=== PATIENT | female | born 1960 | race Caucasian/White ===

== ENCOUNTER 2020-04-29 08:45 | Outpatient (REF) | payer OTHER, SELFPAY ==
[2020-04-29 11:19] LABS: Blood Urea Nitrogen 12 mg/dL (9-16); Estimated Glomerular Filt Rate > 60
== END 2020-04-29 08:46 | disposition home or self-care (01) ==
LOC: HO.LAB 08:45
PROVIDERS: PCP Internal Medicine; Referring Provider Hospitalist; Visit Provider Surgery
DX: R10.33 Periumbilical pain (principal); Z87.19 Personal history of other diseases of the digestive system
CPT/HCPCS: 82565; 84520; 99212

== ENCOUNTER → 2020-08-02 13:28 | Outpatient (BNVA) | payer OTHER, SELFPAY | PROVIDERS: PCP Internal Medicine; Visit Provider Hospitalist | DX: R00.0 Tachycardia, unspecified (principal); R06.00 Dyspnea, unspecified; U07.1 COVID-19; J12.82 Pneumonia due to coronavirus disease 2019; M79.89 Other specified soft tissue disorders | CPT/HCPCS: 99202 ==

== ENCOUNTER 2020-08-03 09:13 | Outpatient (REF) | payer OTHER, SELFPAY ==
--- NOTE | 2020-08-03 09:39 | XR_ITS ---
EXAMINATION: XR CHEST CLINICAL INFORMATION: Positive Covid 19. Chest pain. COMPARISON: None TECHNIQUE: 2 views of the chest were obtained. FINDINGS: Lungs are well-expanded but clear. Heart size and pulmonary vascularity is normal. No gross bony abnormality seen. XR/XR chest 2V IMPRESSION: Unremarkable chest exam
[2020-08-03 09:46] LABS: MANUAL DIFF FLAG NO
[2020-08-03 09:53] LABS: Basophils Absolute Auto 0.1 X10*3/uL (0.0-0.2); Basophils Percent Auto 1.3 % (0-2); Eosinophils Absolute Auto 0.2 X10*3/uL (0.0-0.4); Eosinophils Percent Auto 2.4 % (0-4); Hematocrit 42.5 % (37-47); Hemoglobin 13.6 g/dl (12.0-16.0); Imm Gran Abs Auto 0.01 X10*3/uL (0.00-0.03); Imm Gran Pct Auto 0.2 % (0.0-0.4); Lymphocytes Absolute Auto 2.2 X10*3/uL (1.2-4.9); Mean Corpuscular Hemoglobin 28.8 pg (27.0-33.0); Mean Corpuscular Volume 89.9 fL (80-98); Mean Platelet Volume 8.6 fL (9.4-12.3); Monocytes Absolute Auto 0.4 X10*3/uL (0.1-1.2); Monocytes Percent Auto 5.5 % (2-11); Neutrophils Absolute Auto 3.6 X10*3/uL (2.0-8.3); Neutrophils Percent Auto 56.6 % (45-73); Platelet Count 329 X10*3/uL (160-400); Red Blood Count 4.73 X10*6/uL (4.20-5.50); Red Cell Distribution Width 12.8 % (11.0-16.0); White Blood Count 6.3 X10*3/uL (4.8-10.8)
[2020-08-03 10:11] LABS: D Dimer 224 NG/ML
[2020-08-03 10:24] LABS: Anion Gap 13 (12-20); B Type Natriuretic Peptide < 10 pg/mL (<100); Blood Urea Nitrogen 11 mg/dL (9-16); Calcium 9.5 mg/dL (8.4-10.2); Carbon Dioxide 27 mmol/L (22-29); Chloride 106 mmol/L (96-108); Estimated Glomerular Filt Rate > 60; Glucose Random 99 mg/dL (60-115); Potassium 4.3 mmol/L (3.3-5.1); Sodium 142 mmol/L (135-145); Troponin-I High Sensitivity < 3.5 ng/L (<3.5-17.0)
[2020-08-03 11:08] LABS: Erythrocyte Sedimentation Rate 13 MM/HR (0-20)
[2020-08-04 08:39] LABS: SARS COV2 IgG Positive (Negative)
== END 2020-08-03 09:14 | disposition home or self-care (01) ==
LOC: HO.LAB 09:13
PROVIDERS: PCP Internal Medicine; Visit Provider Hospitalist
DX: U07.1 COVID-19 (principal); J12.82 Pneumonia due to coronavirus disease 2019; R07.9 Chest pain, unspecified; R06.00 Dyspnea, unspecified; R00.0 Tachycardia, unspecified
CPT/HCPCS: 36415; 71046; 80048; 83880; 84484; 85025; 85379; 85652; 86769

== ENCOUNTER 2020-09-20 13:39 | Outpatient (REF) | payer OTHER, SELFPAY ==
--- NOTE | 2020-09-20 16:14 | PFT_ITS ---
INDICATION: COVID pneumonia. SPIROMETRY: The FEV1 to FVC of 99% with an FEV1 of 2.22 L, which is 86% predicted and an FVC of 2.26 L, which is 68% predicted. No significant response to bronchodilators noted. Maximum voluntary ventilation 110% predicted. LUNG VOLUMES: Total lung capacity 79% predicted with an expiratory reserve volume of 27% predicted. DIFFUSION CAPACITY: DLCO 77% predicted. COMPARISONS: None. INTERPRETATION: No obstructive ventilatory defect. No significant response to bronchodilators noted. Normal maximum voluntary ventilation. Lung volumes do demonstrate a mild restrictive ventilatory defect. She also has a decrease in the expiratory reserve volume likely from an elevated BMI. The patient also has mild diffusion impairment. Clinical correlation warranted. Miguel Magana MD MR/MODL / [id number]
== END 2020-09-20 13:40 | disposition home or self-care (01) ==
LOC: HO.RESP 13:39
PROVIDERS: PCP Internal Medicine; Visit Provider Hospitalist
DX: U07.1 COVID-19 (principal); J12.82 Pneumonia due to coronavirus disease 2019
CPT/HCPCS: 94060; 94727; 94729; 99212

== ENCOUNTER → 2020-10-04 09:13 | Outpatient (REF) | payer OTHER, SELFPAY ==
--- NOTE | 2020-10-04 09:15 | CA_ITS ---
Transthoracic Echocardiogram Patient (Last, First, Middle): Navya Gunter, Gender: Female Date of : 1960 Age: 59 Procedure Date: 10/04/2020 Procedure Type: Transthoracic Echocardiogram Location: OP Height: 162.56 cm Weight: 90.72 kg BSA: 1.96 m2 Heart Rate: bpm BP: 136 / 80 mmHg Otolaryngology Rep: Referring MD: Miguel Magana MD Offset Pressman: Rowdy Jimenez MD Symptoms: I27.20 - Pulmonary hypertension, unspecified Study Quality: Good ECG Rhythm: Sinus Conclusions: - 1. Normal LV systolic function with impaired relaxation filling pattern 2. Mild left atrial enlargement 3. Normal cardiac valvular Doppler 4. Normal RV systolic pressure 5. No pericardial effusion Findings Left Ventricle Normal left ventricular size, thickness, and systolic function. The visually estimated ejection fraction is between 60-65%. Spectral Doppler is indicative of an impaired relaxation filling pattern. E/E prime ratio is between 8 and 15 consistent with indeterminate filling pressures. Right Ventricle Normal right ventricular cavity size and systolic function. Atria The left atrium is mildly dilated. Interatrial shunt cannot be excluded. The right atrium is normal in size. Aortic Valve The aortic valve structure and function is likely normal. There is no aortic valve stenosis. There is no aortic valve regurgitation. Gradient across aortic valve is mildly increased Mitral Valve Normal mitral valve structure and function. There is trace mitral valve regurgitation. There is no mitral valve stenosis. Pulmonic Valve The pulmonic valve is likely normal. There is trace pulmonic valve regurgitation. Tricuspid Valve Normal tricuspid valve structure. The right ventricular systolic pressure is normal. The right ventricular systolic pressure is 29 mmHg. Normal right atrial pressure. There is no evidence of pulmonary hypertension. Great Vessels All visible segments of the aorta are normal in size. The pulmonary artery was not well visualized. Venous The inferior vena cava is normal in size and collapses greater than 50% with inspiration. Pericardium/Pleural There is no evidence of pericardial effusion. Prior Study Comparison No prior study available for comparison. Measurements 2D Linear Measurements IVSd: 1.05 0.6-0.9/0.6-1.0 cm LVIDd: 4.97 3.9-5.3/4.2-5.9 cm LVIDs: 3.00 2.0-3.6 cm LVPWd: 1.12 0.7-1.1 cm Ao Root: 3.26 2.1-3.5 cm LV Mass: 251.08 67-162/88-224 g LVOT Diam: 2.07 3.0+(-)1.3 cm Mitral Valve MV Pk E: 0.97 MV PK A: 0.99 MV Decel Time: 126.89 E/A: 0.97 E'Lateral: 0.07 E'Medial: 0.10 Decel Winn: 7.63 Aortic Valve AoV Pk Luis Alberto: 1.68 AoV Mn Luis Alberto: 1.32 AoV VTI: 0.45 AoV Pk Grad: 11.26 Aov Mn Grad: 7.71 LVOT LVOT Pk Luis Alberto: 0.87 LVOT Mn Luis Alberto: 0.57 LVOT VTI: 0.22 LVOT Pk Grad: 3.00 LVOT Mn Grad: 1.53 LVOT Diam: 2.07 LVOT Area: 3.38 Diastolic Function MV Pk E: 0.97 MV Pk A: 0.99 E/A: 0.97 E'Medial: 0.10 E' Laterial: 0.07 Tricuspid Valve TR Pk Luis Alberto: 2.55 TR Pk Grad: 26.00 RA Press: 3.00 RVSP: 29.00 Great Vessels Aorta Ao Root-2D: 3.26 2.0-3.7 cm Ao Asc: 3.05 2.1-3.4 cm Pulmonary Valve PV Pk Luis Alberto: 1.05 Peak PV Grad: 4.38 Updated in Other Vendor System with Status of Final Rowdy Jimenez MD electronically signed on 10/04/2020 12:21:35 PM with status of Final
== END ==
LOC: HO.CARD 09:13
PROVIDERS: Visit Provider Hospitalist
DX: I27.20 Pulmonary hypertension, unspecified (principal)
CPT/HCPCS: 93306

== ENCOUNTER → 2020-10-25 12:54 | Outpatient (BNVA) | payer OTHER, SELFPAY | PROVIDERS: PCP Internal Medicine; Visit Provider Hospitalist | DX: B94.8 Sequelae of other specified infectious and parasitic diseases (principal); M79.89 Other specified soft tissue disorders; R06.00 Dyspnea, unspecified; I51.89 Other ill-defined heart diseases; Z79.899 Other long term (current) drug therapy | CPT/HCPCS: 99212 ==

== ENCOUNTER → 2021-04-25 12:41 | Outpatient (BNVA) | payer OTHER, SELFPAY | PROVIDERS: PCP Internal Medicine; Visit Provider Hospitalist | DX: B94.8 Sequelae of other specified infectious and parasitic diseases (principal); J98.4 Other disorders of lung; R06.00 Dyspnea, unspecified; I51.89 Other ill-defined heart diseases; M79.89 Other specified soft tissue disorders; R00.0 Tachycardia, unspecified | CPT/HCPCS: 99212 ==

== ENCOUNTER → 2021-06-13 13:05 | Outpatient (BNVA) | payer OTHER, SELFPAY | PROVIDERS: PCP Registered Nurse; Visit Provider Hospitalist ==

== ENCOUNTER → 2022-07-24 13:48 | Outpatient (BNVA) | payer OTHER, SELFPAY | PROVIDERS: PCP Registered Nurse; Visit Provider Hospitalist | DX: J40 Bronchitis, not specified as acute or chronic (principal); J98.4 Other disorders of lung; R06.00 Dyspnea, unspecified; B94.8 Sequelae of other specified infectious and parasitic diseases; I51.89 Other ill-defined heart diseases | CPT/HCPCS: 99212 ==

== ENCOUNTER 2022-08-10 07:50 | Outpatient (REF) | payer OTHER, SELFPAY ==
--- NOTE | 2022-08-10 09:11 | PFT_ITS ---
Forced vital capacity 78%, FEV1 89%. [id number] 126%. MVV 89%. Post bronchodilator therapy, no improvement noted. Rather, there is some decline in all the numbers. Total lung capacity 79%. Residual volume 72%. Diffusion capacity 74% CONCLUSION: There is a mild degree of restrictive pulmonary disorder. No obstructive airway disorder. The patient has a negative response to bronchodilator therapy. Clinical correlation recommended. MD MIRNA Smith/PATEL / [id number]
== END 2022-08-10 07:51 | disposition home or self-care (01) ==
LOC: HO.RESP 07:50
PROVIDERS: PCP Registered Nurse; Visit Provider Hospitalist
DX: R06.00 Dyspnea, unspecified (principal); J98.4 Other disorders of lung
CPT/HCPCS: 94060; 94727; 94729

== ENCOUNTER 2022-12-20 09:19 | Outpatient (REF) | payer OTHER, SELFPAY | END 2022-12-20 09:20 | disposition home or self-care (01) | LOC: HO.HOSX 09:19 | PROVIDERS: Visit Provider Physician Assistant | DX: M17.11 Unilateral primary osteoarthritis, right knee (principal) | CPT/HCPCS: 99202 ==

== ENCOUNTER → 2022-12-25 13:41 | Outpatient (BNVA) | payer OTHER, SELFPAY | PROVIDERS: PCP Registered Nurse; Visit Provider Hospitalist | DX: J98.4 Other disorders of lung (principal); U09.9 Post COVID-19 condition, unspecified; R06.00 Dyspnea, unspecified; I51.89 Other ill-defined heart diseases | CPT/HCPCS: 99212 ==

== ENCOUNTER → 2022-12-27 10:23 | Outpatient (BNVA) | payer OTHER, SELFPAY | PROVIDERS: PCP Registered Nurse; Visit Provider Orthopaedic Surgery | DX: M17.11 Unilateral primary osteoarthritis, right knee (principal); M79.89 Other specified soft tissue disorders | CPT/HCPCS: 20610; 99212; J7323 ==

== ENCOUNTER → 2023-01-03 10:21 | Outpatient (BNVA) | payer OTHER, SELFPAY | PROVIDERS: PCP Registered Nurse; Visit Provider Orthopaedic Surgery | DX: M17.11 Unilateral primary osteoarthritis, right knee (principal) | CPT/HCPCS: 20610; 99212; J7323 ==

== ENCOUNTER 2023-01-10 10:13 | Outpatient (AMB) | payer OTHER, SELFPAY ==
--- NOTE | 2023-01-10 10:22 | MHC.OFFVIS ---
Intake Vital Signs 01/10/23 10:30 Height 5 ft 4 in Weight 194 lb BMI 33.3 Intake Visit Reasons: OV - Right Knee Euflexxa #3 Intake Note: Navya is a 62 year old female who presents today for a right knee euflexxa injection #3. She states that she has gotten mild relief from the 1st 2 injections. She denies any fevers or chills. Allergies codine Allergy (Severe, Uncoded 01/10/23 10:30) redness and itching penicillin Allergy (Severe, Uncoded 01/10/23 10:30) anaphylaxis soma Allergy (Severe, Uncoded 01/10/23 10:30) nausea and vomiting Medication List - Last Reconciled 01/10/23 by Michael Dickerson MD amlodipine 10 mg PO DAILY ascorbic acid (vitamin C) 1 g PO Q6H cholecalciferol (vitamin D3) 250 mcg PO DAILY elderberry fruit-honey 0.7-3 gram/7.5 mL mL PO DAILY furosemide (Lasix) 10 mg PO DAILY PRN metoprolol succinate ER 25 mg PO DAILY pantoprazole 20 mg PO DAILY red yeast rice 600 mg PO DAILY turmeric root extract 500 mg PO DAILY PFSH Medical History Chronic restrictive lung disease Diastolic dysfunction Dyspnea GERD (gastroesophageal reflux disease) HTN (hypertension) Limb swelling Obesity Pneumonia due to COVID-19 virus 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 Daughter No problems noted. Son No problems noted. Son No problems noted. 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 Physical Exam Vital Signs: BMI result Body Mass Index 33.3 Const Other: Well-nourished well-developed very friendly female awake alert and oriented x3 in no acute distress Extrem Other: Bilateral lower extremity examination shows good capillary refill, no skin lesions noted, normal sensation light touch Right knee examination shows a minimal effusion, palpable crepitus with range of motion, pain with range of motion, range of motion from -3 degrees to 115 degrees, no instability Office Procedures Joint Injection/Drain Joint Injection/Drain Primary Site: right knee Prep: site was prepped using aseptic technique Injected: 20 mg of (Euflexxa) Procedure: The patient tolerated the procedure well Coding - Large joint Procedure code (CPT) selection complete Results Reviewed Results Reviewed: 01/10/23 10:24 Hyaluronate Sodium [Euflexxa] 20 mg INTRAARTIC .STK-MED ONE Lidocaine HCl 2 % MPF [Xylocaine 2 % MPF] 5 ml .ROUTE .STK-MED ONE X-rays of the patient's right knee show joint space narrowing, subchondral sclerosis, no acute bony abnormalities Assessment & Plan Assessment & Plan (1) Arthritis of right knee: Code(s): M17.11 - Unilateral primary osteoarthritis, right knee Plan: Ms. Gunter presents with right knee pain due to degenerative joint disease. I had a lengthy discussion with the patient regarding the treatment options. She wishes to hold off on surgery for as long as possible. I agree with this plan. She tolerated the 3rd Euflexxa viscosupplementation injection well. She will continue with her home exercise program. She will follow up with me on an as-needed basis should her symptoms not plateau at an acceptable level over the next few months. If she fails continued non operative treatments we will further discuss the risks and benefits of right total knee replacement surgery. Feel free to call me at any time should questions regarding her orthopedic management arise. I spent 21 minutes in reviewing the patient's records and imaging studies, seeing the patient and documenting in the medical record. Orders: Orders AMB Joint Injection/Aspiration Today M17.11 - Unilateral primary osteoarthritis, right knee Coding Level of Care Code Est Pt Level 2 (10997) Diagnoses Arthritis of right knee M17.11 CPT Codes Coding - Large joint: 13689 - Large joint ([id number])
[2023-01-10 10:30] VITALS: BMI 33.3
== END 2023-01-10 10:51 | disposition home or self-care (01) ==
PROVIDERS: PCP Registered Nurse; Visit Provider Orthopaedic Surgery
DX: M17.11 Unilateral primary osteoarthritis, right knee (principal)
CPT/HCPCS: 20610

== ENCOUNTER → 2023-01-10 10:13 | Outpatient (BNVA) | payer OTHER, SELFPAY | PROVIDERS: PCP Registered Nurse; Visit Provider Orthopaedic Surgery | DX: M17.11 Unilateral primary osteoarthritis, right knee (principal) | CPT/HCPCS: 20610; J7323 ==

== ENCOUNTER 2023-03-12 13:11 | Outpatient (AMB) | payer OTHER, SELFPAY ==
[2023-03-12 13:13] VITALS: BMI 33.3
--- NOTE | 2023-03-12 13:13 | A.OFFVIS_ITS ---
Intake Vital Signs 03/12/23 13:13 Height 5 ft 4 in Weight 194 lb BMI 33.3 Intake Visit Reasons: [employer]ER [employer]YR[employer]ACHINE/Re-Ref for lymphedema,last seen 2018 Intake Note: Re-Ref for LE swelling, last OV 04/24/2018, Pt states that LE swelling has worsened over the last year, Dr. Negrete process eng started pt on Lasix and Dr. Maradiaga states that it's lymphedema and should be evaluated by Dr. Davis. Had recent R/O DVT US @ [facility] that came back negative Accompanied by: Self / Same As Patient Allergies codine Allergy (Severe, Uncoded 03/12/23 13:22) redness and itching penicillin Allergy (Severe, Uncoded 03/12/23 13:22) anaphylaxis soma Allergy (Severe, Uncoded 03/12/23 13:22) nausea and vomiting HPI [employer]ACHINE/Re-Ref for lymphedema,last seen 2018 HPI Details Very pleasant 62-year-old female presents for evaluation regarding swollen lower extremities. She is actually not well known to us for prior venous ablation done nearly 5 years ago. She had been doing well since that time and her last follow-up with us was on 04/24/2018. She had since that time has progressively swollen lower extremities. They have been a source of pain and discomfort for her. In addition she has had pain in the right lung in knee and leg and is going to be following up with orthopedics regarding that. 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 Daughter No problems noted. Son No problems noted. Son No problems noted. 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 Review of Systems Const Reports as per HPI ENT Reports no additional complaints Card Denies chest pain, Denies chest pain at rest and Denies chest pain with activity Resp Denies chest congestion and Denies cough GI Reports no additional complaints Musc Details: pain over varicosities, aching of lower extremities, swelling, cramping, heaviness and tiredness, itching Denies abnormal gait Skin/Breast Reports pruritus and Denies wounds Neuro Reports no additional complaints and Denies abnormal gait Psych Denies no additional complaints Physical Exam Vital Signs: BMI result Body Mass Index 33.3 Const General: cooperative, healthy appearing and comfortable Orientation/consciousness: oriented to person, oriented to place and oriented to time Neck Carotids: no bruits Chest Chest palpation & inspection: normal inspection of the chest and normal palpation of entire chest wall Resp Effort & Inspection: normal respiratory effort and able to speak in complete sentences Cardio Rate: regular rate Heart sounds: S1 normal heart sound present and S2 normal heart sound present Peripheral pulses: Peripheral pulses 2+ throughout GI Inspection: Yes normal to inspection Skin Other: +2 edema, large rope-like varicosities greater than 4 mm CEAP Classification C4 - skin color changes Ep - Etiology Primary As - superficial veins P - reflux General skin exam: dry skin Neuro General: oriented to person, oriented to place and oriented to time Extrem Right lower extremity: full ROM, normal capillary refill and edema Left lower extremity: full ROM, normal capillary refill and edema Psych Mental Status: mental status grossly normal Assessment & Plan Assessment & Plan (1) Varicose veins of right lower extremity with inflammation: Code(s): I83.11 - Varicose veins of right lower extremity with inflammation Plan: It has been nearly 5 years since any venous assessment was done on this patient. She continues to have progressively swollen lower extremities. I have taken the liberty of ordering repeat venous insufficiency testing. We did discuss conservative measures including compression elevation and exercise. She will follow up with us after testing (2) Lymphedema: Code(s): I89.0 - Lymphedema, not elsewhere classified Plan: Clinically she does demonstrate elements of lymphedema. I have taken the liberty of working up her venous disease. Should that prove to be negative may be eligible for lymphedema pumps. We will continue to monitor her status. We did encourage use of compression to see if that will provide any sort of relief. Once again she will follow up with us after venous insufficiency testing. Thank you for allowing us to assist in her care Orders: Orders US venous duplex LE BI 1 Week I83.11 - Varicose veins of right lower extremity with inflammation Coding Level of Care Code Est Pt Level 4 (65537) Diagnoses Varicose veins of right lower extremity with inflammation I83.11 Lymphedema I89.0
== END 2023-03-12 13:46 | disposition home or self-care (01) ==
PROVIDERS: PCP Registered Nurse; Visit Provider Surgery Vascular Surgery
DX: I83.11 Varicose veins of right lower extremity with inflammation (principal); I89.0 Lymphedema, not elsewhere classified
CPT/HCPCS: 99214

== ENCOUNTER → 2023-03-12 13:11 | Outpatient (BNVA) | payer OTHER, SELFPAY | PROVIDERS: PCP Registered Nurse; Visit Provider Surgery Vascular Surgery | DX: I83.11 Varicose veins of right lower extremity with inflammation (principal); I89.0 Lymphedema, not elsewhere classified | CPT/HCPCS: 99212 ==

== ENCOUNTER 2023-03-26 14:19 | Outpatient (AMB) | payer OTHER, SELFPAY ==
[2023-03-26 14:21] VITALS: BMI 33.3
--- NOTE | 2023-03-26 14:21 | A.OFFVIS_ITS ---
Intake Vital Signs 03/26/23 14:21 Height 5 ft 4 in Weight 194 lb BMI 33.3 Intake Visit Reasons: ov - Right Knee pain Intake Note: Navya is a 62 year old female who presents today for a follow up of her right knee after finishing her Euflexxa series. Last Euflexxa injection was administered on 01/10/23. Patient reports that she has not had much relief. She continues to take Tylenol for discomfort. She denies any fevers or chills. She continues with her home exercise program. She has done physical therapy exercises which aggravated her pain. She would like to hold off on total knee replacement surgery for as long as possible. Allergies codine Allergy (Severe, Uncoded 03/26/23 14:25) redness and itching penicillin Allergy (Severe, Uncoded 03/26/23 14:25) anaphylaxis soma Allergy (Severe, Uncoded 03/26/23 14:25) nausea and vomiting Medication List - Last Reconciled 03/26/23 by Michael Dickerson MD amlodipine 10 mg PO DAILY ascorbic acid (vitamin C) 1 g PO Q6H cholecalciferol (vitamin D3) 250 mcg PO DAILY elderberry fruit-honey 0.7-3 gram/7.5 mL mL PO DAILY furosemide (Lasix) 10 mg PO DAILY PRN metoprolol succinate ER 25 mg PO DAILY pantoprazole 20 mg PO DAILY red yeast rice 600 mg PO DAILY turmeric root extract 500 mg PO DAILY PFSH Medical History Chronic restrictive lung disease Diastolic dysfunction 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 Daughter No problems noted. Son No problems noted. Son No problems noted. 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 Physical Exam Vital Signs: BMI result Body Mass Index 33.3 Const Other: Well-nourished well-developed very friendly female awake alert and oriented x3 in no acute distress Extrem Other: Bilateral lower extremity examination shows good capillary refill, no skin lesions noted, normal sensation light touch Right knee examination shows a minimal effusion, palpable crepitus with motion, pain with range of motion, range of motion from -3 degrees to 115 degrees, no instability Results Reviewed Results Reviewed: X-rays of the patient's right knee taken previously show joint space narrowing, subchondral sclerosis, no acute bony abnormalities Assessment & Plan Assessment & Plan (1) Arthritis of right knee: Code(s): M17.11 - Unilateral primary osteoarthritis, right knee Plan: Ms. Gunter presents with right knee pain due to degenerative joint disease. I had a lengthy discussion with the patient regarding the treatment options. We will hold off on a cortisone injection because of her recent viscosupplementation injections. Activity modifications were discussed at length with the patient. She will contact me prior to her follow-up appointment in 4-6 weeks should any questions or concerns arise. Feel free to call me at any time should questions regarding her orthopedic management arise. I spent 22 minutes in reviewing the patient's records and imaging studies, seeing the patient and documenting in the medical record. Coding Level of Care Code Est Pt Level 2 (49874) Diagnoses Arthritis of right knee M17.11
== END 2023-03-26 14:38 | disposition home or self-care (01) ==
PROVIDERS: PCP Registered Nurse; Visit Provider Orthopaedic Surgery
DX: M17.11 Unilateral primary osteoarthritis, right knee (principal)
CPT/HCPCS: 99212

== ENCOUNTER → 2023-03-26 14:19 | Outpatient (BNVA) | payer OTHER, SELFPAY | PROVIDERS: PCP Registered Nurse; Visit Provider Orthopaedic Surgery | DX: M17.11 Unilateral primary osteoarthritis, right knee (principal); M25.561 Pain in right knee; I83.11 Varicose veins of right lower extremity with inflammation | CPT/HCPCS: 99212 ==

== ENCOUNTER 2023-03-29 08:21 | Outpatient (REF) | payer OTHER, SELFPAY ==
--- NOTE | ~2023-03-29 | US_ITS ---
EXAMINATION: RIGHT and LEFT LOWER EXTREMITY VENOUS ULTRASOUND (Reflux Exam) CLINICAL INDICATION: Varicose veins of right lower extremity with inflammation COMPARISON: None. TECHNIQUE: Color flow triplex imaging and compression Doppler was performed to evaluate both the deep and the superficial systems bilaterally. To evaluate the superficial system, the examination was performed in the upright position. Color-flow Doppler ultrasound and compression ultrasound were utilized. In addition, maneuvers were utilized to demonstrate reflux. FINDINGS: 1. DEEP VENOUS ULTRASOUND OF THE RIGHT LOWER EXTREMITY: Respiratory variation, normal compression and augmented flow are noted in the right common femoral vein as well as the right popliteal vein and there is no evidence of deep venous thrombosis at these locations. There is no evidence of reflux in the deep system in either the common femoral vein or the popliteal vein. There is no evidence of a Biggs's cyst. 2. SUPERFICIAL ULTRASOUND WITH DOPPLER OF RIGHT LOWER EXTREMITY: The right great saphenous vein at the saphenofemoral junction measures 10 mm, at the mid thigh 7 mm, [id number] 4 mm, at mid calf 2 mm and at the ankle measures 3 mm. The right greater saphenous vein above the knee and at the knee is not seen. There is reflux in the right greater saphenous vein measuring 1.2 seconds at the saphenofemoral junction, greater than 2.2 seconds in the proximal thigh and 1 seconds in the mid calf. There is an accessory medial greater saphenous vein that measures 4 mm with no reflux. The right small saphenous vein measures 2 to 3 mm and 5 mm at the saphenofemoral popliteal junction and shows no reflux. Vein of Giacomini measures 5 mm with no reflux. There are 4 perforators in the calf measuring 2 to 7 mm with no reflux. There are multiple, at least 7, varicosities. There is a 5 mm varicosity communicating with the distal lesser saphenous vein with 0.8 second reflux. There is a varicosity in the mid calf measuring 4 mm with 1.2 seconds reflux and measuring 6 mm with 1.4 seconds reflux. 3. DEEP VENOUS ULTRASOUND OF THE LEFT LOWER EXTREMITY: Respiratory variation, normal compression and augmented flow are noted in the left common femoral vein as well as the left popliteal vein and there is no evidence of deep venous thrombosis at these locations. There is no evidence of reflux in the deep system in either the common femoral vein or the popliteal vein. . There is no evidence of a Biggs's cyst. 4. SUPERFICIAL ULTRASOUND WITH DOPPLER OF LEFT LOWER EXTREMITY: Left great saphenous vein at the saphenofemoral junction measures 1 mm, at the proximal thigh 8 mm, not seen in the mid thigh, [id number] 2 mm, [id number] 3 mm, at mid calf 2 mm and at the ankle measures 3 mm. There is left greater saphenous vein reflux measuring 1.4 seconds at the saphenofemoral junction, greater than 2.5 second in the proximal thigh and greater than 2.7 seconds below the knee. The left small saphenous vein measures 2-3 mm and 4 mm at the saphenofemoral popliteal junction and shows no reflux. There are multiple, at least 6, perforators in the thigh and calf measuring 2 to 5 mm without reflux. There are 3 varicosities in the left thigh and calf. There is a 5 mm varicosity in the proximal thigh that measures 5 mm and demonstrates greater than 2.1 seconds reflux. There are smaller varicosities in the calf measuring 3 to 4 mm without reflux. US/US venous duplex LE BI IMPRESSION: Right: No DVT. No deep venous reflux. Right greater saphenous vein above the knee and at the knee not seen. Right greater saphenous vein reflux measuring maximum greater than 2.2 seconds in the proximal thigh. Multiple perforators without reflux. Multiple varicosities, at least 7, 3 with reflux in the calf. Left: No DVT. No deep venous reflux. Left greater saphenous vein in the mid thigh not seen. Left greater saphenous vein reflux measuring maximum 2.5 seconds in the proximal thigh. Multiple perforators, at least 6, without reflux. Varicosity in the proximal thigh with reflux.
== END 2023-03-29 08:22 | disposition home or self-care (01) ==
LOC: HO.US 08:21
PROVIDERS: PCP Registered Nurse; Visit Provider Surgery Vascular Surgery
DX: I83.11 Varicose veins of right lower extremity with inflammation (principal)
CPT/HCPCS: 93970

== ENCOUNTER 2023-04-23 14:54 | Outpatient (AMB) | payer OTHER, SELFPAY ==
--- NOTE | 2023-04-23 14:58 | A.OFFVIS_ITS ---
Intake Intake Visit Reasons: Follow UP 03/29 Intake Note: pt here for FU on 03/29/23 she has a hx of VV she states her legs are still filling tired and sore Allergies codine Allergy (Severe, Uncoded 03/26/23 14:25) redness and itching penicillin Allergy (Severe, Uncoded 03/26/23 14:25) anaphylaxis soma Allergy (Severe, Uncoded 03/26/23 14:25) nausea and vomiting HPI Follow UP 03/29 HPI Details Very pleasant 62-year-old female presents for follow-up regarding venous insufficiency. She originally had venous procedures performed nearly 5 years ago in bilateral lower extremities. She continues to have swelling right more so than left. She has used compression and actually Boom presented to the office with compression stockings on. It has been affecting her daily activities and she is having difficulty ambulating. She now presents to us for follow-up. 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 Daughter No problems noted. Son No problems noted. Son No problems noted. 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 Review of Systems Const Reports as per HPI ENT Reports no additional complaints Card Denies chest pain, Denies chest pain at rest and Denies chest pain with activity Resp Denies chest congestion and Denies cough GI Reports no additional complaints Musc Details: pain over varicosities, aching of lower extremities, swelling, cramping, heaviness and tiredness, itching Denies abnormal gait Skin/Breast Reports pruritus and Denies wounds Neuro Reports no additional complaints and Denies abnormal gait Psych Denies no additional complaints Physical Exam Const General: cooperative, healthy appearing and comfortable Orientation/consciousness: oriented to person, oriented to place and oriented to time Neck Carotids: no bruits Chest Chest palpation & inspection: normal inspection of the chest and normal palpation of entire chest wall Resp Effort & Inspection: normal respiratory effort and able to speak in complete sentences Cardio Rate: regular rate Heart sounds: S1 normal heart sound present and S2 normal heart sound present Peripheral pulses: Peripheral pulses 2+ throughout GI Inspection: Yes normal to inspection Skin Other: +2 edema, CEAP Classification C4 - skin color changes Ep - Etiology Primary As - superficial veins P - reflux General skin exam: dry skin Neuro General: oriented to person, oriented to place and oriented to time Extrem Right lower extremity: full ROM, normal capillary refill and edema Left lower extremity: full ROM, normal capillary refill and edema Psych Mental Status: mental status grossly normal Results Reviewed Results Reviewed: Brief summary of venous insufficiency testing is as follows: right great saphenous vein: Positive right small saphenous vein: negative right accessory vein: none present left great saphenous vein: Positive left small saphenous vein: negative left accessory vein: none present Please note there is no evidence of any venous aneurysms or significant tortuosity Assessment & Plan Assessment & Plan (1) Varicose veins of right lower extremity with inflammation: Code(s): I83.11 - Varicose veins of right lower extremity with inflammation Plan: This patient has varicose veins with inflammation. They continue to be a source of discomfort for the patient. The patient has tried conservative treatment with compression, leg elevation and exercise program for over 3 months time. They have been compliant with all treatment. This has provided minimal relief for the patient. I do not anticipate this course of treatment will alter the underlying etiology. The patient has been scheduled for lower extremity venous treatment inclusive of --- right great saphenous vein radiofrequency ablation. Risks, benefits, and complications of this procedure has been discussed in detail with the patient including but not limited to bleeding, infection, and the development of a DVT. The patient has demonstrated a clear understanding and has consented. We will schedule the patient as soon as possible. Thank you for allowing us to participate in this patient's care. If there are any questions or concerns please do not hesitate to contact us. Coding Level of Care Code Est Pt Level 4 (07989) Diagnoses Varicose veins of right lower extremity with inflammation I83.11
== END 2023-04-23 15:17 | disposition home or self-care (01) ==
PROVIDERS: PCP Registered Nurse; Visit Provider Surgery Vascular Surgery
DX: I83.11 Varicose veins of right lower extremity with inflammation (principal)
CPT/HCPCS: 99214

== ENCOUNTER → 2023-04-23 14:54 | Outpatient (BNVA) | payer OTHER, SELFPAY | PROVIDERS: PCP Registered Nurse; Visit Provider Surgery Vascular Surgery | DX: I83.11 Varicose veins of right lower extremity with inflammation (principal) | CPT/HCPCS: 99212 ==

== ENCOUNTER 2023-04-25 14:19 | Outpatient (AMB) | payer OTHER, SELFPAY ==
--- NOTE | 2023-04-25 14:39 | MHC.OFFVIS ---
Intake Intake Visit Reasons: ov - Right Knee pain Intake Note: This is a 62 year old female who presents for right knee pain. The patient describes her pain as sharp in nature. She has had cortisone injections in the past which gave her temporary relief. She has also had viscosupplementation injections which gave her good relief. She has tried Tylenol and anti-inflammatory medicines which gave her minimal relief. She has also done physical therapy which aggravated her pain. She wishes to hold off on right total knee replacement surgery for as long as possible. Allergies codine Allergy (Severe, Uncoded 04/25/23 14:42) redness and itching penicillin Allergy (Severe, Uncoded 04/25/23 14:42) anaphylaxis soma Allergy (Severe, Uncoded 04/25/23 14:42) nausea and vomiting Medication List - Last Reconciled 04/25/23 by Deysi Erazo RN amlodipine 10 mg PO DAILY ascorbic acid (vitamin C) 1 g PO Q6H cholecalciferol (vitamin D3) 250 mcg PO DAILY elderberry fruit-honey 0.7-3 gram/7.5 mL mL PO DAILY furosemide (Lasix) 10 mg PO DAILY PRN metoprolol succinate ER 25 mg PO DAILY pantoprazole 20 mg PO DAILY red yeast rice 600 mg PO DAILY turmeric root extract 500 mg PO DAILY PFSH Medical History Chronic restrictive lung disease Diastolic dysfunction [id number] syndrome Limb swelling Pneumonia due to COVID-19 virus Dyspnea Tachycardia HTN (hypertension) GERD (gastroesophageal reflux disease) Obesity Surgical History Hx of cataract surgery History of unilateral fallopian tube excision History of parotid gland removal Hx of umbilical hernia repair Family History Mother Leukemia Father Heart disease Hypertension Hyperlipidemia Diabetes Colitis Sister No problems noted. Daughter No problems noted. Son No problems noted. Son No problems noted. 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 Physical Exam Const Other: Well-nourished well-developed very friendly female awake alert and oriented x3 in no acute distress Extrem Other: Bilateral lower extremity examination shows good capillary refill, no skin lesions noted, normal sensation light touch Right knee examination shows a minimal effusion, palpable crepitus with range of motion, pain with range of motion, range of motion from -3 degrees to 115 degrees, no instability Office Procedures Joint Injection/Drain Joint Injection/Drain Primary Site: right knee Prep: site was prepped using aseptic technique Injected: 40 mg of, Kenalog and 1% plain lidocaine Procedure: The patient tolerated the procedure well Coding - Large joint Procedure code (CPT) selection complete Results Reviewed Results Reviewed: 04/25/23 14:45 Lidocaine HCl 2 % MPF [Xylocaine 2 % MPF] 5 ml .ROUTE .STK-MED ONE Triamcinolone Acetonide [Kenalog-40] 40 mg .ROUTE .STK-MED ONE X-rays of the patient's right knee show joint space narrowing, subchondral sclerosis, no acute bony abnormalities Assessment & Plan Assessment & Plan (1) Arthritis of right knee: Code(s): M17.11 - Unilateral primary osteoarthritis, right knee Plan: Ms. Gunter presents with right knee pain due to degenerative joint disease. I had a lengthy discussion with the patient regarding the treatment options. She wishes to hold off on right total knee replacement surgery for as long as possible. I agree with this plan. The risks and benefits of a right knee cortisone injection were discussed at length with the patient. The patient wished to proceed. She tolerated the injection well. She will continue with her home exercise program. If she does not get lasting relief from the cortisone injection therapy I will see whether not her insurance company will cover a viscosupplementation injection. Feel free to call me at any time should questions regarding her orthopedic management arise. I spent 22 minutes in reviewing the patient's records and imaging studies, seeing the patient and documenting in the medical record. Orders: Orders AMB Joint Injection/Aspiration 04/25/23 M17.11 - Unilateral primary osteoarthritis, right knee Coding Level of Care Code Est Pt Level 2 (49128) Diagnoses Arthritis of right knee M17.11 CPT Codes Coding - Large joint: 86128 - Large joint ([id number])
== END 2023-04-25 15:09 | disposition home or self-care (01) ==
PROVIDERS: PCP Registered Nurse; Visit Provider Orthopaedic Surgery
DX: M17.11 Unilateral primary osteoarthritis, right knee (principal)
CPT/HCPCS: 20610; 99213

== ENCOUNTER → 2023-04-25 14:19 | Outpatient (BNVA) | payer OTHER, SELFPAY | PROVIDERS: PCP Registered Nurse; Visit Provider Orthopaedic Surgery | DX: M17.11 Unilateral primary osteoarthritis, right knee (principal) | CPT/HCPCS: 20610; 99212; J3301 ==

== ENCOUNTER 2023-05-31 08:27 | Outpatient (AMB) | payer OTHER, SELFPAY ==
[2023-05-31 09:24] VITALS: BMI 33.3
--- NOTE | 2023-05-31 09:24 | MHC.OFFVIS ---
Intake Vital Signs 05/31/23 09:24 Height 5 ft 4 in Weight 194 lb BMI 33.3 Intake Visit Reasons: Right GSV RFA Allergies codine Allergy (Severe, Uncoded 05/31/23 09:42) redness and itching penicillin Allergy (Severe, Uncoded 05/31/23 09:42) anaphylaxis soma Allergy (Severe, Uncoded 05/31/23 09:42) nausea and vomiting PFSH Medical History Chronic restrictive lung disease Diastolic dysfunction [id number] syndrome Limb swelling Pneumonia due to COVID-19 virus Dyspnea Tachycardia HTN (hypertension) GERD (gastroesophageal reflux disease) Obesity Surgical History Hx of cataract surgery History of unilateral fallopian tube excision History of parotid gland removal Hx of umbilical hernia repair Family History Mother Leukemia Father Heart disease Hypertension Hyperlipidemia Diabetes Colitis Sister No problems noted. Daughter No problems noted. Son No problems noted. Son No problems noted. 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 Anesthesia: Local infiltration 5 cc, Tumescent 200 cc. Estimated Blood Loss: Minimal Specimen: Varicose veins The patient was transferred to the procedure suite and the insufficient saphenous vein was mapped by ultrasound and diagrammed on the overlying skin. The depth and diameter of the vein(s) to be treated was documented. The varicose tributary veins and suitable access sites were identified and mapped as well. The patient was then positioned supine on the procedure table. The affected limb was prepped and draped in the usual sterile fashion. The RF catheter was placed on the sterile field, flushed and wiped down, prepared, and connected by a sterile cable. The patient was placed in reverse- Trendelenburg position and local anesthesia was instilled in the skin overlying the access site. A skin incision was made overlying the identified and mapped great saphenous vein entry site. The vein was accessed using ultrasound guidance and the Seldinger technique, a guide wire was introduced through the needle, which was then exchanged over the guide wire for a 6F sheath, which was secured in place. The guide wire was removed and the sheath was flushed. The RF catheter was placed into the vein through the sheath and preferentially, imaging was used to place the catheter tip just inferior to the superficial epigastric vein to preserve normal physiological flow in that vein. Additionally, it was confirmed by ultrasound guidance that the catheter tip was also placed a minimum of 1.5cm distal to the saphenofemoral junction. After the RF catheter position was verified by ultrasound, tumescent anesthesia was infiltrated, under ultrasound guidance, precisely into the perivenous compartment along the entire length of vein from the entry site to the saphenofemoral junction until a halo of fluid was noted around the vein. The patient was then placed in Trendelenburg position to further exsanguinate the superficial venous system. After RF catheter position was again confirmed with ultrasound imaging, and under direct external compression along the length of the heating element, RF energy was applied. The vein was segmentally ablated by heating a 8 cm segment and then indexing the catheter forward by 6.5 cm until the treatment length is completed. Device temperature was maintained at 120 plus or minus 5 degrees C with an initial power level of 40W dropping to below 20W for each treatment. Total vein length treated 16 cm Total cycles of RF 4. Repeat ultrasound of the saphenous vein was performed, confirming successful treatment. The catheter and sheath were withdrawn and hemostasis established with direct pressure. After assuring hemostasis, the skin incision over the saphenous vein was closed with a bandage and a compression wrap, and/ or graduated compression stocking was applied from the level of the foot to the most proximal level of the thigh. 12841 - Endovenous RF, 1st Vein 64935 - RF Ablation, subsequent vein All charges added?: Procedure code (CPT) selection complete Assessment & Plan Assessment & Plan (1) Varicose veins of right lower extremity with inflammation: Code(s): I83.11 - Varicose veins of right lower extremity with inflammation Plan: See procedure note Coding Level of Care Code Procedure Only Diagnoses Varicose veins of right lower extremity with inflammation I83.11 CPT Codes Details - Vascular 1: 35623 - Endovenous RF, 1st Vein ([id number]) Details - Vascular 2: 79776 - RF Ablation, subsequent vein ([id number])
== END 2023-05-31 09:20 | disposition home or self-care (01) ==
PROVIDERS: PCP Registered Nurse; Visit Provider Surgery Vascular Surgery
DX: I83.11 Varicose veins of right lower extremity with inflammation (principal)
CPT/HCPCS: 36475; 36476

== ENCOUNTER → 2023-05-31 08:27 | Outpatient (BNVA) | payer OTHER, SELFPAY | PROVIDERS: PCP Registered Nurse; Visit Provider Surgery Vascular Surgery | DX: I83.11 Varicose veins of right lower extremity with inflammation (principal) | CPT/HCPCS: 36475; 36476 ==

== ENCOUNTER 2023-06-03 15:56 | Outpatient (REF) | payer OTHER, SELFPAY ==
--- NOTE | ~2023-06-03 | US_ITS ---
EXAMINATION: TRIPLEX SCANNING OF RIGHT LOWER EXTREMITY; SUPERFICIAL ULTRASOUND WITH DOPPLER OF RIGHT LOWER EXTREMITY CLINICAL INFORMATION: Status post RF ablation of the right great saphenous vein originally performed on 05/31/2023. COMPARISON: Preprocedure studies. TECHNIQUE: Color flow triplex imaging and compression Doppler were performed as well as superficial ultrasound with Doppler. FINDINGS: TRIPLEX SCANNING OF RIGHT LOWER EXTREMITY: Respiratory variation, normal compression and augmented flow are noted throughout the lower extremity. The visualized common femoral vein, femoral vein, profunda femoral vein, popliteal vein and the calf veins show no evidence of deep venous thrombosis. There is no evidence of Biggs's cyst. SUPERFICIAL ULTRASOUND WITH DOPPLER OF RIGHT LOWER EXTREMITY: The right great saphenous vein is occluded from the access site to 3.1 cm before the saphenofemoral junction. There is no extension of thrombus into the deep system. US/US venous duplex LE RT IMPRESSION: 1. Normal triplex scan of the right without evidence of deep venous thrombosis. 2. Excellent appearance status post ablation of the right great saphenous vein.
== END 2023-06-03 15:57 | disposition home or self-care (01) ==
LOC: HO.US 15:56
PROVIDERS: PCP Registered Nurse; Visit Provider Surgery Vascular Surgery
DX: M79.604 Pain in right leg (principal)
CPT/HCPCS: 93971

== ENCOUNTER 2023-06-13 09:52 | Outpatient (AMB) | payer OTHER, SELFPAY ==
[2023-06-13 10:00] VITALS: BMI 33.3
--- NOTE | 2023-06-13 10:00 | A.OFFVIS_ITS ---
Intake Vital Signs 06/13/23 10:00 Height 5 ft 4 in Weight 194 lb BMI 33.3 Intake Visit Reasons: 2 week follow up Right GSV RFA 05/31/23 Intake Note: 2 week follow up Right GSV RFA 05/31/2023nd Hx of bilateral venous procedures over 5 years ago as well. Pt states Right LE is starting to improve, she had swelling, heaviness and soreness before procedure. Pt states Left LE isn't to bad right now either. Accompanied by: Self / Same As Patient Allergies codine Allergy (Severe, Uncoded 06/13/23 10:07) redness and itching penicillin Allergy (Severe, Uncoded 06/13/23 10:07) anaphylaxis soma Allergy (Severe, Uncoded 06/13/23 10:07) nausea and vomiting HPI 2 week follow up Right GSV RFA 05/31/23 HPI Details Very pleasant 62-year-old female presents for follow-up evaluation status post right great saphenous vein radiofrequency ablation. She reports that the leg is doing better. She has decreased swelling and discomfort. She has some mild discomfort of the left lower extremity but nothing significant at the current time. She now presents for routine postprocedure follow-up. Of note postprocedure ultrasound was negative for DVT PFSH Medical History Chronic restrictive lung disease Diastolic dysfunction [id number] syndrome Limb swelling Pneumonia due to COVID-19 virus Dyspnea Tachycardia HTN (hypertension) GERD (gastroesophageal reflux disease) Obesity Surgical History Hx of cataract surgery History of unilateral fallopian tube excision History of parotid gland removal Hx of umbilical hernia repair Family History Mother Leukemia Father Heart disease Hypertension Hyperlipidemia Diabetes Colitis Sister No problems noted. Daughter No problems noted. Son No problems noted. Son No problems noted. 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 Review of Systems Const Reports as per HPI ENT Reports no additional complaints Card Denies chest pain, Denies chest pain at rest and Denies chest pain with activity Resp Denies chest congestion and Denies cough GI Reports no additional complaints Musc Details: pain over varicosities, aching of lower extremities, swelling, cramping, heaviness and tiredness, itching Denies abnormal gait Skin/Breast Reports pruritus and Denies wounds Neuro Reports no additional complaints and Denies abnormal gait Psych Denies no additional complaints Physical Exam Vital Signs: BMI result Body Mass Index 33.3 Const General: cooperative, healthy appearing and comfortable Orientation/consciousness: oriented to person, oriented to place and oriented to time Neck Carotids: no bruits Chest Chest palpation & inspection: normal inspection of the chest and normal p alpation of entire chest wall Resp Effort & Inspection: normal respiratory effort and able to speak in complete sentences Cardio Rate: regular rate Heart sounds: S1 normal heart sound present and S2 normal heart sound present Peripheral pulses: Peripheral pulses 2+ throughout GI Inspection: Yes normal to inspection Skin Other: +2 edema CEAP Classification C4 - skin color changes Ep - Etiology Primary As - superficial veins P - reflux General skin exam: dry skin Neuro General: oriented to person, oriented to place and oriented to time Extrem Right lower extremity: full ROM, normal capillary refill and edema Left lower extremity: full ROM, normal capillary refill and edema Psych Mental Status: mental status grossly normal Results Reviewed Results Reviewed: Brief summary of venous insufficiency testing is as follows: right great saphenous vein: Ablated right small saphenous vein: negative right accessory vein: none present left great saphenous vein: More junctional reflux left small saphenous vein: negative left accessory vein: none present Please note there is no evidence of any venous aneurysms or significant tortuosity Assessment & Plan Assessment & Plan (1) Varicose veins of right lower extremity with inflammation: Comment: 05/31/2023- right great saphenous vein radiofrequency ablation Code(s): I83.11 - Varicose veins of right lower extremity with inflammation Plan: Patient has done well with right great saphenous vein ablation. Would continue with conservative measures inclusive of compression, elevation and exercise. At the current time non interested in any further treatment of the left lower extremity as it seems to be doing clinically well. Should this become a problem in the future she was requested to contact us and follow back up with us. Thank you for allowing us to participate in the care of this very nice patient. Should there be any questions or concerns please do not hesitate to contact us Coding Level of Care Code Est Pt Level 3 (18115) Diagnoses Varicose veins of right lower extremity with inflammation I83.11
== END 2023-06-13 10:24 | disposition home or self-care (01) ==
PROVIDERS: PCP Registered Nurse; Visit Provider Surgery Vascular Surgery
DX: I83.11 Varicose veins of right lower extremity with inflammation (principal)
CPT/HCPCS: 99213

== ENCOUNTER → 2023-06-13 09:52 | Outpatient (BNVA) | payer OTHER, SELFPAY | PROVIDERS: PCP Registered Nurse; Visit Provider Surgery Vascular Surgery | DX: I83.11 Varicose veins of right lower extremity with inflammation (principal) | CPT/HCPCS: 99212 ==

== ENCOUNTER 2023-07-24 11:15 | Outpatient (AMB) | payer OTHER, SELFPAY ==
[2023-07-24 11:22] VITALS: BMI 33.3
--- NOTE | 2023-07-24 11:22 | MHC.OFFVIS ---
Intake Vital Signs 07/24/23 11:22 Height 5 ft 4 in Weight 194 lb BMI 33.3 Intake Visit Reasons: ov- right knee Euflexxa #1 Intake Note: Navya is a 62 year old female who presents with complaints of progressively worsening right knee pain. She has had cortisone injections in the past which gave her minimal relief. She has also had viscosupplementation injections which gave her good relief. She has tried Tylenol and anti-inflammatory medicines which gave her only mild relief. She wishes to hold off on surgery for as long as possible. She has done physical therapy exercises which aggravated her pain. Allergies codine Allergy (Severe, Uncoded 06/13/23 10:07) redness and itching penicillin Allergy (Severe, Uncoded 06/13/23 10:07) anaphylaxis soma Allergy (Severe, Uncoded 06/13/23 10:07) nausea and vomiting Medication List - Last Reconciled 07/24/23 by Michael Dickerson MD amlodipine 10 mg PO DAILY ascorbic acid (vitamin C) 1 g PO Q6H cholecalciferol (vitamin D3) 250 mcg PO DAILY elderberry fruit-honey 0.7-3 gram/7.5 mL mL PO DAILY furosemide (Lasix) 10 mg PO DAILY PRN metoprolol succinate ER 25 mg PO DAILY pantoprazole 20 mg PO DAILY red yeast rice 600 mg PO DAILY turmeric root extract 500 mg PO DAILY PFSH Medical History Chronic restrictive lung disease Diastolic dysfunction [id number] syndrome Limb swelling Pneumonia due to COVID-19 virus Dyspnea Tachycardia HTN (hypertension) GERD (gastroesophageal reflux disease) Obesity Surgical History Hx of cataract surgery History of unilateral fallopian tube excision History of parotid gland removal Hx of umbilical hernia repair Family History Mother Leukemia Father Heart disease Hypertension Hyperlipidemia Diabetes Colitis Sister No problems noted. Daughter No problems noted. Son No problems noted. Son No problems noted. 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: [employer]/ right hand dominant Physical Exam Vital Signs: BMI result Body Mass Index 33.3 Const Other: Well-nourished well-developed very friendly female awake alert and oriented x3 in no acute distress Extrem Other: Bilateral lower extremity examination shows good capillary refill, no skin lesions noted, normal sensation light touch Right knee examination shows a minimal effusion, palpable crepitus with range of motion, pain with range of motion, no instability Office Procedures Joint Injection/Drain Joint Injection/Drain Primary Site: right knee Prep: site was prepped using aseptic technique Injected: 20 mg of (Euflexxa) and 1% plain lidocaine Coding - Large joint Procedure code (CPT) selection complete Results Reviewed Results Reviewed: X-rays of the patient's right knee show joint space narrowing, subchondral sclerosis, no acute bony abnormalities Assessment & Plan Assessment & Plan (1) Arthritis of right knee: Code(s): M17.11 - Unilateral primary osteoarthritis, right knee Plan Ms. Gunter presents with progressively worsening right knee pain due to degenerative joint disease. I had a lengthy discussion with the patient regarding the treatment options. She wishes to hold off on surgery for as long as possible. I agree with this plan. She has not gotten good relief from cortisone injections in the past. Thus, the risks and benefits of a series of viscosupplementation injections were discussed at length with the patient. The patient wished to proceed. She tolerated the 1st Euflexxa injection well. She will follow up next week as scheduled. Feel free to call me at any time should questions regarding her orthopedic management arise. I spent 22 minutes in reviewing the patient's records and imaging studies, seeing the patient and documenting in the medical record. Orders: Orders AMB Joint Injection/Aspiration Today M17.11 - Unilateral primary osteoarthritis, right knee Coding Level of Care Code Est Pt Level 2 (10534) Diagnoses Arthritis of right knee M17.11 CPT Codes Coding - Large joint: 67454 - Large joint ([id number])
== END 2023-07-24 12:25 | disposition home or self-care (01) ==
PROVIDERS: PCP Registered Nurse; Visit Provider Orthopaedic Surgery
DX: M17.11 Unilateral primary osteoarthritis, right knee (principal)
CPT/HCPCS: 20610

== ENCOUNTER → 2023-07-24 11:15 | Outpatient (BNVA) | payer OTHER, SELFPAY | PROVIDERS: PCP Registered Nurse; Visit Provider Orthopaedic Surgery | DX: M17.11 Unilateral primary osteoarthritis, right knee (principal) | CPT/HCPCS: 20610; J7323 ==

== ENCOUNTER 2023-07-30 14:17 | Outpatient (AMB) | payer OTHER, SELFPAY ==
--- NOTE | 2023-07-30 14:37 | A.OFFVIS_ITS ---
Intake Vital Signs 07/30/23 14:39 Height 5 ft 4 in Weight 215 lb BMI 36.9 Pulse 89 Pulse Source Pulse Oximeter Pulse Oximetry (%) 96 Oxygen Delivery Method Room Air Intake Visit Reasons: Dyspnea Reel Cutter Required: No Allergies codine Allergy (Severe, Uncoded 07/30/23 14:40) redness and itching penicillin Allergy (Severe, Uncoded 07/30/23 14:40) anaphylaxis soma Allergy (Severe, Uncoded 07/30/23 14:40) nausea and vomiting HPI HPI Comments History of Present Illness Details The patient is a 62-year-old woman who was previously healthy until the and May when she was diagnosed with COVID-19 infection. She did have worsening respiratory symptoms. At time she did have a chest x-ray demonstrating bibasilar opacities. She was given a couple course of antibiotics. The patient apparently had a a reasonable pulse ox and she did not require admission to the hospital. However, her symptoms continued. Patient did have a repeat chest x-ray 3 weeks after were still demonstrating the airspace disease now with airspace disease in the upper lung zones and some areas of atelectasis primarily in the left lung base area. She was started on a short-acting beta agonist and she was also given inhaled cortical steroid. The patient's symptoms have improved. She still feels short of breath with activity and still has a cough specially when she takes a deep breath and ggdx-hk-tqjxwdid severity. But, she was able to stop the inhaled cortical steroids and she rarely uses a rescue inhaler at this time. During the office we did go for brief 6 minutes walk test. Her pulse ox actually been time between 96-95%. However, more significantly was that she had a very elevated heart rate up to 128 beats per minute. Appeared to be sinus. The patient had a Katerin score of 5/10. At this point the patient will go further laboratory data and chest x-ray. Further evaluation for the tank cardia also is warranted at this time. It is likely that is related to her recent COVID infection. 07/24/2022 the patient is here for a pulm onary follow-up visit. She continues to have some dyspnea on exertion. She also continues to have an elevated heart rate. Recently her top cleaner put on metoprolol XL. Seems to be helping although is making a little bit drowsy. The patient does have underlying diastolic dysfunction and therefore rate controlling agents will be effective in helping her symptoms. In addition to that we did review her pulmonary function studies from before demonstrating mild degree of restrictive lung disease and mild degree of diffusion impairment. The patient has not had any breathing studies in some time. Therefore will have a follow-up in 6 months with PFTs. 12/25/2022 the patient is here for a pulm onary follow-up visit. The patient overall is doing little better. Heart rate seems to be better controlled metoprolol. The breathing is also little better. Still having some dyspnea on exertion specially going up a flight of stairs or inclines. Moderate severity. She did undergo pulmonary function studies in the still has a mild restrictive ventilatory defect and a mild diffusion impairment. The patient will benefit from pulmonary rehabilitation. Will go ahead and refer her back to rehab in order for her to improve her respiratory capacity. Inhalers actually made her numbers worse. Likely secondary to deconditioning. May have a component of a neuromuscular condition. At this point the patient does not benefit from any further inhaler therapy. 07/30/2023 the patient is here for pulmonary follow-up visit. She has been participating in pulmonary rehabilitation. she still complains of shortness of breath with activity. She does not feel like she is much different than before. Although she is motivated to continue with rehabilitation. We again talked about the findings. She does have evidence of restriction on her PFTs but also more significantly that the diastolic dysfunction could also resulting in the shortness of breath. Currently she is volume overloaded. She does have a prescription for Lasix but she does not taking regularly. I did recommend she can follow-up with her top cleaner to make sure her medications adjusted. In the meantime she should weigh herself daily and she gained 2 lb in 24 hours 3lbs in 48 hours she should take Lasix. She also needs to monitor closely her sodium intake and use her compression stockings. Hopefully she can reach a better volume status therefore breathe better. The patient is not taking any inhalers. No significant improvement. The patient's last x-ray was back in 2020 demonstrating no acute disease. Will have her repeat the chest x-ray specially since she is still short of breath and will also have her undergo blood work. [facility] Medical History Chronic restrictive lung disease Diastolic dysfunction [id number] syndrome Limb swelling Pneumonia due to COVID-19 virus Dyspnea Tachycardia HTN (hypertension) GERD (gastroesophageal reflux disease) Obesity Surgical History Hx of cataract surgery History of unilateral fallopian tube excision History of parotid gland removal Hx of umbilical hernia repair Family History Mother Leukemia Father Heart disease Hypertension Hyperlipidemia Diabetes Colitis Sister No problems noted. Daughter No problems noted. Son No problems noted. Son No problems noted. 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 Review of Systems Const Denies night sweats ENT Denies change in voice, Denies lip swelling, Denies mouth pain, Reports nasal congestion, Reports nasal discharge, Reports sinus pressure and Denies tongue swelling Card Reports chest pain and Reports dyspnea on exertion Resp Denies hemoptysis and Reports dyspnea on exertion GI Denies abdominal pain Musc Denies no additional complaints Neuro Denies Neuro-related abnormal movements Psych Denies no additional complaints [place]/Lymph Denies easy bleeding and Denies lymphadenopathy Aller/Immun Denies lip swelling and Denies tongue swelling Physical Exam Vital Signs: Last Vital Signs Pulse 89 07/30/23 14:39 Pulse Ox 96 07/30/23 14:39 Oxygen Delivery Method Room Air 07/30/23 14:39 BMI result Body Mass Index 36.9 Const General: alert Neck Neck: Yes normal visual inspection, Yes full ROM and Yes no lymphadenopathy Chest Chest palpation & inspection: normal inspection of the chest Resp Auscultation: diminished lung sounds Cardio Rate: tachycardic Rhythm: regular rhythm Heart sounds: S1 normal heart sound present and S2 normal heart sound present GI Palpation (GI): Soft to palpation and nontender Auscultation: normal bowel sounds Skin General skin exam: rashes and/or lesions noted Extrem General: Yes edema Assessment & Plan Assessment & Plan (1) 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 Currently volume overload, daily weights Needs to follow up with cardiology compression stockings CXR Bloodwork F/U with Pulmonary 6 months Orders: Orders XR chest 2V Today J98.4 - Other disorders of lung Complete Blood Count Auto Diff Today J98.4 - Other disorders of lung Basic Metabolic Panel Today J98.4 - Other disorders of lung Venous Blood Gas Today J98.4 - Other disorders of lung Erythrocyte Sedimentation Rate Today J98.4 - Other disorders of lung Medications: New furosemide (Lasix) 20 mg PO DAILY 30 days PRN 30 tabs 1RF weight gain Coding Level of Care Code Est Pt Level 4 (16193) Diagnoses [id number] syndrome B94.8 Chronic restrictive lung disease J98.4 Dyspnea on exertion R06.00 Dyspnea type: dyspnea on exertion Diastolic dysfunction I51.89 Time Spent (min) 17
[2023-07-30 14:39] VITALS: PULSE 89; O2SAT 96; BMI 36.9
== END 2023-07-30 15:05 | disposition home or self-care (01) ==
PROVIDERS: PCP Registered Nurse; Visit Provider Hospitalist
DX: B94.8 Sequelae of other specified infectious and parasitic diseases (principal); J98.4 Other disorders of lung; R06.00 Dyspnea, unspecified; I51.89 Other ill-defined heart diseases
CPT/HCPCS: 99214

== ENCOUNTER → 2023-07-30 14:17 | Outpatient (BNVA) | payer OTHER, SELFPAY | PROVIDERS: PCP Registered Nurse; Visit Provider Hospitalist | DX: R06.00 Dyspnea, unspecified (principal); U09.9 Post COVID-19 condition, unspecified; J98.4 Other disorders of lung; I51.89 Other ill-defined heart diseases | CPT/HCPCS: 99212 ==

== ENCOUNTER 2023-07-31 11:06 | Outpatient (AMB) | payer OTHER, SELFPAY ==
[2023-07-31 11:13] VITALS: BMI 36.9
--- NOTE | 2023-07-31 11:13 | MHC.OFFVIS ---
Intake Vital Signs 07/31/23 11:13 Height 5 ft 4 in Weight 215 lb BMI 36.9 Intake Visit Reasons: ov- right knee Euflexxa injection #2 Intake Note: Navya is a 62 year old female who presents today for her #2 Right knee Euflexxa gel injection. Patient reports her last injection went well and has no concerns. She denies any fevers or chills. She continues with her home exercise program. Allergies codine Allergy (Severe, Uncoded 07/30/23 14:40) redness and itching penicillin Allergy (Severe, Uncoded 07/30/23 14:40) anaphylaxis soma Allergy (Severe, Uncoded 07/30/23 14:40) nausea and vomiting Medication List - Last Reconciled 07/31/23 by Michael Dickerson MD amlodipine 10 mg PO DAILY ascorbic acid (vitamin C) 1 g PO Q6H cholecalciferol (vitamin D3) 250 mcg PO DAILY elderberry fruit-honey 0.7-3 gram/7.5 mL mL PO DAILY furosemide (Lasix) 10 mg PO DAILY PRN furosemide (Lasix) 20 mg PO DAILY PRN 30 days metoprolol succinate ER 25 mg PO DAILY pantoprazole 20 mg PO DAILY red yeast rice 600 mg PO DAILY turmeric root extract 500 mg PO DAILY PFSH Medical History Chronic restrictive lung disease Diastolic dysfunction [id number] syndrome Limb swelling Pneumonia due to COVID-19 virus Dyspnea Tachycardia HTN (hypertension) GERD (gastroesophageal reflux disease) Obesity Surgical History Hx of cataract surgery History of unilateral fallopian tube excision History of parotid gland removal Hx of umbilical hernia repair Family History Mother Leukemia Father Heart disease Hypertension Hyperlipidemia Diabetes Colitis Sister No problems noted. Daughter No problems noted. Son No problems noted. Son No problems noted. 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 Physical Exam Vital Signs: BMI result Body Mass Index 36.9 Extrem Other: Right knee examination shows a minimal effusion, palpable crepitus with range of motion, pain with range of motion, no instability Office Procedures Joint Injection/Drain Joint Injection/Drain Primary Site: right knee Prep: site was prepped using aseptic technique Injected: 20 mg of (Euflexxa viscosupplementation) and 1% plain lidocaine Procedure: The patient tolerated the procedure well Coding - Large joint Procedure code (CPT) selection complete Assessment & Plan Assessment & Plan (1) Arthritis of right knee: Code(s): M17.11 - Unilateral primary osteoarthritis, right knee Plan Ms. Gunter presents with right knee pain due to degenerative joint disease. The risks and benefits of a 2nd Euflexxa injection were discussed at length with the patient. The patient wished to proceed. She tolerated the injection well. She will continue with her home exercise program. She will follow up next week as scheduled. Feel free to call me at any time should questions regarding her orthopedic management arise. I spent 20 minutes in reviewing the patient's records and imaging studies, seeing the patient and documenting in the medical record. Orders: Orders AMB Joint Injection/Aspiration Today M17.11 - Unilateral primary osteoarthritis, right knee Coding Level of Care Code Procedure Only Diagnoses Arthritis of right knee M17.11 CPT Codes Coding - 96192 Large joint: 66908 - Large joint ([id number])
== END 2023-07-31 11:50 | disposition home or self-care (01) ==
PROVIDERS: PCP Registered Nurse; Visit Provider Orthopaedic Surgery
DX: M17.11 Unilateral primary osteoarthritis, right knee (principal)
CPT/HCPCS: 20610

== ENCOUNTER → 2023-07-31 11:06 | Outpatient (BNVA) | payer OTHER, SELFPAY | PROVIDERS: PCP Registered Nurse; Visit Provider Orthopaedic Surgery | DX: M17.11 Unilateral primary osteoarthritis, right knee (principal) | CPT/HCPCS: 20610; J7323 ==

== ENCOUNTER 2023-08-26 10:53 | Outpatient (REF) | payer OTHER, SELFPAY ==
[2023-08-26 11:12] LABS: MANUAL DIFF FLAG NO
[2023-08-26 11:18] LABS: Venous Blood Gas Refer to POC result
[2023-08-26 11:19] LABS: VBG Base Excess 3.9 mmol/L; VBG HCO3 30 mmol/L (22-26); VBG pCO2 50 mmHg; VBG pH 7.38 (7.32-7.43); VBG pO2 41 mmHg
[2023-08-26 12:05] LABS: Basophils Absolute Auto 0.1 X10*3/uL (0.0-0.2); Basophils Percent Auto 1.1 % (0-2); Eosinophils Absolute Auto 0.2 X10*3/uL (0.0-0.4); Eosinophils Percent Auto 1.9 % (0-4); Hematocrit 42.2 % (37.0-47.0); Hemoglobin 14.1 g/dl (12.0-16.0); Imm Gran Abs Auto 0.03 X10*3/uL (0.00-0.03); Imm Gran Pct Auto 0.4 % (0.0-0.4); Lymphocytes Absolute Auto 2.7 X10*3/uL (1.2-4.9); Lymphocytes Percent Auto 33.9 % (20-40); Mean Corpuscular HGB Conc 33.4 g/dl (31.0-35.0); Mean Corpuscular Hemoglobin 29.4 pg (27.0-33.0); Mean Corpuscular Volume 88.1 fL (80.0-98.0); Monocytes Absolute Auto 0.5 X10*3/uL (0.1-1.2); Monocytes Percent Auto 6.5 % (2-11); Neutrophils Absolute Auto 4.5 x10*3/uL (2.0-8.3); Neutrophils Percent Auto 56.2 % (45-73); Platelet Count 363 X10*3/uL (160-400); Red Blood Count 4.79 X10*6/uL (4.20-5.50); Red Cell Distribution Width 12.5 % (11.0-16.0); White Blood Count 8.1 X10*3/uL (4.8-10.8)
[2023-08-26 12:46] LABS: Erythrocyte Sedimentation Rate 14 MM/HR (0-20)
[2023-08-26 12:57] LABS: Anion Gap 12 (12-20); Blood Urea Nitrogen 12 mg/dL (9-16); Calcium 9.9 mg/dL (8.4-10.2); Carbon Dioxide 29 mmol/L (22-29); Chloride 105 mmol/L (96-108); Estimated Glomerular Filt Rate > 60; Glucose Random 91 mg/dL (60-115); Potassium 3.7 mmol/L (3.3-5.1); Sodium 142 mmol/L (135-145)
== END 2023-08-26 10:54 | disposition home or self-care (01) ==
LOC: HO.XRAY 10:53
PROVIDERS: PCP Registered Nurse; Visit Provider Hospitalist
DX: M17.11 Unilateral primary osteoarthritis, right knee (principal); J98.4 Other disorders of lung
CPT/HCPCS: 20610; 36415; 80048; 82803; 85025; 85652; J7323

== ENCOUNTER 2023-08-26 11:20 | Outpatient (AMB) | payer OTHER, SELFPAY ==
[2023-08-26 11:38] VITALS: BMI 36.9
--- NOTE | 2023-08-26 11:38 | MHC.OFFVIS ---
Intake Vital Signs 08/26/23 11:38 Height 5 ft 4 in Weight 215 lb BMI 36.9 Intake Visit Reasons: Right knee Euflexxa Gel # 3 Intake Note: Navya is a 62 year old female who presents for her Right knee #3 Euflexxa gel injection. Patient reports her last injection went well and wishes to proceed with her third Euflexxa gel injection. She denies any fevers or chills. She continues with her activity modifications. Allergies codine Allergy (Severe, Uncoded 07/30/23 14:40) redness and itching penicillin Allergy (Severe, Uncoded 07/30/23 14:40) anaphylaxis soma Allergy (Severe, Uncoded 07/30/23 14:40) nausea and vomiting Medication List - Last Reconciled 08/26/23 by Michael Dickerson MD amlodipine 10 mg PO DAILY ascorbic acid (vitamin C) 1 g PO Q6H cholecalciferol (vitamin D3) 250 mcg PO DAILY elderberry fruit-honey 0.7-3 gram/7.5 mL mL PO DAILY furosemide (Lasix) 10 mg PO DAILY PRN furosemide (Lasix) 20 mg PO DAILY PRN 30 days metoprolol succinate ER 25 mg PO DAILY pantoprazole 20 mg PO DAILY red yeast rice 600 mg PO DAILY turmeric root extract 500 mg PO DAILY PFSH Medical History Chronic restrictive lung disease Diastolic dysfunction [id number] syndrome Limb swelling Pneumonia due to COVID-19 virus Dyspnea Tachycardia HTN (hypertension) GERD (gastroesophageal reflux disease) Obesity Surgical History Hx of cataract surgery History of unilateral fallopian tube excision History of parotid gland removal Hx of umbilical hernia repair Family History Mother Leukemia Father Heart disease Hypertension Hyperlipidemia Diabetes Colitis Sister No problems noted. Daughter No problems noted. Son No problems noted. Son No problems noted. 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 Physical Exam Vital Signs: BMI result Body Mass Index 36.9 Extrem Other: Right knee examination shows a minimal effusion, palpable crepitus with range of motion, pain with range of motion, no instability Office Procedures Joint Injection/Drain Joint Injection/Drain Primary Site: right knee Prep: site was prepped using aseptic technique Injected: 20 mg of (Euflexxa) and 1% plain lidocaine Procedure: The patient tolerated the procedure well Coding - Large joint Procedure code (CPT) selection complete Assessment & Plan Assessment & Plan (1) Arthritis of right knee: Code(s): M17.11 - Unilateral primary osteoarthritis, right knee Plan Ms. Gunter presents with right knee pain due to degenerative joint disease. The risks and benefits of a 3rd Euflexxa viscosupplementation injection were discussed at length with the patient. The patient wished to proceed. She tolerated the injection well. She will continue with her home exercise program. She will follow up with me on an as-needed basis should her symptoms not plateau at an unacceptable level over the next few months. Feel free to call me at any time should questions regarding her orthopedic management arise. Orders: Orders AMB Joint Injection/Aspiration Today M17.11 - Unilateral primary osteoarthritis, right knee Coding Level of Care Code Procedure Only Diagnoses Arthritis of right knee M17.11 CPT Codes Coding - Large joint: 56881 - Large joint ([id number])
== END 2023-08-26 12:16 | disposition home or self-care (01) ==
PROVIDERS: PCP Registered Nurse; Visit Provider Orthopaedic Surgery
DX: M17.11 Unilateral primary osteoarthritis, right knee (principal)
CPT/HCPCS: 20610

== ENCOUNTER 2023-09-03 14:51 | Outpatient (REF) | payer OTHER, SELFPAY ==
--- NOTE | ~2023-09-03 | XR_ITS ---
EXAMINATION: XR CHEST 2 VIEWS CLINICAL INFORMATION: Other disorders of lung. COMPARISON: Chest radiographs dated 08/03/2020. TECHNIQUE: Frontal and lateral views of the chest were obtained. FINDINGS: The heart, great vessels and mediastinum are stable. There is stable prominence of the bilateral central pulmonary vasculature. There is stable mild linear scar/subsegmental atelectasis at the left base. The right lung is clear. There is no infiltrate, effusion or pneumothorax. No acute osseous abnormality is seen. XR/XR chest 2V IMPRESSION: 1. There is stable, chronic mild left base linear scar/subsegmental atelectasis. 2. No focal infiltrate or congestive heart failure is seen. 3. There is stable prominence of the bilateral central pulmonary vasculature, raising the possibility of pulmonary artery hypertension.
== END 2023-09-03 14:52 | disposition home or self-care (01) ==
LOC: HO.XRAY 14:51
PROVIDERS: PCP Registered Nurse; Visit Provider Hospitalist
DX: J98.4 Other disorders of lung (principal)
CPT/HCPCS: 71046

== ENCOUNTER 2023-09-19 09:23 | Outpatient (AMB) | payer OTHER, SELFPAY ==
--- NOTE | 2023-09-19 09:33 | A.OFFVIS_ITS ---
Intake Vital Signs 09/19/23 09:34 Height 5 ft 4 in Weight 210 lb BMI 36.0 BP 110/60 Blood Pressure Location Lt brachial Position Sitting Pulse 90 Pulse Source Pulse Oximeter Pulse Oximetry (%) 95 Oxygen Delivery Method Room Air Intake Visit Reasons: acute resp failure w/hypoxia Print Color Operator Required: No Allergies codine Allergy (Severe, Uncoded 09/19/23 09:36) redness and itching penicillin Allergy (Severe, Uncoded 09/19/23 09:36) anaphylaxis soma Allergy (Severe, Uncoded 09/19/23 09:36) nausea and vomiting HPI HPI Comments History of Present Illness Details The patient is a 62-year-old woman who was previously healthy until the and May when she was diagnosed with COVID-19 infection. She did have worsening respiratory symptoms. At time she did have a chest x-ray demonstrating bibasilar opacities. She was given a couple course of antibiotics. The patient apparently had a a reasonable pulse ox and she did not require admission to the hospital. However, her symptoms continued. Patient did have a repeat chest x-ray 3 weeks after were still demonstrating the airspace disease now with airspace disease in the upper lung zones and some areas of atelectasis primarily in the left lung base area. She was started on a short-acting beta agonist and she was also given inhaled cortical steroid. The patient's symptoms have improved. She still feels short of breath with activity and still has a cough specially when she takes a deep breath and [id number] severity. But, she was able to stop the inhaled cortical steroids and she rarely uses a rescue inhaler at this time. During the office we did go for brief 6 minutes walk test. Her pulse ox actually been time between 96-95%. However, more significantly was that she had a very elevated heart rate up to 128 beats per minute. Appeared to be sinus. The patient had a Katerin score of 5/10. At this point the patient will go further laboratory data and chest x-ray. Further evaluation for the tank cardia also is warranted at this time. It is likely that is related to her recent COVID infection. 07/24/2022 the patient is here for a pulm onary follow-up visit. She continues to have some dyspnea on exertion. She also continues to have an elevated heart rate. Recently her exhibit display representative put on metoprolol XL. Seems to be helping although is making a little bit drowsy. The patient does have underlying diastolic dysfunction and therefore rate controlling agents will be effective in helping her symptoms. In addition to that we did review her pulmonary function studies from before demonstrating mild degree of restrictive lung disease and mild degree of diffusion impairment. The patient has not had any breathing studies in some time. Therefore will have a follow-up in 6 months with PFTs. 12/25/2022 the patient is here for a pulm onary follow-up visit. The patient overall is doing little better. Heart rate seems to be better controlled metoprolol. The breathing is also little better. Still having some dyspnea on exertion specially going up a flight of stairs or inclines. Moderate severity. She did undergo pulmonary function studies in the still has a mild restrictive ventilatory defect and a mild diffusion impairment. The patient will benefit from pulmonary rehabilitation. Will go ahead and refer her back to rehab in order for her to improve her respiratory capacity. Inhalers actually made her numbers worse. Likely secondary to deconditioning. May have a component of a neuromuscular condition. At this point the patient does not benefit from any further inhaler therapy. 07/30/2023 the patient is here for pulmonary follow-up visit. She has been participating in pulmonary rehabilitation. she still complains of shortness of breath with activity. She does not feel like she is much different than before. Although she is motivated to continue with rehabilitation. We again talked about the findings. She does have evidence of restriction on her PFTs but also more significantly that the diastolic dysfunction could also resulting in the shortness of breath. Currently she is volume overloaded. She does have a prescription for Lasix but she does not taking regularly. I did recommend she can follow-up with her exhibit display representative to make sure her medications adjusted. In the meantime she should weigh herself daily and she gained 2 lb in 24 hours 3lbs in 48 hours she should take Lasix. She also needs to monitor closely her sodium intake and use her compression stockings. Hopefully she can reach a better volume status therefore breathe better. The patient is not taking any inhalers. No significant improvement. The patient's last x-ray was back in 2020 demonstrating no acute disease. Will have her repeat the chest x-ray specially since she is still short of breath and will also have her undergo blood work. 09/19/2023 the patient is here for hospit al follow-up visit. she was briefly admitted to [facility]. She was diagnosed with pneumonia and respiratory failure. I do not have the paperwork from hospitalizations. The patient was provided with oxygen supplementation while she was in the hospital. Now upon discharge the patient is able to be weaned off completely. She did completed antibiotics and also completed steroids. The patient is feeling better. Again, will request the records from [facility] to get more details. In the meantime she continues with the current respiratory regimen. She does have dyspnea on exertion. Mild in severity. She is also tired in general. Moderate severity. She continues diuresis. We did go for brief walking oximetry she was able to maintain within normal ranges therefore not qualify for oxygen. Will go ahead and request an overnight oximetry to make sure that she does not have any hypoxic episodes while sleeping. In addition to that she should have a repeat chest x-ray to make sure there is resolution of the airspace disease. 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 Daughter No problems noted. Son No problems noted. Son No problems noted. 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 Review of Systems Const Denies night sweats ENT Denies change in voice, Denies lip swelling, Denies mouth pain, Reports nasal congestion, Reports nasal discharge, Reports sinus pressure and Denies tongue swelling Card Denies chest pain and Reports dyspnea on exertion Resp Reports cough, Denies hemoptysis and Reports dyspnea on exertion GI Denies abdominal pain Musc Denies no additional complaints Neuro Denies Neuro-related abnormal movements Psych Denies no additional complaints [place]/Lymph Denies easy bleeding and Denies lymphadenopathy Aller/Immun Denies lip swelling and Denies tongue swelling Physical Exam Vital Signs: Last Vital Signs Pulse 90 09/19/23 09:34 BP 110/60 09/19/23 09:34 Pulse Ox 95 09/19/23 09:34 Oxygen Delivery Method Room Air 09/19/23 09:34 BMI result Body Mass Index 36.0 Const General: alert Neck Neck: Yes normal visual inspection, Yes full ROM and Yes no lymphadenopathy Chest Chest palpation & inspection: normal inspection of the chest Resp Auscultation: diminished lung sounds Cardio Rate: tachycardic Rhythm: regular rhythm Heart sounds: S1 normal heart sound present and S2 normal heart sound present GI Palpation (GI): Soft to palpation and nontender Auscultation: normal bowel sounds Skin General skin exam: rashes and/or lesions noted Extrem General: Yes edema Assessment & Plan Assessment & Plan (1) Chronic restrictive lung disease: Code(s): J98.4 - Other disorders of lung (2) Dyspnea: Code(s): R06.00 - Dyspnea, unspecified Qualifiers: Dyspnea type: dyspnea on exertion Qualified Code(s): R06.00 - Dyspnea, unspecified (3) Diastolic dysfunction: Code(s): I51.89 - Other ill-defined heart diseases (4) Pneumonia: Code(s): J18.9 - Pneumonia, unspecified organism Qualifiers: Pneumonia type: due to unspecified organism Laterality: unspecified laterality Lung location: unspecified part of lung Qualified Code(s): J18.9 - Pneumonia, unspecified organism Plan continue Pulmonary rehab in person CXR Overnight oximetry diursesis as tolerated compression stockings F/U with Pulmonary 3-4 months Orders: Orders XR chest 2V 09/19/23 J18.9 - Pneumonia, unspecified organism Overnight Pulse Oximetry 09/19/23 J98.4 - Other disorders of lung Coding Level of Care Code Est Pt Level 4 (25376) Diagnoses Chronic restrictive lung disease J98.4 Dyspnea on exertion R06.00 Dyspnea type: dyspnea on exertion Diastolic dysfunction I51.89 Pneumonia due to infectious organism, unspecified laterality, unspecified part of lung J18.9 Pneumonia type: due to unspecified organism Laterality: unspecified laterality Lung location: unspecified part of lung Time Spent (min) 20
[2023-09-19 09:34] VITALS: BP 110/60; PULSE 90; O2SAT 95; BMI 36.0
== END 2023-09-19 11:05 | disposition home or self-care (01) ==
PROVIDERS: PCP Registered Nurse; Visit Provider Hospitalist
DX: J98.4 Other disorders of lung (principal); R06.00 Dyspnea, unspecified; I51.89 Other ill-defined heart diseases; J18.9 Pneumonia, unspecified organism
CPT/HCPCS: 99214

== ENCOUNTER 2023-09-19 09:23 | Outpatient (REF) | payer OTHER, SELFPAY ==
--- NOTE | ~2023-09-19 | XR_ITS ---
EXAMINATION: XR CHEST CLINICAL INFORMATION: Pneumonia COMPARISON: 09/03/2023 TECHNIQUE: 2 views of the chest were obtained. FINDINGS: Linear atelectasis/scarring seen through the left lower lobe 1 prominent since previous examination but no evidence of consolidation, nodules or masses and no pleural effusions seen. There is central prominence of pulmonary vasculature unchanged since previous study. Cardiomediastinal silhouette revealed no cardiomegaly or vascular congestion. XR/XR chest 2V IMPRESSION: Mild increase atelectasis/scarring in the left lower lobe.
== END 2023-09-19 09:24 | disposition home or self-care (01) ==
LOC: HO.XRAY 09:23
PROVIDERS: PCP Registered Nurse; Visit Provider Hospitalist
DX: J18.9 Pneumonia, unspecified organism (principal)
CPT/HCPCS: 71046; 99212

== ENCOUNTER 2023-11-28 09:17 | Outpatient (AMB) | payer OTHER, SELFPAY ==
[2023-11-28 09:29] VITALS: BMI 36.0
--- NOTE | 2023-11-28 09:29 | A.OFFVIS_ITS ---
Vital Signs 11/28/23 09:29 Height 5 ft 4 in Weight 210 lb BMI 36.0 Intake Visit Reasons: Bilateral knee pain Intake Note: Navya is a 62 year old female who presents with complaints of bilateral knee pains. The patient describes her pains as sharp in nature. She has had cortisone injections as well as viscosupplementation injections which gave her temporary relief. She has tried Tylenol which gives only mild relief. She wishes to hold off on total knee replacement surgery for as long as possible. Allergies codine Allergy (Severe, Uncoded 11/28/23 09:35) redness and itching penicillin Allergy (Severe, Uncoded 11/28/23 09:35) anaphylaxis soma Allergy (Severe, Uncoded 11/28/23 09:35) nausea and vomiting Medication List - Last Reconciled 11/28/23 by Michael Dickerson MD amlodipine 10 mg PO DAILY ascorbic acid (vitamin C) 1 g PO Q6H celecoxib (Celebrex) 200 mg PO DAILY cholecalciferol (vitamin D3) 250 mcg PO DAILY doxycycline hyclate 100 mg PO BID 10 days elderberry fruit-honey 0.7-3 gram/7.5 mL mL PO DAILY furosemide (Lasix) 10 mg PO DAILY PRN furosemide (Lasix) 20 mg PO DAILY PRN 30 days methylprednisolone (Medrol (Arnav)) PO PER PKG DIR metoprolol succinate ER 25 mg PO DAILY pantoprazole 20 mg PO DAILY red yeast rice 600 mg PO DAILY turmeric root extract 500 mg PO DAILY PFSH Medical History Atelectasis Pneumonia Chronic restrictive lung disease Diastolic dysfunction [id number] syndrome Limb swelling Pneumonia due to COVID-19 virus Dyspnea Tachycardia HTN (hypertension) GERD (gastroesophageal reflux disease) Obesity Surgical History Hx of cataract surgery History of unilateral fallopian tube excision History of parotid gland removal Hx of umbilical hernia repair Family History Mother Leukemia Father Heart disease Hypertension Hyperlipidemia Diabetes Colitis Sister No problems noted. Daughter No problems noted. Son No problems noted. Son No problems noted. 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 Gunter presents with bilateral knee pains due to degenerative joint disease. I had a lengthy discussion with the patient regarding the treatment options. We will hold off on another injection at this time. I did give her prescriptions for a Medrol Dosepak. Following the Medrol Dosepak she can begin taking Celebrex as needed. She will contact me prior to her follow-up appointment in 6 weeks should any questions or concerns arise. Feel free to call me at any time should questions regarding her orthopedic management arise. I spent 21 minutes in reviewing the patient's records and imaging studies, seeing the patient and documenting in the medical record. Medications: New methylprednisolone (Medrol (Arnav)) PO PER PKG DIR 21 ea 0RF celecoxib (Celebrex) Patient is instructed to begin Celebrex after completion of medrol dose pack 200 mg PO DAILY 30 caps 2RF Coding Level of Care Code Est Pt Level 3 (70656) Diagnoses Pain in both knees M25.561; M25.562
== END 2023-11-28 09:57 | disposition home or self-care (01) ==
PROVIDERS: PCP Registered Nurse; Visit Provider Orthopaedic Surgery
DX: M25.561 Pain in right knee (principal); M25.562 Pain in left knee
CPT/HCPCS: 99214

== ENCOUNTER → 2023-11-28 09:17 | Outpatient (BNVA) | payer OTHER, SELFPAY | PROVIDERS: PCP Registered Nurse; Visit Provider Orthopaedic Surgery | DX: M25.561 Pain in right knee (principal); M25.562 Pain in left knee | CPT/HCPCS: 99212 ==

== ENCOUNTER 2023-12-17 09:00 | Outpatient (AMB) | payer OTHER, SELFPAY ==
[2023-12-17 09:04] VITALS: PULSE 88; O2SAT 94; BMI 36.9
--- NOTE | 2023-12-17 09:04 | MHC.OFFVIS ---
Vital Signs 12/17/23 09:04 Height 5 ft 4 in Weight 215 lb BMI 36.9 Pulse 88 Pulse Source Pulse Oximeter Pulse Oximetry (%) 94 Oxygen Delivery Method Room Air Intake Visit Reasons: dyspnea Vinyl Dipper Required: No Allergies prednisone Adverse Reaction (Severe, Verified 12/17/23 09:06) Numbness codine Allergy (Severe, Uncoded 12/17/23 09:06) redness and itching penicillin Allergy (Severe, Uncoded 12/17/23 09:06) anaphylaxis soma Allergy (Severe, Uncoded 12/17/23 09:06) nausea and vomiting HPI Comments Details: The patient is a 62-year-old woman who was previously healthy until the and May when she was diagnosed with COVID-19 infection. She did have worsening respiratory symptoms. At time she did have a chest x-ray demonstrating bibasilar opacities. She was given a couple course of antibiotics. The patient apparently had a a reasonable pulse ox and she did not require admission to the hospital. However, her symptoms continued. Patient did have a repeat chest x-ray 3 weeks after were still demonstrating the airspace disease now with airspace disease in the upper lung zones and some areas of atelectasis primarily in the left lung base area. She was started on a short-acting beta agonist and she was also given inhaled cortical steroid. The patient's symptoms have improved. She still feels short of breath with activity and still has a cough specially when she takes a deep breath and [id number] severity. But, she was able to stop the inhaled cortical steroids and she rarely uses a rescue inhaler at this time. During the office we did go for brief 6 minutes walk test. Her pulse ox actually been time between 96-95%. However, more significantly was that she had a very elevated heart rate up to 128 beats per minute. Appeared to be sinus. The patient had a Katerin score of 5/10. At this point the patient will go further laboratory data and chest x-ray. Further evaluation for the tank cardia also is warranted at this time. It is likely that is related to her recent COVID infection. 07/24/2022 the patient is here for a pulmonary follow-up visit. She continues to have some dyspnea on exertion. She also continues to have an elevated heart rate. Recently her oracle application consultant put on metoprolol XL. Seems to be helping although is making a little bit drowsy. The patient does have underlying diastolic dysfunction and therefore rate controlling agents will be effective in helping her symptoms. In addition to that we did review her pulmonary function studies from before demonstrating mild degree of restrictive lung disease and mild degree of diffusion impairment. The patient has not had any breathing studies in some time. Therefore will have a follow-up in 6 months with PFTs. 12/25/2022 the patient is here for a pulmonary follow-up visit. The patient overall is doing little better. Heart rate seems to be better controlled metoprolol. The breathing is also little better. Still having some dyspnea on exertion specially going up a flight of stairs or inclines. Moderate severity. She did undergo pulmonary function studies in the still has a mild restrictive ventilatory defect and a mild diffusion impairment. The patient will benefit from pulmonary rehabilitation. Will go ahead and refer her back to rehab in order for her to improve her respiratory capacity. Inhalers actually made her numbers worse. Likely secondary to deconditioning. May have a component of a neuromuscular condition. At this point the patient does not benefit from any further inhaler therapy. 07/30/2023 the patient is here for pulmonary follow-up visit. She has been participating in pulmonary rehabilitation. she still complains of shortness of breath with activity. She does not feel like she is much different than before. Although she is motivated to continue with rehabilitation. We again talked about the findings. She does have evidence of restriction on her PFTs but also more significantly that the diastolic dysfunction could also resulting in the shortness of breath. Currently she is volume overloaded. She does have a prescription for Lasix but she does not taking regularly. I did recommend she can follow-up with her oracle application consultant to make sure her medications adjusted. In the meantime she should weigh herself daily and she gained 2 lb in 24 hours 3lbs in 48 hours she should take Lasix. She also needs to monitor closely her sodium intake and use her compression stockings. Hopefully she can reach a better volume status therefore breathe better. The patient is not taking any inhalers. No significant improvement. The patient's last x-ray was back in 2020 demonstrating no acute disease. Will have her repeat the chest x-ray specially since she is still short of breath and will also have her undergo blood work. 09/19/2023 the patient is here for hospital follow-up visit. she was briefly admitted to [facility]. She was diagnosed with pneumonia and respiratory failure. I do not have the paperwork from hospitalizations. The patient was provided with oxygen supplementation while she was in the hospital. Now upon discharge the patient is able to be weaned off completely. She did completed antibiotics and also completed steroids. The patient is feeling better. Again, will request the records from [facility] to get more details. In the meantime she continues with the current respiratory regimen. She does have dyspnea on exertion. Mild in severity. She is also tired in general. Moderate severity. She continues diuresis. We did go for brief walking oximetry she was able to maintain within normal ranges therefore not qualify for oxygen. Will go ahead and request an overnight oximetry to make sure that she does not have any hypoxic episodes while sleeping. In addition to that she should have a repeat chest x-ray to make sure there is resolution of the airspace disease. 12/17/2023 the patient is here for follow-up patient's she is also recovered from her knee surgery she has been using the oxygen at nighttime. We did do the patient definitely needs the oxygen at nights and she desaturated for about minutes below 88%. We did talk about considering in-lab sleep study in the near future. The patient also had a chest x-ray which I personally reviewed. She does have significant areas of atelectasis and likely some degree of scarring in the right hemithorax likely residual from her significant pneumonia. Indeed on exam she still has some crackles on the right side. I did give her a letter for work to avoid the exposure to the significant heat during this heat wave. 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 The patient also will continue current pulmonary rehabilitation. I will send a prescription to rehab for her to restart rehab at this time. 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 Daughter No problems noted. Son No problems noted. Son No problems noted. 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 Review of Systems Const Denies night sweats ENT Denies change in voice, Denies lip swelling, Denies mouth pain, Reports nasal congestion, Reports nasal discharge, Reports sinus pressure and Denies tongue swelling Card Denies chest pain and Reports dyspnea on exertion Resp Reports cough, Denies hemoptysis and Reports dyspnea on exertion GI Denies abdominal pain Musc Reports as per HPI and Reports myalgias Neuro Denies Neuro-related abnormal movements Psych Denies no additional complaints [place]/Lymph Denies easy bleeding and Denies lymphadenopathy Aller/Immun Denies lip swelling and Denies tongue swelling Physical Exam Vital Signs: Last Vital Signs Pulse 88 12/17/23 09:04 Pulse Ox 94 12/17/23 09:04 Oxygen Delivery Method Room Air 12/17/23 09:04 BMI result Body Mass Index 36.9 Const General: alert Neck Neck: Yes normal visual inspection, Yes full ROM and Yes no lymphadenopathy Chest Chest palpation & inspection: normal inspection of the chest Resp Auscultation: crackles on the right and diminished lung sounds Cardio Rate: regular rate Rhythm: regular rhythm Heart sounds: S1 normal heart sound present and S2 normal heart sound present GI Palpation (GI): Soft to palpation and nontender Auscultation: normal bowel sounds Skin General skin exam: rashes and/or lesions noted Extrem General: Yes edema Assessment & Plan Assessment & Plan (1) Chronic restrictive lung disease: Code(s): J98.4 - Other disorders of lung Category: Medical (2) Dyspnea: Code(s): R06.00 - Dyspnea, unspecified Category: Medical Qualifiers: Dyspnea type: dyspnea on exertion Qualified Code(s): R06.00 - Dyspnea, unspecified (3) Diastolic dysfunction: Code(s): I51.89 - Other ill-defined heart diseases Category: Medical (4) Pneumonia: Code(s): J18.9 - Pneumonia, unspecified organism Category: Medical Qualifiers: Pneumonia type: due to unspecified organism Laterality: unspecified laterality Lung location: unspecified part of lung Qualified Code(s): J18.9 - Pneumonia, unspecified organism Plan restart Pulmonary rehab in person CXR in 6 month continue oxigen at night consider in lab sleep study diursesis as tolerated low sodium diet compression stockings F/U with Pulmonary 6 months Orders: Orders Pulmonary Rehab Today U07.1 - COVID-19 Coding Level of Care Code Est Pt Level 4 (86440) Diagnoses Chronic restrictive lung disease J98.4 Dyspnea on exertion R06.00 Dyspnea type: dyspnea on exertion Diastolic dysfunction I51.89 Pneumonia due to infectious organism, unspecified laterality, unspecified part of lung J18.9 Pneumonia type: due to unspecified organism Laterality: unspecified laterality Lung location: unspecified part of lung Time Spent (min) 17
== END 2023-12-17 09:26 | disposition home or self-care (01) ==
PROVIDERS: PCP Registered Nurse; Visit Provider Hospitalist
DX: J98.4 Other disorders of lung (principal); R06.00 Dyspnea, unspecified; I51.89 Other ill-defined heart diseases; J18.9 Pneumonia, unspecified organism
CPT/HCPCS: 99214

== ENCOUNTER → 2023-12-17 09:00 | Outpatient (BNVA) | payer OTHER, SELFPAY | PROVIDERS: PCP Registered Nurse; Visit Provider Hospitalist | DX: J98.4 Other disorders of lung (principal); J18.9 Pneumonia, unspecified organism; R06.00 Dyspnea, unspecified; I51.89 Other ill-defined heart diseases | CPT/HCPCS: 99212 ==

== ENCOUNTER 2023-12-26 08:29 | Outpatient (AMB) | payer OTHER, SELFPAY ==
--- NOTE | 2023-12-26 08:30 | MHC.OFFVIS ---
Vital Signs 12/26/23 08:38 Height 5 ft 4 in Weight 215 lb BMI 36.9 Intake Visit Reasons: Osteoarthritis of left knee Intake Note: Navya is a 63-year-old female who presents with complaints of progressively worsening left knee pain. Her left knee pain has gotten worse over the last year in spite of continued non operative treatments. She has failed the last 3 months of a home exercise program, topical creams, anti-inflammatory medicines and Tylenol. The patient states that her left knee pain is now interfering with her activities of daily living and her ability to sleep well through the night. She has had cortisone injections in the past which gave her minimal relief. The patient has had Euflexxa viscosupplementation injections given into her right knee. Those injections gave her very good relief. She wishes to hold off on total knee replacement surgery for as long as possible. Allergies prednisone Adverse Reaction (Severe, Verified 12/26/23 08:36) Numbness codine Allergy (Severe, Uncoded 12/26/23 08:36) redness and itching penicillin Allergy (Severe, Uncoded 12/26/23 08:36) anaphylaxis soma Allergy (Severe, Uncoded 12/26/23 08:36) nausea and vomiting Medication List - Last Reconciled 12/26/23 by Michael Dickerson MD amlodipine 10 mg PO DAILY ascorbic acid (vitamin C) 1 g PO Q6H cholecalciferol (vitamin D3) 250 mcg PO DAILY elderberry fruit-honey 0.7-3 gram/7.5 mL mL PO DAILY furosemide (Lasix) 20 mg PO DAILY PRN 30 days lactobacillus combination no.9 (Adult 50 Plus Probiotic) 4,000 mmu cells PO DAILY metoprolol succinate ER 25 mg PO DAILY pantoprazole 20 mg PO DAILY red yeast rice 600 mg PO DAILY turmeric root extract 500 mg PO DAILY PFSH Medical History Atelectasis Pneumonia Chronic restrictive lung disease Diastolic dysfunction [id number] syndrome Limb swelling Pneumonia due to COVID-19 virus Dyspnea Tachycardia HTN (hypertension) GERD (gastroesophageal reflux disease) Obesity Surgical History Hx of cataract surgery History of unilateral fallopian tube excision History of parotid gland removal Hx of umbilical hernia repair Family History Mother Leukemia Father Heart disease Hypertension Hyperlipidemia Diabetes Colitis Sister No problems noted. Daughter No problems noted. Son No problems noted. Son No problems noted. 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 Physical Exam Vital Signs: BMI result Body Mass Index 36.9 Const Other: Well-nourished well-developed very friendly female awake alert and oriented x3 in no acute distress Extrem Other: Bilateral lower extremity examination shows good capillary refill, no skin lesions noted, normal sensation light touch Left knee examination shows a minimal effusion, palpable crepitus with range of motion, pain with range of motion, no instability, range of motion from -3 degrees to 115 degrees Results Reviewed Results Reviewed: X-rays of the patient's left knee taken previously show joint space narrowing, subchondral sclerosis, no acute bony abnormalities Assessment & Plan Assessment & Plan (1) Osteoarthritis of left knee: Code(s): M17.12 - Unilateral primary osteoarthritis, left knee Plan Ms. Gunter presents with progressively worsening left knee pain due to osteoarthritis. I had a lengthy discussion with the patient regarding the treatment options. She wishes to hold off on left total knee replacement surgery for as long as possible. I agree with this plan. She has not gotten good relief from cortisone injections in the past. Thus, I will see whether not the patient's insurance company will cover a series of Euflexxa viscosupplementation injections. I will see her back once the injections are available. Feel free to call me at any time should questions regarding her orthopedic management arise. I spent 22 minutes in reviewing the patient's records and imaging studies, seeing the patient and documenting in the medical record. Coding Level of Care Code Est Pt Level 3 (21948) Diagnoses Osteoarthritis of left knee M17.12
[2023-12-26 08:38] VITALS: BMI 36.9
== END 2023-12-26 09:10 | disposition home or self-care (01) ==
LOC: HO.HOS 08:29
PROVIDERS: PCP Registered Nurse; Visit Provider Orthopaedic Surgery
DX: M17.12 Unilateral primary osteoarthritis, left knee (principal)
CPT/HCPCS: 99213

== ENCOUNTER → 2023-12-26 08:29 | Outpatient (BNVA) | payer OTHER, SELFPAY | PROVIDERS: PCP Registered Nurse; Visit Provider Orthopaedic Surgery | DX: M17.12 Unilateral primary osteoarthritis, left knee (principal) | CPT/HCPCS: 99212 ==

== ENCOUNTER 2024-01-22 08:33 | Outpatient (AMB) | payer OTHER, SELFPAY ==
--- NOTE | 2024-01-22 08:36 | MHC.OFFVIS ---
Intake Visit Reasons: Left Knee Euflexxa Gel Injection Intake Note: Navya is a 63 year old female who presents with complaints of progressively worsening left knee pain. The patient describes her pain as sharp in nature. Her pain has gotten worse over the last year in spite of continued non operative treatments. She has had cortisone injections which gave her minimal relief. She would like to hold off on surgery for as long as possible. She has failed the last 3 months of a home exercise program as well as Tylenol and anti-inflammatory medicines. She would like to hold off on surgery for as long as possible. Allergies prednisone Adverse Reaction (Severe, Verified 01/22/24 08:36) Numbness codine Allergy (Severe, Uncoded 01/22/24 08:36) redness and itching penicillin Allergy (Severe, Uncoded 01/22/24 08:36) anaphylaxis soma Allergy (Severe, Uncoded 01/22/24 08:36) nausea and vomiting Medication List - Last Reconciled 01/22/24 by Michael Dickerson MD amlodipine 10 mg PO DAILY ascorbic acid (vitamin C) 1 g PO Q6H cholecalciferol (vitamin D3) 250 mcg PO DAILY elderberry fruit-honey 0.7-3 gram/7.5 mL mL PO DAILY furosemide (Lasix) 20 mg PO DAILY PRN 30 days lactobacillus combination no.9 (Adult 50 Plus Probiotic) 4,000 mmu cells PO DAILY metoprolol succinate ER 25 mg PO DAILY pantoprazole 20 mg PO DAILY red yeast rice 600 mg PO DAILY turmeric root extract 500 mg PO DAILY PFS Medical History Atelectasis Pneumonia Chronic restrictive lung disease Diastolic dysfunction [id number] syndrome Limb swelling Pneumonia due to COVID-19 virus Dyspnea Tachycardia HTN (hypertension) GERD (gastroesophageal reflux disease) Obesity Surgical History Hx of cataract surgery History of unilateral fallopian tube excision History of parotid gland removal Hx of umbilical hernia repair Family History Mother Leukemia Father Heart disease Hypertension Hyperlipidemia Diabetes Colitis Sister No problems noted. Daughter No problems noted. Son No problems noted. Son No problems noted. 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 Physical Exam Const Other: Well-nourished well-developed very friendly female awake alert and oriented x3 in no acute distress Extrem Other: Bilateral lower extremity examination shows good capillary refill, no skin lesions noted, normal sensation light touch Left knee examination shows a minimal effusion, palpable crepitus with range of motion, pain with range of motion, no instability Office Procedures Joint Injection/Drain Joint Injection/Drain Primary Site: left knee Prep: site was prepped using aseptic technique Injected: 20 mg of (Euflexxa viscosupplementation) and 1% plain lidocaine Procedure: The patient tolerated the procedure well Coding - Large joint Procedure code (CPT) selection complete Results Reviewed Results Reviewed: X-rays of the patient's left knee show joint space narrowing, subchondral sclerosis, no acute bony abnormalities Assessment & Plan Assessment & Plan (1) Arthritis of left knee: Code(s): M17.12 - Unilateral primary osteoarthritis, left knee Category: Medical Plan Ms. Gunter presents with left knee pain due to degenerative joint disease. I had a lengthy discussion with the patient regarding the treatment options. She wishes to hold off on surgery for as long as possible. I agree with this plan. She has not gotten good relief from cortisone injections in the past. Thus, the risks and benefits of a series of Euflexxa viscosupplementation injections were discussed at length with the patient. The patient wishes to proceed. She tolerated the 1st injection well. She will continue with her activity modifications. She will follow up for her 2nd injection as scheduled. Feel free to call me at any time should questions regarding her orthopedic management arise. I spent 20 minutes in reviewing the patient's records and imaging studies, seeing the patient and documenting in the medical record. Orders: Orders AMB Joint Injection/Aspiration Today M17.12 - Unilateral primary osteoarthritis, left knee Coding Level of Care Code Est Pt Level 3 (99660) Diagnoses Arthritis of left knee M17.12 CPT Codes Coding - Large joint: 29213 - Large joint ([id number])
== END 2024-01-22 09:05 | disposition home or self-care (01) ==
PROVIDERS: PCP Registered Nurse; Visit Provider Orthopaedic Surgery
DX: M17.12 Unilateral primary osteoarthritis, left knee (principal)
CPT/HCPCS: 20610; 99213

== ENCOUNTER → 2024-01-22 08:33 | Outpatient (BNVA) | payer OTHER, SELFPAY | PROVIDERS: PCP Registered Nurse; Visit Provider Orthopaedic Surgery | DX: M17.12 Unilateral primary osteoarthritis, left knee (principal) | CPT/HCPCS: 20610; 99212; J7323 ==

== ENCOUNTER 2024-02-05 07:42 | Outpatient (AMB) | payer OTHER, SELFPAY ==
--- NOTE | 2024-02-05 07:45 | MHC.OFFVIS ---
Intake Visit Reasons: Left Knee Euflexxa Gel Injection #2 Intake Note: Ms. Gunter presents with progressively worsening left knee pain. She describes her pain as sharp in nature. Her pain has gotten worse over the last few years in spite of continued non operative treatments. She has done physical therapy exercises which aggravated her pain. She has also had cortisone injections which gave her minimal relief. She wishes to hold off on surgery for as long as possible. She has tried Tylenol and anti-inflammatory medicines which gave her only mild relief. Allergies prednisone Adverse Reaction (Severe, Verified 02/05/24 07:48) Numbness codine Allergy (Severe, Uncoded 02/05/24 07:48) redness and itching penicillin Allergy (Severe, Uncoded 02/05/24 07:48) anaphylaxis soma Allergy (Severe, Uncoded 02/05/24 07:48) nausea and vomiting Medication List - Last Reconciled 02/05/24 by Michael Dickerson MD amlodipine 10 mg PO DAILY ascorbic acid (vitamin C) 1 g PO Q6H cholecalciferol (vitamin D3) 250 mcg PO DAILY elderberry fruit-honey 0.7-3 gram/7.5 mL mL PO DAILY furosemide (Lasix) 20 mg PO DAILY PRN 30 days lactobacillus combination no.9 (Adult 50 Plus Probiotic) 4,000 mmu cells PO DAILY metoprolol succinate ER 25 mg PO DAILY pantoprazole 20 mg PO DAILY red yeast rice 600 mg PO DAILY turmeric root extract 500 mg PO DAILY PFSH Medical History Atelectasis Pneumonia Chronic restrictive lung disease Diastolic dysfunction [id number] syndrome Limb swelling Pneumonia due to COVID-19 virus Dyspnea Tachycardia HTN (hypertension) GERD (gastroesophageal reflux disease) Obesity Surgical History Hx of cataract surgery History of unilateral fallopian tube excision History of parotid gland removal Hx of umbilical hernia repair Family History Mother Leukemia Father Heart disease Hypertension Hyperlipidemia Diabetes Colitis Sister No problems noted. Daughter No problems noted. Son No problems noted. Son No problems noted. 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 Physical Exam Const Other: Well-nourished well-developed very friendly female awake alert and oriented x3 in no acute distress Extrem Other: Bilateral lower extremity examination shows good capillary refill, no skin lesions noted, normal sensation light touch Left knee examination shows a minimal effusion, palpable crepitus with range of motion, pain with range motion, no instability Office Procedures Joint Injection/Aspiration Joint Injection/Aspiration Primary Site: left knee Prep: site was prepped using aseptic technique Injected: 20 mg of (Euflexxa viscosupplementation) and 1% plain lidocaine Procedure: The patient tolerated the procedure well Coding - Large joint Procedure code (CPT) selection complete Results Reviewed Results Reviewed: X-rays of the patient's left knee show joint space narrowing, subchondral sclerosis, no acute bony abnormalities Assessment & Plan Assessment & Plan (1) Arthritis of left knee: Code(s): M17.12 - Unilateral primary osteoarthritis, left knee Category: Medical Plan Ms. Gunter presents with progressively worsening left knee pain due to degenerative joint disease. I had a lengthy discussion with the patient regarding the treatment options. She wishes to hold off on surgery for as long as possible. I agree with this plan. She has not gotten good relief from cortisone injections in the past. Thus, the risks and benefits of a series of Euflexxa viscosupplementation injections were discussed at length with the patient. The patient wished to proceed. She tolerated the 1st injection well. She will continue with her home exercise program. She will follow up next week as scheduled. Feel free to call me at any time should questions regarding her orthopedic management arise. I spent 22 minutes in reviewing the patient's records and imaging studies, seeing the patient and documenting in the medical record. Orders: Orders AMB Joint Injection/Aspiration Today M17.12 - Unilateral primary osteoarthritis, left knee Coding Level of Care Code Est Pt Level 3 (34200) Diagnoses Arthritis of left knee M17.12 CPT Codes Coding - Large joint: 18056 - Large joint ([id number])
== END 2024-02-05 08:03 | disposition home or self-care (01) ==
PROVIDERS: PCP Registered Nurse; Visit Provider Orthopaedic Surgery
DX: M17.12 Unilateral primary osteoarthritis, left knee (principal)
CPT/HCPCS: 20610; 99213

== ENCOUNTER → 2024-02-05 07:42 | Outpatient (BNVA) | payer OTHER, SELFPAY | PROVIDERS: PCP Registered Nurse; Visit Provider Orthopaedic Surgery | DX: M17.12 Unilateral primary osteoarthritis, left knee (principal) | CPT/HCPCS: 20610; 99212; J7323 ==

== ENCOUNTER 2024-02-12 10:57 | Outpatient (AMB) | payer OTHER, SELFPAY ==
--- NOTE | 2024-02-12 11:01 | MHC.OFFVIS ---
Intake Visit Reasons: Bilateral knee pain Intake Note: Navya is a 63 year old female who presents with complaints of progressively worsening right knee pain. She also reports intermittent left knee pain. At the patient's last 2 visits she has gotten a Euflexxa injection given into her left knee. She states that she has gotten fairly good relief from those injections. She describes her right knee pain as sharp in nature. Her right knee pain has gotten worse over the last year in spite of continued non operative treatments. She has failed the last 3 months of conservative treatment including a home exercise program, topical creams, Tylenol and anti-inflammatory medicines. She has had cortisone injections in the past which gave her minimal relief. She has also had viscosupplementation injections which gave her good relief. She wishes to hold off on total knee replacement surgery for as long as possible. 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 Daughter No problems noted. Son No problems noted. Son No problems noted. 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 Physical Exam Const Other: Well-nourished well-developed very friendly female awake alert and oriented x3 in no acute distress Extrem Other: Bilateral lower extremity examination shows good capillary refill, no skin lesions noted, normal sensation light touch Right knee examination shows a minimal effusion, palpable crepitus with range of motion, pain with range of motion, range of motion from -3 degrees to 115 degrees, no instability Left knee examination shows a minimal effusion, minimal crepitus with range of motion, minimal discomfort with range of motion, no instability Office Procedures Joint Injection/Aspiration Joint Injection/Aspiration Primary Site: left knee Prep: site was prepped using aseptic technique Injected: 20 mg of (Euflexxa viscosupplementation) and 1% plain lidocaine Procedure: The patient tolerated the procedure well Coding 73807 - Large joint Procedure code (CPT) selection complete Results Reviewed Results Reviewed: X-rays of the patient's bilateral knees taken previously show joint space narrowing, subchondral sclerosis, no acute bony abnormalities Assessment & Plan Assessment & Plan (1) Pain in both knees: Code(s): M25.561 - Pain in right knee; M25.562 - Pain in left knee (2) Osteoarthritis of left knee: Code(s): M17.12 - Unilateral primary osteoarthritis, left knee Category: Medical (3) Osteoarthritis of right knee: Code(s): M17.11 - Unilateral primary osteoarthritis, right knee Category: Medical Plan Ms. Gunter presents with bilateral knee pains due to osteoarthritis. The risks and benefits of a 3rd Euflexxa viscosupplementation injection for her left knee were discussed at length with the patient. The patient wished to proceed. She tolerated the injection well. The patient's last series of right knee Euflexxa injections was performed in August. Thus, I will see whether or not the patient's insurance company will cover a no other series of 3 Euflexxa injections for her right knee. I will see her back once the injections are available. If she fails continued non operative treatments we will further discuss the risks and benefits of total knee replacement surgery. Feel free to call me any should questions regarding her orthopedic management arise. I spent 21 minutes in reviewing the patient's records and imaging studies, seeing the patient and documenting in the medical record. Orders: Orders AMB Joint Injection/Aspiration 02/12/24 M17.12 - Unilateral primary osteoarthritis, left knee Coding Level of Care Code Est Pt Level 3 (40711) Diagnoses Pain in both knees M25.561; M25.562 Osteoarthritis of left knee M17.12 Osteoarthritis of right knee M17.11 CPT Codes Coding - 48851 Large joint: 06531 - Large joint ([id number])
== END 2024-02-12 11:17 | disposition home or self-care (01) ==
PROVIDERS: PCP Registered Nurse; Visit Provider Orthopaedic Surgery
DX: M25.561 Pain in right knee (principal); M25.562 Pain in left knee; M17.0 Bilateral primary osteoarthritis of knee
CPT/HCPCS: 20610; 99213

== ENCOUNTER → 2024-02-12 10:57 | Outpatient (BNVA) | payer OTHER, SELFPAY | PROVIDERS: PCP Registered Nurse; Visit Provider Orthopaedic Surgery | DX: M17.0 Bilateral primary osteoarthritis of knee (principal) | CPT/HCPCS: 20610; 99212; J7323 ==

== ENCOUNTER 2024-03-24 08:29 | Outpatient (AMB) | payer OTHER, SELFPAY ==
[2024-03-24 08:33] VITALS: BMI 36.9
--- NOTE | 2024-03-24 08:33 | A.OFFVIS_ITS ---
Vital Signs 03/24/24 08:33 Height 5 ft 4 in Weight 215 lb BMI 36.9 Intake Visit Reasons: Right knee pain Intake Note: Navya is a 63-year-old female who presents with complaints of progressively worsening right knee pain. She describes her pain as sharp in nature. Her pain has gotten worse over the last few years in spite of continued non operative treatments. She has had cortisone injections in the past which gave her minimal relief. She has had viscosupplementation injections given into her left knee which gave her good relief. She has tried Tylenol and anti-inflammatory medicines which gave her minimal relief. She denies any locking or giving way. She has done physical therapy exercises which aggravated her pain. She wishes to hold off on surgery for as long as possible. Allergies prednisone Adverse Reaction (Severe, Verified 03/24/24 08:34) Numbness codine Allergy (Severe, Uncoded 02/12/24 11:01) redness and itching penicillin Allergy (Severe, Uncoded 02/12/24 11:01) anaphylaxis soma Allergy (Severe, Uncoded 02/12/24 11:01) nausea and vomiting Medication List - Last Reconciled 03/24/24 by Michael Dickerson MD amlodipine 10 mg PO DAILY ascorbic acid (vitamin C) 1 g PO Q6H cholecalciferol (vitamin D3) 250 mcg PO DAILY elderberry fruit-honey 0.7-3 gram/7.5 mL mL PO DAILY furosemide (Lasix) 20 mg PO DAILY PRN 30 days lactobacillus combination no.9 (Adult 50 Plus Probiotic) 4,000 mmu cells PO DAILY metoprolol succinate ER 25 mg PO DAILY pantoprazole 20 mg PO DAILY red yeast rice 600 mg PO DAILY turmeric root extract 500 mg PO DAILY PFSH Medical History Atelectasis Pneumonia Chronic restrictive lung disease Diastolic dysfunction [id number] syndrome Limb swelling Pneumonia due to COVID-19 virus Dyspnea Tachycardia HTN (hypertension) GERD (gastroesophageal reflux disease) Obesity Surgical History Hx of cataract surgery History of unilateral fallopian tube excision History of parotid gland removal Hx of umbilical hernia repair Family History Mother Leukemia Father Heart disease Hypertension Hyperlipidemia Diabetes Colitis Sister No problems noted. Daughter No problems noted. Son No problems noted. Son No problems noted. 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 Physical Exam Vital Signs: BMI result Body Mass Index 36.9 Const Other: Well-nourished well-developed very friendly female awake alert and oriented x3 in no acute distress Extrem Other: Bilateral lower extremity examination shows good capillary refill, no skin l esions noted, normal sensation light touch Right knee examination shows a minimal effusion, palpable crepitus with range of motion, pain motion, no instability Office Procedures Joint Injection/Aspiration Joint Injection/Aspiration Primary Site: right knee Prep: site was prepped using aseptic technique Injected: 20 mg of (Euflexxa viscosupplementation) and 1% plain lidocaine Procedure: The patient tolerated the procedure well Coding 79778 - Large joint Procedure code (CPT) selection complete Results Reviewed Results Reviewed: X-rays of the patient's right knee taken previously show joint space narrowing, subchondral sclerosis, no acute bony abnormalities Assessment & Plan Assessment & Plan (1) Osteoarthritis of right knee: Code(s): M17.11 - Unilateral primary osteoarthritis, right knee Category: Medical (2) Right knee pain: Code(s): M25.561 - Pain in right knee Plan Ms. Gunter presents with bilateral knee pains due to degenerative joint disease. I had a lengthy discussion with the patient regarding the treatment options. The risks and benefits of a series of right knee Euflexxa injections were discussed at length with the patient. The patient wished to proceed. She tolerated the 1st injection well. She will continue with her home exercise program. She will follow up next week as scheduled for her 2nd injection. Feel free to call me at any time should questions regarding her orthopedic management arise. I spent 20 minutes in reviewing the patient's records and imaging studies, seeing the patient and documenting in the medical record. Orders: Orders AMB Joint Injection/Aspiration Today M17.11 - Unilateral primary osteoarthritis, right knee Coding Level of Care Code Est Pt Level 3 (62731) Complex EM visit Add On G2211 Diagnoses Osteoarthritis of right knee M17.11 Right knee pain M25.561 CPT Codes Coding - 45779 Large joint: 62690 - Large joint ([id number])
== END 2024-03-24 09:02 | disposition home or self-care (01) ==
PROVIDERS: PCP Registered Nurse; Visit Provider Orthopaedic Surgery
DX: M17.11 Unilateral primary osteoarthritis, right knee (principal)
CPT/HCPCS: 20610; 99213

== ENCOUNTER → 2024-03-24 08:29 | Outpatient (BNVA) | payer OTHER, SELFPAY | PROVIDERS: PCP Registered Nurse; Visit Provider Orthopaedic Surgery | DX: M17.11 Unilateral primary osteoarthritis, right knee (principal); M25.561 Pain in right knee | CPT/HCPCS: 20610; 99212; J7323 ==

== ENCOUNTER 2024-04-23 08:49 | Outpatient (AMB) | payer OTHER, SELFPAY ==
[2024-04-23 08:56] VITALS: BMI 36.9
--- NOTE | 2024-04-23 08:56 | A.OFFVIS_ITS ---
Vital Signs 04/23/24 08:56 Height 5 ft 4 in Weight 215 lb BMI 36.9 Intake Visit Reasons: Right Knee Euflexxa #2 Intake Note: Navya is a 63 year old female who presents with complaints of right knee pain. The patient states that she got mild relief from the 1st Euflexxa injection that she was given last month. She was not able to make her originally scheduled appointments because she came down with COVID-19. Allergies prednisone Adverse Reaction (Severe, Verified 04/23/24 08:57) Numbness codine Allergy (Severe, Uncoded 02/12/24 11:01) redness and itching penicillin Allergy (Severe, Uncoded 02/12/24 11:01) anaphylaxis soma Allergy (Severe, Uncoded 02/12/24 11:01) nausea and vomiting Medication List - Last Reconciled 04/23/24 by Michael Dickerson MD amlodipine 10 mg PO DAILY ascorbic acid (vitamin C) 1 g PO Q6H cholecalciferol (vitamin D3) 250 mcg PO DAILY elderberry fruit-honey 0.7-3 gram/7.5 mL mL PO DAILY furosemide (Lasix) 20 mg PO DAILY PRN 30 days lactobacillus combination no.9 (Adult 50 Plus Probiotic) 4,000 mmu cells PO DAILY metoprolol succinate ER 25 mg PO DAILY pantoprazole 20 mg PO DAILY red yeast rice 600 mg PO DAILY turmeric root extract 500 mg PO DAILY PFSH Medical History Atelectasis Pneumonia Chronic restrictive lung disease Diastolic dysfunction [id number] syndrome Limb swelling Pneumonia due to COVID-19 virus Dyspnea Tachycardia HTN (hypertension) GERD (gastroesophageal reflux disease) Obesity Surgical History Hx of cataract surgery History of unilateral fallopian tube excision History of parotid gland removal Hx of umbilical hernia repair Family History Mother Leukemia Father Heart disease Hypertension Hyperlipidemia Diabetes Colitis Sister No problems noted. Daughter No problems noted. Son No problems noted. Son No problems noted. 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 Physical Exam Vital Signs: BMI result Body Mass Index 36.9 Extrem Other: Right knee examination shows a minimal effusion, palpable crepitus with range of motion, pain with range of motion, no instability Office Procedures Joint Injection/Aspiration Joint Injection/Aspiration Primary Site: right knee Prep: site was prepped using aseptic technique Injected: 20 mg of (Euflexxa viscosupplementation) and 1% plain lidocaine Procedure: The patient tolerated the procedure well Coding 41176 - Large joint Procedure code (CPT) selection complete Results Reviewed Results Reviewed: X-rays of the patient's right knee taken previously show joint space narrowing, subchondral sclerosis, no acute bony abnormalities Assessment & Plan Assessment & Plan (1) Osteoarthritis of right knee: Code(s): M17.11 - Unilateral primary osteoarthritis, right knee Category: Medical Plan Navya presents with right knee pain due to degenerative joint disease. The risks and benefits of a 2nd Euflexxa injection were discussed at length with the patient. The patient wished to proceed. She tolerated the injection well. She will continue with her home exercise program. She will follow up next week as scheduled. Feel free to call me at any time should questions regarding her orthopedic management arise. Orders: Orders AMB Joint Injection/Aspiration Today M17.11 - Unilateral primary osteoarthritis, right knee Coding Level of Care Code Procedure Only Diagnoses Osteoarthritis of right knee M17.11 CPT Codes Coding - 23965 Large joint: 47972 - Large joint ([id number])
== END 2024-04-23 09:17 | disposition home or self-care (01) ==
PROVIDERS: PCP Registered Nurse; Visit Provider Orthopaedic Surgery
DX: M17.11 Unilateral primary osteoarthritis, right knee (principal)
CPT/HCPCS: 20610

== ENCOUNTER → 2024-04-23 08:49 | Outpatient (BNVA) | payer OTHER, SELFPAY | PROVIDERS: PCP Registered Nurse; Visit Provider Orthopaedic Surgery | DX: M17.11 Unilateral primary osteoarthritis, right knee (principal) | CPT/HCPCS: 20610 ==

== ENCOUNTER 2024-04-30 12:38 | Outpatient (AMB) | payer OTHER, SELFPAY ==
--- NOTE | 2024-04-30 12:40 | MHC.OFFVIS ---
Intake Visit Reasons: Bilateral knee pains Intake Note: Navya is a 63 yo female who presents with complaints of progressively worsening left knee pain. She did have a series of Euflexxa viscosupplementation injections given into her left knee earlier this year. She got fairly good relief from those injections. She has had cortisone injections which gave her no relief. She has also done physical therapy exercises which aggravated her pain. She has tried Tylenol and anti-inflammatory medicines which gave her minimal relief. The patient has had Euflexxa injections given into her right knee at her last 2 visits. She has gotten fairly good relief from the injections. She wishes to hold off on total knee replacement surgery for as long as possible. Allergies prednisone Adverse Reaction (Severe, Verified 04/30/24 12:42) Numbness codine Allergy (Severe, Uncoded 04/30/24 12:42) redness and itching penicillin Allergy (Severe, Uncoded 04/30/24 12:42) anaphylaxis soma Allergy (Severe, Uncoded 04/30/24 12:42) nausea and vomiting Medication List - Last Reconciled 05/01/24 by Michael Dickerson MD amlodipine 10 mg PO DAILY ascorbic acid (vitamin C) 1 g PO Q6H cholecalciferol (vitamin D3) 250 mcg PO DAILY elderberry fruit-honey 0.7-3 gram/7.5 mL mL PO DAILY furosemide (Lasix) 20 mg PO DAILY PRN 30 days lactobacillus combination no.9 (Adult 50 Plus Probiotic) 4,000 mmu cells PO DAILY metoprolol succinate ER 25 mg PO DAILY pantoprazole 20 mg PO DAILY red yeast rice 600 mg PO DAILY turmeric root extract 500 mg PO DAILY [facility] Medical History Atelectasis Pneumonia Chronic restrictive lung disease Diastolic dysfunction [id number] syndrome Limb swelling Pneumonia due to COVID-19 virus Dyspnea Tachycardia HTN (hypertension) GERD (gastroesophageal reflux disease) Obesity Surgical History Hx of cataract surgery History of unilateral fallopian tube excision History of parotid gland removal Hx of umbilical hernia repair Family History Mother Leukemia Father Heart disease Hypertension Hyperlipidemia Diabetes Colitis Sister No problems noted. Daughter No problems noted. Son No problems noted. Son No problems noted. 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 Physical Exam Const Other: Well-nourished well-developed very friendly female awake alert and oriented x3 in no acute distress Extrem Other: Bilateral lower extremity examination shows good capillary refill, no skin lesions noted, normal sensation light touch Bilateral knee examination shows minimal effusions, palpable crepitus with range of motion, pain with range of motion, range of motion from -3 degrees to 115 degrees, no instability Office Procedures AMB Joint Injection/Aspiration Joint Injection/Aspiration Primary Site: right knee Prep: site was prepped using aseptic technique Injected: 20 mg of (Euflexxa viscosupplementation) and 1% plain lidocaine Procedure: The patient tolerated the procedure well Coding 00470 - Large joint Procedure code (CPT) selection complete Results Reviewed Results Reviewed: X-rays of the patient's bilateral knees taken previously show joint space narrowing, subchondral sclerosis, no acute bony abnormalities Assessment & Plan Assessment & Plan (1) Osteoarthritis of right knee: Code(s): M17.11 - Unilateral primary osteoarthritis, right knee Category: Medical (2) Osteoarthritis of left knee: Code(s): M17.12 - Unilateral primary osteoarthritis, left knee Category: Medical Plan Ms. Gunter presents with bilateral knee pains due to osteoarthritis. The risks and benefits of her 3rd right knee Euflexxa injection were discussed at length with the patient. The patient wished to proceed. She tolerated the injection well. The patient does have progressively worsening left knee pain due to osteoarthritis. She has not gotten good relief from cortisone injections in the past. Thus, I will see whether not her insurance company will cover another series of 3 Euflexxa injections for her left knee. I will see her back once the injections are available. Feel free to call me at any time should questions regarding her orthopedic management arise. I spent 22 minutes in reviewing the patient's records and imaging studies, seeing the patient and documenting in the medical record. Orders: Orders AMB Joint Injection/Aspiration 04/30/24 M17.11 - Unilateral primary osteoarthritis, right knee Coding Level of Care Code Est Pt Level 3 (25740) Complex EM visit Add On G2211 Diagnoses Osteoarthritis of right knee M17.11 Osteoarthritis of left knee M17.12 CPT Codes Coding - 79134 Large joint: 83603 - Large joint ([id number])
== END 2024-04-30 12:54 | disposition home or self-care (01) ==
LOC: HO.HOS 12:39
PROVIDERS: PCP Registered Nurse; Visit Provider Orthopaedic Surgery
DX: M17.0 Bilateral primary osteoarthritis of knee (principal)
CPT/HCPCS: 20610; 99213

== ENCOUNTER → 2024-04-30 12:38 | Outpatient (BNVA) | payer OTHER, SELFPAY | PROVIDERS: PCP Registered Nurse; Visit Provider Orthopaedic Surgery | DX: M17.0 Bilateral primary osteoarthritis of knee (principal) | CPT/HCPCS: 20610; 99212; J2003; J7323 ==

== ENCOUNTER 2024-07-29 08:40 | Outpatient (AMB) | payer OTHER, SELFPAY ==
[2024-07-29 08:54] VITALS: BP 140/88; PULSE 82; O2SAT 95; BMI 39.9
--- NOTE | 2024-07-29 08:54 | A.OFFVIS_ITS ---
Vital Signs 07/29/24 08:54 Height 5 ft 4 in Weight 232 lb 9.403 oz BMI 39.9 BP 140/88 H Blood Pressure Location Rt brachial Position Sitting Pulse 82 Pulse Source Pulse Oximeter Pulse Oximetry (%) 95 Oxygen Delivery Method Room Air Intake Visit Reasons: Dyspnea Allergies prednisone Adverse Reaction (Severe, Verified 07/29/24 08:58) Numbness codine Allergy (Severe, Uncoded 07/29/24 08:58) redness and itching penicillin Allergy (Severe, Uncoded 07/29/24 08:58) anaphylaxis soma Allergy (Severe, Uncoded 07/29/24 08:58) nausea and vomiting HPI Comments Details: The patient is a 63-year-old woman who was previously healthy until the and May when she was diagnosed with COVID-19 infection. She did have worsening respiratory symptoms. At time she did have a chest x-ray demonstrating bibasilar opacities. She was given a couple course of antibiotics. The patient apparently had a a reasonable pulse ox and she did not require admission to the hospital. However, her symptoms continued. Patient did have a repeat chest x- ray 3 weeks after were still demonstrating the airspace disease now with airspace disease in the upper lung zones and some areas of atelectasis primarily in the left lung base area. She was started on a short-acting beta agonist and she was also given inhaled cortical steroid. The patient's symptoms have improved. She still feels short of breath with activity and still has a cough specially when she takes a deep breath and [id number] severity. But, she was able to stop the inhaled cortical steroids and she rarely uses a rescue inhaler at this time. During the office we did go for brief 6 minutes walk test. Her pulse ox actually been time between 96-95%. However, more significantly was that she had a very elevated heart rate up to 128 beats per minute. Appeared to be sinus. The patient had a Katerin score of 5/10. At this point the patient will go further laboratory data and chest x-ray. Further evaluation for the tank cardia also is warranted at this time. It is likely that is related to her recent COVID infection. 07/24/2022 the patient is here for a pulmonary follow-up visit. She continues to have some dyspnea on exertion. She also continues to have an elevated heart rate. Recently her extension professor put on metoprolol XL. Seems to be helping alth ough is making a little bit drowsy. The patient does have underlying diastolic dysfunction and therefore rate controlling agents will be effective in helping her symptoms. In addition to that we did review her pulmonary function studies from before demonstrating mild degree of restrictive lung disease and mild degree of diffusion impairment. The patient has not had any breathing studies in some time. Therefore will have a follow-up in 6 months with PFTs. 12/25/2022 the patient is here for a pulmonary follow-up visit. The patient overall is doing little better. Heart rate seems to be better controlled metoprolol. The breathing is also little better. Still having some dyspnea on exertion specially going up a flight of stairs or inclines. Moderate severity. She did undergo pulmonary function studies in the still has a mild restrictive ventilatory defect and a mild diffusion impairment. The patient will benefit from pulmonary rehabilitation. Will go ahead and refer her back to rehab in order for her to improve her respiratory capacity. Inhalers actually made her numbers worse. Likely secondary to deconditioning. May have a component of a neuromuscular condition. At this point the patient does not benefit from any further inhaler therapy. 07/30/2023 the patient is here for pulmonary follow-up visit. She has been participating in pulmonary rehabilitation. she still complains of shortness of breath with activity. She does not feel like she is much different than before. Although she is motivated to continue with rehabilitation. We again talked about the findings. She does have evidence of restriction on her PFTs but also more significantly that the diastolic dysfunction could also resulting in the shortness of breath. Currently she is volume overloaded. She does have a prescription for Lasix but she does not taking regularly. I did recommend she can follow-up with her extension professor to make sure her medications adjusted. In the meantime she should weigh herself daily and she gained 2 lb in 24 hours 3lbs in 48 hours she should take Lasix. She also needs to monitor closely her sodium intake and use her compression stockings. Hopefully she can reach a better volume status therefore breathe better. The patient is not taking any inhalers. No significant improvement. The patient's last x-ray was back in 2020 demonstrating no acute disease. Will have her repeat the chest x-ray specially since she is still short of breath and will also have her undergo blood work. 09/19/2023 the patient is here for hospital follow-up visit. she was briefly admitted to [facility]. She was diagnosed with pneumonia and respiratory failure. I do not have the paperwork from hospitalizations. The patient was provided with oxygen supplementation while she was in the hospital. Now upon discharge the patient is able to be weaned off completely. She did completed antibiotics and also completed steroids. The patient is feeling better. Again, will request the records from [facility] to get more details. In the meantime she continues with the current respiratory regimen. She does have dyspnea on exertion. Mild in severity. She is also tired in general. Moderate severity. She continues diuresis. We did go for brief walking oximetry she was able to maintain within normal ranges therefore not qualify for oxygen. Will go ahead and request an overnight oximetry to make sure that she does not have any hypoxic episodes while sleeping. In addition to that she should have a repeat chest x-ray to make sure there is resolution of the airspace disease. 12/17/2023 the patient is here for follow-up patient's she is also recovered from her knee surgery she has been using the oxygen at nighttime. We did do the patient definitely needs the oxygen at nights and she desaturated for about minutes below 88%. We did talk about considering in-lab sleep study in the near future. The patient also had a chest x-ray which I personally reviewed. She does have significant areas of atelectasis and likely some degree of scarring in the right hemithorax likely residual from her significant pneumonia. Indeed on exam she still has some crackles on the right side. I did give her a letter for work to avoid the exposure to the significant heat during this heat wave. 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 The patient also will continue current pulmonary rehabilitation. I will send a prescription to rehab for her to restart rehab at this time. 07/29/2024 the patient is here for a pulmonary follow-up visit about a month ago she did bronchitis and she did have an x-ray done at [facility]. I will go ahead and review it. Prior to that she had been doing okay. She continues use her respiratory therapy as prescribed. She also had an overnight oximetry and she did qualify for oxygen and she has been using the oxygen now at nighttime with good effect. Although she still has significant lower extremity edema significant tachycardia. She does have daytime drowsiness with an elevated [place] score of 11/24. The patient needs to have a home sleep study at this time. The patient will also follow-up with Cardiology. She needs to make sure she follows a low-sodium diet with significant swelling. Lung exam is clear at this time which is reassuring. Will follow-up 4 months after her sleep study to review. If anything is on her x-ray that I am concerned with a let her know should get additional imaging studies. 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 Daughter No problems noted. Son No problems noted. Son No problems noted. 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 Review of Systems Const Denies night sweats ENT Denies change in voice, Denies lip swelling, Denies mouth pain, Reports nasal congestion, Reports nasal discharge, Reports sinus pressure and Denies tongue swelling Card Denies chest pain and Reports dyspnea on exertion Resp Reports cough, Denies hemoptysis and Reports dyspnea on exertion GI Denies abdominal pain Musc Reports as per HPI and Reports myalgias Neuro Denies Neuro-related abnormal movements Psych Denies no additional complaints [place]/Lymph Denies easy bleeding and Denies lymphadenopathy Aller/Immun Denies lip swelling and Denies tongue swelling Physical Exam Vital Signs: Last Vital Signs Pulse 82 07/29/24 08:54 BP 140/88 H 07/29/24 08:54 Pulse Ox 95 07/29/24 08:54 Oxygen Delivery Method Room Air 07/29/24 08:54 BMI result Body Mass Index 39.9 Const General: alert Neck Neck: Yes normal visual inspection, Yes full ROM and Yes no lymphadenopathy Chest Chest palpation & inspection: normal inspection of the chest Resp Auscultation: crackles on the right and diminished lung sounds Cardio Rate: regular rate Rhythm: regular rhythm Heart sounds: S1 normal heart sound present and S2 normal heart sound present GI Palpation (GI): Soft to palpation and nontender Auscultation: normal bowel sounds Skin General skin exam: rashes and/or lesions noted Extrem General: Yes edema Assessment & Plan Assessment & Plan (1) Chronic restrictive lung disease: Code(s): J98.4 - Other disorders of lung Category: Medical (2) Dyspnea: Code(s): R06.00 - Dyspnea, unspecified Category: Medical Qualifiers: Dyspnea type: dyspnea on exertion Qualified Code(s): R06.00 - Dyspnea, unspecified (3) Diastolic dysfunction: Code(s): I51.89 - Other ill-defined heart diseases Category: Medical (4) Pneumonia: Code(s): J18.9 - Pneumonia, unspecified organism Category: Medical Qualifiers: Laterality: unspecified laterality Lung location: unspecified part of lung Pneumonia type: due to unspecified organism Qualified Code(s): J18.9 - Pneumonia, unspecified organism (5) LUZMARIA (obstructive sleep apnea): Code(s): G47.33 - Obstructive sleep apnea (adult) (pediatric) Category: Medical Plan home PSG continue oxygen at night diursesis as tolerated low sodium diet compression stockings F/U with Pulmonary 4-6 months Orders: Orders RT home sleep study Today G47.33 - Obstructive sleep apnea (adult) (pediatric) Coding Level of Care Code Est Pt Level 4 (42782) Diagnoses Chronic restrictive lung disease J98.4 Dyspnea on exertion R06.00 Dyspnea type: dyspnea on exertion Diastolic dysfunction I51.89 Pneumonia due to infectious organism, unspecified laterality, unspecified part of lung J18.9 Laterality: unspecified laterality Lung location: unspecified part of lung Pneumonia type: due to unspecified organism LUZMARIA (obstructive sleep apnea) G47.33 Time Spent (min) 17
== END 2024-07-29 09:18 | disposition home or self-care (01) ==
PROVIDERS: PCP Registered Nurse; Visit Provider Hospitalist
DX: J98.4 Other disorders of lung (principal); R06.00 Dyspnea, unspecified; I51.89 Other ill-defined heart diseases; J18.9 Pneumonia, unspecified organism; G47.33 Obstructive sleep apnea (adult) (pediatric)
CPT/HCPCS: 99214

== ENCOUNTER → 2024-07-29 08:40 | Outpatient (BNVA) | payer OTHER, SELFPAY | PROVIDERS: PCP Registered Nurse; Visit Provider Hospitalist | DX: J98.4 Other disorders of lung (principal); R06.00 Dyspnea, unspecified; J18.9 Pneumonia, unspecified organism; G47.33 Obstructive sleep apnea (adult) (pediatric); I51.89 Other ill-defined heart diseases | CPT/HCPCS: 99212 ==

== ENCOUNTER 2024-09-01 08:04 | Outpatient (AMB) | payer OTHER, SELFPAY ==
--- NOTE | 2024-09-01 08:09 | A.OFFVIS_ITS ---
Vital Signs 09/01/24 08:19 Height 5 ft 4 in Weight 232 lb BMI 39.8 Intake Visit Reasons: Left knee pain Intake Note: Navya is a 63 year old female who presents with complaints of progressively worsening left knee pain. She describes her pain as sharp nature. Her pain has gotten worse over the last 6 months in spite of continued non operative treatments. She has had cortisone injections in the past which gave minimal relief. She has also had viscosupplementation injections which gave her good relief. She has done physical therapy exercises which aggravated her pain. She has also tried Tylenol and anti-inflammatory medicines which gave her minimal relief. She wishes to hold off on surgery if at all possible. Allergies prednisone Adverse Reaction (Severe, Verified 09/01/24 08:19) Numbness codine Allergy (Severe, Uncoded 09/01/24 08:19) redness and itching penicillin Allergy (Severe, Uncoded 09/01/24 08:19) anaphylaxis soma Allergy (Severe, Uncoded 09/01/24 08:19) nausea and vomiting Medication List - Last Reconciled 09/01/24 by Michael Dickerson MD amlodipine 10 mg PO DAILY ascorbic acid (vitamin C) 1 g PO Q6H cholecalciferol (vitamin D3) 250 mcg PO DAILY elderberry fruit-honey 0.7-3 gram/7.5 mL mL PO DAILY furosemide (Lasix) 20 mg PO DAILY PRN 30 days lactobacillus combination no.9 (Adult 50 Plus Probiotic) 4,000 mmu cells PO DAILY metoprolol succinate ER 25 mg PO DAILY pantoprazole 20 mg PO DAILY red yeast rice 600 mg PO DAILY turmeric root extract 500 mg PO DAILY [facility] Medical History (Updated 07/29/24 @ 09:18 by Miguel Magana MD) LUZMARIA (obstructive sleep apnea) Atelectasis Pneumonia Chronic restrictive lung disease Diastolic dysfunction 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 Daughter No problems noted. Son No problems noted. Son No problems noted. 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 Physical Exam Vital Signs: BMI result Body Mass Index 39.8 Const Other: Well-nourished well-developed very friendly female awake alert and oriented x3 in no acute distress Extrem Other: Bilateral lower extremity examination shows good capillary refill, no skin lesions noted, normal sensation light touch Left knee examination shows a minimal effusion, palpable crepitus with range of motion, pain with range of motion, no instability Office Procedures AMB Joint Injection/Aspiration Joint Injection/Aspiration Primary Site: left knee Prep: site was prepped using aseptic technique Injected: 20 mg of (Euflexxa viscosupplementation) and 1% plain lidocaine Procedure: The patient tolerated the procedure well Coding - Large joint Procedure code (CPT) selection complete Results Reviewed Results Reviewed: X-rays of the patient's left knee taken previously show joint space narrowing, subchondral sclerosis, no acute bony abnormalities Assessment & Plan Assessment & Plan (1) Osteoarthritis of left knee: Code(s): M17.12 - Unilateral primary osteoarthritis, left knee Category: Medical (2) Left knee pain: Code(s): M25.562 - Pain in left knee Plan Ms. Gunter presents with left knee pain due to osteoarthritis. The risks and benefits of a series of Euflexxa injections were discussed at length with the patient. The patient wished to proceed. She tolerated the 1st injection well. She will continue with her home exercise program. She will follow up next week as scheduled. Feel free to call me at any time should questions regarding her orthopedic management arise. I spent 21 minutes in reviewing the patient's records and imaging studies, seeing the patient and documenting in the medical record. Orders: Orders AMB Joint Injection/Aspiration Today M17.12 - Unilateral primary osteoarthritis, left knee Coding Level of Care Code Est Pt Level 3 (64161) Complex EM visit Add On G2211 Diagnoses Osteoarthritis of left knee M17.12 Left knee pain M25.562 CPT Codes Coding - Large joint: 06721 - Large joint ([id number])
--- OUTSIDE RECORDS SUMMARY | 2024-09-01 08:13 | XMS_ITS ---
Author Organization [facility] [employer] [facility] Address [address] [place] [phone] Care Team Providers Care Sequins Spooler Name Role Phone POLLY MASON Primary Care Provider SORAYA LANDAVERDE Unavailable [phone] ALLERGIES Allergen (clinical drug ingredient) Drug/Non Drug Allergy documented on EMR Reaction Allergy Type Onset Date Status carisoprodol Soma rash , Severity Observation:Mild to moderate , Drug Allergy Active codeine Codeine hallucinations , Severity Observation:Moderate , Drug Allergy Active Penicillin anaphylaxis , Severity Observation:Severe , Drug Allergy Active REASON FOR VISIT f/u Xr results MEDICATIONS Medication SIG (Take, Route, Frequency, Duration) Notes Start Date End Date Status Voltaren 1 % as directed Externally Not-Taking IBU 600 MG 1 tablet with food or milk as needed Orally Three times a day Not-Taking Omeprazole 20 MG BID Oral omeprazole 20 m g capsule,delayed release 05/29/2022 Not-Taking ALPRAZolam 0.25 MG Oral ALPRAZOLAM 0. 25 MG TABLET 06/20/2021 Not-Taking Macrobid 100 MG 1 capsule with food Orally every 12 hrs Not-Taking Saccharomyces boulardii 250 MG 1 cap Orally once a day for 90 days 09/17/2023 Active Pantoprazole Sodium 20 MG 1 tablet Orally Once a day for 90 days Active Azithromycin 250 MG as directed Orally daily for 5 days 03/25/2024 Not-Taking Albuterol Sulfate HFA 108 (90 Base) MCG/ACT 1 puff as needed Inhalation every 4 hrs for 30 days 03/13/2024 Active Cetirizine HCl 10 MG 1 tablet Orally Once a day for 90 days 09/02/2023 Not-Taking Metoprolol Succinate ER 25 MG Oral METOPROLOL SUCC ER 25 MG TAB 02/13/2022 Active amLODIPine Besylate 10 MG TAKE 1 TABLET BY MOUTH EVERY DAY Oral AMLODIPINE BESYLATE 10 MG TAB 02/20/2022 Active Magnesium Glycinate Active Furosemide 20 MG 1 tablet Orally Once a day PRN Active Tart Shane Active Flonase Allergy Relief 50 MCG/ACT 2 sprays Nasally once a day for 30 days 07/16/2024 Active L-Theanine Active Acetaminophen 500 MG 1 tablet as needed Orally every 6 hrs Active Elderberry 500 MG as directed Orally Active Cetirizine HCl 10 MG 1 tablet Orally Once a day for 90 days 07/16/2024 Active Vitamin D3 Active Red Yeast Rice Activ e Turmeric Active Stress B Active Vitamin C Active CoQ-10 Active SOCIAL HISTORY Tobacco Use: Social History Observation Description Date Details (start date - stop date) Never Smoker NA - NA Sex Assigned At : Social History Observation Description Sex Assigned At Unknown Tobacco Use/Smoking Question Answer Notes Tobacco use: nonsmoker Section Notes: Lives in [place] with father. VITAL SIGNS Height 64 in 07/16/2024 Height-cm 162.56 cm 07/16/2024 Encounters Encounter Location Date Provider Diagnosis [address] [id number] 07/16/2024 SORAYA LANDAVERDE Persistent cough R05.3 ASSESSMENTS Encounter Date Diagnosis Assessment Notes Treatment Notes Treatment Clinical Notes Section Notes 07/16/2024 Persistent cough (ICD-10 - R05.3) Question if cough is related to PND as in office def had upper aw wheeze/tightness Chest xray and health tracks swab completely negative for which pt pleased Will trial antihistamine and flonase nightly Encouraged to do neti pot prior to flonase To get DM to help quiet cough as well To call beginning next week if not any better or worse. Reminded pt about post viral cough as well 07/16/2024 Other Total time spen t with patient 20 minutes which includes face to face visit, education and coordination of care. PLAN OF TREATMENT Medication Medication Name Sig Start Date Stop Date Notes Flonase Allergy Relief 50 MCG/ACT 2 sprays Nasally once a day for 30 days 07/16/2024 Cetirizine HCl 10 MG 1 tablet Orally Onc e a day for 90 days 07/16/2024 Treatment Notes Assessment Notes Persistent cough Question if cough is related to PND as in office def had upper aw wheeze/tightness Chest xray and health tracks swab completely negative for which pt pleased Will trial antihistamine and flonase nightly Encouraged to do neti pot prior to flonase To get DM to help quiet cough as well To call beginning next week if not any better or worse. Reminded pt about post viral cough as well Other Total time spent wit h patient 20 minutes which includes face to face visit, education and coordination of care. Next Appt Details Follow Up: prn, Reason: and as scheduled Provider Name:POLLY RALPH Jamison, 09/08/2024 01:30:00 PM, [address] [place] [address], [phone], Provider Name:POLLY Jamison, 11/09/2024 08:00:00 AM, [address] [place] [address], [phone], Progress Notes * DILIP GOMEZB:1960 ([age] yo F)Acc No.[id number]:07/16/2024 Progress Note Patient:??AZRA GOMEZI Provider:??SORAYA LANDAVERDE NP :1960?Age:63 Y?Sex:Fe male Date:07/16/2024 Phone: Address:[address] [place] [address] Pcp:POLLY MASON Subjective: * Chief Complaints: * ?f/u Xr results * HPI: ?Patient Care Team:?Stock Unloader:??Gurinder Negrete MD.??In Tube Conversion Technician:??Aj Hanks MD.??Yarn Mercerizer Operator Helper:??Taina Lopez.??Infantryman:??Dr. Maradiaga.? Provider/Specialists: DRAPERY SEWER HAND - Rao Bryant MD Last CPE: 07/2021. ?Visit info:? The patient consents to HIPAA compliant telehealth visit using video platform within EHR system. The patient states they are in a private location in their home and the provider is located in the office in a private room. ?Navya presents by video this afternoon for telehealth follow up. Discuss X-ray results, Healthtrax Swab. Patient states she woke up this morning feeling unwell. Sore throat, cough. no energy. Patient is taking OTC Mucinex. ?-Woke this morning with a really bad sore throat that has gotten a bit better now. ?-Only taking straight Mucinex as store didnt have the DM ?-Does not take anything for allergies/PND but has used flonase in past. * ROS:?all systems reviewed and are non-contributory unless specified in the HPI. * Medical History:?? * Gis Software Engineer History:??Menstrual hist ory:??Age of Menarche:??14,?Age of Menopause:??56.??Last pap smear date??2022 w/Dr Rao Lombardo.??Last mammogram date??Due 09/2023 - [facility].?? * OB History:?? Histo ry:??Total pregnancies:??3,??Full-term pregnancies:??3.?? 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 * Family History:??Father: ali ve, Hypertension , Heart Disease , High Cholesterol , Heart Attack , Stroke .??Mother: , Other CA .??Maternal Grandfather: , Emphysema.??Maternal Grandmother: , Breast CA.??Sister: alive, Stroke, Thyroid disease.??2 son(s) , 1 daughter(s) - healthy. .?? * Social History:?Tobacco Use:??Tobacco Use/Smoking??Tobacco use:??nonsmoker.?Drugs/Alcohol:??Do you drink alcohol?: Yes, Occasionally. ?Lives in [place], [place] with father. * Medications:??TakingCoQ-10 R ed Yeast Rice Vitamin D3 Stress B Turmeric Vitamin C Elderberry 500 MG Capsule as directed Orally Acetaminophen 500 MG Tablet 1 tablet as needed Orally every 6 hrs L-Theanine Magnesium Glycinate Tart Shane Furosemide 20 MG Tablet 1 tablet Orally Once a day As needed, Notes to Pharmacist: PRNamLODIPine Besylate 10 MG Tablet TAKE 1 TABLET BY MOUTH EVERY DAY Oral , Notes to Pharmacist: AMLODIPINE BESYLATE 10 MG TABMetoprolol Succinate ER 25 MG Tablet Extended Release 24 Hour Oral , Notes to Pharmacist: METOPROLOL SUCC ER 25 MG TABPantoprazole Sodium 20 MG Tablet Delayed Release 1 tablet Orally Once a day Saccharomyces boulardii 250 MG Capsule 1 cap Orally once a day Albuterol Sulfate HFA 108 (90 Base) MCG/ACT Aerosol Solution 1 puff as needed Inhalation every 4 hrs Taking CoQ-10 Taking Red Yeast Rice Taking Vitamin D3 Taking Stress B Taking Turmeric Taking Vitamin C Taking Elderberry 500 MG Capsule as directed Orally Taking Acetaminophen 500 MG Tablet 1 tablet as needed Orally every 6 hrs Taking L-Theanine Taking Magnesium Glycinate Taking Tart Shane Taking Furosemide 20 MG Tablet 1 tablet Orally Once a day As needed, Notes to Pharmacist: PRNTaking amLODIPine Besylate 10 MG Tablet TAKE 1 TABLET BY MOUTH EVERY DAY Oral , Notes to Pharmacist: AMLODIPINE BESYLATE 10 MG TABTaking Metoprolol Succinate ER 25 MG Tablet Extended Release 24 Hour Oral , Notes to Pharmacist: METOPROLOL SUCC ER 25 MG TABTaking Pantoprazole Sodium 20 MG Tablet Delayed Release 1 tablet Orally Once a day Taking Saccharomyces boulardii 250 MG Capsule 1 cap Orally once a day Taking Albuterol Sulfate HFA 108 (90 Base) MCG/ACT Aerosol Solution 1 puff as needed Inhalation every 4 hrs Not-TakingAzithromycin 250 MG Tablet as directed Orally daily take 2 tabs today then one tab daily for 4 daysCetirizine HCl 10 MG Tablet 1 tablet Orally Once a day Macrobid 100 MG Capsule 1 capsule with food Orally every 12 hrs IBU 600 MG Tablet 1 tablet with food or milk as needed Orally Three times a day Voltaren 1 % Gel as directed Externally ALPRAZolam 0.25 MG Tablet Oral , Notes to Pharmacist: ALPRAZOLAM 0.25 MG TABLETOmeprazole 20 MG Capsule Delayed Release BID Oral , Notes to Pharmacist: omeprazole 20 mg capsule,delayed releaseNot-Taking Azithromycin 250 MG Tablet as directed Orally daily take 2 tabs today then one tab daily for 4 daysNot-Taking Cetirizine HCl 10 MG Tablet 1 tablet Orally Once a day Not-Taking Macrobid 100 MG Capsule 1 capsule with food Orally every 12 hrs Not-Taking IBU 600 MG Tablet 1 tablet with food or milk as needed Orally Three times a day Not-Taking Voltaren 1 % Gel as directed Externally Not-Taking ALPRAZolam 0.25 MG Tablet Oral , Notes to Pharmacist: ALPRAZOLAM 0.25 MG TABLETNot-Taking Omeprazole 20 MG Capsule Delayed Release BID Oral , Notes to Pharmacist: omeprazole 20 mg capsule,delayed release * Allergies:??Soma: rash , Sev erity Observation:Mild to moderate , - AllergyCodeine: hallucinations , Severity Observation:Moderate , - AllergyPenicillin: anaphylaxis , Severity Observation:Severe , - Allergy Objective: * Vitals:??BP: Not Taken - Tel [facility], Ht: 64 in, Ht-cm: 162.56 cm. * Examination: ?Mini Mental Status Exam: ?GEN: NAD, speaking in full complete sentences, thoughts clear and appropriate; no coughing today with visit ?RESP: nonlabored breathing, no audible SOB/Wheezing ?NEURO: AO x 3 ?PSYCH: judgment/insight intact, NL mood/affect. Assessment: * Assessment: 1.??Persistent cough - R05.3 (Primary)?? Plan: * Treatment: 2.??Others?? Notes: Total time spent with patient 20 minutes which includes face to face visit, education and coordination of care.? * Procedure Codes:?? * Preventive Medicine:?Last CPE: 05/27/2023 @ [facility] DEXA: No Colonoscopy: Yes, [id number] Normal, 10 year plan Endoscopy: No Covid Vac: Yes & 1 booster Flu Vac: No. * Follow Up:??prn (Reason: and as scheduled) * Billing Information: * Visit Code:?? 96762 Office Visit, Est Pt., Level 3. * Procedure Codes:?? * Sign off status: Completed true * Provider:??SORAYA LANDAVERDE NP Date:?? History and Physical Notes * HPI (History of Present Illness) Category Sub-Category Detail Notes Category Not es Patient Care Team Stock Unloader: Gurinder Negrete MD Pro vider/Specialists : DRAPERY SEWER HAND - Rao Bryant MD Last CPE: 07/2021 In Tube Conversion Technician: Aj Hanks MD Ophthalmologist: Taina Lopez Infantryman: Dr. Maradiaga Visit info The patient consents to HIPAA compliant telehealth visit using video platform within EHR system. The patient states they are in a private location in their home and the provider is located in the office in a private room. Navya presents by video this afternoon for telehealth follow up. Discuss X-ray results, Healthtrax Swab. Patient states she woke up this morning feeling unwell. Sore throat, cough. no energy. Patient is taking OTC Mucinex. -Woke this morning with a really bad sore throat that has gotten a bit better now. -Only taking straight Mucinex as store didnt have the DM -Does not take anything for allergies/PND but has used flonase in past Examination Category Sub-Category Detail Notes Category Not es Mini Mental Status Exam GEN: NAD, speaking in full complete sentences, thoughts clear and appropriate; no coughing today with visit RESP: nonlabored breathing, no audible SOB/Wheezing NEURO: AO x 3 PSYCH: judgment/insight intact, NL mood/affect
--- OUTSIDE RECORDS SUMMARY | 2024-09-01 08:13 | XMS_ITS | Clinical Summary ---
Author Organization [address] [facility] Address [address] [place] [address] Phone Care Team Providers Care Corporate Communications Associate Name Role Phone DanielSharlene VERENICE Primary Care Provider [phone] Allergies Active Allergy Reactions Criticality Noted Date Comments Carisoprodol Wheezing High 06/04/2018 Other Reaction(s): Rash/Dermatitis Codeine Wheezing High 06/04/2018 Other Reaction(s): Rash/Dermatitis Ginseng 11/13/2017 Penicillin G 11/13/2017 Prednisone 01/07/2024 Itchy inside mouth, very jittery and shaky Sulfur 12/06/2017 Medications amLODIPine (NORVASC) 10 mg tablet Take 1 tablet (10 mg total) by mouth 1 (one) time each day. 4 Active metoprolol succinate (TOPROL-XL) 25 mg 24 hr tablet Take 1 tablet (25 mg total) by mouth 1 (one) time each day. 4 Active chlorhexidine gluconate, bulk, 20 % solution Apply 1 fluid ounce topically daily. Use as directed for the 3 days leading up to the day of surgery: after your normal shower, lather up with this soap. Allow to dry on skin. Rinse off and dry off as normal. Hibiclens/ chlorhexidine 4% 4 Active metroNIDAZOLE (FLAGYL) 500 mg tablet Take 1 tablet (500 mg total) by mouth 3 (three) times a day. 4 Active pantoprazole (PROTONIX) 20 mg EC tablet Take 1 tablet (20 mg total) by mouth 1 (one) time each day. 4 Active furosemide (LASIX) 20 mg tablet Take 1 tablet (20 mg total) by mouth 1 (one) time each day. 3 Active CHOLECALCIFERO L, VITAMIN D3, ORAL Take 1 tablet by mouth 1 (one) time each day. Active RED YEAST RICE EXTRACT ORAL Take by mouth 1 (one) time each day. Active vit C/zinc citrate/elderb erry (ELDERBERRY IMMUNE HEALTH ORAL) Take by mouth 1 (one) time each day. Active saccharomyces boulardii (FLORASTOR) 250 mg capsule Take 1 capsule by mouth 3 times daily (with meals) for 30 days. 0 Active Active Problems Problem Noted Date Diagnosed Date History of incisional hernia repair 06/02/2024 Hypertension 04/13/2024 Overview (04/13/2024): Follows with Dr Negrete Last Assessment & Plan: Patient's blood pressure is under good control with a reading today of 118/84. She will continue on her present doses of metoprolol, amlodipine and furosemide as prescribed. We will update her labs today. COVID-19 04/13/2024 Osteochondrosis of lunate of left wrist 08/12/19 24 Arthritis of left wrist 08/12/2023 Vitamin D insufficiency 05/15/2021 Prediabetes 05/15/2021 Ureteral stone 02/22/2021 Overview (04/13/2024): Obstructing 6 mm proximal L ureter 02/11/21, stone removal and stent plcement 02/20/21 Hepatic steatosis 02/08/2021 Inguinal hernia, bilateral 02/08/2021 Overview (04/13/2024): Incidental finding on CT Tachycardia 11/02/2020 Overview (04/13/2024): Last Assessment & Plan: Patient has history of tachycardia and palpitations in the past. She has been on metoprolol 25 mg once a day. This is controlling her heart rate well and she denies any further issues with palpitations. Dyspnea 11/02/2020 Overview (04/13/2024): Last Assessment & Plan: Patient continues to report exertional shortness of breath. She had a stress echocardiogram which did not reveal any evidence of ischemia. Her exercise capacity was quite poor. She was seen by pulmonary recently and her pulmonary function testing was normal. Her shortness of breath is likely related to deconditioning as well as her obesity. We once again discussed importance of weight loss. She will increase her activity as tolerated in efforts to improve her exercise capacity. Hyperlipidemia 09/03/2018 Overview (04/13/2024): Last Assessment & Plan: Patient was advised to repeat panel next visit. This was not done. We will once again give her a lab slip to repeat labs. Her last LDL cholesterol was 196. She will likely need to start statin. 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 CN-mild diverticulosis with int hemorrhoids- rpt in 10 yrs Obesity (BMI 30-39.9) 06/04/2018 Surgical History Surgery Date Site/Laterality Comments SALPINGOOPHORECTOMY PROCEDURE: [facility] LAPAROSCOPY W/RMVL ADNEXAL STRUCTURES; COMMENT: Salpingectomy only OTHER SURGICAL HISTORY Right PROCEDURE: ---- OTHER ----; COMMENT: Parotidectomy OTHER SURGICAL HISTORY PROCEDURE: ---- OTHER ----; COMMENT: Uterine ablation HERNIA REPAIR PROCEDURE: HISTORICAL HERNIA REPAIR/UMB LITHOTRIPSY 02/20/2021 Left PROCEDURE: HISTORICAL LITHOTRIPSY; COMMENT: Ureteral nephroscopic stone lithotripsy and stone removal with retrograde pyelogram and stent placement APPENDECTOMY PROCEDURE: [facility] APPENDECTOMY Medical History Medical History Date Comments Hypertension DX:Hypertension Hyperlipidemia 09/03/2018 DX:Hyperlipidemi a Covid-19 DX:COVID-19 Hepatic steatosis 02/08/2021 DX:Hepatic lola atosis Inguinal hernia, bilateral 02/08/2021 DX:In guinal hernia, bilateral; COMMENT: Incidental finding on CT Ureteral stone 02/22/2021 DX:Ureteral ston e; COMMENT: Obstructing 6 mm proximal L ureter 02/11/21 Esophageal reflux DX:Esophageal reflux Family History Medical History Relation Name Comments Heart attack Father DM, HTN, CVA, U lcers, Depression, ETOH, Joint issues Heart attack Father's side CVA, dementia Emphysema Maternal Grandfather Breast cancer Maternal Grandmother Heart attack Maternal Grandmother Breast cancer Mother 40s Leukemia Mother Thyroid disease Sister Relation Name Status Comments Father Alive Father's side Maternal Grandfather Maternal Grandmother Mother Paternal Grandfather Paternal Grandmother Sister Alive Social History Tobacco Use Types Packs/Day Years Used Date Smoking Tobacco: Never Smokeless Tobacco: Never Tobacco Cessation:Counseling Given: Not Answered Alcohol Use Standard Drinks/Week Comments Not Currently 0 (1 standard drink = 0.6 oz pur e alcohol) Comments Unknown Sex and Gender Information Value Date Recorded Sex Assigned at Not on file Legal Sex Female 5:35 PM EST Gender Identity Not on file Sexual Orientation Not on file Obstetrics History Last Filed Vital Signs Vital Sign Reading Time Taken Comments Blood Pressure 134/85 06/02/2024 9:57 AM EST Pulse 90 06/02/2024 9:57 AM EST Temperature - - Respiratory Rate - - Oxygen Saturation - - Inhaled Oxygen Concentration - - Weight 104 kg (229 lb) 06/02/2024 9:57 AM EST Height 162.6 cm (5' 4 ) 06/02/2024 9:57 AM EST Body Mass Index 39.31 06/02/2024 9:57 AM EST Plan of Treatment Upcoming Encounters Date Type Department Care Team (Late st Contact Info) Description 09/07/2024 8:20 AM EDT Office Visit [facility] [address] [place] [address] Crispin Bacon MD [address] [place] [address] DR[address] [place] [address] Health Maintenance Due Date Last Done Comments Breast Cancer Screening 1960 Pneumococcal Vaccine: 50+ Years (1 of 2 - PCV) 12/03/1979 Pneumococcal Vaccine: Pediatrics (0 to 5 Years) and At-Risk Patients (6 to 64 Years) (1 of 2 - PCV) 12/03/1979 Zoster Vaccines (1 of 2) 2010 DTaP,Tdap,and Td Vaccines (2 - Td or Tdap) 04/05/2020 04/05/2010 Cervical Cancer Screening: P ap Smear 08/01/2020 08/01/2017 Depression Screening 06/02/2022 HIV Screening 06/02/2022 Social Influencers of Health Screening 06/02/2022 Hypertension/CHF/CAD Annual BMP Blood Test 06/10/2022 COVID-19 Vaccine (3 - 2023-2 5 season) 2024 11/15/2020, 10/25/2020 Influenza Vaccine (#1) 2024 2, 05/03/2011, 04/05/2010 Cholesterol Screening (Lipid Panel) 05/10/2026 05/10/2021 Colorectal Cancer Screening: Colonoscopy 03/30/2029 03/30/2019 RSV Immunization Patients 60 + Years Old (1 - 1-dose 75+ series) 12/03/2035 Hepatitis C Screening Completed 12/05/2018 HIB Vaccines Aged Out No longer eligi ble based on patient's age to complete this topic HPV Vaccines Aged Out No longer eligi ble based on patient's age to complete this topic Hepatitis A Vaccines Aged Out No long er eligible based on patient's age to complete this topic Hepatitis B Vaccines Aged Out No long er eligible based on patient's age to complete this topic IPV Vaccines Aged Out No longer eligi ble based on patient's age to complete this topic MMR Vaccines Aged Out No longer eligi ble based on patient's age to complete this topic Meningococcal ACWY Vaccine Aged Out N o longer eligible based on patient's age to complete this topic Meningococcal B Vacine Aged Out No lo nger eligible based on patient's age to complete this topic RSV Immunization Patients Under 20 months Aged Out No longer eligible b ased on patient's age to complete this topic Varicella Vaccines Aged Out No longer eligible based on patient's age to complete this topic Procedures Procedure Name Priority Date/Time Associated Diagnosis Comments LIPID PANEL Routine 05/10/2021 COLONOSCOPY Routine 03/30/2019 HEPATITIS C SCREENING Routine 12/05/2018 PAP SMEAR Routine 08/01/2017 from Last 3 Months or Most Recently Relevant to Health Maintenance Results * (ABNORMAL) Lipid panel (05/10/2021) [facility] LDL/HDL Ratio 5(A) 0 - 4 Triglycerides 192(A) 0 - 150 mg/dL Cholesterol 295(A) 0 - 200 mg/dL HDL 61 >=40 mg/dL LDL Cholesterol 196(A) 0 - 100 mg/dL Blood Venous blood specimen / Unknown Result [facility] Provider LAB BLOOD ORDERABLES Jessie l Result * Colonoscopy (03/30/2019) Pathologist [facility] Colonoscopy No Interpretation , Abstracted Anatomical Region Laterality Modality Other Result [facility] Provider HEALTH MAINTENANCE Final Result * Hepatitis C Screening (12/05/2018) 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
--- OUTSIDE RECORDS SUMMARY | 2024-09-01 08:13 | XMS_ITS ---
Author Organization [facility] Address [address] [place] [phone] Care Team Providers Care Community Specialist Name Role Phone POLLY MASON Primary Care Provider [phone] REASON FOR VISIT FYI - Bronchitis Encounters Encounter Location Date Provider Diagnosis [address] [id number] 06/26/2024 POLLY MASON PLAN OF TREATMENT Next Appt Details Provider Name:POLLY Jamison, 09/08/2024 01:30:00 PM, [address] [place], [place] [address], [phone], Provider Name:POLLY Jamison, 11/09/2024 08:00:00 AM, [address] [place], [place] [address], [phone], Progress Notes * DILIP GOMEZB:1960 ([age] yo F)Acc No.[id number]:06/26/2024 Patient:??MAU GOMEZ :1960?Age:63 Y?Sex:Fe male Phone: Address:[address] [place] [id number] * true * Date:??
--- OUTSIDE RECORDS SUMMARY | 2024-09-01 08:14 | XMS_ITS ---
Author Organization [employer] [facility] Address [address] [place] [phone] Care Team Providers Care Survey And Mapping Technician Name Role Phone POLLY MASON Primary Care Provider SORAYA LANDAVERDE Unavailable [phone] ALLERGIES Allergen (clinical drug ingredient) Drug/Non Drug Allergy documented on EMR Reaction Allergy Type Onset Date Status carisoprodol Soma rash , Severity Observation:Mild to moderate , Drug Allergy Active codeine Codeine hallucinations , Severity Observation:Moderate , Drug Allergy Active Penicillin anaphylaxis , Severity Observation:Severe , Drug Allergy Active REASON FOR VISIT ? Bronchitis MEDICATIONS Medication SIG (Take, Route, Frequency, Duration) Notes Start Date End Date Status Azithromycin 250 MG as directed Orally daily for 5 days 03/25/2024 Not-Taking Albuterol Sulfate HFA 108 (90 Base) MCG/ACT 1 puff as needed Inhalation every 4 hrs for 30 days 03/13/2024 Active Cetirizine HCl 10 MG 1 tablet Orally Once a day for 90 days 09/02/2023 Not-Taking Pantoprazole Sodium 20 MG 1 tablet Orally Once a day for 90 days Active Saccharomyces boulardii 250 MG 1 cap Orally once a day for 90 days 09/17/2023 Active Metoprolol Succinate ER 25 MG Oral METOPROLOL SUCC ER 25 MG TAB 02/13/2022 Active Tart Shane Active Magnesium Glycinate Active amLODIPine Besylate 10 MG TAKE 1 TABLET BY MOUTH EVERY DAY Oral AMLODIPINE BESYLATE 10 MG TAB 02/20/2022 Active Furosemide 20 MG 1 tablet Orally Once a day PRN Active Elderberry 500 MG as directed Orally Active L-Theanine Active Acetaminophen 500 MG 1 tablet as needed Orally every 6 hrs Active Vitamin C Active Turmeric Active Stress B Active Vitamin D3 Active Red Yeast Rice Activ e Omeprazole 20 MG BID Oral omeprazole 20 m g capsule,delayed release 05/29/2022 Not-Taking CoQ-10 Active Macrobid 100 MG 1 capsule with food Orally every 12 hrs Not-Taking Voltaren 1 % as directed Externally Not-Taking IBU 600 MG 1 tablet with food or milk as needed Orally Three times a day Not-Taking ALPRAZolam 0.25 MG Oral ALPRAZOLAM 0. 25 MG TABLET 06/20/2021 Not-Taking SOCIAL HISTORY Tobacco Use: Social History Observation Description Date Details (start date - stop date) Never Smoker NA - NA Sex Assigned At : Social History Observation Description Sex Assigned At Unknown Tobacco Use/Smoking Question Answer Notes Tobacco use: nonsmoker Section Notes: Lives in [facility] with father. VITAL SIGNS Temperature 98.2 degrees Fahrenheit 07/15/19 25 Blood pressure systolic 132 mm Hg 07/15/19 25 Blood pressure diastolic 88 mm Hg 025 Heart Rate 91 /min 07/15/2024 Height 64 in 07/15/2024 Weight 226.2 lbs 07/15/2024 BMI 38.82 kg/m2 07/15/2024 Oximetry 96 % 07/15/2024 Height-cm 162.56 cm 07/15/2024 Weight-kg 102.6 kg 07/15/2024 Encounters Encounter Location Date Provider Diagnosis [address] [id number] 07/15/2024 SORAYA LANDAVERDE Persistent cough R05.3 ASSESSMENTS Encounter Date Diagnosis Assessment Notes Treatment Notes Treatment Clinical Notes Section Notes 07/15/2024 Persistent cough (ICD-10 - R05.3) Pt appears clinically well Discussed post viral cough, duration of cough Will check Healthtracks swab and send for CXR to ensure no pneumonia given her histor of pneumonia Mucinex DM max str. tabs twice a day for the next week Inhaler with spacer TID Humidifier Will review results tomorrow with telehealth 07/15/2024 Other Total time spen t with patient 20 minutes which includes face to face visit, education and coordination of care. PLAN OF TREATMENT Treatment Notes Assessment Notes Persistent cough Pt appears clinically well Discussed post viral cough, duration of cough Will check Healthtracks swab and send for CXR to ensure no pneumonia given her histor of pneumonia Mucinex DM max str. tabs twice a day for the next week Inhaler with spacer TID Humidifier Will review results tomorrow with telehealth Other Total time spent wit h patient 20 minutes which includes face to face visit, education and coordination of care. Pending Test Test Name Order Date Chest X-ray PA and lateral 07/15/2024 Next Appt Details Follow Up: 1 day, Reason: te le results follow up Provider Name:POLLY RAJPUTHeidi Jamison, 09/08/2024 01:30:00 PM, [address], [place], [phone], Provider Name:POLLY RALPH Jamison, 11/09/2024 08:00:00 AM, [address], [place], [phone], Progress Notes * DILIP GOMEZB:1960 ([age] yo F)Acc No.[id number]:07/15/2024 Progress Notes Patient:??NAVYA GOMEZ Provider:??SORAYA LANDAVERDE NP :1960?Age:63 Y?Sex:Fe male Date:07/15/2024 Phone: Address:[address] [place], [place] [phone] Pcp:POLLY MASON Subjective: * Chief Complaints: * ? Bronchitis * HPI: ?Patient Care Team:?Conference Services Coordinator:??Gurinder Negrete MD.??Whipped Topping Finisher:??Aj Hanks MD.??Coal Sample Tester:??Taina Lopez.??Roll Contour Grinder:??Dr. Maradiaga.? Provider/Specialists: PROFESSIONAL ORGANIZER - Rao Bryant MD Last CPE: 07/2021. ?Visit info:? Navya presents in the office today for possible Bronchitis. ? - Saw UC day after New Year. Diagnosed with Bronchitis. Was put Doxycycline and Prednisone for 10 days, Tessalon perles and Flonase. Patient finished all medication on the 06 of July. Was checked for Flu, COVID and RSV and Strep. All came back negative. ?- SOB, Coughing, scratchy throat on and off, fatigue and headache. ?-Taking elderberry cough med ?-Refugio she was better for a few days but now feeling worse ?-No longer having any fever ?-Some nasal stuffiness ?-Albuterol using with space daily. * ROS:?all systems reviewed and are non-contributory unless specified in the HPI. * Medical History:?? * Clinical Rehabilitation Liaison History:??Menstrual hist ory:??Age of Menarche:??14,?Age of Menopause:??56.??Last pap smear date??2022 w/Dr Rao Lombardo.??Last mammogram date??Due 09/2023 - [facility].?? * OB History:?? Histo ry:??Total pregnancies:??3,??Full-term pregnancies:??3.?? * Surgical History:??Hernia re pair 2015-2016Parotid gland tumor removed 2011Kidney stone removed ataract surgery 2018Bilateral, partial fallopian [...] you drink alcohol?: Yes, Occasionally. ?Lives in [place], [place] with father. * Medications:??TakingCoQ-10 Red Yeast Rice Vitamin D3 Stress B Turmeric [...] Notes to Pharmacist: omeprazole 20 mg capsule,delayed releaseMedication List reviewed and reconciled with the patientNot-Taking Azithromycin 250 MG Tablet as directed Orally daily take 2 tabs today then one tab daily for 4 daysNot-Taking Cetirizine HCl 10 MG Tablet 1 tablet Orally Once a day Not-Taking Macrobid 100 MG Capsule 1 capsule with food Orally every 12 hrs Not- Taking IBU 600 MG Tablet 1 tablet with food or milk as needed Orally Three times a day Not-Taking Voltaren 1 % Gel as directed Externally Not-Taking ALPRAZolam 0.25 MG Tablet Oral , Notes to Pharmacist: ALPRAZOLAM 0.25 MG TABLETNot-Taking Omeprazole 20 MG Capsule Delayed Release BID Oral , Notes to Pharmacist: omeprazole 20 mg capsule,delayed releaseMedication List reviewed and reconciled with the patient * Allergies:??Soma: rash , Sev erity Observation:Mild to moderate , - AllergyCodeine: hallucinations , Severity Observation:Moderate , - AllergyPenicillin: anaphylaxis , Severity Observation:Severe , - Allergyno[Allergies Verified] Objective: * Vitals:??BP:132/88mm Hg, HR: 91/min, Temp:98.2F, Oxygen sat %:96%, Wt:226.2lbs, Wt-k.6 kg, Ht: 64 in, Ht-cm: 162.56 cm, BMI:38.82Index, Body Surface Area: 2.15. * Examination: ?General Examination: ?GEN: NAD, speaking in full complete sentences, thoughts clear and appropriate ?SKIN: [place], warm, dry, intact ?HEENT: TMs pearly grew; moist oral mucus membranes, mild pharyngeal erythema but no edema or exudate ?NECK: Full ROM, no cervical LAD ?RESP: nonlabored breathing, lungs clear all [place] with equal aeration with upper pharyngeal wheezing noted ?CV: S1S2 regular, no edema ?NEURO: AO x 3 ?PSYCH: judgment/insight intact, NL mood/affect. Assessment: * Assessment: 1.??Persistent cough - R05.3 (Primary)?? Plan: * Treatment: Notes: Pt appears clinically well Discussed post viral cough, duration of cough Will check Healthtracks swab and send for CXR to ensure no pneumonia given her histor of pneumonia Mucinex DM max str. tabs twice a day for the next week Inhaler with spacer TID Humidifier Will review results tomorrow with telehealth?2.??Others?? Notes: Total time spent with patient 20 minutes which includes face to face visit, education and coordination of care.? * Procedure Codes:?? * Preventive Medicine:?Last CPE: 05/27/2023 @ [facility] DEXA: No Colonoscopy: Yes, [id number] Normal, 10 year plan Endoscopy: No Covid Vac: Yes & 1 booster Flu Vac: No. * Follow Up:??1 day (Reason: t kat results follow up) * Billing Information: * Visit Code:?? 25948 Office Visit, Est Pt., Level 3. * Procedure Codes:?? * Sign off status: Completed true * Provider:??SORAYA LANDAVERDE NP Date:?? History and Physical Notes * HPI (History of Present Illness) Category Sub-Category Detail Notes Category Not es Patient Care Team Conference Services Coordinator: Gurinder Negrete MD Pro vider/Specialists : PROFESSIONAL ORGANIZER - Rao Bryant MD Last CPE: 07/2021 Whipped Topping Finisher: Aj Hanks MD Ophthalmologist: Taina Lopez Roll Contour Grinder: Dr. Maradiaga Visit info Navya presents in the office today for possible Bronchitis. - Saw UC day after New Year. Diagnosed with Bronchitis. Was put Doxycycline and Prednisone for 10 days, Tessalon perles and Flonase. Patient finished all medication on the 06 of July. Was checked for Flu, COVID and RSV and Strep. All came back negative. - SOB, Coughing, scratchy throat on and off, fatigue and headache. -Taking elderberry cough med -Refugio she was better for a few days but now feeling worse -No longer having any fever -Some nasal stuffiness -Albuterol using with space daily Examination Category Sub-Category Detail Notes Category Not es General Examination GEN: NAD, speaking in full complete sentences, thoughts clear and appropriate SKIN: [place], warm, dry, intact HEENT: TMs pearly grew; moist oral mucus membranes, mild pharyngeal erythema but no edema or exudate NECK: Full ROM, no cervical LAD RESP: nonlabored breathing, lungs clear all [place] with equal aeration with upper pharyngeal wheezing noted CV: S1S2 regular, no edema NEURO: AO x 3 PSYCH: judgment/insight intact, NL mood/affect
[2024-09-01 08:19] VITALS: BMI 39.8
== END 2024-09-01 08:29 | disposition home or self-care (01) ==
PROVIDERS: PCP Registered Nurse; Visit Provider Orthopaedic Surgery
DX: M17.12 Unilateral primary osteoarthritis, left knee (principal); M25.562 Pain in left knee
CPT/HCPCS: 20610; 99213

== ENCOUNTER → 2024-09-01 08:04 | Outpatient (BNVA) | payer OTHER, SELFPAY | PROVIDERS: PCP Registered Nurse; Visit Provider Orthopaedic Surgery | DX: M17.12 Unilateral primary osteoarthritis, left knee (principal); M25.562 Pain in left knee | CPT/HCPCS: 20610; 99212; J2003; J7323 ==

== ENCOUNTER 2024-09-09 08:51 | Outpatient (AMB) | payer OTHER, SELFPAY ==
--- NOTE | 2024-09-09 09:04 | A.OFFVIS_ITS ---
Vital Signs 09/09/24 09:05 Height 5 ft 4 in Weight 232 lb BMI 39.8 Intake Visit Reasons: Inj-Left knee Euflexxa #2 Intake Note: Navya is a 63 year old female who presents today for a second dose of the Euflexxa gel injection on her left knee. The patient states that she got mild relief from the 1st injection. She denies any fevers or chills. Allergies prednisone Adverse Reaction (Severe, Verified 09/09/24 09:09) Numbness codine Allergy (Severe, Uncoded 09/09/24 09:09) redness and itching penicillin Allergy (Severe, Uncoded 09/09/24 09:09) anaphylaxis soma Allergy (Severe, Uncoded 09/09/24 09:09) nausea and vomiting Medication List - Last Reconciled 09/09/24 by Michael Dickerson MD amlodipine 10 mg PO DAILY ascorbic acid (vitamin C) 1 g PO Q6H cholecalciferol (vitamin D3) 250 mcg PO DAILY elderberry fruit-honey 0.7-3 gram/7.5 mL mL PO DAILY furosemide (Lasix) 20 mg PO DAILY PRN 30 days lactobacillus combination no.9 (Adult 50 Plus Probiotic) 4,000 mmu cells PO DAILY metoprolol succinate ER 25 mg PO DAILY pantoprazole 20 mg PO DAILY red yeast rice 600 mg PO DAILY turmeric root extract 500 mg PO DAILY [facility] Medical History (Updated 07/29/24 @ 09:18 by Miguel Magana MD) LUZMARIA (obstructive sleep apnea) Atelectasis Pneumonia Chronic restrictive lung disease Diastolic dysfunction 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 Daughter No problems noted. Son No problems noted. Son No problems noted. 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/ right hand dominant Physical Exam Vital Signs: BMI result Body Mass Index 39.8 Extrem Other: Left knee examination shows a minimal effusion, palpable crepitus with range of motion, pain with range of motion, no instability Office Procedures AMB Joint Injection/Aspiration Joint Injection/Aspiration Primary Site: left knee Prep: site was prepped using aseptic technique Injected: 20 mg of (Euflexxa viscosupplementation) and 1% plain lidocaine Procedure: The patient tolerated the procedure well Coding 28880 - Large joint Procedure code (CPT) selection complete Results Reviewed Results Reviewed: X-rays of the patient's left knee taken previously show joint space narrowing, subchondral sclerosis, no acute bony abnormalities Assessment & Plan Assessment & Plan (1) Osteoarthritis of left knee: Code(s): M17.12 - Unilateral primary osteoarthritis, left knee Category: Medical Plan Ms. Gunter presents with left knee pain due to osteoarthritis. The risks and benefits of a 2nd Euflexxa injection were discussed at length with the patient. The patient wished to proceed. She tolerated injection well. She will continue with her home exercise program. She will follow up as scheduled for her 3rd injection. Feel free to call me any time should questions regarding her orthopedic management arise. Orders: Orders AMB Joint Injection/Aspiration Today M17.12 - Unilateral primary osteoarthr itis, left knee Coding Level of Care Code Procedure Only Diagnoses Osteoarthritis of left knee M17.12 CPT Codes Coding - 37544 Large joint: 40347 - Large joint ([id number])
[2024-09-09 09:05] VITALS: BMI 39.8
--- OUTSIDE RECORDS SUMMARY | 2024-09-09 09:27 | XMS_ITS ---
Author Organization [facility] [employer] [facility] Address [address] [place] [phone] Care Team Providers Care Barbed Wire Machine Operator Name Role Phone POLLY MASON Primary Care Provider SORAYA LANDAVERDE Unavailable [phone] ALLERGIES Allergen (clinical drug ingredient) Drug/Non Drug [...] Tobacco use: nonsmoker Section Notes: Lives in [place] with father. VITAL SIGNS Height 64 in 07/16/2024 Height-cm 162.56 cm 07/16/2024 Encounters Encounter Location Date Provider Diagnosis [address] [id number] 07/16/2024 SORAYA LANDAVERDE Persistent cough R05.3 ASSESSMENTS [...] and as scheduled Provider Name:POLLY RALPH Jamison, 11/09/2024 08:00:00 AM, [address] [place] [address], [phone], Progress Notes * AZRA GOMEZIDOB:1960 ([age] yo F)Acc No.[id number]:07/16/2024 Progress Note Patient:??NAVYA GOMEZ Provider:??SORAYA LANDAVERDE NP :1960?Age:63 Y?Sex:Fe male Date:07/16/2024 Phone: Address:[address] [place], [place] [phone] Pcp:POLLY MASON Subjective: * Chief Complaints: * ?f/u Xr results * HPI: ?Patient Care Team:?Tank Truck Milk Receiver:??Gurinder Negrete MD.??Prime Minister:??Aj Hanks MD.??Medical Detailist:??Taina Lopez.??Load Dispatcher Local:??Dr. Maradiaga.? Provider/Specialists: ATTENDING PSYCHIATRIST - Rao Bryant MD Last CPE: 07/2021. [...] in the HPI. * Medical History:?? * Rehab Manager History:??Menstrual hist ory:??Age of Menarche:??14,?Age of Menopause:??56.??Last pap smear date??2022 w/Dr Rao Lombardo.??Last mammogram date??Due 09/2023 - [facility].?? * OB History:?? [...] you drink alcohol?: Yes, Occasionally. ?Lives in [place], [place] with father. * Medications:??TakingCoQ-10 R ed [...] Codes:?? * Preventive Medicine:?Last CPE: 05/27/2023 @ [facility] DEXA: No Colonoscopy: Yes, [id number] Normal, 10 year plan Endoscopy: No Covid Vac: Yes & 1 booster Flu Vac: No. * Follow Up:??prn (Reason: and as scheduled) * Billing Information: * Visit Code:?? 66994 Office Visit, Est Pt., Level 3. * Procedure Codes:?? * Sign off status: Completed true * Provider:??SORAYA LANDAVERDE NP Date:?? History and Physical Notes * HPI (History of Present Illness) Category Sub-Category Detail Notes Category Not es Patient Care Team Tank Truck Milk Receiver: Gurinder Negrete MD Pro vider/Specialists : ATTENDING PSYCHIATRIST - Rao Bryant MD Last CPE: 07/2021 Prime Minister: Aj Hanks MD Ophthalmologist: Taina Lopez Load Dispatcher Local: Dr. Maradiaga Visit info The patient consents [...]
--- OUTSIDE RECORDS SUMMARY | 2024-09-09 09:27 | XMS_ITS ---
Author Organization [facility], [facility] Address [address] [place] [phone] Care Team Providers Care Cotton Feeder Name Role Phone POLLY SANCHEZ Primary Care Provider REASON FOR VISIT 3M f/u Encounters Encounter Location Date Provider Diagnosis [address] [id number] 09/08/2024 POLLY SANCHEZ PLAN OF TREATMENT Next Appt Details Provider Name:POLLY Jamison, 11/09/2024 08:00:00 AM, [address] [place] [address], [phone], Progress Notes * AZRA GOMEZIDOB:1960 ([age] yo F)Acc No.[id number]:09/08/2024 Progress Notes Patient:??MAU GOMEZ Provider:??Polly Sanchez DNP :1960?Age:63 Y?Sex:Fe male Date:09/08/2024 Phone: Address:[address] [place], [place] [phone] Subjective: * Chief Complaints: * ?1. 3M f/u. * Medical History:?? Objective: Assessment: Plan: * Treatment: * Billing Information: * Visit Code:?? * Procedure Codes:?? * Sign off status: Pending * Provider:??Polly Sanchez DNP Date:??0 09/08/2024
--- OUTSIDE RECORDS SUMMARY | 2024-09-09 09:28 | XMS_ITS ---
Author Organization [facility], [facility] Address [address] [place] [phone] Care Team Providers Care Physical Security Specialist Name Role Phone POLLY SANCHEZ Primary Care Provider REASON FOR VISIT f/u wellness Encounters Encounter Location Date Provider Diagnosis [address] [id number] 09/08/2024 POLLY SANCHEZ PLAN OF TREATMENT Next Appt Details Provider Name:POLLY Jamison, 11/09/2024 08:00:00 AM, [address] [place] [address], [phone], Progress Notes * AZRA GOMEZIDOB:1960 ([age] yo F)Acc No.[id number]:09/08/2024 Progress Notes Patient:??MAU GOMEZ Provider:??Polly Sanchez DNP :1960?Age:63 Y?Sex:Fe male Date:09/08/2024 Phone: Address:[address] [place], [place] [phone] Subjective: * Chief Complaints: * ?1. F/u 3m wellness. * Medical History:?? Objective: Assessment: Plan: * Treatment: * Billing Information: * Visit Code:?? * Procedure Codes:?? * Sign off status: Pending * Provider:??Polly Sanchez DNP Date:??0 09/08/2024
--- OUTSIDE RECORDS SUMMARY | 2024-09-09 09:28 | XMS_ITS | Encounter Summary ---
Author Organization [facility] Address [address] [place] [address] Care Team Providers Care Car Tester Name Role Phone Sharlene Sanchez NP Primary Care Provider [phone] Reason for Visit * Reason Onset Date Comments Med Refill 09/07/2024 Metoprolol Encounter Details Date Type Department Care Team ([facility] st Contact Info) Description 09/07/2024 Telephone [facility] [address] [place] [phone] Crispin Bacon MD [address] [place] [address] DRIVE [address] [place], [place] [phone] Med Refill (Metoprolol) Social History Tobacco Use Types Packs/Day Years Used Date Smoking Tobacco: Never Smokeless Tobacco: Never Alcohol Use Standard Drinks/Week Comments Not Currently 0 (1 standard drink = 0.6 oz pur e alcohol) Comments Unknown Sex and Gender Information Value Date Recorded Sex Assigned at Not on file Legal Sex Female 5:35 PM EST Gender Identity Not on file Sexual Orientation Not on file documented as of this encounter Ordered Prescriptions Prescription Sig Dispense Quantity Refills Last Filled Start Date End Date metoprolol succinate (TOPROL-XL) 25 mg 24 hr tablet Take 1 tablet (25 mg total) by mouth 1 (one) time each day. 90 tablet 1 09/07/2024 documented in this encounter Progress Notes * Rosy Allen RN - 09/07/2024 8:20 AM EDT TINO 08/14/22, next 03/02/25 Metoprolol refills sent * Poonam Riojas - 09/07/2024 8:12 AM EDT Patient called requesting refill for Metoprolol 25 mg, one tablet daily. Please send 90 day supply to [facility] [address] in [place]. documented in this encounter Plan of Treatment Upcoming Encounters Date Type Department Care Team (Late st Contact Info) Description 03/02/2025 8:20 AM EDT Office Visit [facility] [address] [place] [address] [address] [place] [phone] Crispin Bacon MD [address] [place] [address] DR[address] [place] [address] documented as of this encounter Visit Diagnoses Not on filedocumented in this encounter Discontinued Medications Medication Sig Discontinue Reason Start Date End Da te metoprolol succinate (TOPROL-XL) 25 mg 24 hr tablet Take 1 tablet (25 mg total) by mouth 1 (one) time each day. Reorder 01/16/2024 09/07/2024 documented as of this encounter Care Teams Car Tester Relationship Specialty Start Date End Date Sharlene Sanchez NP [address] [place] [address] PCP - General 04/17/22 documented as of this encounter
--- OUTSIDE RECORDS SUMMARY | 2024-09-09 09:28 | XMS_ITS | Clinical Summary ---
Author Organization 175 [facility] Address [address] [place] [address] Phone Care Team Providers Care Accelerator Technician Name Role Phone DanielSharlene VERENICE Primary Care Provider [phone] Allergies Active Allergy Reactions Criticality Noted Date Comments Carisoprodol Wheezing High 06/04/2018 Other Reaction(s): Rash/Dermatitis Codeine Wheezing High 06/04/2018 Other Reaction(s): Rash/Dermatitis Ginseng 11/13/2017 Penicillin G 11/13/2017 Prednisone 01/07/2024 Itchy inside mouth, very jittery and shaky Sulfur 12/06/2017 Medications amLODIPine (NORVASC) 10 mg tablet Take 1 tablet (10 mg total) by mouth 1 (one) time each day. 01/13/20 24 Active chlorhexidine gluconate, bulk, 20 % solution Apply 1 fluid ounce topically daily. Use as directed for the 3 days leading up to the day of surgery: after your normal shower, lather up with this soap. Allow to dry on skin. Rinse off and dry off as normal. Hibiclens/ chlorhexidine 4% 01/07/20 24 Active metroNIDAZOLE (FLAGYL) 500 mg tablet Take 1 tablet (500 mg total) by mouth 3 (three) times a day. 09/16/19 24 Active pantoprazole (PROTONIX) 20 mg EC tablet Take 1 tablet (20 mg total) by mouth 1 (one) time each day. 07/29/19 24 Active furosemide (LASIX) 20 mg tablet Take 1 tablet (20 mg total) by mouth 1 (one) time each day. 09/05/19 23 Active CHOLECALCIFERO L, VITAMIN D3, ORAL Take [...] times daily (with meals) for 30 days. 06/20/20 20 Active metoprolol succinate (TOPROL-XL) 25 mg 24 hr tablet Take 1 tablet (25 mg total) by mouth 1 (one) time each day. 90 tablet 1 09/08/19 25 Active metoprolol succinate (TOPROL-XL) 25 mg 24 hr tablet Take 1 tablet (25 mg total) by mouth 1 (one) time each day. 01/16/20 24 025 Discontin ued(Reord er) Active Problems Problem Noted Date Diagnosed Date [...] Osteochondrosis of lunate of left wrist 08/12/19 Arthritis of left wrist 08/12/2023 Vitamin D [...] in 10 yrs Obesity (BMI 30-39.9) 06/04/2018 Encounters Date Type Department Care Team Description 09/07/2024 Telephone [facility] - [facility] [address] [facility] [address] [place] [address] Crispin Bacon MD Med Refill (Metoprolol) from Last 3 Months Surgical History Surgery Date Site/Laterality Comments SALPINGOOPHORECTOMY PROCEDURE: [place] LAPAROSCOPY W/RMVL ADNEXAL STRUCTURES; COMMENT: Salpingectomy only OTHER SURGICAL HISTORY Right PROCEDURE: ---- OTHER ----; COMMENT: Parotidectomy OTHER SURGICAL HISTORY PROCEDURE: ---- OTHER ----; COMMENT: Uterine ablation HERNIA REPAIR PROCEDURE: HISTORICAL HERNIA REPAIR/UMB LITHOTRIPSY 02/20/2021 Left PROCEDURE: HISTORICAL LITHOTRIPSY; COMMENT: Ureteral nephroscopic stone lithotripsy and stone removal with retrograde pyelogram and stent placement APPENDECTOMY PROCEDURE: [place] APPENDECTOMY Medical History Medical History Date Comments [...] Description 03/02/2025 8:20 AM EDT Office Visit [facility] [address] [place] [address] Crispin Bacon MD [address] [place] [address] DRIVE [address] [place] [address] Health Maintenance Due Date Last Done Comments [...] Maintenance Results * (ABNORMAL) Lipid panel (05/10/2021) LDL/HDL Ratio 5(A) 0 - 4 Triglycerides 192(A) 0 - 150 mg/dL Cholesterol 295(A) 0 - 200 mg/dL HDL 61 >=40 mg/dL LDL Cholesterol 196(A) 0 - 100 mg/dL Blood Venous blood specimen / Unknown [facility] Provider LAB BLOOD ORDERABLES Jessie l Result * Colonoscopy (03/30/2019) Colonoscopy No Interpretation , Abstracted Anatomical Region Laterality Modality Other [facility] Provider HEALTH MAINTENANCE Final Result * Hepatitis C Screening (12/05/2018) Hepatitis C Screening Abstracted [facility] Provider HEALTH MAINTENANCE Final Result * Pap Smear (08/01/2017) Pap smear No Interpretation , Abstracted [facility] Provider HEALTH MAINTENANCE Final Result from Last 3 Months or Most Recently Relevant to Health Maintenance [place] [address] [place] [address] PLAN Advance Directives Documents on File Type Date Recorded 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
== END 2024-09-09 09:25 | disposition home or self-care (01) ==
LOC: HO.HOS 08:52
PROVIDERS: PCP Registered Nurse; Visit Provider Orthopaedic Surgery
DX: M17.12 Unilateral primary osteoarthritis, left knee (principal)
CPT/HCPCS: 20610

== ENCOUNTER → 2024-09-09 08:51 | Outpatient (BNVA) | payer OTHER, SELFPAY | PROVIDERS: PCP Registered Nurse; Visit Provider Orthopaedic Surgery | DX: M17.12 Unilateral primary osteoarthritis, left knee (principal) | CPT/HCPCS: 20610; J2003; J7323 ==

== ENCOUNTER 2024-09-16 08:52 | Outpatient (AMB) | payer OTHER, SELFPAY ==
--- NOTE | 2024-09-16 09:10 | MHC.OFFVIS ---
Vital Signs 09/16/24 09:12 Height 5 ft 4 in Weight 232 lb BMI 39.8 Intake Visit Reasons: Bilateral knee pains Intake Note: Navya is a 63 year old female who presents with bilateral knee pains. At her last 2 visits she was given Euflexxa viscosupplementation injections into her left knee. She presents for her 3rd left knee Euflexxa injection today. The patient describes her right knee pain as sharp in nature. Her right knee pain has gotten worse over the last 6 months in spite of continued non operative treatments. She has failed the last 3 months of conservative treatment which have consisted of a home exercise program, Tylenol and anti-inflammatory medicines as well as topical creams. At this point the patient's right knee pain is interfering with her activities of daily living and her ability to sleep well through the night. She has had cortisone injections given into her right knee in the past. The most recent injection gave her minimal relief. She wishes to hold off on surgery for as long as possible. Allergies prednisone Adverse Reaction (Severe, Verified 09/16/24 09:12) Numbness codine Allergy (Severe, Uncoded 09/16/24 09:12) redness and itching penicillin Allergy (Severe, Uncoded 09/16/24 09:12) anaphylaxis soma Allergy (Severe, Uncoded 09/16/24 09:12) nausea and vomiting Medication List - Last Reconciled 09/17/24 by Michael Dickerson MD amlodipine 10 mg PO DAILY ascorbic acid (vitamin C) 1 g PO Q6H cholecalciferol (vitamin D3) 250 mcg PO DAILY elderberry fruit-honey 0.7-3 gram/7.5 mL mL PO DAILY furosemide (Lasix) 20 mg PO DAILY PRN 30 days lactobacillus combination no.9 (Adult 50 Plus Probiotic) 4,000 mmu cells PO DAILY metoprolol succinate ER 25 mg PO DAILY pantoprazole 20 mg PO DAILY red yeast rice 600 mg PO DAILY turmeric root extract 500 mg PO DAILY [facility] Medical History (Updated 07/29/24 @ 09:18 by Miguel Magana MD) LUZMARIA (obstructive sleep apnea) Atelectasis Pneumonia Chronic restrictive lung disease Diastolic dysfunction 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 Daughter No problems noted. Son No problems noted. Son No problems noted. 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 Physical Exam Vital Signs: BMI result Body Mass Index 39.8 Const Other: Well-nourished well-developed very friendly female awake alert and oriented x3 in no acute distress Extrem Other: Bilateral lower extremity examination shows good capillary refill, no skin lesions noted, normal sensation light touch Bilateral knee examination shows minimal effusions, palpable crepitus with range of motion, pain with range of motion, no instability Office Procedures AMB Joint Injection/Aspiration Joint Injection/Aspiration Primary Site: left knee Prep: site was prepped using aseptic technique Injected: 20 mg of (Euflexxa viscosupplementation) and 1% plain lidocaine Procedure: The patient tolerated the procedure well Coding 81707 - Large joint Procedure code (CPT) selection complete Results Reviewed Results Reviewed: X-rays of the patient's bilateral knee show joint space narrowing, subchondral sclerosis, no acute bony abnormalities Assessment & Plan Assessment & Plan (1) Osteoarthritis of right knee: Code(s): M17.11 - Unilateral primary osteoarthritis, right knee Category: Medical (2) Osteoarthritis of left knee: Code(s): M17.12 - Unilateral primary osteoarthritis, left knee Category: Medical Plan Ms. Gunter bilateral knee pains due to osteoarthritis. I had a lengthy discussion with the patient regarding the treatment options. She wishes to hold off on total knee replacement surgery for as long as possible. I agree with this plan. The risks and benefits of a 3rd left knee Euflexxa injection were discussed at length with the patient. The patient wished to proceed. She tolerated the injection well. I will also see whether or not the patient's insurance company will cover a series of 3 Euflexxa viscosupplementation injections for her right knee. I will see her back once the injections are available. Feel free to call me at any time should questions regarding her orthopedic management arise. I spent 22 minutes in reviewing the patient's records and imaging studies, seeing the patient and documenting in the medical record. Orders: Orders AMB Joint Injection/Aspiration 09/16/24 M17.12 - Unilateral primary osteoarthritis, left knee Coding Level of Care Code Est Pt Level 3 (17677) Complex EM visit Add On G2211 Diagnoses Osteoarthritis of right knee M17.11 Osteoarthritis of left knee M17.12 CPT Codes Coding - 47461 Large joint: 25608 - Large joint ([id number])
[2024-09-16 09:12] VITALS: BMI 39.8
--- OUTSIDE RECORDS SUMMARY | 2024-09-16 09:45 | XMS_ITS ---
Author Organization [facility] Address [address] [place] [phone] Care Team Providers Care Clinical Team Manager Name Role Phone POLLY SANCHEZ Primary Care Provider [phone] REASON FOR VISIT 3M f/u Encounters Encounter Location Date Provider Diagnosis [address] [id number] 09/08/2024 POLLY SANCHEZ PLAN OF TREATMENT Next Appt Details Provider Name:POLLY Jamison, 11/09/2024 08:00:00 AM, [address] [place] [address], [id number], Progress Notes * AZRA GOMEZIDOB:1960 ([age] yo F)Acc No.[id number]:09/08/2024 Progress Notes Patient:??MAU GOMEZ Provider:??Polly Sanchez DNP :1960?Age:63 Y?Sex:Fe male Date:09/08/2024 Phone: Address:[address] [place], [place] [phone] Subjective: * Chief Complaints: * ?1. 3M f/u. * Medical History:?? Objective: Assessment: Plan: * Treatment: * Billing Information: * Visit Code:?? * Procedure Codes:?? * Sign off status: Pending * Provider:??Polly Sanchez DNP Date:??0 09/08/2024
--- OUTSIDE RECORDS SUMMARY | 2024-09-16 09:45 | XMS_ITS ---
Author Organization [facility] [employer] [facility] Address [address] [place] [phone] Care Team Providers Care Mechanical Engineering Intern Name Role Phone POLLY MASON Primary Care Provider [phone] SORAYA LANDAVERDE Unavailable [phone] ALLERGIES Allergen (clinical drug ingredient) Drug/Non Drug [...] Tobacco use: nonsmoker Section Notes: Lives in [place] with father. VITAL SIGNS Height 64 in 07/16/2024 Height-cm 162.56 cm 07/16/2024 Encounters Encounter Location Date Provider Diagnosis [address] [id number] 07/16/2024 SORAYA LANDAVERDE Persistent cough R05.3 ASSESSMENTS [...] Provider Name:POLLY RALPH Jamison, 11/09/2024 08:00:00 AM, [address] [place] [address], [id number], Progress Notes * AZRA GOMEZIDOB:1960 ([age] yo F)Acc No.[id number]:07/16/2024 Progress Note Patient:??NAVYA GOMEZ Provider:??SORAYA LANDAVERDE NP :1960?Age:63 Y?Sex:Fe male Date:07/16/2024 Phone: Address:[address] [place], [place] [phone] Pcp:POLLY MASON Subjective: * Chief Complaints: * ?f/u Xr results * HPI: ?Patient Care Team:?Ceo And President:??Gurinder Negrete MD.??Production Line Welder:??Aj Hanks MD.??Clinical Researcher:??Taina Lopez.??Vineyardist:??Dr. Maradiaga.? Provider/Specialists: TIRE ADJUSTER - Rao Bryant MD Last CPE: 07/2021. [...] in the HPI. * Medical History:?? * Transaction Advisory Services Manager History:??Menstrual hist ory:??Age of Menarche:??14,?Age of Menopause:??56.??Last pap smear date??2022 w/Dr Rao Lombardo.??Last mammogram date??Due 09/2023 - [facility].?? * OB History:?? Histo [...] you drink alcohol?: Yes, Occasionally. ?Lives in [place], [place] with father. * Medications:??TakingCoQ-10 R ed [...] Codes:?? * Preventive Medicine:?Last CPE: 05/27/2023 @ [facility] DEXA: No Colonoscopy: Yes, 1528-1152 Normal, 10 year plan Endoscopy: No Covid Vac: Yes & 1 booster Flu Vac: No. * Follow Up:??prn (Reason: and as scheduled) * Billing Information: * Visit Code:?? 11405 Office Visit, Est Pt., Level 3. * Procedure Codes:?? * Sign off status: Completed true * Provider:??SORAYA LANDAVERDE NP Date:?? History and Physical Notes * HPI (History of Present Illness) Category Sub-Category Detail Notes Category Not es Patient Care Team Ceo And President: Gurinder Negrete MD Pro vider/Specialists : TIRE ADJUSTER - Rao Bryant MD Last CPE: 07/2021 Production Line Welder: Aj Hanks MD Ophthalmologist: Taina Lopez Vineyardist: Dr. Maradiaga Visit info The patient consents [...]
--- OUTSIDE RECORDS SUMMARY | 2024-09-16 09:45 | XMS_ITS | Clinical Summary ---
Author Organization 175 [facility] Address [address] [place] [address] Phone Care Team Providers Care Compress Machine Operator Name Role Phone DanielSharlene VERENICE Primary Care Provider [phone] Allergies Active Allergy Reactions Criticality Noted Date [...] Type Department Care Team Description 09/07/2024 Telephone [facility] [address] [address] [place] [address] Crispin Bacon MD Med Refill (Metoprolol) from Last 3 Months Surgical History Surgery Date Site/Laterality Comments SALPINGOOPHORECTOMY PROCEDURE: [place] LAPAROSCOPY W/RMVL ADNEXAL STRUCTURES; COMMENT: Salpingectomy only OTHER SURGICAL HISTORY Right PROCEDURE: ---- OTHER ----; COMMENT: Parotidectomy OTHER SURGICAL HISTORY PROCEDURE: ---- OTHER ----; COMMENT: Uterine ablation HERNIA REPAIR PROCEDURE: HISTORICAL HERNIA REPAIR/UMB LITHOTRIPSY 02/20/2021 Left PROCEDURE: HISTORICAL LITHOTRIPSY; COMMENT: Ureteral nephroscopic stone lithotripsy and stone removal with retrograde pyelogram and stent placement APPENDECTOMY PROCEDURE: [place] APPENDECTOMY Medical History Medical History Date Comments [...] Description 03/02/2025 8:20 AM EDT Office Visit [facility] [address] [place] [address] Crispin Bacon MD [address] [place] [address] DRIVE [address] [place] [address] Health Maintenance Due Date Last Done Comments [...] mg/dL Blood Venous blood specimen / Unknown [facility] Provider LAB BLOOD ORDERABLES Jessie l Result * Colonoscopy (03/30/2019) Colonoscopy No Interpretation , Abstracted Anatomical Region Laterality Modality Other [facility] Provider HEALTH MAINTENANCE Final Result * Hepatitis C Screening (12/05/2018) Hepatitis C Screening Abstracted [facility] Provider HEALTH MAINTENANCE Final Result * Pap Smear (08/01/2017) Pap smear No Interpretation , Abstracted [facility] Provider HEALTH MAINTENANCE Final Result from Last 3 Months or Most Recently Relevant to Health Maintenance [place] [place] [address] PLAN Advance Directives Documents on File Type Date Recorded 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
--- OUTSIDE RECORDS SUMMARY | 2024-09-16 09:46 | XMS_ITS | Encounter Summary ---
Author Organization [facility] Address [address] [place] [address] Care Team Providers Care Finisher Cold Rolling Name Role Phone Sharlene Sanchez NP Primary Care Provider [phone] Reason for Visit * Reason Onset Date Comments Med Refill 09/07/2024 Metoprolol Encounter Details Date Type Department Care Team ([facility] st Contact Info) Description 09/07/[address] [facility] Cardiology [address] [place] [phone] Crispin Bacon MD [address] [place] [address] [address] [place], [place] [phone] Med Refill (Metoprolol) Social History Tobacco Use [...] daily. Please send 90 day supply to [facility] on [address] in [place]. documented in this encounter Plan of Treatment Upcoming Encounters Date Type Department Care Team (Late st Contact Info) Description 03/02/2025 8:20 AM EDT Office Visit [facility] [address] [place] [address] Dr [address] [place] [phone] Crispin Bacon MD [address] [place] [address] DRIVE [address] [place] [address] documented as of this encounter Visit Diagnoses Not on filedocumented in this encounter Discontinued Medications Medication Sig Discontinue Reason Start Date End Da te metoprolol succinate (TOPROL-XL) 25 mg 24 hr tablet Take 1 tablet (25 mg total) by mouth 1 (one) time each day. Reorder 01/16/2024 09/07/2024 documented as of this encounter Care Teams Finisher Cold Rolling Relationship Specialty Start Date End Date Sharlene Sanchez NP [address] [place] [address] PCP - General 04/17/22 documented as of this encounter
--- OUTSIDE RECORDS SUMMARY | 2024-09-16 09:46 | XMS_ITS ---
Author Organization [facility] Address [address] [place] [phone] Care Team Providers Care Small Kick Press Operator Name Role Phone POLLY SANCHEZ Primary Care Provider [phone] REASON FOR VISIT f/u wellness Encounters Encounter Location Date Provider Diagnosis [address] [id number] 09/08/2024 POLLY SANCHEZ PLAN OF TREATMENT Next Appt Details Provider Name:POLLY Jamison, 11/09/2024 08:00:00 AM, [address] [place] [address], [phone], Progress Notes * AZRA GOMEZIDOB:1960 ([age] yo F)Acc No.[id number]:09/08/2024 Progress Notes Patient:??MAU GOMEZ Provider:??Polly Sanchez DNP :1960?Age:63 Y?Sex:Fe male Date:09/08/2024 Phone: Address:[address] [place], [place] [phone] Subjective: * Chief Complaints: * ?1. F/u 3m wellness. * Medical History:?? Objective: Assessment: Plan: * Treatment: * Billing Information: * Visit Code:?? * Procedure Codes:?? * Sign off status: Pending * Provider:??Polly Sanchez DNP Date:??0 09/08/2024
== END 2024-09-16 09:27 | disposition home or self-care (01) ==
LOC: HO.HOS 08:52
PROVIDERS: PCP Registered Nurse; Visit Provider Orthopaedic Surgery
DX: M17.0 Bilateral primary osteoarthritis of knee (principal)
CPT/HCPCS: 20610; 99213

== ENCOUNTER → 2024-09-16 08:52 | Outpatient (BNVA) | payer OTHER, SELFPAY | PROVIDERS: PCP Registered Nurse; Visit Provider Orthopaedic Surgery | DX: M17.0 Bilateral primary osteoarthritis of knee (principal) | CPT/HCPCS: 20610; 99212; J2003; J7323 ==

== ENCOUNTER → 2024-09-28 07:49 | Outpatient (REF) | payer OTHER, SELFPAY | LOC: HO.SL 07:49 | PROVIDERS: PCP Registered Nurse; Visit Provider Hospitalist | DX: G47.33 Obstructive sleep apnea (adult) (pediatric) (principal) | CPT/HCPCS: 95806 ==

== ENCOUNTER 2024-11-03 12:34 | Outpatient (AMB) | payer OTHER, SELFPAY ==
--- NOTE | 2024-11-03 12:46 | A.OFFVIS_ITS ---
Vital Signs 11/03/24 12:49 Height 5 ft 4 in Weight 232 lb BMI 39.8 Intake Visit Reasons: Euflexxa #1, Rt Knee Intake Note: Navya is a 63 year old female who presents with complaints of progressively worsening right knee pain. She describes her pain as sharp in nature. She wishes to hold off on surgery if at all possible. She has failed the last 3 months of conservative treatment which has included physical therapy exercises, Tylenol and anti-inflammatory medicines. She has had cortisone injections in the past which gave her minimal relief. At this point her right knee pain is interfering with her activities of daily living and her ability to sleep well through the night. The patient recently had a series of Euflexxa injections given into her left knee. She got very good relief from those injections. Allergies prednisone Adverse Reaction (Severe, Verified 11/03/24 12:49) Numbness codine Allergy (Severe, Uncoded 11/03/24 12:49) redness and itching penicillin Allergy (Severe, Uncoded 11/03/24 12:49) anaphylaxis soma Allergy (Severe, Uncoded 11/03/24 12:49) nausea and vomiting Medication List - Last Reconciled 11/03/24 by Michael Dickerson MD amlodipine 10 mg PO DAILY ascorbic acid (vitamin C) 1 g PO Q6H cholecalciferol (vitamin D3) 250 mcg PO DAILY elderberry fruit-honey 0.7-3 gram/7.5 mL mL PO DAILY furosemide (Lasix) 20 mg PO DAILY PRN 30 days lactobacillus combination no.9 (Adult 50 Plus Probiotic) 4,000 mmu cells PO DAILY metoprolol succinate ER 25 mg PO DAILY pantoprazole 20 mg PO DAILY red yeast rice 600 mg PO DAILY turmeric root extract 500 mg PO DAILY [facility] Medical History (Updated 07/29/24 @ 09:18 by Miguel Magana MD) LUZMARIA (obstructive sleep apnea) Atelectasis Pneumonia Chronic restrictive lung disease Diastolic dysfunction [id number] syndrome Limb swelling Pneumonia due to COVID-19 virus Dyspnea Tachycardia HTN (hypertension) GERD (gastroesophageal reflux disease) Obesity Surgical History Hx of cataract surgery History of unilateral fallopian tube excision History of parotid gland removal Hx of umbilical hernia repair Family History Mother Leukemia Father Heart disease Hypertension Hyperlipidemia Diabetes Colitis Sister No problems noted. Daughter No problems noted. Son No problems noted. Son No problems noted. 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 Physical Exam Vital Signs: BMI result Body Mass Index 39.8 Const Other: Well-nourished well-developed very friendly female awake alert and oriented x3 in no acute distress Extrem Other: Right knee examination shows a minimal effusion, palpable crepitus with range of motion, pain with range of motion, no instability Office Procedures AMB Joint Injection/Aspiration Joint Injection/Aspiration Primary Site: right knee Prep: site was prepped using aseptic technique Injected: 20 mg of (Euflexxa viscosupplementation) and 1% plain lidocaine Procedure: The patient tolerated the procedure well Coding - Large joint Procedure code (CPT) selection complete Results Reviewed Results Reviewed: X-rays of the patient's right knee taken previously show joint space narrowing, subchondral sclerosis, no acute bony Assessment & Plan Assessment & Plan (1) Osteoarthritis of right knee: Code(s): M17.11 - Unilateral primary osteoarthritis, right knee Category: Medical Plan Ms. Gunter presents with right knee pain due to osteoarthritis. The risks and benefits of a series of Euflexxa injections were discussed at length with the patient. The patient wished to proceed. She tolerated 1st injection well. She will continue with her home exercise program. She will follow up next week as scheduled. Feel free to call me at any time should questions regarding her orthopedic management arise. I spent 21 minutes in reviewing the patient's records and imaging studies, seeing the patient and documenting in the medical record. Orders: Orders AMB Joint Injection/Aspiration 11/03/24 M17.11 - Unilateral primary osteoarthritis, right knee Coding Level of Care Code Est Pt Level 3 (56711) Complex EM visit Add On G2211 Diagnoses Osteoarthritis of right knee M17.11 CPT Codes Coding - 47259 Large joint: 00434 - Large joint ([id number])
[2024-11-03 12:49] VITALS: BMI 39.8
--- NOTE | 2024-11-03 12:59 | A.OFFVIS_ITS ---
Vital Signs 11/03/24 12:49 Height 5 ft 4 in Weight 232 lb BMI 39.8 Intake Visit Reasons: Right knee pain Intake Note: Navya is a 63-year-old female who presents with right knee pain. She describes her pain as sharp in nature. She has failed the last 3 months of conservative treatment which has included Tylenol, anti-inflammatory medicines and a home exercise program. She has had cortisone injections in the past which gave her minimal relief. She wishes to hold off on surgery if at all possible. Allergies prednisone Adverse Reaction (Severe, Verified 11/03/24 12:49) Numbness codine Allergy (Severe, Uncoded 11/03/24 12:49) redness and itching penicillin Allergy (Severe, Uncoded 11/03/24 12:49) anaphylaxis soma Allergy (Severe, Uncoded 11/03/24 12:49) nausea and vomiting Medication List - Last Reconciled 11/03/24 by Michael Dickerson MD amlodipine 10 mg PO DAILY ascorbic acid (vitamin C) 1 g PO Q6H cholecalciferol (vitamin D3) 250 mcg PO DAILY elderberry fruit-honey 0.7-3 gram/7.5 mL mL PO DAILY furosemide (Lasix) 20 mg PO DAILY PRN 30 days lactobacillus combination no.9 (Adult 50 Plus Probiotic) 4,000 mmu cells PO DAILY metoprolol succinate ER 25 mg PO DAILY pantoprazole 20 mg PO DAILY red yeast rice 600 mg PO DAILY turmeric root extract 500 mg PO DAILY PFSH Medical History (Updated 07/29/24 @ 09:18 by Miguel Magana MD) LUZMARIA (obstructive sleep apnea) Atelectasis Pneumonia Chronic restrictive lung disease Diastolic dysfunction 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 Daughter No problems noted. Son No problems noted. Son No problems noted. 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 Physical Exam Vital Signs: BMI result Body Mass Index 39.8 Const Other: Well-nourished well-developed very friendly female awake alert and oriented x3 in no acute distress Extrem Other: Bilateral lower extremity examination shows good capillary refill, no skin lesions noted, normal sensation light touch Right knee examination shows a minimal effusion, palpable crepitus with range of motion, pain with range of motion, no instability Office Procedures AMB Joint Injection/Aspiration Joint Injection/Aspiration Primary Site: right knee Prep: site was prepped using aseptic technique Injected: 20 mg of (Euflexxa viscosupplementation) and 1% plain lidocaine Procedure: The patient tolerated the procedure well Coding 09823 - Large joint Procedure code (CPT) selection complete Results Reviewed Results Reviewed: X-rays of the patient's right knee taken previously show joint space narrowing, subchondral sclerosis, no acute bony abnormalities Assessment & Plan Assessment & Plan (1) Right knee pain: Code(s): M25.561 - Pain in right knee Plan Ms. Gunter presents with right knee pain due to osteoarthritis. The risks and benefits of a series of Euflexxa injections were discussed at length with the patient. The patient wished to proceed. She tolerated the 1st injection well. She will continue with her home exercise program. She will follow up next week as scheduled. Feel free to call me at any time should questions regarding her orthopedic management arise. I spent 20 minutes in reviewing the patient's records and imaging studies, seeing the patient and documenting in the medical record. Orders: Orders AMB Joint Injection/Aspiration Today M17.11 - Unilateral primary osteoarthritis, right knee Coding Level of Care Code Est Pt Level 3 (64542) Complex EM visit Add On G2211 Diagnoses Right knee pain M25.561 CPT Codes Coding - 36660 Large joint: 91485 - Large joint ([id number])
--- OUTSIDE RECORDS SUMMARY | 2024-11-03 13:48 | XMS_ITS | Encounter Summary ---
Author Organization [facility] Address [address] [place] [address] Care Team Providers Care Leader Writer Name Role Phone Natasha Painting MD Primary Care Provider Unavailable Gurinder Negrete MD Unavailable Unavailable Yasmeen Tang NP Unavailable [phone] Sharlene Sanchez DNP Primary Care Provider Unava ilable Natasha Painting MD Primary Care Provider Unavailable Sharlene Sanchez DNP Primary Care Provider Unava ilable Santy Neri MD Unavailable [phone] Encounter Details Date Type Department Care Team Description 12/26/2020 Manager Car Report Medical Records [address] [place] [id number] Khalida Paredes PA-C Social History Tobacco Use Types Packs/Day Years Used Date Smoking Tobacco: Never Smokeless Tobacco: Never Alcohol Use Standard Drinks/Week Comments Yes 0 (1 standard drink = 0.6 oz pur e alcohol) social Sex Assigned at Date Recorded Not on file COVID-19 Exposure Response Date Recorded In the last month, have you been in contact with someone who was confirmed or suspected to have Coronavirus / COVID-19? No / Unsure 12/29/2020 1:19 PM EDT documented as of this encounter Plan of Treatment Not on file documented as of this encounter Visit Diagnoses Not on filedocumented in this encounter Care Teams Leader Writer Relationship Specialty Start Date End Date Natasha Painting MD PCP - General Internal Medicine 04/15/1808/01 Sharlene Sanchez DNP PCP - General Family Practice 08/14/21 02/20/22 Natasha Painting MD PCP - General Internal Medicine 02/21/22 Sharlene Sanchez DNP PCP - General Family Practice 04/17/22 Gurinder Negrete MD Triage Clinician Cardiovascular Disease 02/09/14 Yasmeen Tang NP Specialist Cardiology 06/10/18 Santy Neri MD Specialist Cardiology 04/13/24 documented as of this encounter
--- OUTSIDE RECORDS SUMMARY | 2024-11-03 13:48 | XMS_ITS | Encounter Summary ---
Author Organization [facility] Address [address] [place] [address] Care Team Providers Care Motor Coach Driver Name Role Phone Gloria Pitts MD Primary Care Provider Unavailab Natasha Berrios MD Primary Care Provider Unavailable Natasha Painting MD Primary Care Provider Unavailable Gurinder Negrete MD Unavailable Unavailable Yasmeen Tang CASING RUNNING MACHINE TENDER Unavailable [phone] Sharlene Sanchez DNP Primary Care Provider Unava ilable Natasha Painting MD Primary Care Provider Unavailable Sharlene Sanchez DNP Primary Care Provider Unava ilable Santy Neri MD Unavailable Encounter Details Date Type Department Care Team Description 02/11/2014 [facility] Medical Records [address] [place] [address] Gurinder Negrete MD Social History Tobacco Use Types Packs/Day Years Used Date Smoking Tobacco: Never Assessed Sex Assigned at Date Recorded Not on file documented as of this encounter Plan of Treatment Not on file documented as of this encounter Procedures Procedure Name Priority Date/Time Associated Diagnosis Comments OUTSIDE HOLTER MONITOR Routine 02/11/2014 documented in this encounter Results * OUTSIDE HOLTER MONITOR (02/11/2014) Provider Abstract CARDIOLOGY documented in this encounter Visit Diagnoses Not on filedocumented in this encounter Care Teams Motor Coach Driver Relationship Specialty Start Date End Date Gloria Pitts MD PCP - General Internal Medicine 11/11/17 04/14/18 Natasha Painting MD PCP - General Internal Medicine 04/15/1808/01 Natasha Painting MD PCP - General 11/18/13 Sharlene Sanchez DNP PCP - General Family Practice 08/14/21 02/20/22 Natasha Painting MD PCP - General Internal Medicine 02/21/22 Sharlene Sanchez DNP PCP - General Family Practice 04/17/22 Gurinder Negrete MD Talent Development Coordinator Cardiovascular Disease 02/09/14 Yasmeen Tang NP Specialist Cardiology 06/10/18 Santy Neri MD Specialist Cardiology 04/13/24 documented as of this encounter
--- OUTSIDE RECORDS SUMMARY | 2024-11-03 13:49 | XMS_ITS | Encounter Summary ---
Author Organization [facility] Address [address] [place] [address] Care Team Providers Care Learning And Development Analyst Name Role Phone Gurinder Negrete MD Unavailable Unavailable Yasmeen Tang NP Unavailable [phone] Sharlene Sanchez DNP Primary Care Provider Santy Thompson MD Unavailable [phone] Reason for Visit * Reason Comments E-prescribe Rx Request amlodipine Encounter Details Date Type Department Care Team Description 04/11/2024 Refill Cardio [facility] [address] [place] [id number] Yasmeen Tang NP [address] [place] [address] Dr [address] [place] [id number] E-prescribe Rx Request (amlodipine ) Social History Tobacco Use Types Packs/Day Years Used Date Smoking Tobacco: Never Smokeless Tobacco: Never Alcohol Use Standard Drinks/Week Comments Not Currently 0 (1 standard drink = 0.6 oz pur e alcohol) social Sex Assigned at Date Recorded Not on file documented as of this encounter Miscellaneous Notes * Telephone Encounter - Angelika Adams R.N. - 04/13/2024 10:14 AM EDT TINO 08/14/22, is scheduled to see you tomorrow. Please refill medication following apt if appropriate. Thank you. documented in this encounter Plan of Treatment Not on file documented as of this encounter Visit Diagnoses Not on filedocumented in this encounter Care Teams Learning And Development Analyst Relationship Specialty Start Date End Date Sharlene Sanchez DNP PCP - General Family Practice 04/17/22 Gurinder Negrete MD Forensic Accountant Cardiovascular Disease 02/09/14 Yasmeen Tang NP Specialist Cardiology 06/10/18 Santy Neri MD Specialist Cardiology 04/13/24 documented as of this encounter
--- OUTSIDE RECORDS SUMMARY | 2024-11-03 13:49 | XMS_ITS | Encounter Summary ---
Author Organization [facility] Address [address] [place] [address] Care Team Providers Care Director Client Services Name Role Phone Gurinder Negrete MD Unavailable Unavailable Yasmeen Tang NP Unavailable [phone] Sharlene Sanchez DNP Primary Care Provider Santy Thompson MD Unavailable [phone] Encounter Details Date Type Department Care Team Description 09/13/2023 [facility] Medical Records [address] [place], [place] [id number] [place] [address] Social History Tobacco Use Types Packs/Day Years [...] Name Priority Date/Time Associated Diagnosis Comments OUTSIDE ECHO Routine 09/16/2023 documented in this encounter Results * OUTSIDE ECHO (09/16/2023) Provider Default CARDIOLOGY [facility] documented in this encounter Visit Diagnoses Not on filedocumented in this encounter Care Teams Director Client Services Relationship Specialty Start Date End Date Sharlene Sanchez DNP PCP - General Family Practice 04/17/22 Gurinder Negrete MD Air And Missile Defense Crewmember Cardiovascular Disease 02/09/14 Yasmeen Tang NP Specialist Cardiology 06/10/18 Santy Neri MD Specialist Cardiology 04/13/24 documented as of this encounter
--- OUTSIDE RECORDS SUMMARY | 2024-11-03 13:49 | XMS_ITS | Encounter Summary ---
Author Organization [facility] Address [address] [place] [address] Care Team Providers Care Pharmaceutical Salesperson Name Role Phone Natasha Painting MD Primary Care Provider Unavailable Gurinder Negrete MD Unavailable Unavailable Yasmeen Tang NP Unavailable [phone] Sharlene Sanchez DNP Primary Care Provider UnaNatasha Gilbert MD Primary Care Provider Unavailable Sharlene Sanchez DNP Primary Care Provider Unava ilable Santy Neri MD Unavailable [phone] Reason for Visit * Reason Onset Date Comments Release Of Information 07/05/2020 Encounter Details Date Type Department Care Team Description 07/05/2020 Telephone Adult Medicine - [address] [address] Natasha Painting MD Release Of Information Social History Tobacco Use Types Packs/Day Years Used Date Smoking Tobacco: Never Smokeless Tobacco: Never Alcohol Use Standard Drinks/Week Comments Yes 0 (1 standard drink = 0.6 oz pur e alcohol) social Sex Assigned at Date Recorded Not on file documented as of this encounter Miscellaneous Notes * Telephone Encounter - Shannon Danielle - 07/05/2020 1:52 PM EST HARI received, copy, faxed and placed in the [facility] HARI folder at check in. Please advise. documented in this encounter Plan of Treatment Not on file documented as of this encounter Visit Diagnoses Not on filedocumented in this encounter Care Teams Pharmaceutical Salesperson Relationship Specialty Start Date End Date Natasha Painting MD PCP - General Internal Medicine 04/15/1808/01 Sharlene Sanchez DNP PCP - General Family Practice 08/14/21 02/20/22 Natasha Painting MD PCP - General Internal Medicine 02/21/22 Sharlene Sanchez DNP PCP - General Family Practice 04/17/22 Gurinder Negrete MD Administrative Dietitian Cardiovascular Disease 02/09/14 Yasmeen Tang NP Specialist Cardiology 06/10/18 Santy Neri MD Specialist Cardiology 04/13/24 documented as of this encounter
--- OUTSIDE RECORDS SUMMARY | 2024-11-03 13:49 | XMS_ITS | Encounter Summary ---
Author Organization [facility] Address [address] [place] [address] Care Team Providers Care Backup Sawyer Name Role Phone Gloria Pitts MD Primary Care Provider Unavailab Natasha Berrios MD Primary Care Provider Unavailable Gurinder Negrete MD Unavailable Unavailable Yasmeen Tang NP Unavailable [phone] Sharlene Sanchez DNP Primary Care Provider UnaNatasha Gilbert MD Primary Care Provider Unavailable Sharlene Sanchez DNP Primary Care Provider Unava ilSanty Boston MD Unavailable [phone] Encounter Details Date Type Department Care Team Description 11/21/2017 Release of Information Medical Records [address] [place] [id number] Abstract, Provider Social History Tobacco Use Types Packs/Day Years Used Date Smoking Tobacco: Never Smokeless Tobacco: Never Alcohol Use Standard Drinks/Week Comments No 0 (1 standard drink = 0.6 oz pur e alcohol) Sex Assigned at Date Recorded Not on file documented as of this encounter Plan of Treatment Not on file documented as of this encounter Visit Diagnoses Not on filedocumented in this encounter Care Teams Backup Sawyer Relationship Specialty Start Date End Date Gloria Pitts MD PCP - General Internal Medicine 11/11/17 04/14/18 Natasha Painting MD PCP - General Internal Medicine 04/15/1808/01 Sharlene Sanchez DNP PCP - General Family Practice 08/14/21 02/20/22 Natasha Painting MD PCP - General Internal Medicine 02/21/22 Sharlene Sanchez DNP PCP - General Family Practice 04/17/22 Gurinder Negrete MD Leaf Conditioner Cardiovascular Disease 02/09/14 Yasmeen Tang NP Specialist Cardiology 06/10/18 Santy Neri MD Specialist Cardiology 04/13/24 documented as of this encounter
--- OUTSIDE RECORDS SUMMARY | 2024-11-03 13:49 | XMS_ITS | Continuity of Care Document ---
Author Organization [facility] Address [address] [place] [address] Name Relationship Address Phone PATRICIA, PONCE child Unknown Unavailable GALDA, DESTINEY Personal Relationship Unknown Unavai lable GALDA, UTE child Unknown Unavailable GALDA, DESTINEY Personal Relationship Unknown Unavai lable EDGERLY, PABLITO mother Unknown Unavailable KALASIAN, SUSSY unrelated friend Unknown Unavail able EDGERLY, MAHNAZ mother Unknown Unavailabl e Care Team Providers Care Bunk House Worker Name Role Phone Riccardo CALDERA, Tanya Weiss Primary Care Physicia n Encounter [facility] Date(s): 10/01/24 - 10/31/24 [facility] [address] [place] [address] Attending Physician: Adrienne Higgins Admitting Physician: Adrienne Higgins Referring Physician: Adrienne Higgins Encounter Type: Triage Allergies, Adverse Reactions, Alerts Substance Criticality Severity Reaction Reaction Severity Status codeine Rash Active penicillin Difficulty roney thing Rash Active Soma Rash Active Immunizations Given and Recorded Vaccine Date Status Refusal Reason influenza virus vaccine, inactivated 1 04/02/12 Gi raffy influenza virus vaccine, inactivated 2 05/03/11 Gi raffy influenza virus vaccine, inactivated 3 04/05/10 Gi raffy tetanus/diphtheria/pertussis, acel(Tdap) 04/05/10 Given 1Admin Note: defers 2Admin Note: given w/out incident/VIS given 3Admin Note: given w/o incident Medications Aerochamber See Instructions, # 1 each, Maintenance, use with mdi, 06/28/15 1:54:23 PM EST, Compound Start Date: 12/29/15 Status: Ordered Quantity: 1.0 Unit: each Repeat number: 1 amLODIPine 10 mg oral tablet 1 tablet = 10 mg, By Mouth, Daily, # 30 tablet, 0 Refills, Maintenance, 06/28/15 1:47:27 PM EST, Tablet Start Date: 06/28/15 Status: Ordered Quantity: 30.0 Unit: tablet Repeat number: 1 Coenzyme Q10 By Mouth, 0 Refills, Maintenance, 06/02/14 10:22:40 AM EST Start Date: 06/02/14 Status: Ordered Repeat number: 1 elderberry 1 capsule, By Mouth, Daily, 0 Refills, Maintenance, 10/01/24 8:30:00 AM EDT, Partial fill upon patient request if the prescription is for a schedule II opioid drug. Start Date: 10/01/24 Status: Ordered Repeat number: 1 metoprolol 25 mg oral tablet 25 mg, 1, tablet, By Mouth, 2 times a day, Refills 0, Maintenance, 04/22/23 12:42:00 PM EDT, Partial fill upon patient request if the prescription is for a schedule II opioid drug. Start Date: 04/22/23 Status: Ordered Repeat number: 1 Metoprolol Succinate ER 25 mg oral tablet, extended release 90 each, 0 Refill(s), TAKE 1 TABLET BY MOUTH 1 TIME EACH DAY., Refills 0, 10/01/24 8:29:00 AM EDT, Partial fill upon patient request if the prescription is for a schedule II opioid drug. Start Date: 10/01/24 Status: Ordered Repeat number: 1 pantoprazole 40 mg oral delayed release tablet 1 tablet = 40 mg, By Mouth, 2 times a day, # 60 tablet, 6 Refills, Maintenance, 10/01/24 8:49:00 AM EDT, CR Tablet, 162, cm, 10/01/24 8:32:00 EDT, Height Start Date: 10/01/24 Status: Ordered Quantity: 60.0 Unit: tablet Repeat number: 7 saccharomyces boulardii lyo 250 mg oral capsule TAKE ONE CAPSULE BY MOUTH ONCE DAILY Start Date: 10/28/23 Status: Ordered Repeat number: 1 Vitamin C 1000 mg oral tablet 1 tablet = 1,000 mg, By Mouth, Daily, # 30 tablet, 0 Refills, Maintenance, 06/02/14 10:23:33 AM EST,Tablet Start Date: 06/02/14 Status: Ordered Quantity: 30.0 Unit: tablet Repeat number: 1 Vitamin D3 1000 intl units oral tablet 1 tablet = 1,000 International_Units, By Mouth, Daily, start after done with megadose Vit d, # 30 tablet, 3 Refills, Maintenance, 09/07/15 4:21:37 PM EST, Tablet, [id number] Start Date: 09/07/15 Status: Ordered Quantity: 30.0 Unit: tablet Repeat number: 4 Xanax 0.25 mg oral tablet 0.25 mg, 1, tablet, By Mouth, 3 times a day, PRN, # 30 tablet, Refills 3, Tot. Refills 3, Maintenance, for anxiety, 04/22/23 12:57:00 PM EDT, Print Requisition, Partial fill upon patient request if the prescription is for a schedule II opioid drug. 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 Cough Confirmed Active Dyspnea Confirmed Active GERD (gastroesophageal reflux disease) Confirmed Active Gastroesophageal reflux disease with hiatal hernia Confirmed Active HTN (hypertension) Confirmed Active right inguinal pain Confirmed Active Severe obesity (BMI 35.0-39.9) with comorbidity Confirmed Active Varicose veins Confirmed Active Social History Social History Type Response Smoking Status Never smoker; Tobacc o user in household: No entered on: 06/02/14 Sex Sex Representation Female (finding) Radiology * Event Display: CT Scan Abdomen, Non- Authored Date: Patient Care team information Care Team Personnel Name: Riccardo CALDERA, Tanya Weiss Position: [facility] PCO Associate Professional Member Role: PCP Address: [address] [place] [address] Telecom: Care Team Related Persons Name: PABLITO GOLDSMITH Name: MAHNAZ GOLDSMITH Name: PONCE GOMEZ Insurance Providers Guarantor name: MAU GOMEZ Health Plan Information #: 1 Payer: [employer] Member Number: NA Policy Number: NA Group Number: NA
--- OUTSIDE RECORDS SUMMARY | 2024-11-03 13:49 | XMS_ITS | Encounter Summary ---
Author Organization [facility] Address [address] [place] [address] Care Team Providers Care Meter Engineer Name Role Phone Natasha Painting MD Primary Care Provider Unavailable Gurinder Negrete MD Unavailable Unavailable Yasmeen Tang LINING PRINTER Unavailable [phone] Sharlene Sanchez DNP Primary Care Provider Unava Natasha Vega MD Primary Care Provider Unavailable Sharlene Sanchez DNP Primary Care Provider Unava ilable Santy Neri MD Unavailable [phone] Encounter Details Date Type Department Care Team Description 06/11/2018 Yard Driver Report Medical Records [address] [place] [address] Gurinder Negrete MD Social History Tobacco Use [...] on filedocumented in this encounter Care Teams Meter Engineer Relationship Specialty Start Date End Date Natasha Painting MD PCP - General Internal Medicine 04/15/1808/01 Sharlene Sanchez DNP PCP - General Family Practice 08/14/21 02/20/22 Natasha Painting MD PCP - General Internal Medicine 02/21/22 Sharlene Sanchez DNP PCP - General Family Practice 04/17/22 Gurinder Negrete MD Ballet Dancer Cardiovascular Disease 02/09/14 Yasmeen Tang NP Specialist Cardiology 06/10/18 Santy Neri MD Specialist Cardiology 04/13/24 documented as of this encounter
--- OUTSIDE RECORDS SUMMARY | 2024-11-03 13:49 | XMS_ITS | Encounter Summary ---
Author Organization [facility] Address [address] [place] [address] Care Team Providers Care Commission Broker Name Role Phone Natasha Painting MD Primary Care Provider Unavailable Gurinder Negrete MD Unavailable Unavailable Yasmeen Tang NP Unavailable [phone] Sharlene Sanchez DNP Primary Care Provider UnaNatasha Gilbert MD Primary Care Provider Unavailable Sharlene Sanchez DNP Primary Care Provider Unava ilable Santy Neri MD Unavailable [phone] Reason for Visit * Reason Onset Date Comments TEST RESULTS 05/31/2020 Encounter Details Date Type Department Care Team Description 05/31/2020 Telephone Medicine/Pediatrics - [address] [id number] Natasha Painting MD TEST RESULTS Social History Tobacco Use Types Packs/Day Years Used Date Smoking Tobacco: Never Smokeless Tobacco: Never Alcohol Use Standard Drinks/Week Comments Yes 0 (1 standard drink = 0.6 oz pur e alcohol) social Sex Assigned at Date Recorded Not on file documented as of this encounter Miscellaneous Notes * Telephone Encounter - Joana Chisholm M.A. - 05/31/2020 3:16 PM EST Pt aware * Telephone Encounter - Melissa Montalvo - 05/31/2020 8:20 AM EST Tested positive for covid documented in this encounter Plan of Treatment Not on file documented as of this encounter Visit Diagnoses Not on filedocumented in this encounter Care Teams Commission Broker Relationship Specialty Start Date End Date Natasha Painting MD PCP - General Internal Medicine 04/15/1808/01 Sharlene Sanchez DNP PCP - General Family Practice 08/14/21 02/20/22 Natasha Painting MD PCP - General Internal Medicine 02/21/22 Sharlene Sanchez DNP PCP - General Family Practice 04/17/22 Gurinder Negrete MD Wrapper Sheeter Cardiovascular Disease 02/09/14 Yasmeen Tang NP Specialist Cardiology 06/10/18 Santy Neri MD Specialist Cardiology 04/13/24 documented as of this encounter
--- OUTSIDE RECORDS SUMMARY | 2024-11-03 13:49 | XMS_ITS | Encounter Summary ---
Author Organization [facility] Address [address] [place] [address] Care Team Providers Care Classroom Coordinator Name Role Phone Gurinder Negrete MD Unavailable Unavailable Yasmeen Tang NP Unavailable Sharlene Sanchez DNP Primary Care Provider Santy Thompson MD Unavailable [phone] Encounter Details Date Type Department Care Team Description 08/06/2023 [facility] [address] [facility] [address] [place] [address] Karina North MD [address] [facility] [address] [place] [address] Social History Tobacco Use Types Packs/Day Years [...] on filedocumented in this encounter Care Teams Classroom Coordinator Relationship Specialty Start Date End Date Sharlene Sanchez DNP PCP - General Family Practice 04/17/22 Gurinder Negrete MD Geomagnetist Cardiovascular Disease 02/09/14 Yasmeen Tang NP Specialist Cardiology 06/10/18 Santy Neri MD Specialist Cardiology 04/13/24 documented as of this encounter
--- OUTSIDE RECORDS SUMMARY | 2024-11-03 13:49 | XMS_ITS | Encounter Summary ---
Author Organization [facility] Address [address] [place] [address] Care Team Providers Care Boilermaker Fitter Name Role Phone Gurinder Negrete MD Unavailable Unavailable Yasmeen Tang NP Unavailable [phone] Sharlene Sanchez DNP Primary Care Provider Santy Thompson MD Unavailable [phone] Encounter Details Date Type Department Care Team Description 09/14/2023 [facility] Medical Records [address] [place] [address] Jos Byrne MD [address] [place] [id number] Social History Tobacco Use Types Packs/Day Years [...] on filedocumented in this encounter Care Teams Boilermaker Fitter Relationship Specialty Start Date End Date Sharlene Sanchez DNP PCP - General Family Practice 04/17/22 Gurinder Negrete MD Motor Patrol Operator Cardiovascular Disease 02/09/14 Yasmeen Tang NP Specialist Cardiology 06/10/18 Santy Neri MD Specialist Cardiology 04/13/24 documented as of this encounter
--- OUTSIDE RECORDS SUMMARY | 2024-11-03 13:49 | XMS_ITS | Encounter Summary ---
Author Organization [facility] Address [address] [place] [address] Care Team Providers Care Automatic Embroidery Machine Tender Name Role Phone Gloria Pitts MD Primary Care Provider Unavailab Natasha Berrios MD Primary Care Provider Unavailable Natasha Painting MD Primary Care Provider Unavailable Gurinder Negrete MD Unavailable Unavailable Yasmeen Tang SENIOR FORMULATION SCIENTIST Unavailable [phone] Sharlene Sanchez DNP Primary Care Provider Unava ilable Natasha Painting MD Primary Care Provider Unavailable Sharlene Sanchez DNP Primary Care Provider Unava ilable Santy Neri MD Unavailable [phone] Encounter Details Date Type Department Care Team Description 01/24/2012 [facility] Medical Records [address] [place] [address] Abstract, Provider Social History Tobacco Use Types Packs/Day Years Used Date Smoking Tobacco: Never Assessed Sex Assigned at Date Recorded Not on file documented as of this encounter Plan of Treatment Not on file documented as of this encounter Procedures Procedure Name Priority Date/Time Associated Diagnosis Comments OUTSIDE STRESS TEST Routine 01/24/2012 documented in this encounter Results * OUTSIDE STRESS TEST (01/24/2012) Provider Default CARDIOLOGY documented in this encounter Visit Diagnoses Not on filedocumented in this encounter Care Teams Automatic Embroidery Machine Tender Relationship Specialty Start Date End Date Gloria Pitts MD PCP - General Internal Medicine 11/11/17 04/14/18 Natasha Painting MD PCP - General Internal Medicine 04/15/1808/01 Natasha Painting MD PCP - General 11/18/13 Sharlene Sanchez DNP PCP - General Family Practice 08/14/21 02/20/22 Natasha Painting MD PCP - General Internal Medicine 02/21/22 Sharlene Sanchez DNP PCP - General Family Practice 04/17/22 Gurinder Negrete MD Aircraft Structure Mechanic Cardiovascular Disease 02/09/14 Yasmeen Tang NP Specialist Cardiology 06/10/18 Santy Neri MD Specialist Cardiology 04/13/24 documented as of this encounter
--- OUTSIDE RECORDS SUMMARY | 2024-11-03 13:49 | XMS_ITS | Encounter Summary ---
Author Organization [facility] Address [address] [place] [address] Care Team Providers Care Line Out Worker Name Role Phone Natasha Painting MD Primary Care Provider Unavailable Gurinder Negrete MD Unavailable Unavailable Yasmeen Tang NP Unavailable [phone] Sharlene Sanchez DNP Primary Care Provider UnaNatasha Gilbert MD Primary Care Provider Unavailable Sharlene Sanchez DNP Primary Care Provider Unava ilable Santy Neri MD Unavailable [phone] Encounter Details Date Type Department Care Team Description 12/28/2019 [facility] Medical Records [address] [place] [address] Abstract, Provider Social History Tobacco Use Types [...] Name Priority Date/Time Associated Diagnosis Comments OUTSIDE EKG Routine 12/28/2019 documented in this encounter Results * OUTSIDE EKG (12/28/2019) Provider Abstract CARDIOLOGY documented in this encounter Visit Diagnoses Not on filedocumented in this encounter Care Teams Line Out Worker Relationship Specialty Start Date End Date Natasha Painting MD PCP - General Internal Medicine 04/15/1808/01 Sharlene Sanchez DNP PCP - General Family Practice 08/14/21 02/20/22 Natasha Painting MD PCP - General Internal Medicine 02/21/22 Sharlene Sanchez DNP PCP - General Family Practice 04/17/22 Gurinder Negrete MD Product Engineering Manager Cardiovascular Disease 02/09/14 Yasmeen Tang NP Specialist Cardiology 06/10/18 Santy Neri MD Specialist Cardiology 04/13/24 documented as of this encounter
--- OUTSIDE RECORDS SUMMARY | 2024-11-03 13:49 | XMS_ITS | Encounter Summary ---
Author Organization [facility] Address [address] [place] [address] Care Team Providers Care Hand Picker Name Role Phone Natasha Painting MD Primary Care Provider Unavailable Gurinder Negrete MD Unavailable Unavailable Yasmeen Tang NP Unavailable [phone] Sharlene Sanchez DNP Primary Care Provider Unava Natasha Vega MD Primary Care Provider Unavailable Sharlene Sanchez DNP Primary Care Provider Unava ilable Santy Neri MD Unavailable [phone] Encounter Details Date Type Department Care Team Description 09/08/2018 Release of Information Medical Records [address] [place] [address] Abstract, Provider Social History Tobacco Use Types [...] on filedocumented in this encounter Care Teams Hand Picker Relationship Specialty Start Date End Date Natasha Painitng MD PCP - General Internal Medicine 04/15/1808/01 Sharlene Sanchez DNP PCP - General Family Practice 08/14/21 02/20/22 Natasha Painting MD PCP - General Internal Medicine 02/21/22 Sharlene Sanchez DNP PCP - General Family Practice 04/17/22 Gurinder Negrete MD Tubular Splitting Machine Tender Cardiovascular Disease 02/09/14 Yasmeen Tang NP Specialist Cardiology 06/10/18 Santy Neri MD Specialist Cardiology 04/13/24 documented as of this encounter
--- OUTSIDE RECORDS SUMMARY | 2024-11-03 13:49 | XMS_ITS | Encounter Summary ---
Author Organization [facility] Address [address] [place] [address] Care Team Providers Care Experimental Physicist Name Role Phone Natasha Painting MD Primary Care Provider Unavailable Gurinder Negrete MD Unavailable Unavailable Yasmeen Tang NP Unavailable [phone] Sharlene Sanchez DNP Primary Care Provider Unava Natasha Vega MD Primary Care Provider Unavailable Sharlene Sanchez DNP Primary Care Provider Unava ilable Santy Neri MD Unavailable [phone] Encounter Details Date Type Department Care Team Description 11/19/2018 Engineering Systems Analyst Report Medical Records [address] [place] [address] Karina Cuello NP Social History Tobacco Use Types Packs/Day Years [...] on filedocumented in this encounter Care Teams Experimental Physicist Relationship Specialty Start Date End Date Natasha Painting MD PCP - General Internal Medicine 04/15/1808/01 Sharlene Sanchez DNP PCP - General Family Practice 08/14/21 02/20/22 Natasha Painting MD PCP - General Internal Medicine 02/21/22 Sharlene Sanchez DNP PCP - General Family Practice 04/17/22 Gurinder Negrete MD Tube Tester Cardiovascular Disease 02/09/14 Yasmeen Tang NP Specialist Cardiology 06/10/18 Santy Neri MD Specialist Cardiology 04/13/24 documented as of this encounter
--- OUTSIDE RECORDS SUMMARY | 2024-11-03 13:49 | XMS_ITS | Encounter Summary ---
Author Organization [facility] Address [address] [place] [address] Care Team Providers Care Diamond Mounter Name Role Phone Gurinder Negrete MD Unavailable Unavailable Yasmeen Tang NP Unavailable [phone] Sharlene Sanchez DNP Primary Care Provider Santy Thompson MD Unavailable [phone] Encounter Details Date Type Department Care Team Description 01/27/2024 [facility] Medical Records [address] [place], [place] [id number] [place] [address] Social History Tobacco Use Types Packs/Day Years [...] on filedocumented in this encounter Care Teams Diamond Mounter Relationship Specialty Start Date End Date Sharlene Sanchez DNP PCP - General Family Practice 04/17/22 Gurinder Negrete MD Sail Repair Person Cardiovascular Disease 02/09/14 Yasmeen Tang NP Specialist Cardiology 06/10/18 Santy Neri MD Specialist Cardiology 04/13/24 documented as of this encounter
--- OUTSIDE RECORDS SUMMARY | 2024-11-03 13:49 | XMS_ITS | Patient Health Record ---
Author Organization [facility] Sofiya shaw [facility] Address [address] [place] [id number] Care Team Providers Care Splitter Tender Name Role Phone POLLY MASON Primary Care Provider Tobin Zoë Unavailable [phone] SORAYA LANDAVERDE Unavailable [phone] ALLERGIES Allergen (clinical drug ingredient) Drug/Non Drug Allergy documented on EMR Reaction Allergy Type Onset Date Status carisoprodol Soma rash , Severity Observation:Mild to moderate , Drug Allergy Active codeine Codeine hallucinations , Severity Observation:Moderate , Drug Allergy Active Penicillin anaphylaxis , Severity Observation:Severe , Drug Allergy Active RESULTS Component Value Reference Range Notes THYROID PEROXIDASE AND THYRO GLOBULIN ANTIBODIES (7260) Reviewed date:03/31/2024 10:11:05 AM Interpretation: Performing Lab:NL2, [facility] Swetha Randall Notes/Report: NON-FASTING; NON-FASTING; NON-FASTING; NON-FASTING; NON-FAST FASTING:YES PATIENT UNABLE TO VOID; ADVISED TO RETURN FOR CO FASTING: YES THYROGLOBULIN ANTIBODIES <1 < or = 1 IU/mL THYROID PEROXIDASE ANTIBODIES <1 <9 IU/mL THYROID PANEL WITH TSH (7444 ) Reviewed date:04/01/2024 08:08:24 AM Interpretation: Performing Lab:[employer], [facility] Swetha Randall Notes/Report: NON-FASTING; NON-FASTING; NON-FASTING; NON-FASTING; NON-FAST FASTING:YES PATIENT UNABLE TO VOID; ADVISED TO RETURN FOR CO FASTING: YES T3 UPTAKE 25 22-35 % T4 (THYROXINE), TOTAL 8.6 5.1-11.9 mcg/dL FREE T4 INDEX (T7) 2.2 1.4-3.8 TSH 1.23 0.40-4.50 mIU/L CARDIO IQ(R) LIPID PANEL (91 716) Reviewed date:04/06/2024 02:11:49 PM Interpretation: Performing Lab:Silvia, [facility], [address], MgdgnehtuAB[address] Emery Krishnan PhD,[facility] Notes/Report: NON-FASTING; NON-FASTING; NON-FASTING; NON-FASTING; NON-FAST FASTING:YES PATIENT UNABLE TO VOID; ADVISED TO RETURN FOR CO FASTING: YES CHOLESTEROL, TOTAL 321 <200 mg/dL HDL CHOLESTEROL 56 >49 mg/dL TRIGLYCERIDES 393 <150 mg/dL If a non fasting specimen was collected, consider repeat triglyceride testing on a fasting specimen if clinically indicated. Issac et al. J of Clin. Lipidol. 215; 9:129-169. LDL-CHOLESTEROL 198 <100 mg/dL (calc) Desirable range <100 mg/dL for primary prevention; <70 mg/dL for patients with CHD or diabetic patients with >= 2 CHD risk factors. LDL-C levels > or = 190 mg/dL may indicate familial hypercholesterolemia (FH). Clinical assessment and measurement of blood lipid levels should be considered for all first degree relatives of patients with an FH diagnosis. LDL Cholesterol (LDL-C) levels > or = 300 mg/dL may indicate homozygous familial hypercholesterolemia (HoFH). Untreated, these extremely high LDL-C levels can result in premature CV events and mortality. Patients should be identified early and provided appropriate interventions to reduce the cumulative LDL-C burden from . For questions about testing for familial hypercholesterolemia, please call [employer] [facility] at [phone]. Issac Sol, et al. J National Lipid Association Recommendations for Patient-Centered Management of Dyslipidemia: Part 1 Journal of Clinical Lipidology 2015;9(2), 129-169. Kindra Casas et al. (2014). Homozygous familial hypercholesterolaemia: new insights and guidance for clinicians to improve detection and clinical management. Heart Journal, 35(32), 0642-5001. LDL-C is now calculated using the Ottoniel-Jordin calculation, which is a validated novel method providing better accuracy than the Friedewald equation in the estimation of LDL-C. Ottoniel BARRIENTOS et al. MARTIN. 2013;310(19): 2927-8302 (http://education.etaskr.com/faq/CHJ901) LDL-C is now calculated using the Rani calculation, which is a validated novel method providing better accuracy than the Friedewald equation in the estimation of LDL-C. Ottoniel SS et al. MARTIN. 2013;310(19): 2891-4753 (http://education.etaskr.com/faq/ZQC371) CHOL/HDLC RATIO 5.7 <5.0 calc NON HDL CHOLESTEROL 265 <130 mg/dL (calc) Non-HDL level >=220 is very high and may indicate genetic familial hypercholesterolemia (FH). Clinical assessment and measurement of blood lipid levels should be considered for all first-degree relatives of patients with an FH diagnosis. For patients with diabetes plus 1 major ASCVD risk factor, treating to a non-HDL-C goal of <100 mg/dL (LDL-C of <70 mg/dL) is considered a therapeutic option. IRON, TIBC AND FERRITIN LELAND Vance (5616) Reviewed date:04/01/2024 08:08:24 AM Interpretation: Performing Lab:NL2, [facility] Swetha Randall Notes/Report: NON-FASTING; NON-FASTING; NON-FASTING; NON-FASTING; NON-FAST FASTING:YES PATIENT UNABLE TO VOID; ADVISED TO RETURN FOR CO FASTING: YES IRON, TOTAL 106 45-160 mcg/dL IRON BINDING CAPACITY 432 250-450 mc g/dL (calc) % SATURATION 25 16-45 % (calc) FERRITIN 66 16-288 ng/mL ALBUMIN, RANDOM URINE W/CREA SAM (6517) Reviewed date:04/01/2024 08:08:24 AM Interpretation: Performing Lab:NL2, [facility] Swetha Randall Notes/Report: SPLIT 03/30/2024 FROM [id number] CREATININE, RANDOM URINE 174 20-275 mg/dL ALBUMIN, URINE 3.4 See Note: mg/dL Reference Range: Reference Range Not established ALBUMIN/CREATININE RATIO, RANDOM URINE 20 <30 mg/g creat The ADA defines abnormalities in albumin excretion as follows: Albuminuria Category Result (mg/g creatinine) Normal to Mildly increased <30 Moderately increased 30-299 Severely increased > OR = 300 The ADA recommends that at least two of three specimens collected within a 3-6 month period be abnormal before considering a patient to be within a diagnostic category. COMPREHENSIVE METABOLIC PANGlenda Vance ([address]) Reviewed date:04/01/2024 08:08:24 AM Interpretation: Performing Lab:RANJAN2, [facility] [address] [place], [place] [id number] Swetha Randall Notes/Report: NON-FASTING; NON-FASTING; NON-FASTING; NON-FASTING; NON-FAST FASTING:YES PATIENT UNABLE TO VOID; ADVISED TO RETURN FOR CO FASTING: YES GLUCOSE 97 65-99 mg/dL Fasting reference interval UREA NITROGEN (BUN) 14 7-25 mg/dL CREATININE 0.56 0.50-1.05 mg/dL EGFR 102 > OR = 60 mL/min/1.73m2 BUN/CREATININE RATIO SEE NOTE: 6-22 (calc) Not Reported: BUN and Creatinine are within reference range. SODIUM 138 135-146 mmol/L POTASSIUM 4.2 3.5-5.3 mmol/L CHLORIDE 100 98-110 mmol/L CARBON DIOXIDE 27 20-32 mmol/L CALCIUM 10.0 8.6-10.4 mg/dL PROTEIN, TOTAL 7.6 6.1-8.1 g/dL ALBUMIN 4.9 3.6-5.1 g/dL GLOBULIN 2.7 1.9-3.7 g/dL (calc) ALBUMIN/GLOBULIN RATIO 1.8 1.0-2.5 (calc) BILIRUBIN, TOTAL 0.8 0.2-1.2 mg/dL ALKALINE PHOSPHATASE 88 37-153 U/L AST 17 10-35 U/L ALT 24 6-29 U/L CARDIO IQ(R) DIRECT LDL (917 23) Reviewed date:04/06/2024 02:11:49 PM Interpretation: Performing Lab:Silvia, [facility], [address], TbhnscgjsMH[address] Emery Krishnan PhD,[facility] Notes/Report: NON-FASTING; NON-FASTING; NON-FASTING; NON-FASTING; NON-FAST FASTING:YES PATIENT UNABLE TO VOID; ADVISED TO RETURN FOR CO FASTING: YES DIRECT LDL 192 <100 mg/dL Desirable range <100 mg/dL for primary prevention; <70 mg/dL for patients with CHD or diabetic patients with >= 2 CHD risk factors. LDL-C levels > or = 190 mg/dL may indicate familial hypercholesterolemia (FH). Clinical assessment and measurement of blood lipid levels should be considered for all first degree relatives of patients with an FH diagnosis. LDL Cholesterol (LDL-C) levels > or = 300 mg/dL may indicate homozygous familial hypercholesterolemia (HoFH). Untreated, these extremely high LDL-C levels can result in premature CV events and mortality. Patients should be identified early and provided appropriate interventions to reduce the cumulative LDL-C burden from . For questions about testing for familial hypercholesterolemia, please call [employer] [facility] Client [facility] at [phone].INFO. Issac Sol, et al. J National Lipid Association Recommendations for Patient-Centered Management of Dyslipidemia: Part 1 Journal of Clinical Lipidology 2015;9(2), 129-169. Kindra Casas et al. (2014). Homozygous familial hypercholesterolaemia: new insights and guidance for clinicians to improve detection and clinical management. Heart Journal, 35(32), 4423-3972. CARDIO IQ(R) LIPOPROTEIN (a) (92508) Reviewed date:04/06/2024 02:11:49 PM Interpretation: Performing Lab:Silvia, [facility] [place] [address], [address], RavfvpufyAF[address] Emery Krishnan PhD,[facility] Notes/Report: NON-FASTING; NON-FASTING; NON-FASTING; NON-FASTING; NON-FAST FASTING:YES PATIENT UNABLE TO VOID; ADVISED TO RETURN FOR CO FASTING: YES LIPOPROTEIN (a) 17 <75 nmol/L Risk: Optimal <75 nmol/L; Moderate 75-125 nmol/L; High >125 nmol/L. Cardiovascular event risk category cut points (optimal, moderate, high) are based on Jeane Costa [facility] 2017;69:692-711. CBC (INCLUDES DIFF/PLT) (639 9) Reviewed date:03/31/2024 07:58:59 AM Interpretation: Performing Lab:NL2, [facility] TechnologiesLau[place] [id number] Ruizsusie Skeltonleticia Notes/Report: NON-FASTING; NON-FASTING; NON-FASTING; NON-FASTING; NON-FAST FASTING:YES PATIENT UNABLE TO VOID; ADVISED TO RETURN FOR CO FASTING: YES WHITE BLOOD CELL COUNT 8.8 3.8-10.8 Thousand/ uL RED BLOOD CELL COUNT 4.74 3.80-5.10 Million/uL HEMOGLOBIN 13.8 11.7-15.5 g/dL HEMATOCRIT 43.1 35.0-45.0 % MCV 90.9 80.0-100.0 fL MCH 29.1 27.0-33.0 pg MCHC 32.0 32.0-36.0 g/dL For adults, a slight decrease in the calculated MCHC value (in the range of 30 to 32 g/dL) is most likely not clinically significant; however, it should be interpreted with caution in correlation with other red cell parameters and the patient's clinical condition. RDW 13.2 11.0-15.0 % PLATELET COUNT 385 140-400 Thousand/uL MPV 9.4 7.5-12.5 fL ABSOLUTE NEUTROPHILS 5755 1323-7152 cells/uL ABSOLUTE LYMPHOCYTES 2226 850-3900 cells/uL ABSOLUTE MONOCYTES 466 200-950 cells/uL ABSOLUTE EOSINOPHILS 246 15-500 cells/uL ABSOLUTE BASOPHILS 106 0-200 cells/uL NEUTROPHILS 65.4 LYMPHOCYTES 25.3 MONOCYTES 5.3 EOSINOPHILS 2.8 BASOPHILS 1.2 URINALYSIS, COMPLETE (5463) Reviewed date:03/31/2024 07:58:59 AM Interpretation: Performing Lab:NL2, [facility] [address] Ruizsusie Honeycutt Tonia Notes/Report: SPLIT 03/30/2024 FROM [id number] COLOR YELLOW YELLOW APPEARANCE TURBID CLEAR SPECIFIC GRAVITY 1.022 1.001-1.035 PH 5.5 5.0-8.0 GLUCOSE NEGATIVE NEGATIVE BILIRUBIN NEGATIVE NEGATIVE KETONES NEGATIVE NEGATIVE OCCULT BLOOD NEGATIVE NEGATIVE PROTEIN NEGATIVE NEGATIVE NITRITE NEGATIVE NEGATIVE LEUKOCYTE ESTERASE NEGATIVE NEGATIVE WBC NONE SEEN < OR = 5 /HPF RBC 0-2 < OR = 2 /HPF SQUAMOUS EPITHELIAL CELLS NONE SEEN < OR = 5 /HPF BACTERIA NONE SEEN NONE SEEN /HPF HYALINE CAST NONE SEEN NONE SEEN /LPF NOTE This urine was analyzed for the presence of WBC, RBC, bacteria, casts, and other formed elements. Only those elements seen were reported. CARDIO IQ(R) HS CRP (92809) Reviewed date:04/06/2024 02:11:49 PM Interpretation: Performing Lab:Silvia, [facility], [address], IxdtllfxuDI[address] Emery Krishnan PhD,[facility] Notes/Report: NON-FASTING; NON-FASTING; NON-FASTING; NON-FASTING; NON-FAST FASTING:YES PATIENT UNABLE TO VOID; ADVISED TO RETURN FOR CO FASTING: YES HS CRP 7.2 <1.0 mg/L Reference Range: Optimal <1.0 mg/L, according to Yaa MELENDREZ et al. Endocr Pract.2017;23(Suppl 2):1-87. The AHA/CDC Guidelines recommend hs-CRP ranges for identifying Relative Cardiovascular Risk in patients ages >17 years: <1.0 mg/L Lower Relative Cardiovascular Risk; 1.0-3.0 mg/L Average Relative Cardiovascular Risk; 3.1-10.0 mg/L Higher Relative Cardiovascular Risk. If result is between 3.1 and 10.0 mg/L, consider retesting in 1-2 weeks to exclude a benign transient elevation secondary to infection or inflammation from the baseline CRP value. Persistent elevations of >10.0 mg/L upon retesting may be associated with infection and inflammation. The AHA/CDC recommendations are based on Dax Busch, Marlo ROSE, et al. Markers of inflammation and cardiovascular disease: application to clinical and public health practice: A statement for healthcare professionals from the Centers for Disease Control and Prevention and the [place] [employer]. Circulation 2003; 107(3): 499-511. For ages >17 Years: hs-CRP mg/L Risk According to AHA/CDC Guidelines <1.0 Lower relative cardiovascular risk. 1.0-3.0 Average relative cardiovascular risk. 3.1-10.0 Higher relative cardiovascular risk. Consider retesting in 1 to 2 weeks to exclude a benign transient elevation in the baseline CRP value secondary to infection or inflammation. >10.0 Persistent elevation, upon retesting, may be associated with infection and inflammation. Dax Busch, Marlo ROSE, et al. Markers of inflammation and cardiovascular disease: application to clinical and public health practice: A statement for healthcare professionals from the Centers for Disease Control and Prevention and the [place] Heart Association. Circulation 2003; 107(3): 499-511. CARDIO IQ(R) HEMOGLOBIN A1c (00747) Reviewed date:04/06/2024 02:11:49 PM Interpretation: Performing Lab:Monster, [facility], [address], PghfgcmldXS[address] Emery Krishnan PhD,[facility] Notes/Report: NON-FASTING; NON-FASTING; NON-FASTING; NON-FASTING; NON-FAST FASTING:YES PATIENT UNABLE TO VOID; ADVISED TO RETURN FOR CO FASTING: YES HEMOGLOBIN A1c 6.5 <5.7 % For someone without known diabetes, a hemoglobin A1c value of 6.5% or greater indicates that they may have diabetes, and this should be confirmed with a follow-up test. For someone with known diabetes, a value <7% indicates that their diabetes is well controlled and a value greater than or equal to 7% indicates suboptimal control. A1c targets should be individualized based on duration of diabetes, age, comorbid conditions, and other considerations. Currently, no consensus exists for use of hemoglobin A1c for diagnosis of diabetes for children. This test was performed on the Corine dedrick c503 platform. Effective 09/03/2023, a change in test platforms from the Salcedo Horse [employer]er to the Corine dedrick c503 may have shifted HbA1c results compared to historical results. Based on laboratory validation testing conducted at [facility], the Corine platform relative to the Salcedo platform had an average increase in HbA1c value of <=0.3%. This difference is within accepted variability established by the National Glycohemoglobin Standardization Program. Note that not all individuals will have had a shift in their results and direct comparisons between historical and current results for testing conducted on different platforms is not recommended. CARDIO IQ(R) APOLIPOPROTEIN EVAL (93296) Reviewed date:04/06/2024 02:11:49 PM Interpretation: Performing Lab:Pao4Susie, [employer].[address] [place], [place] [address], [address], GrnjhququSD[address] Emery Krishnan PhD,[facility] Notes/Report: NON-FASTING; NON-FASTING; NON-FASTING; NON-FASTING; NON-FAST FASTING:YES PATIENT UNABLE TO VOID; ADVISED TO RETURN FOR CO FASTING: YES APOLIPOPROTEIN A1 159 >124 mg/dL Risk, Male: Optimal >= 115 mg/dL; High < 115 mg/dL; Risk, Female: Optimal >= 125 mg/dL; High <125 mg/dL; Cardiovascular event risk category cut points (optimal, high) are based on the AMORIS study Jonas Chambers et al. J Wrapper And Preserver Med. 2004;255:188-205. APOLIPOPROTEIN B 178 <90 mg/dL Risk: Optimal <90 mg/dL; Moderate 90-119 mg/dL; High >= 120 mg/dL; Cardiovascular event risk category cut points (optimal, moderate, high) are based on National Lipid Association recommendations- Davenport TA et al. J of Clin Lipid. 2015; 9: 129-169 and Yaa PS et al. Endocr Pract. 2017;23(Suppl 2):1-87. APOLIPOPROTEIN B/A1 RATIO 1.12 <0.63 Risk, Male: Optimal <0.77 mg/dL; Moderate 0.77-0.95 mg/dL; High >0.95 mg/dL; Risk, Female: Optimal <0.63 mg/dL; Moderate 0.63-0.78 mg/dL; High >0.78 mg/dL. Cardiovascular event risk category cut points (optimal, moderate, high) are based on the AMORIS study, Franki Chambers et al. J Wrapper And Preserver Med. 2004;255:188-205. CARDIO IQ(R) HOMOCYSTEINE (9 1733) Reviewed date:04/06/2024 02:11:49 PM Interpretation: Performing Lab:Silvia, [facility] [place] [address], [address], TjnzqwehtQA[address] Emery Krishnan PhD,[facility] Notes/Report: NON-FASTING; NON-FASTING; NON-FASTING; NON-FASTING; NON-FAST FASTING:YES PATIENT UNABLE TO VOID; ADVISED TO RETURN FOR CO FASTING: YES HOMOCYSTEINE 8.0 <10.4 umol/L Homocysteine is increased by functional deficiency of folate or vitamin B12. Testing for methylmalonic acid differentiates between these deficiencies. Other causes of increased homocysteine include renal failure, folate antagonists such as methotrexate and phenytoin, and exposure to nitrous oxide. Shree Veronica, et al. Daisha Wrapper And Preserver Med. 1999;131(5):331-9. Homocysteine is increased by functional deficiency of folate or vitamin B12. Testing for methylmalonic acid differentiates between these deficiencies. Other causes of increased homocysteine include renal failure, folate antagonists such as methotrexate and phenytoin, and exposure to nitrous oxide. Shree Veronica, et al., Daisha Wrapper And Preserver Med. 1999;131(5):331-9. CARDIO IQ(R) INSULIN (62094) Reviewed date:04/06/2024 02:11:49 PM Interpretation: Performing Lab:Z4Susie, [facility].[address] [facility], [address], EdsemfvbdID[address] Emery Krishnan PhD,[facility] Notes/Report: NON-FASTING; NON-FASTING; NON-FASTING; NON-FASTING; NON-FAST FASTING:YES PATIENT UNABLE TO VOID; ADVISED TO RETURN FOR CO FASTING: YES INSULIN 23.2 <18.5 uIU/mL VITAMIN B12/FOLATE, SERUM PA CHENTE (7065) Reviewed date:03/31/2024 08:57:09 AM Interpretation: Performing Lab:NL2, [facility] [address] [place], [place] [id number] Swetha Randall Notes/Report: NON-FASTING; NON-FASTING; NON-FASTING; NON-FASTING; NON-FAST FASTING:YES PATIENT UNABLE TO VOID; ADVISED TO RETURN FOR CO FASTING: YES VITAMIN B12 972 498-7981 pg/mL FOLATE, SERUM 10.9 Reference Range Low: <3.4 Borderline: 3.4-5.4 Normal: >5.4 CARDIO IQ(R) VITAMIN D, 25 H YDROXY (23002) Reviewed date:04/06/2024 02:11:49 PM Interpretation: Performing Lab:AMD, [facility]/Tao Antunez [id number], PaxobvrpaCL[address] Jax Arguello M.D.,PhD Notes/Report: NON-FASTING; NON-FASTING; NON-FASTING; NON-FASTING; NON-FAST FASTING:YES PATIENT UNABLE TO VOID; ADVISED TO RETURN FOR CO FASTING: YES VITAMIN D, 25-OH, TOTAL 29 30-100 ng/mL Vitamin D, 25-Hydroxy reports concentrations of two common forms, 25-OHD2 and 25-OHD3. 25-OHD3 indicates both endogenous production and supplementation. 25-OHD2 is an indicator of exogenous sources such as diet or supplementation. Therapy is based on measurement of Total 25-OHD, with levels <20 ng/mL indicative of Vitamin D deficiency, while levels between 20 ng/mL and 30 ng/mL suggest insufficiency. Optimal levels are > or = 30 ng/mL. For additional information, please refer to http://education.[employer].Eversnap/faq/ZNX322 (This link is being provided for informational/ educational purposes only.) VITAMIN D, 25-OH, D3 29 This test was developed and its analytical performance characteristics have been determined by [facility] [place], [place]. It has not been cleared or approved by the U.S. Food and Drug Administration. This assay has been validated pursuant to the CLIA regulations and is used for clinical purposes. VITAMIN D, 25-OH, D2 <4 This test was developed and its analytical performance characteristics have been determined by [facility] [place] [place]. It has not been cleared or approved by the U.S. Food and Drug Administration. This assay has been validated pursuant to the CLIA regulations and is used for clinical purposes. METHYLMALONIC ACID (51542) Reviewed date:04/02/2024 12:21:33 PM Interpretation: Performing Lab:RANJIT [facility] [id number] [address], ZnegalfngJP[address] Jax Arguello M.D.,PhD Notes/Report: NON-FASTING; NON-FASTING; NON-FASTING; NON-FASTING; NON-FAST FASTING:YES PATIENT UNABLE TO VOID; ADVISED TO RETURN FOR CO FASTING: YES METHYLMALONIC ACID 85 69-390 nmol/L Serum methylmalonic acid (MMA) levels are used to diagnose and monitor several rare inborn errors of metabolism, including methylmalonic aciduria. The enzymatic conversion of MMA to succinic acid requires vitamin B12 (adenosyl-cobalamin) as a cofactor. Serum MMA levels are also used for assessing functional vitamin B12 deficiency. Vitamin B12 is essential for neurodevelopment, particularly early in . Undiagnosed maternal vitamin B12 deficiency may be associated with adverse / outcomes, such as neural tube defects and intrauterine growth restriction. [facility] utilized Multi-Modal Decomposition (MMD) analysis to establish first and second trimester- specific MMA reference intervals in , as given below: MMA, First trimester (<13 wks gestation): 58-167 nmol/L MMA, Second trimester (13-23 wks gestation): 63-241 nmol/L This test was developed and its analytical performance characteristics have been determined by [facility]. It has not been cleared or approved by the FDA. This assay has been validated pursuant to the CLIA regulations and is used for clinical purposes. T3 REVERSE, LC/MS/MS (83854) Reviewed date:04/13/2024 04:36:13 PM Interpretation: Performing Lab:RANJIT [facility]code Fabian/[facility], SonldkumoQW[address] Jax Arguello M.D.,PhD Notes/Report: NON-FASTING; NON-FASTING; NON-FASTING; NON-FASTING; NON-FAST FASTING:YES PATIENT UNABLE TO VOID; ADVISED TO RETURN FOR CO FASTING: YES T3 REVERSE, LC/MS/MS 11 8-25 ng/dL This test was developed and its analytical performance characteristics have been determined by [facility] [place] [place]. It has not been cleared or approved by the U.S. Food and Drug Administration. This assay has been validated pursuant to the CLIA regulations and is used for clinical purposes. NT PROBNP (05836) Reviewed date:04/06/2024 08:19:31 AM Interpretation: Performing Lab:Lang CHURCH/[facility] [id number] [address] Perey[address] [id number] Jax Arguello M.D.,PhD Notes/Report: NON-FASTING; NON-FASTING; NON-FASTING; NON-FASTING; NON-FAST FASTING:YES PATIENT UNABLE TO VOID; ADVISED TO RETURN FOR CO FASTING: YES NT PROBNP <36 <125 pg/mL CARDIO IQ(R) FIBRINOGEN ANTI GEN, NEPHELOMETRY (34259) Reviewed date:04/06/2024 02:11:49 PM Interpretation: Performing Lab:Silvia, [facility], [address], YnnrylzfoHZ[address] Emery Krishnan PhD,[facility] Notes/Report: NON-FASTING; NON-FASTING; NON-FASTING; NON-FASTING; NON-FAST FASTING:YES PATIENT UNABLE TO VOID; ADVISED TO RETURN FOR CO FASTING: YES FIBRINOGEN ANTIGEN, NEPHELOMETRY 391 180-350 mg/dL Risk: Optimal <350 mg/dL; High >=350 mg/dL. Reference Range: 180-350 mg/dL. Adult cardiovascular event risk category cut points (optimal, moderate, high) are based on Siemens BN II and BN ProSpec(TM) System package insert. REASON FOR REFERRAL Reason please see new order for US of Left knee, suspect Biggs's cyst Diagnosis 1 Localized edema (R60 .0) [facility]erring Provider First Name POLLY Referring Provider Last Name BROOKLYN Referring Provider Speciality Nurse Prac titioner Ref[facility] Referred Address [address] [place] [id number], Referred Provider Specialty Radiology General Notes BRITTANY MARIN 10/2023 09:52:43 AM > Radiology Form, Referral, OV Note, and Insurance Information faxed to [facility] [phone]. Referral Priority Routine MEDICATIONS Medication SIG (Take, Route, Frequency, Duration) Notes Start Date End Date Status Voltaren 1 % as directed Externally Not-Taking IBU 600 MG 1 tablet with food or milk as needed Orally Three times a day Not-Taking Omeprazole 20 MG BID Oral omeprazole 20 m g capsule,delayed release 05/29/2022 Not-Taking ALPRAZolam 0.25 MG Oral ALPRAZOLAM 0. 25 MG TABLET 06/20/2021 Not-Taking Azithromycin 250 MG as directed Orally daily for 5 days 03/25/2024 Not-Taking Albuterol Sulfate HFA 108 (90 Base) MCG/ACT 1 puff as needed Inhalation every 4 hrs for 30 days 03/13/2024 Active Macrobid 100 MG 1 capsule with food Orally every 12 hrs Not-Taking Cetirizine HCl 10 MG 1 tablet Orally Once a day for 90 days 09/02/2023 Not-Taking Metoprolol Succinate ER 25 MG Oral METOPROLOL SUCC ER 25 MG TAB 02/13/2022 Active amLODIPine Besylate 10 MG TAKE 1 TABLET BY MOUTH EVERY DAY Oral AMLODIPINE BESYLATE 10 MG TAB 02/20/2022 Active Flonase Allergy Relief 50 MCG/ACT 2 sprays Nasally once a day for 30 days 07/16/2024 Active Pantoprazole Sodium 20 MG 1 tablet Orally Once a day for 90 days Active Magnesium Glycinate Active L-Theanine Active Furosemide 20 MG 1 tablet Orally Once a day PRN Active Tart Shane Active Vitamin C Active Acetaminophen 500 MG 1 tablet as needed Orally every 6 hrs Active Elderberry 500 MG as directed Orally Active Cetirizine HCl 10 MG 1 tablet Orally Once a day for 90 days 07/16/2024 Active Vitamin D3 Active Red Yeast Rice Activ e Turmeric Active Saccharomyces boulardii 250 MG 1 cap Orally once a day for 90 days 09/17/2023 Active Stress B Active CoQ-10 Active SOCIAL HISTORY Tobacco Use: Social History Observation Description Date Details (start date - stop date) Never Smoker NA - NA Sex Assigned At : Social History Observation Description Sex Assigned At Unknown Tobacco Use/Smoking Question Answer Notes Tobacco use: nonsmoker Section Notes: Lives in [place] with father. Lives in [place] with father. Lives in [place] with father. Lives in [place] with father. Lives in [place] with father. Lives in [place] with father. Lives in [place] with father. Lives in [place] father. Lives in [place] father. Lives in [place] father. Lives in [place] father. Lives in [place] father. Lives in [place] father. Lives in [place] father. Lives in [place] with father. Lives in [place] with father. Lives in [place] with father. Lives in [place] with father. Lives in [place] with father. Lives in [place] with father. Lives in [place] with father. Lives in [facility] A with father. Lives in [place] with father. Lives in [place] with father. Lives in [place] with father. Lives in [place] with father. Lives in [place] with father. Lives in [place] A with father. Lives in [facility] A with father. Lives in [facility] A with father. Lives in [facility] A with father. Lives in [facility] A with father. Lives in [facility] A with father. 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) Active confirmed Varicose veins of bilateral lower limbs (05787605360981462) Problem Paresthesia of skin (R20.2) Active confirmed 59455104 Problem Hypercholesterolemia (E78.00) Active confirmed Hypercholestero lemia (55278487) Problem Gastro-esophageal reflux disease with esophagitis, without bleeding (K21.00) Active confirmed Gastroesop hageal reflux disease with esophagitis (disorder) (581623231) Problem Obesity (BMI 30-39.9 ) (E66.9) Active confirmed Obesity (982152506) Problem Left ventricular hypertrophy (I51.7) Active confirmed Left raffy tricular hypertrophy (79744189) Problem Familial hypercholesteremia (E78.01) Active confirmed Pure hypercholesterolemia (029391228) Problem Stress at home (F43.9) Active confirmed Stress at home (016175301) Problem Left wrist pain (M25.532) Active confirmed [id number] VITAL SIGNS Heart Rate 91 /min 07/15/2024 Temperature 98.2 degrees Fahrenheit 07/15/2024 Height-cm 162.56 cm 07/16/2024 Oximetry 96 % 07/15/2024 Blood pressure diastolic 88 mm Hg 07/15/2024 Weight-kg 102.6 kg 07/15/2024 Height 64 in 07/16/2024 Blood pressure systolic 132 mm Hg 07/15/2024 Weight 226.2 lbs 07/15/2024 BMI 38.82 kg/m2 07/15/2024 Encounters Encounter Location Date Provider Diagnosis [facility], [address] [place] [id number] 2023 POLLY MASON [facility], [address] [place] [id number] 01/01/2024 Zoë Rudd [facility], [address] [place] [id number] 01/13/2024 POLLY [facility], [address] [id number] 01/23/[address] [id number] 01/28/[address] [id number] 09/08/[address] [id number] 09/08/[address] [id number] 11/18/2023 POLLY DANIEL Stress at home F43.9 ; Gastro-esophageal reflux disease with esophagitis, without bleeding K21.00 and Hypercholesterolemia E78.[address] [id number] 02/05/2024 POLLY DANIEL Gastro-esophageal re flux disease with esophagitis, without bleeding K21.00 ; Hypercholesterolemia E78.00 ; Hernia K46.9 and Left ventricular hypertrophy I51.[address] [id number] 03/13/2024 Zoë Rudd Sore throat J02.9 an d Acute cough R05.[address] [id number] 03/25/2024 SORAYA LANDAVERDE Upper respiratory tr act infection, unspecified type J06.[address] [id number] 03/30/2024 POLLY MASON Annual visit for [facility] adult medical examination with abnormal findings Z00.01 ; Depression screen Z13.31 ; Encounter for screening for other disorder Z13.89 ; Encounter for screening for malignant neoplasm of colon Z12.11 ; Encounter for screening mammogram for malignant neoplasm of breast Z12.31 ; Encounter for screening for malignant neoplasm of cervix Z12.4 ; Gastro-esophageal reflux disease with esophagitis, without bleeding K21.00 ; Hypercholesterolemia E78.00 ; Left ventricular hypertrophy I51.7 and Obesity (BMI 30-39.9) E66.[address] [id number] 05/04/2024 POLLY MASON Localized edema R60. 0 ; Acute pain of left knee M25.562 ; Hypercholesterolemia E78.00 and Encounter to discuss test results Z71.[address] [id number] 06/03/2024 POLLY MASON Cough R05.1 ; Nasal congestion R09.81 ; Localized edema R60.0 and Person consulting for explanation of examination or test findings Z71.[address] [id number] 07/15/2024 SORAYA [facility] Persistent cough R05 .[address] [id number] [facility] R05 .[address] [id number] 01/13/[address] [id number] 01/14/[address] [id number] 03/17/[address] [id number] 03/30/2024 POLLY MASON Hypercholesterolemia E78.00 ; Gastro-esophageal reflux disease with esophagitis, without bleeding K21.00 ; Acute gout of right foot, unspecified cause M10.9 ; Left ventricular hypertrophy I51.7 ; Localized edema R60.0 ; Shortness of breath R06.02 ; Dysuria R30.0 ; Obesity (BMI 30-39.9) E66.9 ; Pruritus, unspecified L29.9 ; Always tired R53.83 and Viral syndrome B34.[address] [id number] 05/05/[address] [id number] 06/26/2024 POLLY MASON ASSESSMENTS Encounter Date Diagnosis Assessment Notes Treatment Notes Treatment Clinical Notes Section Notes 03/30/2024 Annual visit for general adult medical examination with abnormal findings (ICD-10 - Z00.01) The exam today was without concern. We discussed short and long-term health goals. The exam today was without concerns, states feel safe at home. Reports having working CO2 and Smoke detectors. Encouraged to wear sunscreen. Reports wearing a seatbelt when driving or as a passenger. Encourage regular exercise of moderate intensity 30 min 5x/week. 03/30/2024 Depression screen (ICD-10 - Z13.31) PHQ9 Score: 5 risk for major depressive disorder, feels at baseline, indicates currently no an issue. She does worry a lot about health given her recent respiratory viruses, clear evidence of medical trauma 03/25/2024 Upper respiratory tr act infection, unspecified type (ICD-10 - J06.9) Due to pt feeling better then ill again, will treat empirically at this time Mucinex Increase water Rest, tylenol for pain/chills Call if worsening s/s otherwise follow up next week as scheduled 03/13/2024 Acute cough (ICD-10 - R05.1) 03/13/2024 Sore throat (ICD-10 - J02.9) [employer] swab obtain orally Use Tylenol and Ibuprofen as needed for fever, discomfort Gargle with salt water Increase water intake Will hold off on antibiotics for now Call the office back if yours symptoms worsen 02/05/2024 Hypercholesterolemia (ICD-10 - E78.00) Condition is stable and well controlled on current treatment. No changes made, medication(s) refilled as indicated 02/05/2024 Gastro-esophageal reflux disease with esophagitis, without bleeding (ICD-10 - K21.00) Condition is stable and well controlled on current treatment. No changes made, medication(s) refilled as indicated 11/18/2023 Gastro-esophageal reflux disease with esophagitis, without bleeding (ICD-10 - K21.00) Condition is stable and well controlled on current treatment. No changes made, medication(s) refilled as indicated 11/18/2023 Stress at home (ICD- 10 - F43.9) Still having therapy with Lorrie and she is planning on continuing 07/16/2024 Persistent cough (ICD-10 - R05.3) Question [...] pt about post viral cough as well 07/15/2024 Persistent cough (ICD-10 - R05.3) Pt appears clinically well Discussed post viral cough, duration of cough Will check [employer] swab and send for CXR to ensure no pneumonia given her histor of pneumonia Mucinex DM max str. tabs twice a day for the next week Inhaler with spacer TID Humidifier Will review results tomorrow with telehealth 06/03/2024 Cough (ICD-10 - R05.1) An upper respiratory infection, or URI, is an infection of the nose, sinuses, or throat. URIs are spread by coughs, sneezes, and direct contact. The common cold is the most frequent kind of URI. The flu and sinus infections are other kinds of URIs. Almost all URIs are caused by viruses. Antibiotics won't cure them. But you can treat most infections with home care. This may include drinking lots of fluids and taking enqk-uez-mcaejgy pain medicine. You will probably feel better in 4 to 10 days. 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 We will evaluate once results are available and refer to ortho if indicated 05/04/2024 Acute pain of left k yasemin (ICD-10 - M25.562) Does have known OA, this is new. She has marked swelling and pain posterior. Her exam is limited d/t habitus but given her symptoms and presentation, US to exclude biggs's cyst is reasonable-this was ordered today 03/30/2024 Hypercholesterolemia (ICD-10 - E78.00) 03/30/2024 Gastro-esophageal reflux disease with esophagitis, without bleeding (ICD-10 - K21.00) 03/30/2024 Acute gout of right foot, unspecified cause (ICD-10 - M10.9) 05/04/2024 Hypercholesterolemia (ICD-10 - E78.00) Discussed Apo B is >90 and genetically this means she can form a plaque. She had stopped the Red Rice Yeast but will resume twice a day and include Co Q 10 We will plan on repeating labs and deciding whether she is responding to the red rice yeast or whether statin therapy will be initiated. She does have a prevalent family history of atherosclerosis. 06/03/2024 Localized edema (ICD -10 - R60.0) reviewed US, normal study. Reports it comes and goes. Encouraged she wear her JOJO stockings, she has had a full cardiac work up in August. She does see vascular and does have a f/u in a few months 02/05/2024 Hernia (ICD-10 - K46.9) 11/18/2023 Hypercholesterolemia (ICD-10 - E78.00) Condition is stable and well controlled on current treatment. No changes made, medication(s) refilled as indicated 03/30/2024 Encounter for screen ing for other disorder (ICD-10 - Z13.89) CAGE Questions Adapted to Include Drug Use (CAGE-AID) 1. Have you ever felt you ought to cut down on your drinking or drug use? N 2. Have people annoyed you by criticizing your drinking or drug use? N 3. Have you felt bad or guilty about your drinking or drug use? N 4. 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 N Total Score: 0 Scoring: Item responses on the CAGE questions are scored 0 for no and 1 for yes answers, with a higher score being an indication of alcohol problems. A total score of two or greater is considered clinically significant. 02/05/2024 Left ventricular hypertrophy (ICD-10 - I51.7) Reviewed echo, this is mild and not impacting her EF which was 60-65%, has f/u with cardiology 03/30/2024 Encounter for screen ing for malignant neoplasm of colon (ICD-10 - Z12.11) Colon cancer screening options reviewed in detail 06/03/2024 Person consulting fo r explanation of examination or test findings (ICD-10 - Z71.2) 05/04/2024 Encounter to discuss test results (ICD-10 - Z71.2) 03/30/2024 Left ventricular hypertrophy (ICD-10 - I51.7) 03/30/2024 Localized edema (ICD -10 - R60.0) 03/30/2024 Encounter for screen ing mammogram for malignant neoplasm of breast (ICD-10 - Z12.31) Patient Education was given regarding breast mass and breast pain. Self breast examination was discussed. Assessment and plan reviewed with patient 03/30/2024 Encounter for screen ing for malignant neoplasm of cervix (ICD-10 - Z12.4) Pap not indicated, is UTD with screening 03/30/2024 Shortness of breath (ICD-10 - R06.02) 03/30/2024 Dysuria (ICD-10 - R30.0) 03/30/2024 Gastro-esophageal reflux disease with esophagitis, without bleeding (ICD-10 - K21.00) Condition is stable and well controlled on current treatment. No changes made, medication(s) refilled as indicated 03/30/2024 Hypercholesterolemia (ICD-10 - E78.00) Patient's lipids have been stable. Recommend to continue with present medication(s). Advised to consider Nitric Oxide supplementation along with N-Acetyl Cysteine 600 mg/day 03/30/2024 Obesity (BMI 30-39.9 ) (ICD-10 - E66.9) 03/30/2024 Pruritus, unspecifie d (ICD-10 - L29.9) 03/30/2024 Left ventricular hypertrophy (ICD-10 - I51.7) Blood pressure is stable 03/30/2024 Obesity (BMI 30-39.9 ) (ICD-10 - E66.9) Discussed weight and it affect on health status Discussed dietary choices/nutrition ist referral Intermittent fasting Increase exercise as tolerated 03/30/2024 Always tired (ICD-10 - R53.83) 03/30/2024 Viral syndrome (ICD- 10 - B34.9) 11/18/2023 Other Total time spen t with patient 32 minutes which includes face to face visit, education and coordination of care. 05/04/2024 Other Total time spen t with patient 40 minutes which includes face to face visit, education and coordination of care. 06/03/2024 Other Total time spen t with patient 35 minutes which includes face to face visit, education and coordination of care. 07/15/2024 Other Total time spen t with patient 20 minutes which includes face to face visit, education and coordination of care. 07/16/2024 Other Total time spen t with patient 20 minutes which includes face to face visit, education and coordination of care. PLAN OF TREATMENT Pending Test Test Name Order Date X ray : Wrist, left 02/26/2023 Chest X-ray PA and lateral 07/15/2024 Ultrasound : Lower Extremity, left 05/04 Ultrasound : Artery Doppler Low Ext Bila t 01/22/2023 Ultrasound : Extremity Ultrasound Non-Va sc 02/26/2023 LIPID PANEL WITH REFLEX TO DIRECT LDL (1 9297) 11/05/2022 COMPREHENSIVE METABOLIC PANEL (18170) CBC (H/H, RBC, INDICES, WBC, PLT) (1759) 11/05/2022 APOLIPOPROTEIN A1 (5223) 11/05/2022 APOLIPOPROTEIN B (5224) 11/05/2022 Next Appt Details Provider Name:POLLY RALPH Jamison, 11/09/2024 08:00:00 AM, [address] [place] [address], [phone], Insurance Providers Payer Name Payer Address Payer Phone Subscriber Number Group Number Insured Name Patient Relationship to Insured Coverage Start Date Coverage End Date [employer] [address] [address] [place] [phone] [id number] [id number] GOMEZ Self - patient is the insured MEDICAL (GENERAL) HISTORY Medical History History ICD Code Bronchitis Bilateral Cataracts Dentures - Upper GERD Hypertension Heartburn Hyperlipidemia Murmur COVID Pneumonia Arthritis - Bilateral knees Surgical History Surgery Date(Month/Year) Hernia repair [phone] Parotid gland tumor removed 2011 Kidney stone removed 2020 Cataract surgery 2018 Bilateral, partial fallopian tube remova l Appendectomy 09/13/2023
--- OUTSIDE RECORDS SUMMARY | 2024-11-03 13:49 | XMS_ITS | Encounter Summary ---
Author Organization [facility] Address [address] [place] [address] Care Team Providers Care Data Integration Developer Name Role Phone Gurinder Negrete MD Unavailable Unavailable Yasmeen Tang NP Unavailable Sharlene Sanchez DNP Primary Care Provider Santy Thompson MD Unavailable [phone] Encounter Details Date Type Department Care Team Description 02/22/2023 [facility] Medical Records [address] [place] [id number] Abstract, Provider Social History Tobacco Use Types [...] Name Priority Date/Time Associated Diagnosis Comments OUTSIDE VASCULAR STUDY Routine 02/22/2023 documented in this encounter Results * OUTSIDE VASCULAR STUDY (02/22/2023) Provider Abstract CARDIOLOGY documented in this encounter Visit Diagnoses Not on filedocumented in this encounter Care Teams Data Integration Developer Relationship Specialty Start Date End Date Sharlene Sanchez DNP PCP - General Family Practice 04/17/22 Gurinder Negrete MD Carpenter Packing Cardiovascular Disease 02/09/14 Yasmeen Tang NP Specialist Cardiology 06/10/18 Santy Neri MD Specialist Cardiology 04/13/24 documented as of this encounter
--- OUTSIDE RECORDS SUMMARY | 2024-11-03 13:49 | XMS_ITS | Encounter Summary ---
Author Organization [facility] Address [address] [place] [address] Care Team Providers Care Cardiovascular Surgical Tech Name Role Phone Gloria Pitts MD Primary Care Provider Unavailab Natasha Berrios MD Primary Care Provider Unavailable Natasha Painting MD Primary Care Provider Unavailable Gurinder Negrete MD Unavailable Unavailable Yasmeen Tang NP Unavailable [phone] Sharlene Sanchez DNP Primary Care Provider Unava ilable Natasha Painting MD Primary Care Provider Unavailable Sharlene Sanchez DNP Primary Care Provider Unava ilable Santy Neri MD Unavailable [phone] Encounter Details Date Type Department Care Team Description 07/29/2014 [facility] Medical Records [address] [place] [address] Social History Tobacco Use Types Packs/Day Years [...] Name Priority Date/Time Associated Diagnosis Comments OUTSIDE CARDIAC CATH Routine 07/29/2014 documented in this encounter Results * OUTSIDE CARDIAC CATH (07/29/2014) Provider Abstract CARDIOLOGY documented in this encounter Visit Diagnoses Not on filedocumented in this encounter Care Teams Cardiovascular Surgical Tech Relationship Specialty Start Date End Date Gloria Pitts MD PCP - General Internal Medicine 11/11/17 04/14/18 Natasha Painting MD PCP - General Internal Medicine 04/15/1808/01 Natasha Painting MD PCP - General 11/18/13 Sharlene Sanchez DNP PCP - General Family Practice 08/14/21 02/20/22 Natasha Painting MD PCP - General Internal Medicine 02/21/22 Sharlene Sanchez DNP PCP - General Family Practice 04/17/22 Gurinder Negrete MD Lighting Specialist Cardiovascular Disease 02/09/14 Yasmeen Tang NP Specialist Cardiology 06/10/18 Santy Neri MD Specialist Cardiology 04/13/24 documented as of this encounter
--- OUTSIDE RECORDS SUMMARY | 2024-11-03 13:50 | XMS_ITS | Encounter Summary ---
Author Organization [facility] Address [address] [place] [address] Care Team Providers Care Primary Care Coordinator Name Role Phone Natasha Painting MD Primary Care Provider Unavailable Gurinder Negrete MD Unavailable Unavailable Yasmeen Tang NP Unavailable [phone] Sharlene Sanchez DNP Primary Care Provider Unava Natasha Vega MD Primary Care Provider Unavailable Sharlene Sanchez DNP Primary Care Provider Unava ilable Santy Neri MD Unavailable [phone] Encounter Details Date Type Department Care Team Description 02/20/2021 [facility] Medical Records [address] [place] [address] Mabel Nogueira MD Social History Tobacco Use Types Packs/Day [...] have Coronavirus / COVID-19? No / Unsure 01/30/2021 2:07 PM EDT documented as of this encounter Plan of Treatment Not on file documented as of this encounter Visit Diagnoses Not on filedocumented in this encounter Care Teams Primary Care Coordinator Relationship Specialty Start Date End Date Natasha Painting MD PCP - General Internal Medicine 04/15/1808/01 Sharlene Sanchez DNP PCP - General Family Practice 08/14/21 02/20/22 Natasha Painting MD PCP - General Internal Medicine 02/21/22 Sharlene Sanchez DNP PCP - General Family Practice 04/17/22 Gurinder Negrete MD Form Presser Cardiovascular Disease 02/09/14 Yasmeen Tang NP Specialist Cardiology 06/10/18 Santy Neri MD Specialist Cardiology 04/13/24 documented as of this encounter
--- OUTSIDE RECORDS SUMMARY | 2024-11-03 13:50 | XMS_ITS | Encounter Summary ---
Author Organization [facility] Address [address] [place] [address] Care Team Providers Care Head Machinist Name Role Phone Gurinder Negrete MD Unavailable Unavailable Yasmeen Tang NP Unavailable [phone] Sharlene Sanchez DNP Primary Care Provider UnaNatasha Gilbert MD Primary Care Provider Unavailable Sharlene Sanchez DNP Primary Care Provider Unava ilable Santy Neri MD Unavailable [phone] Encounter Details Date Type Department Care Team Description 09/19/2021 Pt. Non Urgent Medical Question Cardio PVC [facility] [address] [place] [phone] Yasmeen Tang NP [address] [place] [address] [place] [id number] Social History Tobacco Use Types Packs/Day Years [...] on filedocumented in this encounter Care Teams Head Machinist Relationship Specialty Start Date End Date Sharlene Sanchez DNP PCP - General Family Practice 08/14/21 02/20/22 Natasha Painting MD PCP - General Internal Medicine 02/21/22 Sharlene Sanchez DNP PCP - General Family Practice 04/17/22 Gurinder Negrete MD Boil Off Machine Operator Cloth Cardiovascular Disease 02/09/14 Yasmeen Tang NP Specialist Cardiology 06/10/18 Santy Neri MD Specialist Cardiology 04/13/24 documented as of this encounter
--- OUTSIDE RECORDS SUMMARY | 2024-11-03 13:50 | XMS_ITS | Encounter Summary ---
Author Organization [facility] Address [address] [place] [address] Care Team Providers Care Home Care Assistant Name Role Phone Natasha Painting MD Primary Care Provider Unavailable Gurinder Negrete MD Unavailable Unavailable Yasmeen Tang NP Unavailable [phone] Sharlene Sanchez DNP Primary Care Provider Unava Natasha Vega MD Primary Care Provider Unavailable Sharlene Sanchez DNP Primary Care Provider Unava ilable Santy Neri MD Unavailable [phone] Encounter Details Date Type Department Care Team Description 02/24/2021 Marine Equipment Research Engineer Report Medical Records [address] [place] [address] Mabel Nogueira MD Social History Tobacco Use [...] on filedocumented in this encounter Care Teams Home Care Assistant Relationship Specialty Start Date End Date Natasha Painting MD PCP - General Internal Medicine 04/15/1808/01 Sharlene Sanchez DNP PCP - General Family Practice 08/14/21 02/20/22 Natasha Painting MD PCP - General Internal Medicine 02/21/22 Sharlene Sanchez DNP PCP - General Family Practice 04/17/22 Gurinder Negrete MD Ear Machine Operator Cardiovascular Disease 02/09/14 Yasmeen Tang NP Specialist Cardiology 06/10/18 Santy Neri MD Specialist Cardiology 04/13/24 documented as of this encounter
--- OUTSIDE RECORDS SUMMARY | 2024-11-03 13:50 | XMS_ITS | Encounter Summary ---
Author Organization [facility] Address [address] [place] [address] Care Team Providers Care Arabic Linguist Name Role Phone Gurinder Negrete MD Unavailable Unavailable Yasmeen Tang NP Unavailable Sharlene Sancehz DNP Primary Care Provider Santy Thompson MD Unavailable [phone] Encounter Details Date Type Department Care Team Description 08/30/2022 SCAN Medical Records [address] [place] [address] Abstract, Provider Social History Tobacco Use Types Packs/Day Years Used Date Smoking Tobacco: Never Smokeless Tobacco: Never Alcohol Use Standard Drinks/Week Comments Not Currently 0 (1 standard drink = 0.6 oz pur e alcohol) social Sex Assigned at Date Recorded Not on file COVID-19 Exposure Response Date Recorded In the last 10 days, have yo u been in contact with someone who was confirmed or suspected to have Coronavirus/COVID-19? No / Unsure 08/14/2022 10:54 AM EST documented as of this encounter Plan of Treatment Not on file documented as of this encounter Procedures Procedure Name Priority Date/Time Associated Diagnosis Comments OUTSIDE LAB Routine 08/30/2022 documented in this encounter Results * OUTSIDE LAB (08/30/2022) Provider Abstract LAB documented in this encounter Visit Diagnoses Not on filedocumented in this encounter Care Teams Arabic Linguist Relationship Specialty Start Date End Date Sharlene Sanchez DNP PCP - General Family Practice 04/17/22 Gurinder Negrete MD Level Vial Sealer Cardiovascular Disease 02/09/14 Yasmeen Tang NP Specialist Cardiology 06/10/18 Santy Neri MD Specialist Cardiology 04/13/24 documented as of this encounter
--- OUTSIDE RECORDS SUMMARY | 2024-11-03 13:50 | XMS_ITS | Encounter Summary ---
Author Organization [facility] Address [address] [place] [address] Care Team Providers Care Organic Gardening Teacher Name Role Phone Natasha Painting MD Primary Care Provider Unavailable Gurinder Negrete MD Unavailable Unavailable Yasmeen Tang NP Unavailable [phone] Sharlene Sanchez DNP Primary Care Provider UnaNatasha Gilbert MD Primary Care Provider Unavailable Sharlene Sanchez DNP Primary Care Provider Unava ilSanty Boston MD Unavailable [phone] Encounter Details Date Type Department Care Team Description 03/06/2019 Orders Only Adult Medicine - [address] [address] Rosy Nowak PA-C Gastroesophageal reflux disease, esophagitis presence not specified; Dysphagia, unspecified type Social History Tobacco Use Types Packs/Day Years [...] Procedure Name Priority Date/Time Associated Diagnosis Comments CHG RADIOLOGIC EXAM ESOPHAGUS SINGLE CONTRAST STUDY Routine 03/05/2019 Gastroesophageal reflux disease, esophagitis presence not specified Dysphagia, unspecified type documented in this encounter Results * BARIUM SWALLOW (03/05/2019) Rosy Nowak PA-C RADIOLOGY documented in this encounter Visit Diagnoses Diagnosis Gastroesophageal reflux disease, esophagitis presence not specified Dysphagia, unspecified type documented in this encounter Care Teams Organic Gardening Teacher Relationship Specialty Start Date End Date Natasha Painting MD PCP - General Internal Medicine 04/15/1808/01 Sharlene Sanchez DNP PCP - General Family Practice 08/14/21 02/20/22 Natasha Painting MD PCP - General Internal Medicine 02/21/22 Sharlene Sanchez DNP PCP - General Family Practice 04/17/22 Gurinder Negrtee MD Remarketing Manager Cardiovascular Disease 02/09/14 Yasmeen Tang NP Specialist Cardiology 06/10/18 Santy Neri MD Specialist Cardiology 04/13/24 documented as of this encounter
--- OUTSIDE RECORDS SUMMARY | 2024-11-03 13:50 | XMS_ITS | Encounter Summary ---
Author Organization [facility] Address [address] [place] [address] Care Team Providers Care Business Strategist Name Role Phone Natasha Painting MD Primary Care Provider Unavailable Gurinder Negrete MD Unavailable Unavailable Yasmeen Tang NP Unavailable [phone] Sharlene Sanchez DNP Primary Care Provider UnaNatasha Gilbert MD Primary Care Provider Unavailable Sharlene Sanchez DNP Primary Care Provider Unava ilable Santy Neri MD Unavailable [phone] Encounter Details Date Type Department Care Team Description 07/31/2019 Pt. Non Urgent Medic al Question Adult Medicine - [address] [address] Matias Swan MD Social History Tobacco Use Types Packs/Day Years Used Date Smoking Tobacco: Never Smokeless Tobacco: Never Alcohol Use Standard Drinks/Week Comments Yes 0 (1 standard drink = 0.6 oz pur e alcohol) social Sex Assigned at Date Recorded Not on file documented as of this encounter Progress Notes * Deysi Louie M.A. - 07/31/2019 8:32 AM ESTFrom: Navya Gunter To: Matias Swan MD Sent: 07/31/2019 7:32 AM EST Subject: LAB RESULTS Hi Dr Swan, this is Navya Gunter i saw you on Saturday, i was wondering if my labs were back for the flu test yet....dont mean to bother you ..thank you for you time and care documented in this encounter Plan of Treatment Not on file documented as of this encounter Visit Diagnoses Not on filedocumented in this encounter Care Teams Business Strategist Relationship Specialty Start Date End Date Natasha Painting MD PCP - General Internal Medicine 04/15/1808/01 Sharlene Sanchez DNP PCP - General Family Practice 08/14/21 02/20/22 Natasha Painting MD PCP - General Internal Medicine 02/21/22 Sharlene Sanchez DNP PCP - General Family Practice 04/17/22 Gurinder Negrete MD Exhibit Electrician Cardiovascular Disease 02/09/14 Yasmeen Tang NP Specialist Cardiology 06/10/18 Santy Neri MD Specialist Cardiology 04/13/24 documented as of this encounter
--- OUTSIDE RECORDS SUMMARY | 2024-11-03 13:50 | XMS_ITS | Encounter Summary ---
Author Organization [facility] Address [address] [place] [address] Care Team Providers Care Executive Steward Name Role Phone Natasha Painting MD Primary Care Provider Unavailable Gurinder Negrete MD Unavailable Unavailable Yasmeen Tang NP Unavailable [phone] hSarlene Sanchez DNP Primary Care Provider Unava Natasha Vega MD Primary Care Provider Unavailable Sharlene Sanchez DNP Primary Care Provider Unava ilable Santy Neri MD Unavailable [phone] Encounter Details Date Type Department Care Team Description 05/25/2019 Respiratory Therapy Technician Report Medical Records [address] [place] [address] Abstract, Provider Social History Tobacco Use Types [...] on filedocumented in this encounter Care Teams Executive Steward Relationship Specialty Start Date End Date Natasha Painting MD PCP - General Internal Medicine 04/15/1808/01 Sharlene Sanchez DNP PCP - General Family Practice 08/14/21 02/20/22 Natasha Painting MD PCP - General Internal Medicine 02/21/22 Sharlene Sanchez DNP PCP - General Family Practice 04/17/22 Gurinder Negrete MD Coconut Jelly Roller Cardiovascular Disease 02/09/14 Yasmeen Tang NP Specialist Cardiology 06/10/18 Santy Neri MD Specialist Cardiology 04/13/24 documented as of this encounter
--- OUTSIDE RECORDS SUMMARY | 2024-11-03 13:50 | XMS_ITS | Encounter Summary ---
Author Organization [facility] Address [address] [place] [address] Care Team Providers Care Molding Room Supervisor Name Role Phone Natasha Painting MD Primary Care Provider Unavailable Gurinder Negrete MD Unavailable Unavailable Yasmeen Tang NP Unavailable [phone] Sharlene Sanchez DNP Primary Care Provider Unava vishalable Natasha Painting MD Primary Care Provider Unavailable Sharlene Sanchez DNP Primary Care Provider Unava ilable Santy Neri MD Unavailable [phone] Encounter Details Date Type Department Care Team Description 01/31/2021 Vp Project Report Medical Records [address] [place] [address] DesileAj angela MD Social History Tobacco Use Types Packs/Day [...] on filedocumented in this encounter Care Teams Molding Room Supervisor Relationship Specialty Start Date End Date Natasha Painting MD PCP - General Internal Medicine 04/15/1808/01 Sharlene Sanchez DNP PCP - General Family Practice 08/14/21 02/20/22 Natasha Painting MD PCP - General Internal Medicine 02/21/22 Sharlene Sanchez DNP PCP - General Family Practice 04/17/22 Gurinder Negrete MD Dish Stacker Cardiovascular Disease 02/09/14 Yasmeen Tang NP Specialist Cardiology 06/10/18 Santy Neri MD Specialist Cardiology 04/13/24 documented as of this encounter
--- OUTSIDE RECORDS SUMMARY | 2024-11-03 13:50 | XMS_ITS ---
Author Organization [facility] Address [address] [place] [id number] Care Team Providers Care Manufacturing Plant Technician Name Role Phone POLLY SANCHEZ Primary Care Provider [phone] REASON FOR VISIT f/u wellness Encounters Encounter Location Date Provider Diagnosis [address] [id number] 09/08/2024 POLLY SANCHEZ PLAN OF TREATMENT Next Appt Details Provider Name:POLLY Jamison, 11/09/2024 08:00:00 AM, [address] [place] [address], [phone], Progress Notes * AZRA GOMEZIDOB:1960 ([age] yo F)Acc No.[id number]:09/08/2024 Progress Notes Patient:??MAU GOMEZ Provider:??Polly Sanchez DNP :1960?Age:63 Y?Sex:Fe male Date:09/08/2024 Phone: Address:[address] [place], [place] [id number] Subjective: * Chief Complaints: * ?1. F/u 3m wellness. * Medical History:?? Objective: Assessment: Plan: * Treatment: * Billing Information: * Visit Code:?? * Procedure Codes:?? * Sign off status: Pending * Provider:??Polly Sanchez DNP Date:??0 09/08/2024
--- OUTSIDE RECORDS SUMMARY | 2024-11-03 13:50 | XMS_ITS | Encounter Summary ---
Author Organization [facility] Address [address] [place] [address] Care Team Providers Care Maintenance And Utilities Supervisor Name Role Phone Natasha Painting MD Primary Care Provider Unavailable Gurinder Negrete MD Unavailable Unavailable Yasmeen Tang NP Unavailable [phone] Sharlene Sanchez DNP Primary Care Provider Unava Natasha Vega MD Primary Care Provider Unavailable Sharlene Sanchez DNP Primary Care Provider Unava ilable Santy Neri MD Unavailable [phone] Encounter Details Date Type Department Care Team Description 12/16/2018 [facility] Medical Records [address] [place] [address] Ty Pedersen DMD Social History Tobacco Use Types Packs/Day Years [...] on filedocumented in this encounter Care Teams Maintenance And Utilities Supervisor Relationship Specialty Start Date End Date Natasha Painting MD PCP - General Internal Medicine 04/15/1808/01 Sharlene Sanchez DNP PCP - General Family Practice 08/14/21 02/20/22 Natasha Painting MD PCP - General Internal Medicine 02/21/22 Sharlene Sanchez DNP PCP - General Family Practice 04/17/22 Gurinder Negrete MD Senior Environmental Engineer Cardiovascular Disease 02/09/14 Yasmeen Tang NP Specialist Cardiology 06/10/18 Santy Neri MD Specialist Cardiology 04/13/24 documented as of this encounter
--- OUTSIDE RECORDS SUMMARY | 2024-11-03 13:50 | XMS_ITS ---
Author Organization [facility] [employer] [facility] Address [address] [place] [id number] Care Team Providers Care Filer Repairer Name Role Phone POLLY MASON Primary Care Provider [phone] SORAYA LANDAVERDE Unavailable [phone] ALLERGIES Allergen (clinical drug ingredient) Drug/Non Drug [...] Tobacco use: nonsmoker Section Notes: Lives in [place] with father. VITAL SIGNS Height 64 in 07/16/2024 Height-cm 162.56 cm 07/16/2024 Encounters Encounter Location Date Provider Diagnosis [address] [id number] 07/16/2024 SORAYA LANDAVERDE Persistent cough R05.3 ASSESSMENTS [...] Provider Name:POLLY RALPH Jamison, 11/09/2024 08:00:00 AM, [address] [place] [address], [phone], Progress Notes * AZRA GOMEZIDOB:1960 ([age] yo F)Acc No.[id number]:07/16/2024 Progress Note Patient:??NAVYA GOMEZ Provider:??SORAYA LANDAVERDE NP :1960?Age:63 Y?Sex:Fe male Date:07/16/2024 Phone: Address:[address] [place], [place] [id number] Pcp:POLLY MASON Subjective: * Chief Complaints: * ?f/u Xr results * HPI: ?Patient Care Team:?Tarp Repairer:??Gurinder Negrete MD.??Psychiatric Registered Nurse:??Aj Hanks MD.??Hairspring Vibrator:??Taina Lopez.??Investment Fund Manager:??Dr. Maradiaga.? Provider/Specialists: TOWEL INSPECTOR - Rao Bryant MD Last CPE: 07/2021. [...] in the HPI. * Medical History:?? * Rehabilitation Services Coordinator History:??Menstrual hist ory:??Age of Menarche:??14,?Age of Menopause:??56.??Last pap smear date??2022 w/Dr Rao Lombardo.??Last mammogram date??Due 09/2023 - [facility].?? * OB History:?? [...] you drink alcohol?: Yes, Occasionally. ?Lives in [place], [place] with father. * Medications:??TakingCoQ-10 R ed [...] Codes:?? * Preventive Medicine:?Last CPE: 05/27/2023 @ [facility] DEXA: No Colonoscopy: Yes, [id number] Normal, 10 year plan Endoscopy: No Covid Vac: Yes & 1 booster Flu Vac: No. * Follow Up:??prn (Reason: and as scheduled) * Billing Information: * Visit Code:?? 47186 Office Visit, Est Pt., Level 3. * Procedure Codes:?? * Sign off status: Completed true * Provider:??SORAYA LANDAVERDE NP Date:?? History and Physical Notes * HPI (History of Present Illness) Category Sub-Category Detail Notes Category Not es Patient Care Team Tarp Repairer: Gurinder Negrete MD Pro vider/Specialists : TOWEL INSPECTOR - Rao Bryant MD Last CPE: 07/2021 Psychiatric Registered Nurse: Aj Hanks MD Ophthalmologist: Taina Lopez Investment Fund Manager: Dr. Maradiaga Visit info The patient consents [...]
--- OUTSIDE RECORDS SUMMARY | 2024-11-03 13:50 | XMS_ITS | Encounter Summary ---
Author Organization [facility] Address [address] [place] [address] Care Team Providers Care Product Transfer Pumper Name Role Phone Gurinder Negrete MD Unavailable Unavailable Yasmeen Tang NP Unavailable [phone] Natasha Painting MD Primary Care Provider Unavailable Sharlene Sanchez DNP Primary Care Provider Santy Thompson MD Unavailable [phone] Encounter Details Date Type Department Care Team Description 04/04/2022 SCAN Medical Records [address] [place] [address] Abstract, Provider Social History Tobacco Use Types [...] suspected to have Coronavirus/COVID-19? No / Unsure 03/08/2022 7:29 AM EDT documented as of this encounter Plan of Treatment Not on file documented as of this encounter Procedures Procedure Name Priority Date/Time Associated Diagnosis Comments OUTSIDE PLAIN FILM Routine 04/04/2022 documented in this encounter Results * OUTSIDE PLAIN FILM (04/04/2022) Provider Abstract RADIOLOGY documented in this encounter Visit Diagnoses Not on filedocumented in this encounter Care Teams Product Transfer Pumper Relationship Specialty Start Date End Date Natasha Painting MD PCP - General Internal Medicine 02/21/22 Sharlene Sanchez DNP PCP - General Family Practice 04/17/22 Gurinder Negrete MD Defence Intelligence Analyst Cardiovascular Disease 02/09/14 Yasmeen Tang NP Specialist Cardiology 06/10/18 Santy Neri MD Specialist Cardiology 04/13/24 documented as of this encounter
--- OUTSIDE RECORDS SUMMARY | 2024-11-03 13:50 | XMS_ITS | Encounter Summary ---
Author Organization [facility] Address [address] [place] [address] Care Team Providers Care Senior Commercial Loan Officer Name Role Phone Natasha Painting MD Primary Care Provider Unavailable Gurinder Negrete MD Unavailable Unavailable Yasmeen Tang NP Unavailable [phone] Sharlene Sanchez DNP Primary Care Provider Unava vishalable Natasha Painting MD Primary Care Provider Unavailable Sharlene Sanchez DNP Primary Care Provider Unava ilable Santy Neri MD Unavailable [phone] Encounter Details Date Type Department Care Team Description 04/11/2021 Heat And Frost Insulator Report Medical Records [address] [place] [id number] Karina Cuello NP Social History Tobacco Use [...] have Coronavirus / COVID-19? No / Unsure 04/03/2021 3:37 PM EDT documented as of this encounter Plan of Treatment Not on file documented as of this encounter Visit Diagnoses Not on filedocumented in this encounter Care Teams Senior Commercial Loan Officer Relationship Specialty Start Date End Date Natasha Painting MD PCP - General Internal Medicine 04/15/1808/01 Sharlene Sanchez DNP PCP - General Family Practice 08/14/21 02/20/22 Natasha Painting MD PCP - General Internal Medicine 02/21/22 Sharlene Sanchez DNP PCP - General Family Practice 04/17/22 Gurinder Negrete MD Demonstrator Sales Cardiovascular Disease 02/09/14 Yasmeen Tang NP Specialist Cardiology 06/10/18 Santy Neri MD Specialist Cardiology 04/13/24 documented as of this encounter
--- OUTSIDE RECORDS SUMMARY | 2024-11-03 13:50 | XMS_ITS | Clinical Summary ---
Author Organization [facility] Address [address] [place] [address] Phone Care Team Providers Care Brine Tank Separator Operator Name Role Phone DanielSharlene VERENICE Primary Care Provider [phone] Allergies Active Allergy Reactions Criticality Noted Date [...] (with meals) for 30 days. 0 Active metoprolol succinate (TOPROL-XL) 25 mg 24 hr tablet Take 1 tablet (25 mg total) by mouth 1 (one) time each day. 90 tablet 1 5 Active Active Problems Problem Noted Date Diagnosed [...] Type Department Care Team Description 09/07/[address] [facility] [address] [facility]ogue[facility] [address] [place] [address] Crispin Bacon MD Med Refill (Metoprolol) from Last 3 Months Surgical History Surgery Date Site/Laterality Comments SALPINGOOPHORECTOMY PROCEDURE: IN LAPAROSCOPY W/RMVL ADNEXAL STRUCTURES; COMMENT: Salpingectomy only OTHER SURGICAL HISTORY Right PROCEDURE: ---- OTHER ----; COMMENT: Parotidectomy OTHER SURGICAL HISTORY PROCEDURE: ---- OTHER ----; COMMENT: Uterine ablation HERNIA REPAIR PROCEDURE: HISTORICAL HERNIA REPAIR/UMB LITHOTRIPSY 02/20/2021 Left PROCEDURE: HISTORICAL LITHOTRIPSY; COMMENT: Ureteral nephroscopic stone lithotripsy and stone removal with retrograde pyelogram and stent placement APPENDECTOMY PROCEDURE: IN APPENDECTOMY Medical History Medical History Date Comments [...] Description 03/02/2025 8:20 AM EDT Office Visit [facility] [address] [place] [address] [place] [phone] Crispin Bacon MD [address] [place] [address] [address] [place] [address] Health Maintenance Due Date Last Done Comments [...] 5 season) 2024 11/15/2020, 10/25/2020 Influenza Vaccine (Season Ended) 2025 04/02/2012, 05/03/2011, 04/05/2010 Cholesterol Screening (Lipid Panel) 05/10/2026 05/10/2021 Colorectal Cancer Screening: Colonoscopy 03/30/2029 03/30/2019 RSV Immunization Adult Patients (1 - 1-dose 75+ series) 12/03/2035 Hepatitis [...] age to complete this topic Meningococcal B Vaccine Aged Out No l onger eligible based on patient's age to complete this topic RSV Immunization Patients Under 20 months Aged Out No longer eligible b ased on patient's age to complete this topic Varicella Vaccines Aged Out No longer eligible based on patient's age to complete this topic Procedures Procedure Name Priority Date/Time Associated Diagnosis Comments LIPID PANEL Routine 05/10/2021 HM COLONOSCOPY Routine 03/30/2019 HEPATITIS C SCREENING Routine [...] mg/dL Blood Venous blood specimen / Unknown [facility] Provider LAB BLOOD ORDERABLES Jessie l Result * Colonoscopy (03/30/2019) Colonoscopy No Interpretation , Abstracted Anatomical Region Laterality Modality Other [facility] Provider HEALTH MAINTENANCE Final Result * Hepatitis C Screening (12/05/2018) Hepatitis C Screening Abstracted [facility] Provider HEALTH MAINTENANCE Final Result * Pap Smear (08/01/2017) Pap smear No Interpretation , Abstracted [facility] Provider HEALTH MAINTENANCE Final Result from Last 3 Months or Most Recently Relevant to Health Maintenance Insurance Advance Directives Documents on File Type Date Recorded Patient Technician Automatic Expl anation Health Care Decision (hx) 02/23/2021 AD [place] DIRECTIVE Health Care Decision (hx) 02/23/2021 AD [place]LLADO DIRECTIVE Health Care Decision (hx) 02/23/2021 AD COLLADO DIRECTIVE Health Care Decision (hx) 02/23/2021 AD COLLADO DIRECTIVE Health Care Decision (hx) 02/23/2021 AD COLLADO DIRECTIVE Health Care Decision (hx) 02/23/2021 AD COLLADO DIRECTIVE Care Teams Brine Tank Separator Operator Relationship Specialty Start Date End Date Sharlene Sanchez NP [address] [place] [address] PCP - General 04/17/22
--- OUTSIDE RECORDS SUMMARY | 2024-11-03 13:50 | XMS_ITS | Encounter Summary ---
Author Organization [facility] Address [address] [place] [address] Care Team Providers Care Correspondence Specialist Name Role Phone Natasha Painting MD Primary Care Provider Unavailable Gurinder Negrete MD Unavailable Unavailable Yasmeen Tang NP Unavailable [phone] Sharlene Sanchez DNP Primary Care Provider Unava Natasha Vega MD Primary Care Provider Unavailable Sharlene Sanchez DNP Primary Care Provider Unava ilable Santy Neri MD Unavailable [phone] Encounter Details Date Type Department Care Team Description 07/10/2019 Compressor Service Technician Report Medical Records [address] [place] [id number] Karina Cuello NP Social History Tobacco Use [...] on filedocumented in this encounter Care Teams Correspondence Specialist Relationship Specialty Start Date End Date Natasha Painting MD PCP - General Internal Medicine 04/15/1808/01 Sharlene Sanchez DNP PCP - General Family Practice 08/14/21 02/20/22 Natasha Painting MD PCP - General Internal Medicine 02/21/22 Sharlene Sanchez DNP PCP - General Family Practice 04/17/22 Gurinder Negrete MD Cigar Bander Hand Cardiovascular Disease 02/09/14 Yasmeen Tang NP Specialist Cardiology 06/10/18 Santy Neri MD Specialist Cardiology 04/13/24 documented as of this encounter
--- OUTSIDE RECORDS SUMMARY | 2024-11-03 13:50 | XMS_ITS | Encounter Summary ---
Author Organization [facility] Address [address] [place] [address] Care Team Providers Care Lift Electrician Name Role Phone Gurinder Negrete MD Unavailable Unavailable Yasmeen Tang NP Unavailable [phone] Sharlene Sanchez DNP Primary Care Provider UnaNatasha Gilbert MD Primary Care Provider Unavailable Sharlene Sanchez DNP Primary Care Provider Unava ilable Santy Neri MD Unavailable [phone] Encounter Details Date Type Department Care Team Description 01/08/2022 Orders Only General Surgery - [address] [place] [phone] Kaylee Tan MD [address] [place] [address] [phone] Lower abdominal pain; History of umbilical hernia repair Social History Tobacco Use Types Packs/Day Years [...] suspected to have Coronavirus/COVID-19? No / Unsure 12/12/2021 1:08 PM EDT documented as of this encounter Plan of Treatment Not on file documented as of this encounter Procedures Procedure Name Priority Date/Time Associated Diagnosis Comments CT ABD & PELVIS W/CONTRAST Routine 01/04/2022 Lower abdominal pain History of umbilical hernia repair documented in this encounter Results * CT ABD & PELVIS W/CONTRAST (01/04/2022) Kaylee Tan MD CT SCANS documented in this encounter Visit Diagnoses Diagnosis Lower abdominal pain Abdominal pain, other specified site History of umbilical hernia repair Personal history of surgery to other organs documented in this encounter Care Teams Lift Electrician Relationship Specialty Start Date End Date Sharlene Sanchez DNP PCP - General Family Practice 08/14/21 02/20/22 Natasha Painting MD PCP - General Internal Medicine 02/21/22 Sharlene Sanchez DNP PCP - General Family Practice 04/17/22 Gurinder Negrete MD Scroll Shear Operator Cardiovascular Disease 02/09/14 Yasmeen Tang NP Specialist Cardiology 06/10/18 Santy Neri MD Specialist Cardiology 04/13/24 documented as of this encounter
--- OUTSIDE RECORDS SUMMARY | 2024-11-03 13:50 | XMS_ITS ---
Author Organization [facility] Address [address] [place] [id number] Care Team Providers Care Cheese Factory Worker Name Role Phone POLLY SANCHEZ Primary Care Provider [phone] REASON FOR VISIT 3M f/u Encounters Encounter Location Date Provider Diagnosis [address] [phone] 09/08/2024 POLLY SANCHEZ PLAN OF TREATMENT Next Appt Details Provider Name:POLLY Jamison, 11/09/2024 08:00:00 AM, [address] [place] [address], [id number], Progress Notes * AZRA GOMEZIDOB:1960 ([age] yo F)Acc No.[id number]:09/08/2024 Progress Notes Patient:??MAU GOMEZ Provider:??Polly Sanchez DNP :1960?Age:63 Y?Sex:Fe male Date:09/08/2024 Phone: Address:[address] [place], [place] [phone] Subjective: * Chief Complaints: * ?1. 3M f/u. * Medical History:?? Objective: Assessment: Plan: * Treatment: * Billing Information: * Visit Code:?? * Procedure Codes:?? * Sign off status: Pending * Provider:??Polly Sanchez DNP Date:??0 09/08/2024
--- OUTSIDE RECORDS SUMMARY | 2024-11-03 13:50 | XMS_ITS | Encounter Summary ---
Author Organization [facility] Address [address] [place] [address] Care Team Providers Care Human Resources Project Manager Name Role Phone Natasha Painting MD Primary Care Provider Unavailable Gurinder Negrete MD Unavailable Unavailable Yasmeen Tang NP Unavailable [phone] Sharlene Sanchez DNP Primary Care Provider UnaNatasha Gilbert MD Primary Care Provider Unavailable Sharlene Sanchez DNP Primary Care Provider Unava ilable Santy Neri MD Unavailable [phone] Reason for Visit * Reason Comments E-prescribe Rx Request Encounter Details Date Type Department Care Team Description 05/30/2021 Refill Medicine/Pediatrics - [address] [address] Lashanda Arredondo, PONY ROUGHER E-prescribe Rx Request Social History Tobacco Use Types Packs/Day Years [...] have Coronavirus / COVID-19? No / Unsure 05/10/2021 2:26 PM EST documented as of this encounter Miscellaneous Notes * Telephone Encounter - Wendy Rosario M.A. - 05/31/2021 12:06 PM EST Mary Kay - 12/06/20 Nov - none vm left. Refill pended if appropriate. Thank you * Telephone Encounter - Amada Alessio - 05/30/2021 4:04 PM EST Patient would like script to be: E-PRESCRIBED/FAXED TO PHARMACY WHEN WAS THE PATIENT'S LAST APPOINTMENT IN ADULT MEDICINE? 12/06/2020 WHEN WAS THE LAST TIME THE PATIENT SAW THEIR PCP? Same as above Does patient have an upcoming appointment? No-unable to reach left voicemaill to call for appointment due to refill request. Appt due (THE MEDICATION REQUESTED IS ON THE MED LIST ABOVE) All of the medications requested were on the CURRENT MEDS list Did you check the Pharmacy information above?: YES Patient wants: 30 -day supply Is this a mail order prescription request ? NO If the refill is from a FAXED refill request what is the RX # listed on the fax? N/A Patients current insurance carrier is: Payor: [employer] FFS / Plan: [facility] / Product Type: MEDICAID RISK documented in this encounter Plan of Treatment Not on file documented as of this encounter Visit Diagnoses Not on filedocumented in this encounter Care Teams Human Resources Project Manager Relationship Specialty Start Date End Date Natasha Painting MD PCP - General Internal Medicine 04/15/1808/01 Sharlene Sanchez DNP PCP - General Family Practice 08/14/21 02/20/22 Natasha Painting MD PCP - General Internal Medicine 02/21/22 Sharlene Sanchez DNP PCP - General Family Practice 04/17/22 Gurinder Negrete MD Industrial Organization Manager Cardiovascular Disease 02/09/14 Yasmeen Tang NP Specialist Cardiology 06/10/18 Santy Neri MD Specialist Cardiology 04/13/24 documented as of this encounter
== END 2024-11-03 13:00 | disposition home or self-care (01) ==
LOC: HO.HOS 12:35
PROVIDERS: PCP Registered Nurse; Visit Provider Orthopaedic Surgery
DX: M25.561 Pain in right knee (principal)
CPT/HCPCS: 20610; 99213

== ENCOUNTER → 2024-11-03 12:34 | Outpatient (BNVA) | payer OTHER, SELFPAY | PROVIDERS: PCP Registered Nurse; Visit Provider Orthopaedic Surgery | DX: M25.561 Pain in right knee (principal); M17.11 Unilateral primary osteoarthritis, right knee | CPT/HCPCS: 20610; 99212; J2003; J7323 ==

== ENCOUNTER 2024-11-10 12:39 | Outpatient (AMB) | payer OTHER, SELFPAY ==
--- NOTE | 2024-11-10 12:53 | MHC.OFFVIS ---
Vital Signs 11/10/24 12:55 Height 5 ft 4 in Weight 232 lb BMI 39.8 Intake Visit Reasons: Euflexxa #2, Rt Knee Intake Note: Navya presents for follow-up of her right knee pain. She states that she got mild relief from the 1st Euflexxa injection. She continues with her home exercise program. Allergies prednisone Adverse Reaction (Severe, Verified 11/03/24 12:49) Numbness codine Allergy (Severe, Uncoded 11/03/24 12:49) redness and itching penicillin Allergy (Severe, Uncoded 11/03/24 12:49) anaphylaxis soma Allergy (Severe, Uncoded 11/03/24 12:49) nausea and vomiting Medication List - Last Reconciled 11/10/24 by Michael Dickerson MD amlodipine 10 mg PO DAILY ascorbic acid (vitamin C) 1 g PO Q6H cholecalciferol (vitamin D3) 250 mcg PO DAILY elderberry fruit-honey 0.7-3 gram/7.5 mL mL PO DAILY furosemide (Lasix) 20 mg PO DAILY PRN 30 days lactobacillus combination no.9 (Adult 50 Plus Probiotic) 4,000 mmu cells PO DAILY metoprolol succinate ER 25 mg PO DAILY pantoprazole 20 mg PO DAILY red yeast rice 600 mg PO DAILY turmeric root extract 500 mg PO DAILY [facility] Medical History (Updated 07/29/24 @ 09:18 by Miguel Magana MD) LUZMARIA (obstructive sleep apnea) Atelectasis Pneumonia Chronic restrictive lung disease Diastolic dysfunction 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 Daughter No problems noted. Son No problems noted. Son No problems noted. 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 Physical Exam Extrem Other: Right knee examination shows a minimal effusion, palpable crepitus with range of motion, pain with range of motion, no instability Office Procedures AMB Joint Injection/Aspiration Joint Injection/Aspiration Primary Site: right knee Prep: site was prepped using aseptic technique Injected: 20 mg of (Euflexxa viscosupplementation) and 1% plain lidocaine Procedure: The patient tolerated the procedure well Coding - Large joint Procedure code (CPT) selection complete Results Reviewed Results Reviewed: X-rays of the patient's right knee taken previously show joint space narrowing, subchondral sclerosis, no acute bony abnormalities Assessment & Plan Assessment & Plan (1) Osteoarthritis of right knee: Code(s): M17.11 - Unilateral primary osteoarthritis, right knee Category: Medical Plan Ms. Gunter presents with right knee pain due to osteoarthritis. The risks and benefits of a 2nd Euflexxa injection were discussed at length with the patient. The patient wished to proceed. She tolerated the injection well. She will continue with her home exercise program. She will follow up next week as scheduled. Feel free to call me at any time should questions regarding her orthopedic management arise. Orders: Orders AMB Joint Injection/Aspiration Today M17.11 - Unilateral primary osteoarthritis, right knee Coding Level of Care Code Procedure Only Diagnoses Osteoarthritis of right knee M17.11 CPT Codes Coding - 55866 Large joint: 07939 - Large joint ([id number])
[2024-11-10 12:55] VITALS: BMI 39.8
--- OUTSIDE RECORDS SUMMARY | 2024-11-10 13:40 | XMS_ITS | Clinical Summary ---
Author Organization [facility] Address [address] [place] [address] Phone Care Team Providers Care Senior Firewall Engineer Name Role Phone DanielSharlene VERENICE Primary Care Provider [phone] Allergies Active Allergy Reactions Criticality Noted Date [...] Type Department Care Team Description 09/07/2024 Telephone [facility] [address] [facility] [address] [place] [address] Crispin Bacon MD Med Refill (Metoprolol) from Last 3 Months Surgical History Surgery Date Site/Laterality Comments SALPINGOOPHORECTOMY PROCEDURE: CA LAPAROSCOPY W/RMVL ADNEXAL STRUCTURES; COMMENT: Salpingectomy only OTHER SURGICAL HISTORY Right PROCEDURE: ---- OTHER ----; COMMENT: Parotidectomy OTHER SURGICAL HISTORY PROCEDURE: ---- OTHER ----; COMMENT: Uterine ablation HERNIA REPAIR PROCEDURE: HISTORICAL HERNIA REPAIR/UMB LITHOTRIPSY 02/20/2021 Left PROCEDURE: HISTORICAL LITHOTRIPSY; COMMENT: Ureteral nephroscopic stone lithotripsy and stone removal with retrograde pyelogram and stent placement APPENDECTOMY PROCEDURE: CA APPENDECTOMY Medical History Medical History Date Comments [...] Description 03/02/2025 8:20 AM EDT Office Visit [facility] [address] [place] [address] [place] [id number] Crispin Bacon MD [address] [place] [address] [address] [place] [address] Health Maintenance Due Date Last Done Comments [...] mg/dL Blood Venous blood specimen / Unknown [facility] Provider LAB BLOOD ORDERABLES Jessie l Result * Colonoscopy (03/30/2019) Colonoscopy No Interpretation , Abstracted Anatomical Region Laterality Modality Other [facility] Provider HEALTH MAINTENANCE Final Result * Hepatitis C Screening (12/05/2018) Hepatitis C Screening Abstracted [facility] Provider HEALTH MAINTENANCE Final Result * Pap Smear (08/01/2017) Pap smear No Interpretation , Abstracted [facility] Provider HEALTH MAINTENANCE Final Result from Last 3 Months or Most Recently Relevant to Health Maintenance Insurance Advance Directives Documents on File Type Date Recorded Patient 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
== END 2024-11-10 12:52 | disposition home or self-care (01) ==
LOC: HO.HOS 12:40
PROVIDERS: PCP Registered Nurse; Visit Provider Orthopaedic Surgery
DX: M17.11 Unilateral primary osteoarthritis, right knee (principal)
CPT/HCPCS: 20610

== ENCOUNTER → 2024-11-10 12:39 | Outpatient (BNVA) | payer OTHER, SELFPAY | PROVIDERS: PCP Registered Nurse; Visit Provider Orthopaedic Surgery | DX: M17.11 Unilateral primary osteoarthritis, right knee (principal) | CPT/HCPCS: 20610; J2003; J7323 ==

== ENCOUNTER 2024-11-17 12:29 | Outpatient (AMB) | payer OTHER, SELFPAY ==
--- NOTE | 2024-11-17 12:49 | MHC.OFFVIS ---
Intake Visit Reasons: Euflexxa #3, Rt Knee Intake Note: Ms. Gunter presents for follow-up of her right knee pain. She states that she has gotten fairly good relief from the 1st 2 Euflexxa injections. She continues with her home exercise program. Allergies prednisone Adverse Reaction (Severe, Verified 11/03/24 12:49) Numbness codine Allergy (Severe, Uncoded 11/03/24 12:49) redness and itching penicillin Allergy (Severe, Uncoded 11/03/24 12:49) anaphylaxis soma Allergy (Severe, Uncoded 11/03/24 12:49) nausea and vomiting Medication List - Last Reconciled 11/17/24 by Michael Dickerson MD amlodipine 10 mg PO DAILY ascorbic acid (vitamin C) 1 g PO Q6H cholecalciferol (vitamin D3) 250 mcg PO DAILY elderberry fruit-honey 0.7-3 gram/7.5 mL mL PO DAILY furosemide (Lasix) 20 mg PO DAILY PRN 30 days lactobacillus combination no.9 (Adult 50 Plus Probiotic) 4,000 mmu cells PO DAILY metoprolol succinate ER 25 mg PO DAILY pantoprazole 20 mg PO DAILY red yeast rice 600 mg PO DAILY turmeric root extract 500 mg PO DAILY PFSH Medical History (Updated 07/29/24 @ 09:18 by Miguel Magana MD) LUZMARIA (obstructive sleep apnea) Atelectasis Pneumonia Chronic restrictive lung disease Diastolic dysfunction 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 Daughter No problems noted. Son No problems noted. Son No problems noted. 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 Physical Exam Extrem Other: Right knee examination shows a minimal effusion, palpable crepitus with range of motion, pain with range of motion, no instability Office Procedures AMB Joint Injection/Aspiration Joint Injection/Aspiration Primary Site: right knee Prep: site was prepped using aseptic technique Injected: 20 mg of (Euflexxa viscosupplementation) and 1% plain lidocaine Procedure: The patient tolerated the procedure well Coding - Large joint Procedure code (CPT) selection complete Results Reviewed Results Reviewed: X-rays of the patient's right knee taken previously show joint space narrowing, subchondral sclerosis, no acute bony abnormalities Assessment & Plan Assessment & Plan (1) Osteoarthritis of right knee: Code(s): M17.11 - Unilateral primary osteoarthritis, right knee Category: Medical Plan Ms. Gunter presents with right knee pain due to osteoarthritis. The risks and benefits of a 3rd Euflexxa injection were discussed at length with the patient. The patient wished to proceed. She tolerated the injection well. She will continue with her home exercise program. She will contact me prior to her follow-up appointment in 3 months should any questions or concerns arise. Feel free to call me at any time should questions regarding her orthopedic management arise. Orders: Orders AMB Joint Injection/Aspiration Today M17.11 - Unilateral primary osteoarthritis, right knee Coding Level of Care Code Procedure Only Diagnoses Osteoarthritis of right knee M17.11 CPT Codes Coding - Large joint: 69808 - Large joint ([id number])
--- OUTSIDE RECORDS SUMMARY | 2024-11-17 13:31 | XMS_ITS | Encounter Summary ---
Author Organization [facility] Address [address] [place] [address] Care Team Providers Care Career Coordinator Name Role Phone Natasha Painting MD Primary Care Provider Unavailable Gurinder Negrete MD Unavailable Unavailable Yasmeen Tang NP Unavailable [phone] Sharlene Sanchez DNP Primary Care Provider Unava Natasha Vega MD Primary Care Provider Unavailable Sharlene Sanchez DNP Primary Care Provider Unava ilable Santy Neri MD Unavailable [phone] Encounter Details Date Type Department Care Team Description 06/16/2020 Pt. Non Urgent Medic al Question Adult Medicine - [address] [address] Natasha Painting MD Social History Tobacco Use Types Packs/Day [...] on filedocumented in this encounter Care Teams Career Coordinator Relationship Specialty Start Date End Date Natasha Painting MD PCP - General Internal Medicine 04/15/1808/01 Sharlene Sanchez DNP PCP - General Family Practice 08/14/21 02/20/22 Natasha Painting MD PCP - General Internal Medicine 02/21/22 Sharlene Sanchez DNP PCP - General Family Practice 04/17/22 Gurinder Negrete MD Clinical Laboratory Technician Cardiovascular Disease 02/09/14 Yasmeen Tang NP Specialist Cardiology 06/10/18 Santy Neri MD Specialist Cardiology 04/13/24 documented as of this encounter
--- OUTSIDE RECORDS SUMMARY | 2024-11-17 13:31 | XMS_ITS | Encounter Summary ---
Author Organization [facility] Address [address] [place] [address] Care Team Providers Care Financial Accounting Analyst Name Role Phone Gurinder Negrete MD Unavailable Unavailable Yasmeen Tang NP Unavailable [phone] Sharlene Sanchez DNP Primary Care Provider Santy Thompson MD Unavailable [phone] Reason for Visit * Reason Comments E-prescribe Rx Request Encounter Details Date Type Department Care Team Description 01/10/2024 Refill Cardio [facility] [address] [place] [address] Drive [address] [place] [address] Yasmeen Tang NP [address] [place] [address] Dr [address] [place] [address] E-prescribe Rx Request Social History Tobacco Use Types Packs/Day Years Used Date Smoking Tobacco: Never Smokeless Tobacco: Never Alcohol Use Standard Drinks/Week Comments Not Currently 0 (1 standard drink = 0.6 oz pur e alcohol) social Sex Assigned at Date Recorded Not on file documented as of this encounter Miscellaneous Notes * Telephone Encounter - Aicha Martin - 01/21/2024 7:20 AM EDT KR/AB pt needs overdue followup or NPP any provider. Nothing available at this time. * Telephone Encounter - Caridad Avlia C.M.A. - 01/13/2024 4:03 PM EDT Mary Kay 08/23--efaxed a refill for amldodipine 10mg Scheduling team please reach out to this pt an Schedule an overdue follow up--thank you documented in this encounter Plan of Treatment Not on file documented as of this encounter Visit Diagnoses Not on filedocumented in this encounter Care Teams Financial Accounting Analyst Relationship Specialty Start Date End Date Sharlene Sanchez DNP PCP - General Family Practice 04/17/22 Gurinder Negrete MD Actuarial Analyst Cardiovascular Disease 02/09/14 Yasmeen Tang NP Specialist Cardiology 06/10/18 Santy Neri MD Specialist Cardiology 04/13/24 documented as of this encounter
--- OUTSIDE RECORDS SUMMARY | 2024-11-17 13:31 | XMS_ITS | Encounter Summary ---
Author Organization [facility] Address [address] [place] [address] Care Team Providers Care Jigger Artisan Name Role Phone Gurinder Negrete MD Unavailable Unavailable Yasmeen Tang NP Unavailable [phone] Sharlene Sanchez DNP Primary Care Provider Santy Thompson MD Unavailable [phone] Encounter Details Date Type Department Care Team Description 08/06/2023 [facility] [address] [facility] [address] [place] [address] Karina North MD [address] [facility] [address] [place] [address] Social History Tobacco Use Types Packs/Day Years [...] on filedocumented in this encounter Care Teams Jigger Artisan Relationship Specialty Start Date End Date Sharlene Sanchez DNP PCP - General Family Practice 04/17/22 Gurinder Negrete MD Medicaid Billing Clerk Cardiovascular Disease 02/09/14 Yasmeen Tang NP Specialist Cardiology 06/10/18 Santy Neri MD Specialist Cardiology 04/13/24 documented as of this encounter
--- OUTSIDE RECORDS SUMMARY | 2024-11-17 13:31 | XMS_ITS | Encounter Summary ---
Author Organization [facility] Address [address] [place] [address] Care Team Providers Care Materials Scientist Name Role Phone Natasha Painting MD Primary Care Provider Unavailable Gurinder Negrete MD Unavailable Unavailable Yasmeen Tang TROUBLE CLERK Unavailable [phone] Sharlene Sanchez DNP Primary Care Provider Unava Natasha Vega MD Primary Care Provider Unavailable Sharlene Sanchez DNP Primary Care Provider Unava ilable Santy Neri MD Unavailable [phone] Encounter Details Date Type Department Care Team Description 06/11/2018 Turntable Operator Report Medical Records [address] [place] [address] Gurinder Negrete MD Social History Tobacco Use [...] on filedocumented in this encounter Care Teams Materials Scientist Relationship Specialty Start Date End Date Natasha Painting MD PCP - General Internal Medicine 04/15/1808/01 Sharlene Sanchez DNP PCP - General Family Practice 08/14/21 02/20/22 Natasha Painting MD PCP - General Internal Medicine 02/21/22 Sharlene Sanchez DNP PCP - General Family Practice 04/17/22 Gurinder Negrete MD Police Clerk Cardiovascular Disease 02/09/14 Yasmeen Tang NP Specialist Cardiology 06/10/18 Santy Neri MD Specialist Cardiology 04/13/24 documented as of this encounter
--- OUTSIDE RECORDS SUMMARY | 2024-11-17 13:31 | XMS_ITS | Encounter Summary ---
Author Organization [facility] Address [address] [place] [address] Care Team Providers Care Water Chaser Name Role Phone Natasha Painting MD Primary Care Provider Unavailable Gurinder Negrete MD Unavailable Unavailable Yasmeen Tang NP Unavailable [phone] Sharlene Sanchez DNP Primary Care Provider Unava vishalable Natasha Painting MD Primary Care Provider Unavailable Sharlene Sanchez DNP Primary Care Provider Unava ilable Santy Neri MD Unavailable [phone] Encounter Details Date Type Department Care Team Description 07/02/2018 Experience Planning Strategist Report Medical Records [address] [place] [address] Ty Perdomo MD [address] [place] [address] Social History Tobacco Use Types Packs/Day Years [...] on filedocumented in this encounter Care Teams Water Chaser Relationship Specialty Start Date End Date Natasha Painting MD PCP - General Internal Medicine 04/15/1808/01 Sharlene Sanchez DNP PCP - General Family Practice 08/14/21 02/20/22 Natasha Painting MD PCP - General Internal Medicine 02/21/22 Sharlene Sanchez DNP PCP - General Family Practice 04/17/22 Gurinder Negrete MD Baggage Agent Cardiovascular Disease 02/09/14 Yasmeen Tang NP Specialist Cardiology 06/10/18 Santy Neri MD Specialist Cardiology 04/13/24 documented as of this encounter
--- OUTSIDE RECORDS SUMMARY | 2024-11-17 13:31 | XMS_ITS | Encounter Summary ---
Author Organization [facility] Address [address] [place] [address] Care Team Providers Care Tight Barrel Inspector Name Role Phone Natasha Painting MD Primary Care Provider Unavailable Gurinder Negrete MD Unavailable Unavailable Yasmeen Tang NP Unavailable [phone] Sharlene Sanchez DNP Primary Care Provider UnaNatasha Gilbert MD Primary Care Provider Unavailable Sharlene Snachez DNP Primary Care Provider Unava ilable Santy Neri MD Unavailable [phone] Reason for Visit * Reason Onset Date Comments TEST RESULTS 05/31/2020 Encounter Details Date Type Department Care Team Description 05/31/2020 Telephone Medicine/Pediatrics - [address] [id number] Natasha Painting MD TEST RESULTS Social History [...] on filedocumented in this encounter Care Teams Tight Barrel Inspector Relationship Specialty Start Date End Date Natasha Painting MD PCP - General Internal Medicine 04/15/1808/01 Sharlene Sanchez DNP PCP - General Family Practice 08/14/21 02/20/22 Natasha Painting MD PCP - General Internal Medicine 02/21/22 Sharlene Sanchez DNP PCP - General Family Practice 04/17/22 Gurinder Negerte MD Jet Inspector Cardiovascular Disease 02/09/14 Yasmeen Tang NP Specialist Cardiology 06/10/18 Santy Neri MD Specialist Cardiology 04/13/24 documented as of this encounter
--- OUTSIDE RECORDS SUMMARY | 2024-11-17 13:31 | XMS_ITS | Encounter Summary ---
Author Organization [facility] Address [address] [place] [address] Care Team Providers Care Dietary Cook Name Role Phone Natasha Painting MD Primary Care Provider Unavailable Gurinder Negrete MD Unavailable Unavailable Yasmeen Tang NP Unavailable [phone] Sharlene Sanchez DNP Primary Care Provider UnaNatasha Gilbert MD Primary Care Provider Unavailable Sharlene Sanchez DNP Primary Care Provider Unava ilSanty Boston MD Unavailable [phone] Encounter Details Date Type Department Care Team Description 05/15/2021 Telephone Medicine/Pediatrics - [address] [id number] Lashanda Arredondo, VERENICE Social History Tobacco Use Types Packs/Day Years [...] encounter Miscellaneous Notes * Telephone Encounter - Yasmeen Tang NP - 05/16/2021 7:46 AM EST Thanks for the update. We will reach out to her again. Yasmeen Bran * Telephone Encounter - Lashanda Arredondo NP - 05/15/2021 5:15 PM EST ----- Message from Yasmeen Tang NP sent at 05/15/2021 1:15 PM EST ----- Good Afternoon, I started this patient on atorvastatin 10mg daily back in March for LDL 202. It appears you stopped it but I am unable to see if she had issues with the medication. Do you have any insight on this before I call the patient to discuss her ongoing elevated LDL? Thanks, Yasmeen Tang, MSN, SANITARIAN INSPECTOR-C documented in this encounter Plan of Treatment Not on file documented as of this encounter Visit Diagnoses Not on filedocumented in this encounter Care Teams Dietary Cook Relationship Specialty Start Date End Date Natasha Painting MD PCP - General Internal Medicine 04/15/1808/01 Sharlene Sanchez DNP PCP - General Family Practice 08/14/21 02/20/22 Natasha Painting MD PCP - General Internal Medicine 02/21/22 Sharlene Sanchez DNP PCP - General Family Practice 04/17/22 Gurinder Negrete MD Feather Duster Winder Cardiovascular Disease 02/09/14 Yasmeen Tang NP Specialist Cardiology 06/10/18 Santy Neri MD Specialist Cardiology 04/13/24 documented as of this encounter
--- OUTSIDE RECORDS SUMMARY | 2024-11-17 13:31 | XMS_ITS | Encounter Summary ---
Author Organization [facility] Address [address] [place] [address] Care Team Providers Care Electrical Maintenance Technician Name Role Phone Gloria Pitts MD Primary Care Provider Unavailab Natasha Berrios MD Primary Care Provider Unavailable Natasha Painting MD Primary Care Provider Unavailable Gurinder Negrete MD Unavailable Unavailable Yasmeen Tang SHELL PRESS OPERATOR Unavailable [phone] Sharlene Sanchez DNP Primary Care Provider Unava ilable Natasha Painitng MD Primary Care Provider Unavailable Sharlene Sanchez DNP Primary Care Provider Unava ilable Santy Neri MD Unavailable [phone] Encounter Details Date Type Department Care Team Description 08/26/2017 [facility] Medical Records [address] [place] [address] Yovany Davis MD Social History Tobacco Use Types Packs/Day Years Used Date Smoking Tobacco: Never Assessed Sex Assigned at Date Recorded Not on file documented as of this encounter Plan of Treatment Not on file documented as of this encounter Procedures Procedure Name Priority Date/Time Associated Diagnosis Comments OUTSIDE VASCULAR STUDY Routine 08/26/2017 documented in this encounter Results * OUTSIDE VASCULAR STUDY (08/26/2017) Provider Abstract CARDIOLOGY documented in this encounter Visit Diagnoses Not on filedocumented in this encounter Care Teams Electrical Maintenance Technician Relationship Specialty Start Date End Date Gloria Pitts MD PCP - General Internal Medicine 11/11/17 04/14/18 Natasha Painting MD PCP - General Internal Medicine 04/15/1808/01 Natasha Painting MD PCP - General 11/18/13 Sharlene Sanchez DNP PCP - General Family Practice 08/14/21 02/20/22 Natasha Painting MD PCP - General Internal Medicine 02/21/22 Sharlene Sanchez DNP PCP - General Family Practice 04/17/22 Gurinder Negrete MD Economics Instructor Cardiovascular Disease 02/09/14 Yasmeen Tang NP Specialist Cardiology 06/10/18 Santy Neri MD Specialist Cardiology 04/13/24 documented as of this encounter
--- OUTSIDE RECORDS SUMMARY | 2024-11-17 13:31 | XMS_ITS | Encounter Summary ---
Author Organization [facility] Address [address] [place] [address] Care Team Providers Care Senior Commissions Analyst Name Role Phone Gurinder Negrete MD Unavailable Unavailable Yasmeen Tang NP Unavailable [phone] Sharlene Sanchez DNP Primary Care Provider Santy Thompson MD Unavailable [phone] Encounter Details Date Type Department Care Team Description 01/28/2024 Orders Only Medical Records [address] [place] [address] Jos Byrne MD [address] [place] [id number] Social History Tobacco Use Types Packs/Day [...] Name Priority Date/Time Associated Diagnosis Comments OUTSIDE PATHOLOGY Routine 01/27/2024 documented in this encounter Results * OUTSIDE PATHOLOGY (01/27/2024) Jos Byrne MD OUTSIDE LAB documented in this encounter Visit Diagnoses Not on filedocumented in this encounter Care Teams Senior Commissions Analyst Relationship Specialty Start Date End Date Sharlene Sanchez DNP PCP - General Family Practice 04/17/22 Gurinder Negrete MD Aircraft Charter Dispatcher Cardiovascular Disease 02/09/14 Yasmeen Tang NP Specialist Cardiology 06/10/18 Santy Neri MD Specialist Cardiology 04/13/24 documented as of this encounter
--- OUTSIDE RECORDS SUMMARY | 2024-11-17 13:31 | XMS_ITS | Encounter Summary ---
Author Organization [facility] Address [address] [place] [address] Care Team Providers Care Sql Ssrs Ssis Developer Name Role Phone Natasha Painting MD Primary Care Provider Unavailable Gurinder Negrete MD Unavailable Unavailable Yasmeen Tang NP Unavailable [phone] Sharlene Sanchez DNP Primary Care Provider UnaNatasha Gilbert MD Primary Care Provider Unavailable Sharlene Sanchez DNP Primary Care Provider Unava ilable Santy Neri MD Unavailable [phone] Encounter Details Date Type Department Care Team Description 12/28/2019 [facility] Medical Records [address] [place] [address] Abstract, Provider Social History Tobacco Use Types [...] on filedocumented in this encounter Care Teams Sql Ssrs Ssis Developer Relationship Specialty Start Date End Date Natasha Painting MD PCP - General Internal Medicine 04/15/1808/01 Sharlene Sanchez DNP PCP - General Family Practice 08/14/21 02/20/22 Natasha Painting MD PCP - General Internal Medicine 02/21/22 Sharlene Sanchez DNP PCP - General Family Practice 04/17/22 Gurinder Negrete MD Electric Switch Repairer Cardiovascular Disease 02/09/14 Yasmeen Tang NP Specialist Cardiology 06/10/18 Santy Neri MD Specialist Cardiology 04/13/24 documented as of this encounter
--- OUTSIDE RECORDS SUMMARY | 2024-11-17 13:31 | XMS_ITS | Encounter Summary ---
Author Organization [facility] Address [address] [place] [address] Care Team Providers Care Continuing Education Dean Name Role Phone Natasha Painting MD Primary Care Provider Unavailable Gurinder Negrete MD Unavailable Unavailable Yasmeen Tang NP Unavailable [phone] Sharlene Sanchez DNP Primary Care Provider Unava ilable aNtasha Painting MD Primary Care Provider Unavailable Sharlene Sanchez DNP Primary Care Provider Unava ilable Santy Neri MD Unavailable [phone] Encounter Details Date Type Department Care Team Description 12/26/2020 Aged Or Disabled Care Worker Report Medical Records [address] [place] [address] Khalida Paredes PA-C Social History Tobacco Use [...] on filedocumented in this encounter Care Teams Continuing Education Dean Relationship Specialty Start Date End Date Natasha Painting MD PCP - General Internal Medicine 04/15/1808/01 Sharlene Sanchez DNP PCP - General Family Practice 08/14/21 02/20/22 Natasha Painting MD PCP - General Internal Medicine 02/21/22 Sharlene Sanchez DNP PCP - General Family Practice 04/17/22 Gurinder Negrete MD Corn Grinder Cardiovascular Disease 02/09/14 Yasmeen Tang NP Specialist Cardiology 06/10/18 Santy Neri MD Specialist Cardiology 04/13/24 documented as of this encounter
--- OUTSIDE RECORDS SUMMARY | 2024-11-17 13:31 | XMS_ITS | Encounter Summary ---
Author Organization [facility] Address [address] [place] [address] Care Team Providers Care Focus Puller Name Role Phone Natasha Painting MD Primary Care Provider Unavailable Gurinder Negrete MD Unavailable Unavailable Yasmeen Tang CARGO STATION WORKER Unavailable [phone] Sharlene Sanchez DNP Primary Care Provider UnaNatasha Gilbert MD Primary Care Provider Unavailable Sahrlene Sanchez DNP Primary Care Provider Unava Santy Justin MD Unavailable [phone] Encounter Details Date Type Department Care Team Description 06/21/2020 Pt. Non Urgent Medic al Question Adult Medicine - [address] [address] Natasha Painting MD Social History Tobacco Use Types Packs/Day Years Used Date Smoking Tobacco: Never Smokeless Tobacco: Never Alcohol Use Standard Drinks/Week Comments Yes 0 (1 standard drink = 0.6 oz pur e alcohol) social Sex Assigned at Date Recorded Not on file documented as of this encounter Progress Notes * Karina Kaur L.P.N. - 06/21/2020 9:36 AM ESTFrom: Navya Gunter To: Natasha Painting MD Sent: 06/21/2020 9:24 AM EST Subject: Pneumonia Hi Dr Curiel yesterday the CARGO STATION WORKER. Put me on a antibiotic and its ciprofloxacin as i was reading about it it said to tell if you had cataract..i had have it and had surgery in december and January..just wanted to make sure its ok to take thank you documented in this encounter Plan of Treatment Not on file documented as of this encounter Visit Diagnoses Not on filedocumented in this encounter Care Teams Focus Puller Relationship Specialty Start Date End Date Natasha Painting MD PCP - General Internal Medicine 04/15/1808/01 Sharlene Sanchez DNP PCP - General Family Practice 08/14/21 02/20/22 Natasha Painting MD PCP - General Internal Medicine 02/21/22 Sharlene Sanchez DNP PCP - General Family Practice 04/17/22 Gurinder Negrete MD Registration Clerk Cardiovascular Disease 02/09/14 Yasmeen Tang NP Specialist Cardiology 06/10/18 Santy Neri MD Specialist Cardiology 04/13/24 documented as of this encounter
--- OUTSIDE RECORDS SUMMARY | 2024-11-17 13:31 | XMS_ITS | Encounter Summary ---
Author Organization [facility] Address [address] [place] [address] Care Team Providers Care Bank Vault Clerk Name Role Phone Gurinder Negrete MD Unavailable Unavailable Yasmeen Tang NP Unavailable Sharlene Sanchez DNP Primary Care Provider Santy Thompson MD Unavailable [phone] Encounter Details Date Type Department Care Team Description 03/17/2023 [facility] Medical Records [address] [place] [id number] Abstract, Provider Social History Tobacco Use Types [...] Associated Diagnosis Comments OUTSIDE VASCULAR STUDY Routine 03/17/2023 documented in this encounter Results * OUTSIDE VASCULAR STUDY (03/17/2023) Provider Abstract CARDIOLOGY documented in this encounter Visit Diagnoses Not on filedocumented in this encounter Care Teams Bank Vault Clerk Relationship Specialty Start Date End Date Sharlene Sanchez DNP PCP - General Family Practice 04/17/22 Gurinder Negrete MD Battery Hand Cardiovascular Disease 02/09/14 Yasmeen Tang NP Specialist Cardiology 06/10/18 Santy Neri MD Specialist Cardiology 04/13/24 documented as of this encounter
--- OUTSIDE RECORDS SUMMARY | 2024-11-17 13:31 | XMS_ITS | Encounter Summary ---
Author Organization [facility] Address [address] [place] [address] Care Team Providers Care Endband Sizer Name Role Phone Natasha Painting MD Primary Care Provider Unavailable Gurinder Negrete MD Unavailable Unavailable Yasmeen Tang NP Unavailable [phone] Sharlene Sanchez DNP Primary Care Provider UnaNatasha Gilbert MD Primary Care Provider Unavailable Sharlene Sanchez DNP Primary Care Provider Unava ilable Santy Neri MD Unavailable [phone] Reason for Visit * Reason Onset Date Comments Prior Authorization 07/18/2020 ALBUTEROL KENNY LFATE 108 (90 Base) MCG/ACT Aero Soln Encounter Details Date Type Department Care Team Description 07/18/2020 Telephone Adult Medicine - [address] [address] Natasha Painting MD Prior Authorization (ALBUTEROL SULFATE 108 (90 Base) MCG/ACT Aero Soln) Social History Tobacco Use Types Packs/Day Years Used Date Smoking Tobacco: Never Smokeless Tobacco: Never Alcohol Use Standard Drinks/Week Comments Yes 0 (1 standard drink = 0.6 oz pur e alcohol) social Sex Assigned at Date Recorded Not on file documented as of this encounter Miscellaneous Notes * Telephone Encounter - Natasha Painting MD - 07/19/2020 3:38 PM EST Changed to Proair * Telephone Encounter - Asiya Dawn M.A. - 07/19/2020 3:09 PM EST Brand name Pro is covered by patients insurance as of 07/01/2020. Please fax script for Brand name PROAIR. Prior authorization is not needed. Thank you, Asiya Jones Prior Authorization Dept Ext [phone] Fax [phone] * Telephone Encounter - Ivania Bernal - 07/18/2020 4:48 PM EST Prior Authorization for Medication-do not complete and send this encounter unless you have the fax from the pharmacy. Is this a Cover My Meds request: Yes -- [place] Code [id number] Name of Medication ALBUTEROL SULFATE 108 (90 Base) MCG/ACT Aero Soln Dose of Medication 108 ( 90 base) What is the RX # from the faxed refill? How does patient take this med? Sig - Route: Inhale 2 Puffs into the lungs 4 times daily as needed for Cough or Wheezing. - Inhalation What Pharmacy did the fax come from: [facility] fax #: [phone] [employer] Information from fax: What Prescription Plan does the patient have? [facility] BIN/PCN if applicable: Cardholder ID:[id number] Person Code: 00 Relationship Code: 1 Help desk phone: [phone] documented in this encounter Plan of Treatment Not on file documented as of this encounter Visit Diagnoses Not on filedocumented in this encounter Care Teams Endband Sizer Relationship Specialty Start Date End Date Natasha Painting MD PCP - General Internal Medicine 04/15/1808/01 Sharlene Sanchez DNP PCP - General Family Practice 08/14/21 02/20/22 Natasha Painting MD PCP - General Internal Medicine 02/21/22 Sharlene Sanchez DNP PCP - General Family Practice 04/17/22 Gurinder Negrete MD Train Starter Cardiovascular Disease 02/09/14 Yasmeen Tang NP Specialist Cardiology 06/10/18 Santy Neri MD Specialist Cardiology 04/13/24 documented as of this encounter
--- OUTSIDE RECORDS SUMMARY | 2024-11-17 13:31 | XMS_ITS | Encounter Summary ---
Author Organization [facility] Address [address] [place] [address] Care Team Providers Care Brand Analyst Name Role Phone Natasha Painting MD Primary Care Provider Unavailable Gurinder Negrete MD Unavailable Unavailable Yasmeen Tang NP Unavailable [phone] Sharlene Sanchez DNP Primary Care Provider Unava Natasha Vega MD Primary Care Provider Unavailable Sharlene Sanchez DNP Primary Care Provider Unava ilable Santy Neri MD Unavailable [phone] Encounter Details Date Type Department Care Team Description 10/04/2020 [facility] Medical Records [address] [place] [address] Abstract, Provider Social History Tobacco Use Types [...] on filedocumented in this encounter Care Teams Brand Analyst Relationship Specialty Start Date End Date Natasha Painting MD PCP - General Internal Medicine 04/15/1808/01 Sharlene Sanchez DNP PCP - General Family Practice 08/14/21 02/20/22 Natasha Painting MD PCP - General Internal Medicine 02/21/22 Sharlene Sanchez DNP PCP - General Family Practice 04/17/22 Gurinder Negrete MD Hotbed Lever Operator Cardiovascular Disease 02/09/14 Yasmeen Tang NP Specialist Cardiology 06/10/18 Santy Neri MD Specialist Cardiology 04/13/24 documented as of this encounter
--- OUTSIDE RECORDS SUMMARY | 2024-11-17 13:31 | XMS_ITS | Encounter Summary ---
Author Organization [facility] Address [address] [place] [address] Care Team Providers Care Back Tufter Name Role Phone Gloria Pitts MD Primary Care Provider Unavailab Natasha Berrios MD Primary Care Provider Unavailable Gurinder Negrete MD Unavailable Unavailable Yasmeen Tang NP Unavailable [phone] Sharlene Sanchez DNP Primary Care Provider UnaNatasha Gilbert MD Primary Care Provider Unavailable Sharlene Sanchez DNP Primary Care Provider Unava ilSanty Boston MD Unavailable [phone] Encounter Details Date Type Department Care Team Description 11/29/2017 [facility] Medical Records [address] [place] [address] Zara Teran MD Social History Tobacco Use Types Packs/Day [...] on filedocumented in this encounter Care Teams Back Tufter Relationship Specialty Start Date End Date Gloria Pitts MD PCP - General Internal Medicine 11/11/17 04/14/18 Natasha Painting MD PCP - General Internal Medicine 04/15/1808/01 Sharlene Sanchez DNP PCP - General Family Practice 08/14/21 02/20/22 Natasha Painting MD PCP - General Internal Medicine 02/21/22 Sharlene Sanchez DNP PCP - General Family Practice 04/17/22 Gurinder Negrete MD Heavy Equipment Rental Associate Cardiovascular Disease 02/09/14 Yasmeen Tang NP Specialist Cardiology 06/10/18 Santy Neri MD Specialist Cardiology 04/13/24 documented as of this encounter
--- OUTSIDE RECORDS SUMMARY | 2024-11-17 13:31 | XMS_ITS | Encounter Summary ---
Author Organization [facility] Address [address] [place] [address] Care Team Providers Care Sugar Controller Name Role Phone Gurinder Negrete MD Unavailable Unavailable Yasmeen Tang NP Unavailable [phone] Sharlene Sanchez DNP Primary Care Provider Santy Thompson MD Unavailable [phone] Encounter Details Date Type Department Care Team Description 09/14/2023 [facility] Medical Records [address] [place] [address] Jos Byrne MD [address] [place] [phone] Social History Tobacco Use Types Packs/Day [...] on filedocumented in this encounter Care Teams Sugar Controller Relationship Specialty Start Date End Date Sharlene Sanchez DNP PCP - General Family Practice 04/17/22 Gurinder Negrete MD Ems Instructor Cardiovascular Disease 02/09/14 Yasmeen Tang NP Specialist Cardiology 06/10/18 Santy Neri MD Specialist Cardiology 04/13/24 documented as of this encounter
--- OUTSIDE RECORDS SUMMARY | 2024-11-17 13:31 | XMS_ITS | Encounter Summary ---
Author Organization [facility] Address [address] [place] [address] Care Team Providers Care Casket Liner Name Role Phone Yasmeen Tang PIVOT MAKER Unavailable [phone] Sharlene Sanchez DNP Primary Care Provider Santy Thompson MD Unavailable [phone] Reason for Visit * Reason Comments E-prescribe Rx Request Encounter Details Date Type Department Care Team Description 08/14/2024 Refill Cardio [facility] [address] [place] [address] [address] [place] [address] Gurinder Negrete MD E-prescribe Rx Request Social History Tobacco Use [...] on filedocumented in this encounter Care Teams Casket Liner Relationship Specialty Start Date End Date Sharlene Sanchez DNP PCP - General Family Practice 04/17/22 Yasmeen Tang NP Specialist Cardiology 06/10/18 Santy Neri MD Specialist Cardiology 04/13/24 documented as of this encounter
--- OUTSIDE RECORDS SUMMARY | 2024-11-17 13:31 | XMS_ITS | Encounter Summary ---
Author Organization [facility] Address [address] [place] [address] Care Team Providers Care Parachute Cushion Installer Name Role Phone Gurinder Negrete MD Unavailable Unavailable Yasmeen Tang NP Unavailable [phone] Sharlene Sanchez DNP Primary Care Provider Santy Thompson MD Unavailable Encounter Details Date Type Department Care Team Description 02/22/2023 [facility] Medical Records [address] [place] [address] Abstract, Provider Social History Tobacco Use Types [...] on filedocumented in this encounter Care Teams Parachute Cushion Installer Relationship Specialty Start Date End Date Sharlene Sanchez DNP PCP - General Family Practice 04/17/22 Gurinder Negrete MD Folding Machine Setter Cardiovascular Disease 02/09/14 Yasmeen Tang NP Specialist Cardiology 06/10/18 Santy Neri MD Specialist Cardiology 04/13/24 documented as of this encounter
--- OUTSIDE RECORDS SUMMARY | 2024-11-17 13:31 | XMS_ITS | Encounter Summary ---
Author Organization [facility] Address [address] [place] [address] Care Team Providers Care Milking System Installer Name Role Phone Gloria Pitts MD Primary Care Provider Unavailab Natasha Berrios MD Primary Care Provider Unavailable Natasha Painting MD Primary Care Provider Unavailable Gurinder Negrete MD Unavailable Unavailable Yasmeen Tang WEB MACHINE TENDER Unavailable [phone] Sharlene Sanchez DNP Primary Care Provider Unava ilable Natasha Painting MD Primary Care Provider Unavailable Sharlene Sanchez DNP Primary Care Provider Unava ilable Santy Neri MD Unavailable [phone] Encounter Details Date Type Department Care Team Description 01/24/2012 [facility] Medical Records [address] [place] [address] Abstract, Provider Social History Tobacco Use Types [...] on filedocumented in this encounter Care Teams Milking System Installer Relationship Specialty Start Date End Date Gloria Pitts MD PCP - General Internal Medicine 11/11/17 04/14/18 Natasha Painting MD PCP - General Internal Medicine 04/15/1808/01 Natasha Painting MD PCP - General 11/18/13 Sharlene Sanchez DNP PCP - General Family Practice 08/14/21 02/20/22 Natasha Painting MD PCP - General Internal Medicine 02/21/22 Sharlene Sanchez DNP PCP - General Family Practice 04/17/22 Gurinder Negrete MD Reporting Manager Cardiovascular Disease 02/09/14 Yasmeen Tang NP Specialist Cardiology 06/10/18 Santy Neri MD Specialist Cardiology 04/13/24 documented as of this encounter
--- OUTSIDE RECORDS SUMMARY | 2024-11-17 13:31 | XMS_ITS | Encounter Summary ---
Author Organization [facility] Address [address] [place] [address] Care Team Providers Care French Pastry Cook Name Role Phone Gurinder Negrete MD Unavailable Unavailable Yasmeen Tang NP Unavailable [phone] Sharlene Sanchez DNP Primary Care Provider Santy Thompson MD Unavailable [phone] Encounter Details Date Type Department Care Team Description 09/13/2023 [facility] Medical Records [address] [place], [place] [id number] [place] [address] Social History Tobacco Use Types Packs/Day Years [...] on filedocumented in this encounter Care Teams French Pastry Cook Relationship Specialty Start Date End Date Sharlene Sanchez DNP PCP - General Family Practice 04/17/22 Gurinder Negrete MD Homicide Investigator Cardiovascular Disease 02/09/14 Yasmeen Tang NP Specialist Cardiology 06/10/18 Santy Neri MD Specialist Cardiology 04/13/24 documented as of this encounter
--- OUTSIDE RECORDS SUMMARY | 2024-11-17 13:31 | XMS_ITS | Encounter Summary ---
Author Organization [facility] Address [address] [place] [address] Care Team Providers Care Cattle Producers Name Role Phone Gloria Pitts MD Primary Care Provider Unavailab Natasha Berrios MD Primary Care Provider Unavailable Gurinder Negrete MD Unavailable Unavailable Yasmeen Tang NP Unavailable [phone] Sharlene Sanchez DNP Primary Care Provider UnaNatasha Gilbert MD Primary Care Provider Unavailable Sharlene Sanchez DNP Primary Care Provider Unava ilSanty Boston MD Unavailable [phone] Encounter Details Date Type Department Care Team Description 11/18/2017 [facility] Medical Records [address] [place] [address] Yovany Davis MD Social History Tobacco Use [...] Associated Diagnosis Comments OUTSIDE VASCULAR STUDY Routine 11/18/2017 documented in this encounter Results * OUTSIDE VASCULAR STUDY (11/18/2017) Provider Abstract CARDIOLOGY documented in this encounter Visit Diagnoses Not on filedocumented in this encounter Care Teams Cattle Producers Relationship Specialty Start Date End Date Gloria Pitts MD PCP - General Internal Medicine 11/11/17 04/14/18 Natasha Painting MD PCP - General Internal Medicine 04/15/1808/01 Sharlene Sanchez DNP PCP - General Family Practice 08/14/21 02/20/22 Natasha Painting MD PCP - General Internal Medicine 02/21/22 Sharlene Sanchez DNP PCP - General Family Practice 04/17/22 Gurinder Negrete MD Cattery Operator Cardiovascular Disease 02/09/14 Yasmeen Tang NP Specialist Cardiology 06/10/18 Santy Neri MD Specialist Cardiology 04/13/24 documented as of this encounter
--- OUTSIDE RECORDS SUMMARY | 2024-11-17 13:31 | XMS_ITS | Encounter Summary ---
Author Organization [facility] Address [address] [place] [address] Care Team Providers Care Terrazzo Mechanic Name Role Phone Natasha Painting MD Primary Care Provider Unavailable Gurinder Negrete MD Unavailable Unavailable Yasmeen Tang NP Unavailable [phone] Sharlene Sanchez DNP Primary Care Provider Unava Natasha Vega MD Primary Care Provider Unavailable Sharlene Sanchez DNP Primary Care Provider Unava ilable Santy Neri MD Unavailable [phone] Encounter Details Date Type Department Care Team Description 09/08/2018 Release of Information Medical Records [address] [place] [address] Abstract, Provider Social History Tobacco Use Types [...] on filedocumented in this encounter Care Teams Terrazzo Mechanic Relationship Specialty Start Date End Date Natasha Painting MD PCP - General Internal Medicine 04/15/1808/01 Sharlene Sanchez DNP PCP - General Family Practice 08/14/21 02/20/22 Natasha Painting MD PCP - General Internal Medicine 02/21/22 Sharlene Sanchez DNP PCP - General Family Practice 04/17/22 Gurinder Negrete MD Composite Technician Cardiovascular Disease 02/09/14 Yasmeen Tang NP Specialist Cardiology 06/10/18 Santy Neri MD Specialist Cardiology 04/13/24 documented as of this encounter
--- OUTSIDE RECORDS SUMMARY | 2024-11-17 13:31 | XMS_ITS | Encounter Summary ---
Author Organization [facility] Address [address] [place] [address] Care Team Providers Care Repairer Cylinder Heads Name Role Phone Natasha Painting MD Primary Care Provider Unavailable Gurinder Negrete MD Unavailable Unavailable Yasmeen Tang NETWORK SYSTEMS CONSULTANT Unavailable [phone] Sharlene Sanchez DNP Primary Care Provider Unava Natasha Vega MD Primary Care Provider Unavailable Sharlene Sanchez DNP Primary Care Provider Unava ilable Santy Neri MD Unavailable [phone] Encounter Details Date Type Department Care Team Description 08/02/2020 Minister Of Religion Report Medical Records [address] [place] [address] Miguel Magana MD Social History Tobacco Use Types Packs/Day [...] on filedocumented in this encounter Care Teams Repairer Cylinder Heads Relationship Specialty Start Date End Date Natasha Painting MD PCP - General Internal Medicine 04/15/1808/01 Sharlene Sanchez DNP PCP - General Family Practice 08/14/21 02/20/22 Natasha Painting MD PCP - General Internal Medicine 02/21/22 Sharlene Sanchez DNP PCP - General Family Practice 04/17/22 Gurinder Negrete MD Critical Care Rn Cardiovascular Disease 02/09/14 Yasmeen Tang NP Specialist Cardiology 06/10/18 Santy Neri MD Specialist Cardiology 04/13/24 documented as of this encounter
--- OUTSIDE RECORDS SUMMARY | 2024-11-17 13:32 | XMS_ITS | Encounter Summary ---
Author Organization [facility] Address [address] [place] [address] Care Team Providers Care Ginner Name Role Phone Natasha Painting MD Primary Care Provider Unavailable Gurinder Negrete MD Unavailable Unavailable Yasmeen Tang NP Unavailable Sharlene Sanchez DNP Primary Care Provider Unava Natasha Vega MD Primary Care Provider Unavailable Sharlene Sanchez DNP Primary Care Provider Unava ilable Santy Neri MD Unavailable [phone] Encounter Details Date Type Department Care Team Description 11/19/2018 Flexo Press Operator Report Medical Records [address] [place] [address] Karina Cuello NP Social History Tobacco Use [...] on filedocumented in this encounter Care Teams Ginner Relationship Specialty Start Date End Date Natasha Painting MD PCP - General Internal Medicine 04/15/1808/01 Sharlene Sanchez DNP PCP - General Family Practice 08/14/21 02/20/22 Natasah Painting MD PCP - General Internal Medicine 02/21/22 Sharlene Sanchez DNP PCP - General Family Practice 04/17/22 Gurinder Negrete MD Chili Pepper Grinder Cardiovascular Disease 02/09/14 Yasmeen Tang NP Specialist Cardiology 06/10/18 Santy Neri MD Specialist Cardiology 04/13/24 documented as of this encounter
--- OUTSIDE RECORDS SUMMARY | 2024-11-17 13:32 | XMS_ITS | Encounter Summary ---
Author Organization [facility] Address [address] [place] [address] Care Team Providers Care Ordnance Officer Name Role Phone Natasha Painting MD Primary Care Provider Unavailable Gurinder Negrete MD Unavailable Unavailable Yasmeen Tang NP Unavailable [phone] Sharlene Sanchez DNP Primary Care Provider Unava Natasha Vega MD Primary Care Provider Unavailable Sharlene Sanchez DNP Primary Care Provider Unava ilable Santy Neri MD Unavailable Encounter Details Date Type Department Care Team Description 11/28/2018 Transfer Records Medical Records [address] [place] [address] Abstract, Provider Social History Tobacco Use Types [...] on filedocumented in this encounter Care Teams Ordnance Officer Relationship Specialty Start Date End Date Natasha Painting MD PCP - General Internal Medicine 04/15/1808/01 Sharlene Sanchez DNP PCP - General Family Practice 08/14/21 02/20/22 Natasha Painting MD PCP - General Internal Medicine 02/21/22 Sharlene Sanchez DNP PCP - General Family Practice 04/17/22 Gurinder Negrete MD Medical Clerical Assistant Cardiovascular Disease 02/09/14 Yasmeen Tang NP Specialist Cardiology 06/10/18 Sanyt Neri MD Specialist Cardiology 04/13/24 documented as of this encounter
--- OUTSIDE RECORDS SUMMARY | 2024-11-17 13:32 | XMS_ITS | Encounter Summary ---
Author Organization [facility] Address [address] [place] [address] Care Team Providers Care Equipment Lead Name Role Phone Gurinder Negrete MD Unavailable Unavailable Yasmeen Tang NP Unavailable [phone] Natasha Painting MD Primary Care Provider Unavailable Sharlene Sanchez DNP Primary Care Provider Santy Thompson MD Unavailable Reason for Visit * Reason Onset Date Comments Medical Records 03/19/2022 Encounter Details Date Type Department Care Team Description 03/19/2022 Telephone Cardio PVC [facility] [address] [place] [id number] Gurinder Negrete MD Medical Records Social History Tobacco Use Types Packs/Day Years Used Date Smoking Tobacco: Never Smokeless Tobacco: Never Alcohol Use Standard Drinks/Week Comments Not Currently 0 (1 standard drink = 0.6 oz pur e alcohol) social Sex Assigned at Date Recorded Not on file COVID-19 Exposure Response Date Recorded In the last 10 days, have abdon u been in contact with someone who was confirmed or suspected to have Coronavirus/COVID-19? No / Unsure 03/08/2022 7:29 AM EDT documented as of this encounter Miscellaneous Notes * Telephone Encounter - Smita Francis - 03/27/2022 8:39 AM EDT Left voice message for the patient requesting he call back to clarify what exactly he needs to be faxed to his PCP office. * Telephone Encounter - Smita Francis - 03/20/2022 1:33 PM EDT This was the information that was relayed to me. I will call the PCP office to clarify what Is needed and re-submit the request. * Telephone Encounter - Vernell Jo Ann - 03/20/2022 7:48 AM EDT Patient did not have Nuclear stress test, most recent test is a Stress Echo. Is that what needs to be faxed to the PCP? Thanks. * Telephone Encounter - Smita Cheunga - 03/19/2022 10:30 AM EDT Medical Records Request Caller: Patient Calling from: SELF Requesting provider's first & last name: Dr. Sharlene Sanchez Direct Phone Number or Ext: [phone] What records are being requested: Results from Nuclear Stres test How far back: 03/08/22 What is it for: PCP records Needed by: documented in this encounter Plan of Treatment Not on file documented as of this encounter Visit Diagnoses Not on filedocumented in this encounter Care Teams Equipment Lead Relationship Specialty Start Date End Date Natasha Painting MD PCP - General Internal Medicine 02/21/22 Sharlene Sanchez DNP PCP - General Family Practice 04/17/22 Gurinder Negrete MD Lemon Picker Cardiovascular Disease 02/09/14 Yasmeen Tang NP Specialist Cardiology 06/10/18 Santy Neri MD Specialist Cardiology 04/13/24 documented as of this encounter
--- OUTSIDE RECORDS SUMMARY | 2024-11-17 13:32 | XMS_ITS | Encounter Summary ---
Author Organization [facility] Address [address] [place] [address] Care Team Providers Care Book Jacket Cover Machine Operator Name Role Phone Natasha Painting MD Primary Care Provider Unavailable Gurinder Negrete MD Unavailable Unavailable Yasmeen Tang NP Unavailable [phone] Sharlene Sanchez DNP Primary Care Provider UnaNatasha Gilbert MD Primary Care Provider Unavailable Sharlene Sanchez DNP Primary Care Provider Unava ilSanty Boston MD Unavailable [phone] Encounter Details Date Type Department Care Team Description 03/06/2019 Orders Only Adult Medicine - [address] [address] Rosy Nowak PA-C Gastroesophageal reflux disease, esophagitis [...] type documented in this encounter Care Teams Book Jacket Cover Machine Operator Relationship Specialty Start Date End Date Natasha Painting MD PCP - General Internal Medicine 04/15/1808/01 Sharlene Sanchez DNP PCP - General Family Practice 08/14/21 02/20/22 Natasha Painting MD PCP - General Internal Medicine 02/21/22 Sharlene Sanchez DNP PCP - General Family Practice 04/17/22 Gurinder Negrete MD Conservation Worker Cardiovascular Disease 02/09/14 Yasmeen Tang NP Specialist Cardiology 06/10/18 Santy Neri MD Specialist Cardiology 04/13/24 documented as of this encounter
--- OUTSIDE RECORDS SUMMARY | 2024-11-17 13:32 | XMS_ITS | Encounter Summary ---
Author Organization [facility] Address [address] [place] [address] Care Team Providers Care Shellfish Weigher Name Role Phone Gurinder Negrete MD Unavailable Unavailable Yasmeen Tang NP Unavailable [phone] Natasha Painting MD Primary Care Provider Unavailable Sharlene Sanchez DNP Primary Care Provider Santy Thompson MD Unavailable [phone] Encounter Details Date Type Department Care Team Description 04/04/2022 [facility] Medical Records [address] [place] [address] Abstract, Provider Social History Tobacco Use Types [...] on filedocumented in this encounter Care Teams Shellfish Weigher Relationship Specialty Start Date End Date Natasha Painting MD PCP - General Internal Medicine 02/21/22 Sharlene Sanchez DNP PCP - General Family Practice 04/17/22 Gurinder Negrete MD Manager Background Cardiovascular Disease 02/09/14 Yasmeen Tang NP Specialist Cardiology 06/10/18 Santy Neri MD Specialist Cardiology 04/13/24 documented as of this encounter
--- OUTSIDE RECORDS SUMMARY | 2024-11-17 13:32 | XMS_ITS | Encounter Summary ---
Author Organization [facility] Address [address] [place] [address] Care Team Providers Care Voice Systems Engineer Name Role Phone Natasha Painting MD Primary Care Provider Unavailable Gurinder Negrete MD Unavailable Unavailable Yasmeen Tang NP Unavailable [phone] Sharlene Sanchez DNP Primary Care Provider Unava Natasha Vega MD Primary Care Provider Unavailable Sharlene Sanchez DNP Primary Care Provider Unava ilable Santy Neri MD Unavailable [phone] Encounter Details Date Type Department Care Team Description 05/25/2019 Correspondence Coordinator Report Medical Records [address] [place] [address] Abstract, Provider Social History Tobacco Use Types [...] on filedocumented in this encounter Care Teams Voice Systems Engineer Relationship Specialty Start Date End Date Natasha Painting MD PCP - General Internal Medicine 04/15/1808/01 Sharlene Sanchez DNP PCP - General Family Practice 08/14/21 02/20/22 Natasha Painting MD PCP - General Internal Medicine 02/21/22 Sharlene Sanchez DNP PCP - General Family Practice 04/17/22 Gurinder Negrete MD Mold Blower Cardiovascular Disease 02/09/14 Yasmeen Tang NP Specialist Cardiology 06/10/18 Santy Neri MD Specialist Cardiology 04/13/24 documented as of this encounter
--- OUTSIDE RECORDS SUMMARY | 2024-11-17 13:32 | XMS_ITS | Encounter Summary ---
Author Organization [facility] Address [address] [place] [address] Care Team Providers Care Red Hat Linux Administrator Name Role Phone Natasha Painting MD Primary Care Provider Unavailable Gurinder Negrete MD Unavailable Unavailable Yasmeen Tang NP Unavailable [phone] Sharlene Sanchez DNP Primary Care Provider Unava Natasha Vega MD Primary Care Provider Unavailable Sharlene Sanchez DNP Primary Care Provider Unava ilable Santy Neri MD Unavailable [phone] Encounter Details Date Type Department Care Team Description 12/16/2018 [facility] Medical Records [address] [place] [address] Ty Pedersen DMD Social History Tobacco Use [...] on filedocumented in this encounter Care Teams Red Hat Linux Administrator Relationship Specialty Start Date End Date Natasha Painting MD PCP - General Internal Medicine 04/15/1808/01 Sharlene Sanchez DNP PCP - General Family Practice 08/14/21 02/20/22 Natasha Painting MD PCP - General Internal Medicine 02/21/22 Sharlene Sanchez DNP PCP - General Family Practice 04/17/22 Gurinder Negrete MD Promotional Marketing Agent Cardiovascular Disease 02/09/14 Yasmeen Tang NP Specialist Cardiology 06/10/18 Santy Neri MD Specialist Cardiology 04/13/24 documented as of this encounter
--- OUTSIDE RECORDS SUMMARY | 2024-11-17 13:32 | XMS_ITS | Encounter Summary ---
Author Organization [facility] Address [address] [place] [address] Care Team Providers Care Manager Investment Banking Name Role Phone Natasha Painting MD Primary Care Provider Unavailable Gurinder Negrete MD Unavailable Unavailable Yasmeen Tang NP Unavailable [phone] Sharlene Sanchez DNP Primary Care Provider Unava Natasha Vega MD Primary Care Provider Unavailable Sharlene Sanchez DNP Primary Care Provider Unava ilable Santy Neri MD Unavailable [phone] Encounter Details Date Type Department Care Team Description 01/09/2019 Income Tax Administrator Report Medical Records [address] [place] [address] Yasmeen Tang, VERENICE [address] [place] [address] [place] [address] Social History Tobacco Use Types Packs/Day Years [...] on filedocumented in this encounter Care Teams Manager Investment Banking Relationship Specialty Start Date End Date Natasha Painting MD PCP - General Internal Medicine 04/15/1808/01 Sharlene Sanchez DNP PCP - General Family Practice 08/14/21 02/20/22 Natasha Painting MD PCP - General Internal Medicine 02/21/22 Sharlene Sanchez DNP PCP - General Family Practice 04/17/22 Gurinder Negrete MD Black Pickler Cardiovascular Disease 02/09/14 Yasmeen Tang NP Specialist Cardiology 06/10/18 Santy Neri MD Specialist Cardiology 04/13/24 documented as of this encounter
--- OUTSIDE RECORDS SUMMARY | 2024-11-17 13:32 | XMS_ITS | Encounter Summary ---
Author Organization [facility] Address [address] [place] [address] Care Team Providers Care Plumber Supervisor Name Role Phone Natasha Painting MD Primary Care Provider Unavailable Gurinder Negrete MD Unavailable Unavailable Yasmeen Tang NP Unavailable [phone] Sharlene Sanchez DNP Primary Care Provider UnaNatasha Gilbert MD Primary Care Provider Unavailable Sharlene Sanchez DNP Primary Care Provider Unava ilable Santy Neri MD Unavailable [phone] Reason for Visit * Reason Comments E-prescribe Rx Request Encounter Details Date Type Department Care Team Description 05/30/2021 Refill Medicine/Pediatrics - [address] [id number] Felicity Smith PA-C [address] [place] [address] E-prescribe Rx Request Social History Tobacco Use [...] encounter Miscellaneous Notes * Telephone Encounter - Amada Mccallum - 05/30/2021 4:05 PM EST Patient would like script to be: E-PRESCRIBED/FAXED TO PHARMACY ?? WHEN WAS THE PATIENT'S LAST APPOINTMENT IN ADULT MEDICINE? 12/06/2020 ?? WHEN WAS THE LAST TIME THE PATIENT SAW THEIR PCP? Same as above ?? Does patient have an upcoming appointment? No[facility] to refill request. Appt due ?? (THE MEDICATION REQUESTED IS ON THE MED LIST ABOVE) All of the medications requested were on the CURRENT MEDS list ?? Did you check the Pharmacy information above?: YES ?? Patient wants: 30 -day supply ?? Is this a mail order prescription request ? NO ?? If the refill is from a FAXED refill request what is the RX # listed on the fax? N/A ?? Patients current insurance carrier is: Payor: [employer] / Plan: [employer] [place] / Product Type: MEDICAID RISK ? documented in this encounter Plan of Treatment Not on file documented as of this encounter Visit Diagnoses Not on filedocumented in this encounter Care Teams Plumber Supervisor Relationship Specialty Start Date End Date Natasha Painting MD PCP - General Internal Medicine 04/15/1808/01 Sharlene Sanchez DNP PCP - General Family Practice 08/14/21 02/20/22 Natasha Painting MD PCP - General Internal Medicine 02/21/22 Sharlene Sanchez DNP PCP - General Family Practice 04/17/22 Gurinder Negrete MD Quantitative Software Engineer Cardiovascular Disease 02/09/14 Yasmeen Tang NP Specialist Cardiology 06/10/18 Santy Neri MD Specialist Cardiology 04/13/24 documented as of this encounter
--- OUTSIDE RECORDS SUMMARY | 2024-11-17 13:32 | XMS_ITS | Encounter Summary ---
Author Organization [facility] Address [address] [place] [address] Care Team Providers Care Vegetable Picker Name Role Phone Natasha Painting MD Primary Care Provider Unavailable Gurinder Negrete MD Unavailable Unavailable Yasmeen Tang NP Unavailable [phone] Sharlene Sanchez DNP Primary Care Provider UnaNatasha Gilbert MD Primary Care Provider Unavailable Sharlene Sanchez DNP Primary Care Provider Unava ilable Santy Neri MD Unavailable [phone] Encounter Details Date Type Department Care Team Description 02/11/2021 [facility] Medical Records [address] [place] [address] Mc Morales PA-C Social History Tobacco Use Types Packs/Day [...] Date/Time Associated Diagnosis Comments OUTSIDE LAB Routine 02/11/2021 OUTSIDE LAB Routine 02/11/2021 documented in this encounter Results * OUTSIDE LAB (02/11/2021) Provider Default LAB * OUTSIDE LAB (02/11/2021) Provider Default LAB documented in this encounter Visit Diagnoses Not on filedocumented in this encounter Care Teams Vegetable Picker Relationship Specialty Start Date End Date Natasha Painting MD PCP - General Internal Medicine 04/15/1808/01 Sharlene Sanchez DNP PCP - General Family Practice 08/14/21 02/20/22 Natasha Painting MD PCP - General Internal Medicine 02/21/22 Sharlene Sanchez DNP PCP - General Family Practice 04/17/22 Gurinder Negrete MD Disposition Clerk Cardiovascular Disease 02/09/14 Yasmeen Tang NP Specialist Cardiology 06/10/18 Santy Neri MD Specialist Cardiology 04/13/24 documented as of this encounter
--- OUTSIDE RECORDS SUMMARY | 2024-11-17 13:32 | XMS_ITS | Encounter Summary ---
Author Organization [facility] Address [address] [place] [address] Care Team Providers Care Safety Patrol Officer Name Role Phone Gurinder Negrete MD Unavailable Unavailable Yasmeen Tang NP Unavailable Sharlene Sanchez DNP Primary Care Provider UnaNatasha Gilbert MD Primary Care Provider Unavailable Sharlene Sanchez DNP Primary Care Provider Unava ilable Santy Neri MD Unavailable [phone] Encounter Details Date Type Department Care Team Description 09/19/2021 Pt. Non Urgent Medical Question Cardio PVC [facility] [address] [facility] [address] [place] [phone] Yasmeen Tang NP [address] [place] [address] [place] [id number] Social History Tobacco Use Types Packs/Day Years [...] on filedocumented in this encounter Care Teams Safety Patrol Officer Relationship Specialty Start Date End Date Sharlene Sanchez DNP PCP - General Family Practice 08/14/21 02/20/22 Natasha Painting MD PCP - General Internal Medicine 02/21/22 Sharlene Sanchez DNP PCP - General Family Practice 04/17/22 Gurinder Negrete MD Surgery Teacher Cardiovascular Disease 02/09/14 Yasmeen Tang NP Specialist Cardiology 06/10/18 Santy Neri MD Specialist Cardiology 04/13/24 documented as of this encounter
--- OUTSIDE RECORDS SUMMARY | 2024-11-17 13:32 | XMS_ITS | Clinical Summary ---
Author Organization 175 [facility] Address [address] [place] [address] Phone Care Team Providers Care Admitting Clerk Name Role Phone DanielSharlene VERENICE Primary Care Provider [phone] Allergies Active Allergy Reactions Criticality Noted Date [...] Type Department Care Team Description 09/07/2024 Telephone [facility] [address] [facility] [address] [place] [address] Crisipn Bacon MD Med Refill (Metoprolol) from Last 3 Months Surgical History Surgery Date Site/Laterality Comments SALPINGOOPHORECTOMY PROCEDURE: UT LAPAROSCOPY W/RMVL ADNEXAL STRUCTURES; COMMENT: Salpingectomy only OTHER SURGICAL HISTORY Right PROCEDURE: ---- OTHER ----; COMMENT: Parotidectomy OTHER SURGICAL HISTORY PROCEDURE: ---- OTHER ----; COMMENT: Uterine ablation HERNIA REPAIR PROCEDURE: HISTORICAL HERNIA REPAIR/UMB LITHOTRIPSY 02/20/2021 Left PROCEDURE: HISTORICAL LITHOTRIPSY; COMMENT: Ureteral nephroscopic stone lithotripsy and stone removal with retrograde pyelogram and stent placement APPENDECTOMY PROCEDURE: UT APPENDECTOMY Medical History Medical History Date Comments [...] Description 03/02/2025 8:20 AM EDT Office Visit [facility] [address] [place] [address] [place] [id number] Crispin Bacon MD [address] [place] [address] DRIVE [address] [place] [address] Health Maintenance Due Date Last Done Comments [...] mg/dL Blood Venous blood specimen / Unknown [facility] Provider LAB BLOOD ORDERABLES Jessie l Result * Colonoscopy (03/30/2019) Colonoscopy No Interpretation , Abstracted Anatomical Region Laterality Modality Other [facility] Provider HEALTH MAINTENANCE Final Result * Hepatitis C Screening (12/05/2018) Hepatitis C Screening Abstracted [facility] Provider HEALTH MAINTENANCE Final Result * Pap Smear (08/01/2017) Pap smear No Interpretation , Abstracted [facility] Provider HEALTH MAINTENANCE Final Result from Last 3 Months or Most Recently Relevant to Health Maintenance Insurance Advance Directives Documents on File Type Date Recorded Patient Refinery Operator Crude Unit Expl anation Health Care Decision (hx) 02/23/2021 AD COLLADO DIRECTIVE Health Care Decision (hx) 02/23/2021 AD COLLADO DIRECTIVE Health Care Decision (hx) 02/23/2021 AD COLLADO DIRECTIVE Health Care Decision (hx) 02/23/2021 AD COLLADO DIRECTIVE Health Care Decision (hx) 02/23/2021 AD COLLADO DIRECTIVE Health Care Decision (hx) 02/23/2021 AD COLLADO DIRECTIVE Care Teams Admitting Clerk Relationship Specialty Start Date End Date Sharlene Sanchez NP [address] [place] [address] PCP - General 04/17/22
--- OUTSIDE RECORDS SUMMARY | 2024-11-17 13:32 | XMS_ITS | Encounter Summary ---
Author Organization [facility] Address [address] [place] [address] Care Team Providers Care Process Trainer Name Role Phone Natasha Painting MD Primary Care Provider Unavailable Gurinder Negrete MD Unavailable Unavailable Yasmeen Tang NP Unavailable [phone] Sharlene Sanchez DNP Primary Care Provider Unava Natasha Vega MD Primary Care Provider Unavailable Sharlene Sanchez DNP Primary Care Provider Unava ilable Santy Neri MD Unavailable [phone] Encounter Details Date Type Department Care Team Description 04/25/2021 Credit Control Clerk Report Medical Records [address] [place] [id number] Miguel Magana MD Social History Tobacco Use [...] on filedocumented in this encounter Care Teams Process Trainer Relationship Specialty Start Date End Date Natasha Painting MD PCP - General Internal Medicine 04/15/1808/01 Sharlene Sanchez DNP PCP - General Family Practice 08/14/21 02/20/22 Natasha Painting MD PCP - General Internal Medicine 02/21/22 Sharlene Sanchez DNP PCP - General Family Practice 04/17/22 Gurinder Negrete MD Moth Proofer Cardiovascular Disease 02/09/14 Yasmeen Tang NP Specialist Cardiology 06/10/18 Santy Neri MD Specialist Cardiology 04/13/24 documented as of this encounter
== END 2024-11-17 12:50 | disposition home or self-care (01) ==
LOC: HO.HOS 12:29
PROVIDERS: PCP Registered Nurse; Visit Provider Orthopaedic Surgery
DX: M17.11 Unilateral primary osteoarthritis, right knee (principal)
CPT/HCPCS: 20610

== ENCOUNTER → 2024-11-17 12:29 | Outpatient (BNVA) | payer OTHER, SELFPAY | PROVIDERS: PCP Registered Nurse; Visit Provider Orthopaedic Surgery | DX: M17.11 Unilateral primary osteoarthritis, right knee (principal) | CPT/HCPCS: 20610; J2003; J7323 ==

== ENCOUNTER → 2025-01-20 19:30 | Outpatient (REF) | payer OTHER, SELFPAY ==
--- OUTSIDE RECORDS SUMMARY | 2025-01-20 20:46 | XMS_ITS | Clinical Summary ---
Author Organization 175 [facility] Address [address] [place] [address] Phone Care Team Providers Care Death Claim Examiner Name Role Phone Sharlene Sanchez VERENICE Primary Care Provider [phone] Allergies Active Allergy Reactions Criticality Noted Date [...] Encounters Date Type Department Care Team Description 12/09/2024 7:17 AM EDT - 12/09/2024 11:59 PM EDT Hospital Encounter [facility] CT Scan [address] [place] [address] Calculus of kidney Discharge Disposition: Home or Self Care from Last 3 Months Surgical History Surgery Date Site/Laterality Comments SALPINGOOPHORECTOMY PROCEDURE: ME LAPAROSCOPY W/RMVL ADNEXAL STRUCTURES; COMMENT: Salpingectomy only OTHER SURGICAL HISTORY Right PROCEDURE: ---- OTHER ----; COMMENT: Parotidectomy OTHER SURGICAL HISTORY PROCEDURE: ---- OTHER ----; COMMENT: Uterine ablation HERNIA REPAIR PROCEDURE: HISTORICAL HERNIA REPAIR/UMB LITHOTRIPSY 02/20/2021 Left PROCEDURE: HISTORICAL LITHOTRIPSY; COMMENT: Ureteral nephroscopic stone lithotripsy and stone removal with retrograde pyelogram and stent placement APPENDECTOMY PROCEDURE: ME APPENDECTOMY Medical History Medical History Date Comments [...] Information Value Date Recorded Sex Assigned at Female 11/20/2024 3:48 PM EDT Legal Sex Female 5:35 PM EST Gender Identity Female 11/20/2024 3:48 PM EDT Sexual Orientation Straight 11/27/2024 2: 08 PM EDT Obstetrics History Last Filed Vital Signs Vital [...] Description 03/02/2025 8:20 AM EDT Office Visit [facility] [address] [place] [address] Dr [address] [place] [address] Crispin Bacon MD [address] [place] [address] [address]IVE [address] [place] [address] Health Maintenance Due Date Last Done Comments Breast Cancer Screening 1960 Pneumococcal Vaccine: 50+ Years (1 of 2 - PCV) 12/03/1979 Zoster Vaccines (1 of 2) 2010 DTaP,Tdap,and Td Vaccines (2 - Td or Tdap) 04/05/2020 04/05/2010 Cervical Cancer Screening: P ap Smear 08/01/2020 08/01/2017 HIV Screening 06/02/2022 Social Influencers of Health Screening 06/02/2022 Hypertension/CHF/CAD Annual BMP Blood Test 06/10/2022 COVID-19 Vaccine (3 - 2023-2 5 season) 2024 11/15/2020, 10/25/2020 Depression Screening 07/01/2024 Influenza Vaccine (#1) 2025 2, 05/03/2011, 04/05/2010 Cholesterol Screening (Lipid Panel) [...] Name Priority Date/Time Associated Diagnosis Comments CT ABDOMEN PELVIS WO CONTRAST Routine 12/09/2024 7:24 AM EDT Calculus of kidney LIPID PANEL Routine 05/10/2021 COLONOSCOPY Routine 03/30/2019 HEPATITIS C SCREENING Routine 12/05/2018 PAP SMEAR Routine 08/01/2017 from Last 3 Months or Most Recently Relevant to Health Maintenance Results * CT Abdomen Pelvis wo Contrast (12/09/2024 7:24 AM EDT) Anatomical Region Laterality Modality Body Computed Tomogra phy 12/09/2024 10:5 8 AM EDT Impressions 12/09/2024 11:41 AM EDT Punctate nonobstructive left renal calculus. No ureteral calculi or hydronephrosis. Large stool throughout the colon. Correlate for constipation. Hepatic steatosis with hepatomegaly. Interval appendectomy -------- FINAL REPORT -------- Dictated By: ELICEO WATSON Dictated Date: 12/09/2024 10:58 ET Assigned Physician: ELICEO WATSON Reviewed and Electronically Signed By: ELICEO WATSON Signed Date: 12/09/2024 11:41 ET Workstation ID: [id number] Transcribed By: Self Edit Transcribed Date: 12/09/2024 10:58 ET Narrative 12/09/2024 11:41 AM EDT PROCEDURE: CT abdomen/pelvis INDICATION: Renal calculus TECHNIQUE: CT of the abdomen and pelvis without contrast. Multiplanar reformats. The examination was performed utilizing dose reduction techniques. Total DLP 1165 COMPARISON: 09/13/2023 FINDINGS: LOWER THORAX: Bibasilar atelectasis. Small hiatal hernia. HEPATOBILIARY: Hepatic steatosis with hepatomegaly. Focal fatty sparing along the gallbladder fossa. No cholelithiasis or biliary duct dilatation. SPLEEN: No splenomegaly. PANCREAS: No focal mass or ductal dilatation. ADRENALS: No nodules. KIDNEYS/URETERS: Punctate nonobstructive left renal calculus. No ureteral calculi or hydronephrosis. PELVIC ORGANS/BLADDER: Uterus and bladder are within normal limits. No adnexal mass. PERITONEUM / RETROPERITONEUM: No ascites or free air. No retroperitoneal lymphadenopathy. VESSELS: Scattered atherosclerotic calcifications throughout the aorta and its major branches. Unchanged 10 mm right renal artery aneurysm. GI TRACT: Appendectomy. No bowel obstruction or wall thickening. Mild colonic diverticulosis. Large stool throughout the colon. BONES AND SOFT TISSUES: Small fat-containing inguinal hernias bilaterally. Degenerative changes seen throughout the bones. Procedure Note Eliceo Watson MD - 12/09/2024 PROCEDURE: CT abdomen/pelvis INDICATION: Renal calculus TECHNIQUE: CT of the abdomen and pelvis without contrast. Multiplanarreformats. The examination was performed utilizing dose reductiontechniques. Total DLP 1165 COMPARISON: 09/13/2023 FINDINGS: LOWER THORAX: Bibasilar atelectasis. Small hiatal hernia. HEPATOBILIARY: Hepatic steatosis with hepatomegaly. Focal fatty sparingalong the gallbladder fossa. No cholelithiasis or biliary ductdilatation. SPLEEN: No splenomegaly. PANCREAS: No focal mass or ductal dilatation. ADRENALS: No nodules. KIDNEYS/URETERS: Punctate nonobstructive left renal calculus. No ureteralcalculi or hydronephrosis. PELVIC ORGANS/BLADDER: Uterus and bladder are within normal limits. Noadnexal mass. PERITONEUM / RETROPERITONEUM: No ascites or free air. No retroperitoneallymphadenopathy. VESSELS: Scattered atherosclerotic calcifications throughout the aorta andits major branches. Unchanged 10 mm right renal artery aneurysm. GI TRACT: Appendectomy. No bowel obstruction or wall thickening. Mildcolonic diverticulosis. Large stool throughout the colon. BONES AND SOFT TISSUES: Small fat-containing inguinal hernias bilaterally.Degenerative changes seen throughout the bones. IMPRESSION: Punctate nonobstructive left renal calculus. No ureteral calculi orhydronephrosis. Large stool throughout the colon. Correlate for constipation. Hepatic steatosis with hepatomegaly. Interval appendectomy -------- FINAL REPORT -------- Dictated By: ELICEO WATSON Dictated Date: 12/09/2024 10:58 ET Assigned Physician: ELICEO WATSON Reviewed and Electronically Signed By: ELICEO WATSON Signed Date: 12/09/2024 11:41 ET Workstation ID: [id number] Transcribed By: Self Edit Transcribed Date: 12/09/2024 10:58 ET Mabel Nogueira MD IMG CT PROCEDURES Final Result * (ABNORMAL) Lipid panel (05/10/2021) Pathologist [facility] LDL/HDL Ratio 5(A) 0 - 4 Triglycerides 192(A) 0 - 150 mg/dL Cholesterol 295(A) 0 - 200 mg/dL HDL 61 >=40 mg/dL LDL Cholesterol 196(A) 0 - 100 mg/dL Blood Venous blood specimen / Unknown Result [facility] Provider LAB BLOOD ORDERABLES Jessie l Result * Colonoscopy (03/30/2019) Pathologist [facility] Colonoscopy No Interpretation , Abstracted Anatomical Region Laterality Modality Other Historical Provider HEALTH MAINTENANCE Final Result * Hepatitis C Screening (12/05/2018) Pathologist [facility] Hepatitis C Screening Abstracted Historical Provider HEALTH MAINTENANCE Final Result * Pap Smear (08/01/2017) Pathologist [facility] Pap smear No Interpretation , Abstracted Historical Provider HEALTH MAINTENANCE Final Result from Last 3 Months or Most Recently Relevant to Health Maintenance Insurance [facility] [facility] Advance Directives Documents on File Type Date Recorded Patient Poker Prop Player Expl anation Health Care Decision (hx) 02/23/2021 AD COLLADO DIRECTIVE Health Care Decision (hx) 02/23/2021 AD COLLADO DIRECTIVE Health Care Decision (hx) 02/23/2021 AD COLLADO DIRECTIVE Health Care Decision (hx) 02/23/2021 AD COLLADO DIRECTIVE Health Care Decision (hx) 02/23/2021 AD COLLADO DIRECTIVE Health Care Decision (hx) 02/23/2021 AD COLLADO DIRECTIVE Care Teams Death Claim Examiner Relationship Specialty Start Date End Date Sharlene Sanchez NP [address] [place] [address] PCP - General 04/17/22
== END ==
LOC: HO.SL 19:30
PROVIDERS: Visit Provider Hospitalist
DX: G47.33 Obstructive sleep apnea (adult) (pediatric) (principal); Z79.899 Other long term (current) drug therapy
CPT/HCPCS: 95811

== ENCOUNTER → 2025-01-20 22:37 | Outpatient (BNV) | payer OTHER, SELFPAY | PROVIDERS: Visit Provider Internal Medicine | DX: G47.33 Obstructive sleep apnea (adult) (pediatric) (principal) | CPT/HCPCS: 95811 ==

== ENCOUNTER 2025-02-08 09:21 | Outpatient (AMB) | payer OTHER, SELFPAY ==
[2025-02-08 09:40] VITALS: BP 130/54; PULSE 88; O2SAT 97; BMI 39.9
--- NOTE | 2025-02-08 09:40 | A.OFFVIS_ITS ---
Vital Signs 02/08/25 09:40 Height 5 ft 4 in Weight 232 lb 9.403 oz BMI 39.9 BP 130/54 L Blood Pressure Location Lt brachial Position Sitting Pulse 88 Pulse Source Pulse Oximeter Pulse Oximetry (%) 97 Oxygen Delivery Method Room Air Intake Visit Reasons: LUZMARIA-sleep study follow up Track Laying Supervisor Required: No Accompanied by: Self / Same As Patient Allergies prednisone Adverse Reaction (Severe, Verified 02/08/25 09:43) Numbness codine Allergy (Severe, Uncoded 11/03/24 12:49) redness and itching penicillin Allergy (Severe, Uncoded 11/03/24 12:49) anaphylaxis soma Allergy (Severe, Uncoded 11/03/24 12:49) nausea and vomiting HPI Comments Details: The patient is a 64-year-old woman who was previously healthy until the and May when she was diagnosed with COVID-19 infection. She did have worsening respiratory symptoms. At time she did have a chest x-ray demonstrating bibasilar opacities. She was given a couple course of antibiotics. The patient apparently had a a reasonable pulse ox and she did not require admission to the hospital. However, her symptoms continued. Patient did have a repeat chest x- ray 3 weeks after were still demonstrating the airspace disease now with airspace disease in the upper lung zones and some areas of atelectasis primarily in the left lung base area. She was started on a short-acting beta agonist and she was also given inhaled cortical steroid. The patient's symptoms have improved. She still feels short of breath with activity and still has a cough specially when she takes a deep breath and [id number] severity. But, she was able to stop the inhaled cortical steroids and she rarely uses a rescue inhaler at this time. During the office we did go for brief 6 minutes walk test. Her pulse ox actually been time between 96-95%. However, more significantly was that she had a very elevated heart rate up to 128 beats per minute. Appeared to be sinus. The patient had a Katerin score of 5/10. At this point the patient will go further laboratory data and chest x-ray. Further evaluation for the tank cardia also is warranted at this time. It is likely that is related to her recent COVID infection. 07/24/2022 the patient is here for a pulmonary follow-up visit. She continues to have some dyspnea on exertion. She also continues to have an elevated heart rate. Recently her marketing communications assistant put on metoprolol XL. Seems to be helping although is making a little bit drowsy. The patient does have underlying diastolic dysfunction and therefore rate controlling agents will be effective in helping her symptoms. In addition to that we did review her pulmonary function studies from before demonstrating mild degree of restrictive lung disease and mild degree of diffusion impairment. The patient has not had any breathing studies in some time. Therefore will have a follow-up in 6 months with PFTs. 12/25/2022 the patient is here for a pulmonary follow-up visit. The patient overall is doing little better. Heart rate seems to be better controlled metoprolol. The breathing is also little better. Still having some dyspnea on exertion specially going up a flight of stairs or inclines. Moderate severity. She did undergo pulmonary function studies in the still has a mild restrictive ventilatory defect and a mild diffusion impairment. The patient will benefit from pulmonary rehabilitation. Will go ahead and refer her back to rehab in order for her to improve her respiratory capacity. Inhalers actually made her numbers worse. Likely secondary to deconditioning. May have a component of a neuromuscular condition. At this point the patient does not benefit from any further inhaler therapy. 07/30/2023 the patient is here for pulmonary follow-up visit. She has been participating in pulmonary rehabilitation. she still complains of shortness of breath with activity. She does not feel like she is much different than before. Although she is motivated to continue with rehabilitation. We again talked about the findings. She does have evidence of restriction on her PFTs but also more significantly that the diastolic dysfunction could also resulting in the shortness of breath. Currently she is volume overloaded. She does have a prescription for Lasix but she does not taking regularly. I did recommend she can follow-up with her marketing communications assistant to make sure her medications adjusted. In the meantime she should weigh herself daily and she gained 2 lb in 24 hours 3lbs in 48 hours she should take Lasix. She also needs to monitor closely her sodium intake and use her compression stockings. Hopefully she can reach a better volume status therefore breathe better. The patient is not taking any inhalers. No significant improvement. The patient's last x-ray was back in 2020 demonstrating no acute disease. Will have her repeat the chest x-ray specially since she is still short of breath and will also have her undergo blood work. 09/19/2023 the patient is here for hospital follow-up visit. she was briefly admitted to [facility]. She was diagnosed with pneumonia and respiratory failure. I do not have the paperwork from hospitalizations. The patient was provided with oxygen supplementation while she was in the hospital. Now upon discharge the patient is able to be weaned off completely. She did completed antibiotics and also completed steroids. The patient is feeling better. Again, will request the records from [facility] to get more details. In the meantime she continues with the current respiratory regimen. She does have dyspnea on exertion. Mild in severity. She is also tired in general. Moderate severity. She continues diuresis. We did go for brief walking oximetry she was able to maintain within normal ranges therefore not qualify for oxygen. Will go ahead and request an overnight oximetry to make sure that she does not have any hypoxic episodes while sleeping. In addition to that she should have a repeat chest x-ray to make sure there is resolution of the airspace disease. 12/17/2023 the patient is here for follow-up patient's she is also recovered from her knee surgery she has been using the oxygen at nighttime. We did do the patient definitely needs the oxygen at nights and she desaturated for about minutes below 88%. We did talk about considering in-lab sleep study in the near future. The patient also had a chest x-ray which I personally reviewed. She does have significant areas of atelectasis and likely some degree of scarring in the right hemithorax likely residual from her significant pneumonia. Indeed on exam she still has some crackles on the right side. I did give her a letter for work to avoid the exposure to the significant heat during this heat wave. 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 The patient also will continue current pulmonary rehabilitation. I will send a prescription to rehab for her to restart rehab at this time. 07/29/2024 the patient is here for a pulmonary follow-up visit about a month ago she did bronchitis and she did have an x-ray done at [facility]. I will go ahead and review it. Prior to that she had been doing okay. She continues use her respiratory therapy as prescribed. She also had an overnight oximetry and she did qualify for oxygen and she has been using the oxygen now at nighttime with good effect. Although she still has significant lower extremity edema significant tachycardia. She does have daytime drowsiness with an elevated [place] score of 11/24. The patient needs to have a home sleep study at this time. The patient will also follow-up with Cardiology. She needs to make sure she follows a low-sodium diet with significant swelling. Lung exam is clear at this time which is reassuring. Will follow-up 4 months after her sleep study to review. If anything is on her x-ray that I am concerned with a let her know should get additional imaging studies. 02/08/2025 the patient is here for a pulmonary follow-up visit. Overall the patient has been doing well. She continues have daytime drowsiness. [place] score is elevated 11/24. She does use oxygen at nighttime. The patient did have her sleep study demonstrating evidence of sleep apnea in addition to that significant hypoxia. She ultimately underwent a titration study which demonstrated the fact the patient had significant hypoxia and she was titrated on CPAP and then BiPAP. The felt that the BiPAP 02/01 with 1 L of oxygen was sufficient to treat her apnea. Therefore, will go ahead and start her on auto BIPAP with the hopes that we can up titrate her further. The patient will continue on the oxygen. But when she gets used to the BiPAP will go ahead and request an overnight oximetry on room air on the BiPAP to see if she still needs the oxygen. She continues with respiratory therapy as prescribed. Will follow- up in 3-4 months to assess her progress on the PAP therapy. 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 Daughter No problems noted. Son No problems noted. Son No problems noted. 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 Review of Systems Const Denies night sweats ENT Denies change in voice, Denies lip swelling, Denies mouth pain, Reports nasal congestion, Reports nasal discharge, Reports sinus pressure and Denies tongue swelling Card Denies chest pain and Reports dyspnea on exertion Resp Reports cough, Denies hemoptysis and Reports dyspnea on exertion GI Denies abdominal pain Musc Reports as per HPI and Reports myalgias Neuro Denies Neuro-related abnormal movements Psych Denies no additional complaints [place]/Lymph Denies easy bleeding and Denies lymphadenopathy Aller/Immun Denies lip swelling and Denies tongue swelling Physical Exam Vital Signs: Last Vital Signs Pulse 88 02/08/25 09:40 BP 130/54 L 02/08/25 09:40 Pulse Ox 97 02/08/25 09:40 Oxygen Delivery Method Room Air 02/08/25 09:40 BMI result Body Mass Index 39.9 Const General: alert Neck Neck: Yes normal visual inspection, Yes full ROM and Yes no lymphadenopathy Chest Chest palpation & inspection: normal inspection of the chest Resp Auscultation: diminished lung sounds Cardio Rate: regular rate Rhythm: regular rhythm Heart sounds: S1 normal heart sound present and S2 normal heart sound present GI Palpation (GI): Soft to palpation and nontender Auscultation: normal bowel sounds Skin General skin exam: rashes and/or lesions noted Extrem General: Yes edema Assessment & Plan Assessment & Plan (1) Chronic restrictive lung disease: Code(s): J98.4 - Other disorders of lung Category: Medical (2) Dyspnea: Code(s): R06.00 - Dyspnea, unspecified Category: Medical Qualifiers: Dyspnea type: dyspnea on exertion Qualified Code(s): R06.00 - Dyspnea, unspecified (3) Diastolic dysfunction: Code(s): I51.89 - Other ill-defined heart diseases Category: Medical (4) LUZMARIA (obstructive sleep apnea): Code(s): G47.33 - Obstructive sleep apnea (adult) (pediatric) Category: Medical Plan start Auto BIPAP with 1L oxygen continue oxygen at night diursesis as tolerated low sodium diet compression stockings F/U with Pulmonary 3-4 months Coding Level of Care Code Est Pt Level 4 (76038) Complex EM visit Add On G2211 Diagnoses Chronic restrictive lung disease J98.4 Dyspnea on exertion R06.00 Dyspnea type: dyspnea on exertion Diastolic dysfunction I51.89 LUZMARIA (obstructive sleep apnea) G47.33 Time Spent (min) 17
--- OUTSIDE RECORDS SUMMARY | 2025-02-08 09:48 | XMS_ITS | Clinical Summary ---
Author Organization [facility] Address [address] [place] [address] Phone Care Team Providers Care Lead Database Administrator Name Role Phone Sharlene Sanchez VERENICE Primary Care Provider [phone] Allergies Active Allergy Reactions Criticality Noted Date [...] - 12/09/2024 11:59 PM EDT Hospital Encounter [facility] CT Scan [address] [place] [address] Calculus of kidney Discharge Disposition: Home or Self Care from Last 3 Months Surgical History Surgery Date Site/Laterality Comments SALPINGOOPHORECTOMY PROCEDURE: DE LAPAROSCOPY W/RMVL ADNEXAL STRUCTURES; COMMENT: Salpingectomy only OTHER SURGICAL HISTORY Right PROCEDURE: ---- OTHER ----; COMMENT: Parotidectomy OTHER SURGICAL HISTORY PROCEDURE: ---- OTHER ----; COMMENT: Uterine ablation HERNIA REPAIR PROCEDURE: HISTORICAL HERNIA REPAIR/UMB LITHOTRIPSY 02/20/2021 Left PROCEDURE: HISTORICAL LITHOTRIPSY; COMMENT: Ureteral nephroscopic stone lithotripsy and stone removal with retrograde pyelogram and stent placement APPENDECTOMY PROCEDURE: DE APPENDECTOMY Medical History Medical History Date Comments [...] Description 03/02/2025 8:20 AM EDT Office Visit [facility] [address] [place] [address] Dr [address] [place] [address] Crispin Bacon MD [address] [place] [address] [address]IVE [address] [place] [address] Health Maintenance Due Date Last Done Comments [...] Signed Date: 12/09/2024 11:41 ET Workstation ID: [id number] Transcribed By: Self Edit Transcribed Date: 12/09/2024 [...] Signed Date: 12/09/2024 11:41 ET Workstation ID: [id number] Transcribed By: Self Edit Transcribed Date: 12/09/2024 10:58 ET Mabel Nogueira MD IMG CT PROCEDURES Final Result * (ABNORMAL) Lipid panel (05/10/2021) Pathologist [facility] LDL/HDL Ratio 5(A) 0 - 4 Triglycerides 192(A) 0 - 150 mg/dL Cholesterol 295(A) 0 - 200 mg/dL HDL 61 >=40 mg/dL LDL Cholesterol 196(A) 0 - 100 mg/dL Blood Venous blood specimen / Unknown Result [facility] Provider LAB BLOOD ORDERABLES Jessie l Result * Colonoscopy (03/30/2019) Pathologist [facility] Colonoscopy No Interpretation , Abstracted Anatomical Region Laterality Modality Other Historical Provider HEALTH MAINTENANCE Final Result * Hepatitis C Screening (12/05/2018) Pathologist [facility] Hepatitis C Screening Abstracted Historical Provider HEALTH MAINTENANCE Final Result * Pap Smear (08/01/2017) Pathologist [facility] Pap smear No Interpretation , Abstracted Historical Provider HEALTH MAINTENANCE Final Result from Last 3 Months or Most Recently Relevant to Health Maintenance Insurance [facility] Advance Directives Documents on File Type Date Recorded Patient Director Of District Office Expl anation Health Care Decision (hx) 02/23/2021 AD [place] DIRECTIVE Health Care Decision (hx) 02/23/2021 AD [place]LL[place]O DIRECTIVE Health Care Decision (hx) 02/23/2021 AD COLLADO DIRECTIVE Health Care Decision (hx) 02/23/2021 AD COLLADO DIRECTIVE Health Care Decision (hx) 02/23/2021 AD COLLADO DIRECTIVE Health Care Decision (hx) 02/23/2021 AD COLLADO DIRECTIVE Care Teams Lead Database Administrator Relationship Specialty Start Date End Date Sharlene Sanchez NP [address] [place] [address] PCP - General 04/17/22
== END 2025-02-08 10:14 | disposition home or self-care (01) ==
LOC: HO.HPS 09:22
PROVIDERS: Visit Provider Hospitalist
DX: J98.4 Other disorders of lung (principal); R06.00 Dyspnea, unspecified; I51.89 Other ill-defined heart diseases; G47.33 Obstructive sleep apnea (adult) (pediatric)
CPT/HCPCS: 99214

== ENCOUNTER → 2025-02-08 09:21 | Outpatient (BNVA) | payer OTHER, SELFPAY | PROVIDERS: Visit Provider Hospitalist | DX: G47.33 Obstructive sleep apnea (adult) (pediatric) (principal); J98.4 Other disorders of lung; R06.00 Dyspnea, unspecified; I51.89 Other ill-defined heart diseases | CPT/HCPCS: 99212 ==

== ENCOUNTER 2025-05-17 13:51 | Outpatient (AMB) | payer OTHER, SELFPAY ==
--- NOTE | 2025-05-17 14:07 | MHC.OFFVIS ---
Vital Signs 05/17/25 14:13 Height 5 ft 4 in Weight 232 lb BMI 39.8 Intake Visit Reasons: Right knee Euflexxa #1 Intake Note: Navya is a 64 year old female who presents today for her right knee Euflexxa injection, #1. She describes her right knee pain as sharp in nature. She has had cortisone injections in the past which gave her minimal relief. She has failed the last 3 months of conservative treatment. She wishes to hold off on surgery if at all possible. Allergies prednisone Adverse Reaction (Severe, Verified 05/17/25 14:12) Numbness codine Allergy (Severe, Uncoded 05/17/25 14:12) redness and itching penicillin Allergy (Severe, Uncoded 05/17/25 14:12) anaphylaxis soma Allergy (Severe, Uncoded 05/17/25 14:12) nausea and vomiting Medication List - Last Reconciled 05/18/25 by Michael Dickerson MD amlodipine 10 mg PO DAILY ascorbic acid (vitamin C) 1 g PO Q6H cholecalciferol (vitamin D3) 250 mcg PO DAILY elderberry fruit-honey 0.7-3 gram/7.5 mL mL PO DAILY furosemide (Lasix) 20 mg PO DAILY PRN 30 days lactobacillus combination no.9 (Adult 50 Plus Probiotic) 4,000 mmu cells PO DAILY metoprolol succinate ER 25 mg PO DAILY pantoprazole 20 mg PO DAILY red yeast rice 600 mg PO DAILY turmeric root extract 500 mg PO DAILY PFSH Medical History LUZMARIA (obstructive sleep apnea) Atelectasis Pneumonia Chronic restrictive lung disease Diastolic dysfunction 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 Daughter No problems noted. Son No problems noted. Son No problems noted. 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 Physical Exam Vital Signs: BMI result Body Mass Index 39.8 Extrem Other: Right knee examination shows a minimal effusion, palpable crepitus with range of motion, pain with range of motion, no instability Office Procedures AMB Joint Injection/Aspiration Joint Injection/Aspiration Primary Site: Right Knee Prep: site was prepped using aseptic technique Injected: 20 mg of (Euflexxa viscosupplementation), with 3 mL of and 1% plain Lidocaine Procedure: The patient tolerated the procedure well Coding 72918 - Large joint Procedure code (CPT) selection complete Results Reviewed Results Reviewed: X-rays of the patient's right knee taken previously show joint space narrowing, subchondral sclerosis, no acute bony abnormalities Assessment & Plan Assessment & Plan (1) Osteoarthritis of right knee: Code(s): M17.11 - Unilateral primary osteoarthritis, right knee Category: Medical Plan Ms. Gunter presents with right knee pain due to osteoarthritis. The risks and benefits of a right knee Euflexxa injection were discussed at length with the patient. The patient wished to proceed. She tolerated the 1st injection well. She will follow up for her 2nd injection next week. Feel free to call me at any time should questions regarding her orthopedic management arise. I spent 22 minutes in reviewing the patient's records and imaging studies, seeing the patient and documenting in the medical record. Orders: Orders AMB Joint Injection/Aspiration 05/17/25 M17.11 - Unilateral primary osteoarthritis, right knee Coding Level of Care Code Est Pt Level 3 (65632) Complex EM visit Add On G2211 Diagnoses Osteoarthritis of right knee M17.11 CPT Codes Coding - 68404 Large joint: 98141 - Large joint ([id number])
[2025-05-17 14:13] VITALS: BMI 39.8
== END 2025-05-17 14:19 | disposition home or self-care (01) ==
LOC: HO.HOS 13:52
PROVIDERS: Visit Provider Orthopaedic Surgery
DX: M17.11 Unilateral primary osteoarthritis, right knee (principal)
CPT/HCPCS: 20610; 99213

== ENCOUNTER → 2025-05-17 13:51 | Outpatient (BNVA) | payer OTHER, SELFPAY | PROVIDERS: Visit Provider Orthopaedic Surgery | DX: M17.11 Unilateral primary osteoarthritis, right knee (principal); Z79.899 Other long term (current) drug therapy | CPT/HCPCS: 20610; 99212; J2003; J7323 ==

== ENCOUNTER 2025-05-25 14:04 | Outpatient (AMB) | payer OTHER, SELFPAY ==
--- NOTE | 2025-05-25 14:11 | MHC.OFFVIS ---
Vital Signs 05/25/25 14:12 Height 5 ft 4 in Weight 232 lb BMI 39.8 Intake Visit Reasons: Right knee Euflexxa #2 Intake Note: Navya is a 64 year old female who presents today for her second dose of her Euflexxa injection for her right knee. She states that she got mild relief from the 1st injection. She continues with her home exercise program. Allergies prednisone Adverse Reaction (Severe, Verified 05/25/25 14:12) Numbness codine Allergy (Severe, Uncoded 05/25/25 14:12) redness and itching penicillin Allergy (Severe, Uncoded 05/25/25 14:12) anaphylaxis soma Allergy (Severe, Uncoded 05/25/25 14:12) nausea and vomiting Medication List - Last Reconciled 05/26/25 by Michael Dickerson MD amlodipine 10 mg PO DAILY ascorbic acid (vitamin C) 1 g PO Q6H cholecalciferol (vitamin D3) 250 mcg PO DAILY elderberry fruit-honey 0.7-3 gram/7.5 mL mL PO DAILY furosemide (Lasix) 20 mg PO DAILY PRN 30 days lactobacillus combination no.9 (Adult 50 Plus Probiotic) 4,000 mmu cells PO DAILY metoprolol succinate ER 25 mg PO DAILY pantoprazole 20 mg PO DAILY red yeast rice 600 mg PO DAILY turmeric root extract 500 mg PO DAILY PFSH Medical History LUZMARIA (obstructive sleep apnea) Atelectasis Pneumonia Chronic restrictive lung disease Diastolic dysfunction [id number] syndrome Limb swelling Pneumonia due to COVID-19 virus Dyspnea Tachycardia HTN (hypertension) GERD (gastroesophageal reflux disease) Obesity Surgical History Hx of cataract surgery History of unilateral fallopian tube excision History of parotid gland removal Hx of umbilical hernia repair Family History Mother Leukemia Father Heart disease Hypertension Hyperlipidemia Diabetes Colitis Sister No problems noted. Daughter No problems noted. Son No problems noted. Son No problems noted. 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 Physical Exam Vital Signs: BMI result Body Mass Index 39.8 Extrem Other: Right knee examination shows a minimal effusion, palpable crepitus with range of motion, pain with range of motion, no instability Office Procedures AMB Joint Injection/Aspiration Joint Injection/Aspiration Primary Site: Right Knee Prep: site was prepped using aseptic technique Injected: Euflexxa, with 3 mL of and 1% plain Lidocaine Procedure: The patient tolerated the procedure well Coding - Large joint Procedure code (CPT) selection complete Assessment & Plan Assessment & Plan (1) Osteoarthritis of right knee: Code(s): M17.11 - Unilateral primary osteoarthritis, right knee Category: Medical Plan Ms. Gunter presents with right knee pain due to osteoarthritis. The risks and benefits of a 2nd Euflexxa injection were discussed at length with the patient. The patient wished to proceed. She tolerated the injection well. She will continue with her home exercise program. She will follow up next week as scheduled. Feel free to call me at any time should questions regarding her orthopedic management arise. Orders: Orders AMB Joint Injection/Aspiration 05/25/25 M17.11 - Unilateral primary osteoarthritis, right knee Coding Level of Care Code Procedure Only Diagnoses Osteoarthritis of right knee M17.11 CPT Codes Coding - 38444 Large joint: 30006 - Large joint ([id number])
[2025-05-25 14:12] VITALS: BMI 39.8
--- OUTSIDE RECORDS SUMMARY | 2025-05-25 17:59 | XMS_ITS | Clinical Summary ---
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 09/04/2022 Active CHOLECALCIFEROL , VITAMIN D3, ORAL Take 1 tablet by mouth 1 (one) time each day. Active RED YEAST RICE EXTRACT ORAL Take by mouth 1 (one) time each day. Active vit C/zinc citrate/elderbe rry (ELDERBERRY IMMUNE HEALTH ORAL) Take by mouth 1 (one) time each day. Active saccharomyces boulardii (FLORASTOR) 250 mg capsule Take 1 capsule by mouth 3 times daily (with meals) for 30 days. 06/20/2020 Active metoprolol succinate (TOPROL-XL) 25 mg 24 hr tablet TAKE 1 TABLET BY MOUTH 1 TIME EACH DAY. 90 tablet 1 02/16/2025 Active pantoprazole (PROTONIX) 40 mg EC tablet Take 1 tablet (40 mg total) by mouth 2 (two) times a day. Active amLODIPine (NORVASC) 10 mg tablet TAKE 1 TABLET BY MOUTH EVERY DAY 90 tablet 3 03/29/2025 Active Active Problems Problem Noted Date Diagnosed Date History of incisional hernia repair 06/02/2024 Hypertension 04/13/2024 Overview (04/13/2024): Follows with Dr Negrete Last Assessment & Plan: Patient's blood pressure is under good control with a reading today of 118/84. She will continue on her present doses of metoprolol, amlodipine and furosemide as prescribed. We will update her labs today. Assessment & Plan (03/02/2025 12:46 PM EDT): Patient's blood pressure is well-controlled but she may be having some localized swelling secondary to amlodipine. I offered to stop the amlodipine and switch her to another medical therapy. She would like to see if the BiPAP helps decrease the edema first Orders: ECG 12 lead COVID-19 04/13/2024 Osteochondrosis of lunate of left [...] She will likely need to start statin. Assessment & Plan (03/02/2025 12:46 PM EDT): I have sent the patient off another lipid profile. She has had trouble with statins and PK S9. 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 CN-mild diverticulosis with int hemorrhoids- rpt in 10 yrs Obesity (BMI 30-39.9) 06/04/2018 Encounters Date Type Department Care Team Description 03/02/2025 8:20 AM EDT Office Visit [facility] [address] [facility] [address] [place] [id number] Crispin Bacon MD Primary hypertension (Primary Dx); Moderate mixed hyperlipidemia not requiring statin therapy from Last 3 Months Surgical History Surgery Date Site/Laterality Comments SALPINGOOPHORECTOMY PROCEDURE: MI LAPAROSCOPY W/RMVL ADNEXAL STRUCTURES; COMMENT: Salpingectomy only OTHER SURGICAL HISTORY Right PROCEDURE: ---- OTHER ----; COMMENT: Parotidectomy OTHER SURGICAL HISTORY PROCEDURE: ---- OTHER ----; COMMENT: Uterine ablation HERNIA REPAIR PROCEDURE: HISTORICAL HERNIA REPAIR/UMB LITHOTRIPSY 02/20/2021 Left PROCEDURE: HISTORICAL LITHOTRIPSY; COMMENT: Ureteral nephroscopic stone lithotripsy and stone removal with retrograde pyelogram and stent placement APPENDECTOMY PROCEDURE: MI APPENDECTOMY Medical History Medical History Date Comments [...] Sign Reading Time Taken Comments Blood Pressure 160/98 03/02/2025 8:16 AM EDT Pulse 91 03/02/2025 8:16 AM EDT Temperature - - Respiratory Rate - - Oxygen Saturation 93% 03/02/2025 8:16 AM EDT Inhaled Oxygen Concentration - - Weight 106 kg (234 lb 6.4 oz) 03/02/2025 8:16 AM EDT Height 162.6 cm (5' 4 ) 03/02/2025 8:16 AM EDT Body Mass Index 40.23 03/02/2025 8:16 AM EDT Plan of Treatment Health Maintenance Due Date Last Done Comments Breast Cancer Screening 1960 Pneumococcal Vaccine: 50+ Years (1 of 1 - PCV) 2010 RSV Immunization Adult Patients (1 - Risk 50-74 years 1-dose series) 2010 Zoster Vaccines (1 of 2) 2010 DTaP,Tdap,and Td Vaccines (2 - Td or Tdap) 04/05/2020 04/05/2010 Cervical Cancer Screening: P ap Smear 08/01/2020 08/01/2017 HIV Screening 06/02/2022 Social Influencers of Health Screening 06/02/2022 Hypertension/CHF/CAD Annual BMP Blood Test 06/10/2022 Depression Screening 07/01/2024 COVID-19 Vaccine (3 - 2024-2 6 season) 2025 11/15/2020, 10/25/2020 Influenza Vaccine (#1) 2025 2, 05/03/2011, 04/05/2010 Cholesterol Screening (Lipid Panel) 05/10/2026 05/10/2021 Colorectal Cancer Screening: Colonoscopy 03/30/2029 03/30/2019 Hepatitis C Screening Completed 12/05/2018 HIB Vaccines [...] Procedure Name Priority Date/Time Associated Diagnosis Comments ECG 12-LEAD Routine 03/02/2025 8:25 AM EDT Primary hypertension LIPID PANEL Routine 05/10/2021 COLONOSCOPY Routine 03/30/2019 HEPATITIS C SCREENING Routine 12/05/2018 PAP SMEAR Routine 08/01/2017 from Last 3 Months or Most Recently Relevant to Health Maintenance Results * ECG 12 lead (03/02/2025 8:25 AM EDT) [facility] Ventricular Rate ECG 82 BPM GEMUSE Atrial Rate 82 BPM GEMUSE P-R Interval 176 ms GEMUSE QRS Duration 90 ms GEMUSE Q-T Interval 410 ms GEMUSE QTc 479 ms GEMUSE P Wave Bowie 63 degrees GEMUSE R Bowie 82 degrees GEMUSE T Bowie 48 degrees GEMUSE ECG Interpretation Normal sinus rhythm Normal ECG When compared with ECG of 21-NOV-2017 09:08, No significant change was found Confirmed by Bill BACON JAMES ([id number]) on 03/02/2025 12:25:09 PM GEMUSE 03/02/2025 8:25 AM EDT 03/02/2025 12:25 PM EDT Crispin Bacon MD ECG ORDERABLES Final Result GEMUSE * (ABNORMAL) Lipid panel (05/10/2021) [facility] LDL/HDL Ratio 5(A) 0 - 4 Triglycerides 192(A) 0 - 150 mg/dL Cholesterol 295(A) 0 - 200 mg/dL HDL 61 >=40 mg/dL LDL Cholesterol 196(A) 0 - 100 mg/dL Blood Venous blood specimen / Unknown Result [facility] Historical Provider LAB BLOOD ORDERABLES Jessie l Result * Colonoscopy (03/30/2019) Pathologist [facility] Colonoscopy No Interpretation , Abstracted Anatomical Region Laterality Modality Other Historical Provider HEALTH MAINTENANCE Final Result * Hepatitis C Screening (12/05/2018) Pathologist [facility] Hepatitis C Screening Abstracted Historical Elicia SEPULVEDA HEALTH MAINTENANCE Final Result * Pap Smear (08/01/2017) Pap smear No Interpretation , Abstracted us Historical Provider HEALTH MAINTENANCE Final Result from Last 3 Months or Most Recently Relevant to Health Maintenance Insurance [facility] [employer] Advance Directives Documents on File Type Date Recorded 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
== END 2025-05-25 14:26 | disposition home or self-care (01) ==
LOC: HO.HOS 14:05
PROVIDERS: Visit Provider Orthopaedic Surgery
DX: M17.11 Unilateral primary osteoarthritis, right knee (principal)
CPT/HCPCS: 20610

== ENCOUNTER → 2025-05-25 14:04 | Outpatient (BNVA) | payer OTHER, SELFPAY | PROVIDERS: Visit Provider Orthopaedic Surgery | DX: M17.11 Unilateral primary osteoarthritis, right knee (principal) | CPT/HCPCS: 20610; J2003; J7323 ==

== ENCOUNTER 2025-06-01 11:33 | Outpatient (AMB) | payer OTHER, SELFPAY ==
--- NOTE | 2025-06-01 11:34 | A.OFFVIS_ITS ---
Intake Visit Reasons: Inj-Right knee Euflexxa #3, Left knee pain, Right knee pain Intake Note: Navya is a 64 year old female who presents today for her third dose of her Euflexxa injection for her right knee. Allergies prednisone Adverse Reaction (Severe, Verified 05/25/25 14:12) Numbness codine Allergy (Severe, Uncoded 05/25/25 14:12) redness and itching penicillin Allergy (Severe, Uncoded 05/25/25 14:12) anaphylaxis soma Allergy (Severe, Uncoded 05/25/25 14:12) nausea and vomiting Medication List - Last Reconciled 06/01/25 by Michael Dickerson MD amlodipine 10 mg PO DAILY ascorbic acid (vitamin C) 1 g PO Q6H cholecalciferol (vitamin D3) 250 mcg PO DAILY elderberry fruit-honey 0.7-3 gram/7.5 mL mL PO DAILY furosemide (Lasix) 20 mg PO DAILY PRN 30 days lactobacillus combination no.9 (Adult 50 Plus Probiotic) 4,000 mmu cells PO DAILY metoprolol succinate ER 25 mg PO DAILY pantoprazole 20 mg PO DAILY red yeast rice 600 mg PO DAILY turmeric root extract 500 mg PO DAILY PFSH Medical History LUZMARIA (obstructive sleep apnea) Atelectasis Pneumonia Chronic restrictive lung disease Diastolic dysfunction [id number] syndrome Limb swelling Pneumonia due to COVID-19 virus Dyspnea Tachycardia HTN (hypertension) GERD (gastroesophageal reflux disease) Obesity Surgical History Hx of cataract surgery History of unilateral fallopian tube excision History of parotid gland removal Hx of umbilical hernia repair Family History Mother Leukemia Father Heart disease Hypertension Hyperlipidemia Diabetes Colitis Sister No problems noted. Daughter No problems noted. Son No problems noted. Son No problems noted. 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 Physical Exam Extrem Other: Bilateral knee examination shows minimal effusions, palpable crepitus with range of motion, pain with range of motion, no instability Office Procedures AMB Joint Injection/Aspiration Joint Injection/Aspiration Primary Site: Right Knee Prep: site was prepped using aseptic technique Injected: 20 mg of, Euflexxa, with 3 mL of and 1% plain Lidocaine Procedure: The patient tolerated the procedure well Coding - Large joint Procedure code (CPT) selection complete Results Reviewed Results Reviewed: X-rays of the patient's bilateral knees taken previously show joint space narrowing, subchondral sclerosis, no acute bony abnormalities Assessment & Plan Assessment & Plan (1) Left knee pain: Code(s): M25.562 - Pain in left knee (2) Right knee pain: Code(s): M25.561 - Pain in right knee (3) Osteoarthritis of left knee: Code(s): M17.12 - Unilateral primary osteoarthritis, left knee Category: Medical (4) Osteoarthritis of right knee: Code(s): M17.11 - Unilateral primary osteoarthritis, right knee Category: Medical Plan Ms. Gunter presents with bilateral knee pains due to osteoarthritis. The risks and benefits of a 3rd right knee Euflexxa injection were discussed at length with the patient. The patient wished to proceed. She tolerated the injection well. I will see if the patient's insurance company will cover a series of 3 Euflexxa injections for her left knee. I will see her back once the injections are available. Feel free to call me at any time should questions regarding her orthopedic management arise. I spent 21 minutes in reviewing the patient's records and imaging studies, seeing the patient and documenting in the medical record. Orders: Orders 2 AMB Joint Injection/Aspiration Today M17.11 - Unilateral primary osteoarthritis, right knee Coding Level of Care Code Est Pt Level 3 (67924) Complex visit Add On G2211 Diagnoses Left knee pain M25.562 Right knee pain M25.561 Osteoarthritis of left knee M17.12 Osteoarthritis of right knee M17.11 CPT Codes Coding - Large joint: 33284 - Large joint ([id number])
== END 2025-06-01 12:01 | disposition home or self-care (01) ==
LOC: HO.HOS 11:33
PROVIDERS: Visit Provider Orthopaedic Surgery
DX: M17.0 Bilateral primary osteoarthritis of knee (principal); M25.561 Pain in right knee
CPT/HCPCS: 20610

== ENCOUNTER → 2025-06-01 11:33 | Outpatient (BNVA) | payer OTHER, SELFPAY | PROVIDERS: Visit Provider Orthopaedic Surgery | DX: M17.11 Unilateral primary osteoarthritis, right knee (principal); M25.561 Pain in right knee | CPT/HCPCS: 20610; J2003; J7323 ==